=== PATIENT | male | born 1950 | race Caucasian/White ===

== ENCOUNTER → 2018-07-03 07:42 | Outpatient (CLI) | payer MEDICARE, SELFPAY ==
[2018-07-02 13:26] VITALS: BMI 32.7
[2018-07-03 09:48] LABS: AST(SGOT) 37 U/L (15-37); Alanine Aminotransfer ALT/SGPT 38 U/L (16-61); Albumin, Serum 3.8 g/dL (3.2-5.0); Alkaline Phosphatase 54 U/L (45-117); Bilirubin, Direct 0.19 mg/dL (0.00-0.30); Cholesterol 112 mg/dL (200); Globulin 3.5 g/dL (2.2-4.2); High Density Lipoprotein 45 mg/dL; Protein, Total 7.3 g/dL (6.4-8.2); Triglycerides 74 mg/dL; Very Low Density Lipoprotein 15 mg/dL (5-40)
== END ==
PROVIDERS: Family Provider Family Medicine; PCP Family Medicine; Referring Provider Internal Medicine Cardiovascular Disease; Visit Provider Internal Medicine Cardiovascular Disease
DX: E78.5 Hyperlipidemia, unspecified (principal)
CPT/HCPCS: 36415; 80061; 80076

== ENCOUNTER → 2018-07-18 13:26 | Outpatient (CLI) | payer MEDICARE, SELFPAY ==
[2018-07-02 13:26] VITALS: BMI 32.7
--- NOTE | 2018-07-18 13:28 | ECHOCS_ITS ---
Reason For Study: PRE-OP Procedure This was a 2D Doppler, Color Flow transthoracic echocardiogram. The study was technically difficult. Contrast injection was performed. Exam performed in department. Left Ventricle Moderate concentric left ventricular hypertrophy. The estimated ejection fraction is 65 %. Stage 1 diastolic dysfunction. No regional wall motion abnormalities noted. Right Ventricle Normal size and thickness. Normal systolic function. Atria Normal left atrium. Normal right atrium. Normal atrial septum. Mitral Valve Mild diffuse mitral valve thickening. Mild (1+) mitral valve insufficiency. Tricuspid Valve Normal tricuspid valve. Mild (1+) tricuspid valve insufficiency. Right ventricular systolic pressure estimated to be 31 mmHg. Aortic Valve Trisinus/trileaflet aortic valve. Mild focal aortic valve thickening. Mild (1+) aortic valve insufficiency. Pulmonic Valve Normal pulmonic valve. Great Vessels Normal aortic root. Normal arch. Normal inferior vena cava. Inferior vena cava collapse with sniff. Pericardium/Pleural No pericardial effusion. Medication 22 gauge I.V. with prn adaptor inserted into right arm. Diluted definity 3ml given slow IV push to enhance endocardial definition. MMode/2D Measurements & Calculations LVIDd: 3.9 cm IVSd: 1.4 cm Ao root diam: 3.9 cm LVIDs: 2.4 cm LVPWd: 1.5 cm RVDd: 3.6 cm FS: 38.8 % LAV(MOD-bp): 74.1 ml EDV(MOD-sp4): 129.3 ml EDV(MOD-sp2): 132.9 ml LAV(MOD-bp) Indexed: 33.9 ml/m2 ESV(MOD-sp4): 41.4 ml EF(MOD-sp2): 55.3 % LAV(MOD-sp2): 103.2 ml EF(MOD-sp4): 68.0 % LAV(MOD-sp4): 50.9 ml SV(MOD-sp4): 87.9 ml SV(MOD-sp2): 73.5 ml LA A4 area: 19.7 cm2 LA dimension(2D): 4.0 cm RA A4 area: 12.9 cm2 Time Measurements MV dec time: 0.29 sec Doppler Measurements & Calculations MV E max russel: 49.9 cm/sec Lat Peak E' Russel: 8.8 cm/sec Med Peak E' Russel: 6.1 cm/sec MV A max russel: 41.8 cm/sec E/E' lat: 5.7 E/E' med: 8.2 MV E/A: 1.2 PA V2 max: 82.6 cm/sec TR max russel: 251.9 cm/sec TR max P.6 mmHg Interpretation Summary Moderate concentric left ventricular hypertrophy. The estimated ejection fraction is 65 %. Stage 1 diastolic dysfunction. Mild (1+) mitral valve insufficiency. Mild (1+) tricuspid valve insufficiency. Right ventricular systolic pressure estimated to be 31 mmHg. Mild (1+) aortic valve insufficiency. The study was technically difficult. Contrast injection was performed. There is no comparison study available. Ordering Physician: Chai Gambino Referring Physician: LILIA FOURNIER Performed By: Marah Gomez RDCS, RVT
== END ==
PROVIDERS: Family Provider Family Medicine; PCP Family Medicine; Referring Provider Internal Medicine Cardiovascular Disease; Visit Provider Internal Medicine Cardiovascular Disease
DX: I48.0 Paroxysmal atrial fibrillation (principal)
CPT/HCPCS: 93306; Q9957; A4216; C8929

== ENCOUNTER → 2018-07-24 09:03 | Outpatient (CLI) | payer MEDICARE, SELFPAY ==
[2018-07-02 13:26] VITALS: BMI 32.7
--- NOTE | 2018-07-24 09:04 | STEWCON_ITS ---
Reason For Study: Pre-Operative Stress Results Protocol: Dobutamine Stress Echo Maximum Predicted HR: 150 bpm Target HR: 128 bpm % Maximum Predicted HR: 97 % DurationHeart Rate Stage (mm:ss) (bpm) BP Comment Baseline 60 148/76No Chest Pain; Diluted Definity 4 ML Given DSE 10 MCG 3:26 67 161/88No Chest Pain DSE 20 MCG 3:00 108 165/78No Chest Pain DSE 30 MCG 2:54 146 164/85No Chest Pain Recovery 86 157/80No Chest Pain Stress Duration: 9:20 mm:ss Maximum Stress HR: 146 bpm METS: 1 Baseline Echocardiogram Findings The estimated ejection fraction is 65 %. Stress Echo Wall motion Data Resting WM Intermediate WM Stress WM Resting Wall Motion Wall Motion Stress No regional wall motion No regional wall motion abnormalities noted. abnormalities noted. EKG Data The baseline ECG displays normal sinus rhythm. The patient was titrated from 10 mcg to a maximun of 30 mcg of dobutamine during the stress. The maximum heart rate attained was 157 beats per minute. This was 104% of maximum predicted heart rate. During dobutamine infusion, there were no ST or T wave changes noted to suggest ischemia. No clinical angina was noted. Interpretation Summary The estimated ejection fraction is 65 %. Normal, adequate, dobutamine echocardiogram. Negative for ischemia by EKG and echocardiographic anterior. No anginal symptoms noted. Rare PVCs, ventricular couplets, and ventricular triplet during dobutamine infusion which is a nonspecific finding. Appropriate blood pressure response to dobutamine. Test terminated due to the attainment of target heart rate. Final LVEF is 75%. No complications. Ordering Physician: Chai Gambino Referring Physician: Jovan Elder III Performed By: Sinan Wihte RCS
== END ==
PROVIDERS: Family Provider Family Medicine; PCP Family Medicine; Referring Provider Internal Medicine Cardiovascular Disease; Visit Provider Internal Medicine Cardiovascular Disease
DX: Z01.810 Encounter for preprocedural cardiovascular examination (principal); I48.0 Paroxysmal atrial fibrillation; I10 Essential (primary) hypertension; E78.5 Hyperlipidemia, unspecified; E11.9 Type 2 diabetes mellitus without complications; R94.31 Abnormal electrocardiogram [ECG] [EKG]
CPT/HCPCS: 93017; 93350; J7040; Q9957; A4216; C8928

== ENCOUNTER → 2019-01-31 08:40 | Outpatient (CLI) | payer MEDICARE, OTHER, SELFPAY ==
[2018-07-02 13:26] VITALS: BMI 32.7
--- NOTE | 2019-01-31 16:18 | NEURO_ITS ---
NCS and/or EMG Patient Report HPI: Patient is a 68-year-old male who presented with pain in his right leg . Patient Had a back surgery. Patient had pain in the left leg prior to the surgery and after surgery pain has shifted to the right leg. Patient has numbness and tingling and weakness in the legs. Patient has history of diabetes and gout . Physical Exam: Decreased sensation to light touch noted in right and left distal lower extremities. Lumbar incision well-healed with mild spasm and tenderness. Mild weakness in distal lower extremity muscles. Findings: 1. There is prolongation of distal latencies of right and left sural sensory nerve responses. 2. There is a slowing of the right and left common peroneal nerve conduction velocities. 3. There is slowing of the right and left tibial nerve conduction velocities. 4. There is evidence of decreased CMAP amplitudes of the right and left common peroneal motor nerve responses. 5. Needle examination of bilateral lower extremities including lumbar paraspinal muscle except decreased recruitment and insertional activities in right and left EDB muscles. Impression: 1. 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 Recommendation: 1. Clinical correlation and appropriate work-up is recommended. 2. Patient recommended to have close monitoring and control of diabetes mellitus.
== END ==
PROVIDERS: Family Provider Family Medicine; PCP Family Medicine; Referring Provider Nurse Practitioner Acute Care; Visit Provider Nurse Practitioner Acute Care
DX: R20.2 Paresthesia of skin (principal)
CPT/HCPCS: 95886; 95912

== ENCOUNTER 2020-10-29 11:54 | Emergency (ER) | payer MEDICARE, OTHER, SELFPAY ==
[2020-10-29 11:55] VITALS: BP 182/97; PULSE 59; RESP 18; TEMP 35.9; O2SAT 96; BMI 34.0
--- NOTE | 2020-10-29 13:31 | CT_ITS ---
STUDY: CT BRAIN WITHOUT CONTRAST REASON FOR EXAM: Male, 70 years old. headache, dizziness RADIATION DOSAGE (If Supplied By Facility): CTDIvol = ( 38.43 ) mGy, DLP = ( 698.28 ) mGycm TECHNIQUE: Transaxial CT imaging of the brain was performed without administration of intravenous contrast material. Individualized dose optimization techniques were used for this CT. COMPARISON: No relevant priors. FINDINGS: Normal soft tissue structures. Normal calvarium. Normal size ventricles and extra-axial spaces for the patient''s age. Normal white matter tracts of the cerebral hemispheres. Normal basal ganglia and thalami. Normal brainstem. Normal cerebellum. There is no intracranial hemorrhage. There are no findings of an acute ischemic infarction. Normal visualized paranasal sinuses. CT/Brain/Head without Contrast IMPRESSION: Normal unenhanced CT scan of the brain. Electronically Signed: Kalia Maldonado MD at 14:17 EDT Tel , Service support ,
--- NOTE | 2020-10-29 13:31 | EKG12_ITS ---
Test Reason : DIZZINESS Blood Pressure : / mmHG Vent. Rate : 058 BPM Atrial Rate : 058 BPM P-R Int : 180 ms QRS Dur : 078 ms QT Int : 434 ms P-R-T Axes : 051 -23 046 degrees QTc Int : 426 ms Sinus bradycardia with Premature atrial complexes Otherwise normal ECG Confirmed by ADELINE JUNG, GILDA ([id number]), make up editor RODGER CORDOVA ([id number]) on 11/02/2020 8:34:12 AM Referred By: Confirmed By:RAZIA LR MD
[2020-10-29 13:39] LABS: Absolute Lymphocyte Count 1.87 X10^3/uL (0.83-4.51); Absolute Neutrophil Count 4.9 X10^3/uL (2.0-7.7); Basophil# 0.03 X10^3/uL; Basophil% 0.4 % (0-1); Eosinophil# 0.05 X10^3/uL; Eosinophils% 0.7 % (0-5); Hematocrit 38.3 % (40-54); Hemoglobin 12.9 g/dL (13.0-16.5); Lymphocyte # 1.87 X10^3/ul (0.83-4.51); Lymphocyte % 25.3 % (19-41); Mean Corp Hgb Conc 33.7 g/dL (32-36); Mean Corpuscular Hgb 32.4 pg (27.0-32.0); Mean Corpuscular Volume 96.2 fL (80-94); Monocyte# 0.54 X10^3/uL; Monocyte% 7.3 % (0-10); NRBC Flagged by Analyzer 0 % (0-5); Neutrophil # 4.86 X10^3/uL (2.7-7.7); Neutrophil % 65.6 % (47-70); Platelet Count 184 K/mm3 (150-450); RBC Distribution Width CV 12.2 % (11.6-14.6); RBC Distribution Width SD 43.5 fl (35.1-43.9); Red Blood Count 3.98 M/mm3 (4.6-6.2); White Blood Count 7.4 K/mm3 (4.4-11.0)
[2020-10-29] MEDS: Ondansetron 4 MG/2 ML Vial IV (13:42)
[2020-10-29] MEDS: Meclizine HCl 25 MG Tablet PO (13:42)
[2020-10-29 13:47] VITALS: BP 144/71; BP 145/68; BP 151/86; PULSE 58; PULSE 62; PULSE 64
[2020-10-29] MEDS: 0.9% Normal Saline 1,000 ML 150 ML IV (13:50)
[2020-10-29 13:54] VITALS: BP 144/71; PULSE 58; RESP 15; O2SAT 97
[2020-10-29 13:54] LABS: Anion Gap 7 (5-15); BUN 12 mg/dL (7-18); BUN/Creat Ratio 19.8 RATIO (10-20); Calcium,Total 8.8 mg/dL (8.5-10.1); Chloride 105 mmol/L (98-107); Creatinine, Serum 0.61 mg/dL (0.70-1.30); EST Glomerular Filtration Rate 139 mL/min (>60); Est Glom Filt Rate - Afr Amer 168 mL/min (>60); Estimated Creatinine Clearance 68.94 ml/min; Glucose 189 mg/dL (74-106); Potassium 3.9 mmol/L (3.5-5.1); Sodium Level 138 mmol/L (136-145); Troponin-I HS 15 pg/mL (3.0-78.0)
--- NOTE | 2020-10-29 15:04 | EDS_ITS ---
HPI History of Present Illness Chief Complaint: Dizziness Detail of Chief Complaint: Dizziness that started between 8 and 9 AM today. Informant: patient and spouse/S.O. Onset/Context/Timing Worsened by: Movement of head Associated Symptoms Associated Symptoms: Nausea Narrative Narrative: Patient presents to the emergency department complaint of dizziness that started this morning. Patient scribes a spinning sensation of things going around and round. Patient states that he is had similar symptoms in the past and has been diagnosed with vertigo. Patient did break out in a cold sweat and became nauseated. He does complain of a mild headache. He denies any falls or head injuries. He denies recent illness. Patient has been vaccinated against Covid. Patient does have history of paroxysmal A. fib but is not anticoagulated and only takes aspirin. Prior similar symptoms: Yes [facility] Medical History (Updated 10/29/20 @ 15:[address] Vicky Marsh, DO) Abnormal EKG Arthritis of left knee Diabetes mellitus, type II Essential hypertension First degree AV block Gout Hyperlipidemia Lumbar stenosis Paroxysmal atrial fibrillation Pre-operative cardiovascular examination Home Medications aspirin 81 mg PO DAILY 03/27/13 [History Last Taken 03/04/13] [id number]-OM-lycopen-lutein 1 ea PO DAILY 03/27/13 [History Last Taken Unknown] simvastatin 20 mg PO QHS 03/27/13 [History Last Taken Unknown] lisinopril 10 mg tablet 10 mg PO DAILY 06/28/18 [History Last Taken Unknown] gabapentin 600 mg tablet 800 mg PO TID 07/02/18 [History Last Taken Unknown] insulin glargine 100 unit/mL (3 mL) subcutaneous pen 52 unit SUBCUT QHS ml 07/02/18 [History Last Taken Unknown] insulin regular human 100 unit/mL injection solution 6 unit SC TIDCM ml 07/02/18 [History Last Taken Unknown] metformin 500 mg tablet 500 mg PO BIDCM tab 07/02/18 [History Last Taken Unknown] allopurinol 300 mg PO DAILY 10/29/20 [History Last Taken Unknown] dulaglutide [Trulicity] 1.5 mg SUBCUT QWEEK 10/29/20 [History Last Taken Unknown] meclizine 25 mg PO TID PRN #20 tab 10/29/20 [Rx Last Taken Unknown] naproxen sodium [Aleve] 220 mg PO BID 10/29/20 [History Last Taken Unknown] ondansetron 4 mg PO Q8H PRN PRN #10 tab 10/29/20 [Rx Last Taken Unknown] Allergy/AdvReac Type Severity Reaction Status Date / Time amoxicillin [Amoxicillin] AdvReac Other Verified 10/29/20 11:56 Family History Father Abdominal aortic aneurysm CAD (coronary artery disease) Mother Hypertension Brother Hyperlipidemia Hypertension Surgical History H/O carpal tunnel repair History of colon resection (02/16/07) History of colonoscopy (02/2013) History of esophagogastroduodenoscopy (EGD) (02/2013) History of laparoscopic cholecystectomy (04/03/13) Social History (Updated 07/02/18 @ 13:[address] Chai Gambino MD) Smoking Status: Former smoker quit date: 05/28/15 ROS ROS ED ROS Narrative Dizziness Constitutional Constitutional ED: Reports systems reviewed and no addt'l complaints, except as documented and sweats; Denies body ache(s), change in weight or chills Eyes Eyes: Denies acute decrease in peripheral vision, change in vision, double vision or loss of vision ENT ENT ED: Reports none; Denies ear pain, lip swelling, loss taste/smell, neck pain, otalgia or sore throat Cardiovascular Cardiovascular: Reports none; Denies abdominal pain, chest pain with activity, leg edema, lightheadedness, palpitations, rapid heart rate or syncope Respiratory/Chest Respiratory/Chest: Reports none; Denies change in mental status, dry cough, dyspnea, hemoptysis, shortness of breath at rest or shortness of breath with exertion Gastrointestinal Gastrointestinal: Reports none and nausea; Denies abdominal pain, change in stool character, diarrhea, hematemesis, hematochezia, melena, rectal bleeding or vomiting Genitourinary Genitourinary ED: Reports none; Denies abdominal discomfort, anuria, dysuria, ge nital pain or polyuria Musculoskeletal Musculoskeletal: Reports none; Denies arthralgias, back pain, difficulty walking, extremity pain, muscle weakness or myalgias Integumentary Reports none; Denies abscess or rash Neurologic Neurologic: Reports none; Denies abnormal gait, confusion, focal weakness, frequent falls, headache(s), loss of vision, numbness, paresthesias, radicular pain, vertigo or weakness Psychiatric Psychiatric: Reports systems reviewed and no addt'l complaints, except as documented and none; Denies behavioral changes, confusion, difficulty concentrating, hallucinations, suicidal ideation, tactile hallucinations or visual hallucinations Endocrine Endocrinology: Denies none, cold intolerance, excessive sweating, fatigue or heat intolerance Hematologic/Lymphatic Hematologic/Lymphatic: Reports none; Denies anemia, easy bleeding or easy bruis ing Allergic/Immunologic Allergic/Immunologic ED: Denies as per HPI, none, lip swelling, mouth swelling, throat swelling, tongue swelling or hives EXAM Physical Exam Const Vital Signs: 10/29/20 11:55 10/29/20 13:09 10/29/20 13:47 Temperature 96.7 F L Temperature Source Temporal Pulse Rate 59 L Pulse Rate [Lying] 58 L Pulse Rate [Sitting] 62 Pulse Rate [Standing] 64 Respiratory Rate 18 Respiratory Effort Normal Non-Labored Respiratory Pattern Normal Blood Pressure 182/97 H Blood Pressure [Lying] 145/68 H Blood Pressure [Sitting] 151/86 H Blood Pressure [Standing] 144/71 H Blood Pressure Mean 125 Blood Pressure Mean [Lying] 93 Blood Pressure Mean [Sitting] 107 Blood Pressure Mean [Standing] 95 Pulse Ox 96 Oxygen Delivery Method Room Air 10/29/20 13:54 Temperature Temperature Source Pulse Rate 58 L Pulse Rate [Lying] Pulse Rate [Sitting] Pulse Rate [Standing] Respiratory Rate 15 Respiratory Effort Respiratory Pattern Blood Pressure 144/71 H Blood Pressure [Lying] Blood Pressure [Sitting] Blood Pressure [Standing] Blood Pressure Mean 95 Blood Pressure Mean [Lying] Blood Pressure Mean [Sitting] Blood Pressure Mean [Standing] Pulse Ox 97 Oxygen Delivery Method Room Air Positive well nourished and well developed General Appearance ED: well developed and NAD HEENT Reports TM's clear and moist mucous membranes normocephalic and atraumatic; Negative for trauma or tenderness Tympanic Membrane ED: Yes TM's clear Eyes PERRL and EOMs intact bilaterally General Eye ED: Negative for pale conjunctiva or scleral icterus Neck no lymphadenopathy, supple and no JVD General: Negative for tenderness Chest Wall inspection of chest normal and palpation of chest normal Chest: Negative for tenderness Resp normal respiratory effort and clear to auscultation bilaterally Effort and Inspection: Negative for respiratory distress or pain with movement Auscultation: Negative for rhonchi, wheezes or diminished lung sounds Cardio regular rate, regular rhythm, S1 normal heart sound, S2 normal heart sound and no murmurs Peripheral Pulses: pulses 2+ throughout GI normal to inspection, nondistended, normoactive bowel sounds, soft to palpation, non-tender, non-distended and no masses Back/Spine no CVA tenderness and no thoracic nor lumbar tenderness Extremity normal to inspection General Extremety ED: Negative for edema General Extremity: Negative for edema Neuro oriented x3, CN's II-XII intact bilaterally, no sensory deficits noted and gait normal Neuro Narrative: Hallpike maneuver performed there is no evidence of nystagmus on exam. Patient was not more symptomatic with exam. Sensorium / Orientation: awake, alert, oriented to person, oriented to place and oriented to time Motor Exam: strength 5/5 throughout and strength abnormal Psych mental status grossly normal Skin no rashes or lesions noted and no wounds MDM MDM MDM Narrative Medical decision making narrative: I suspect patient likely has benign positional vertigo. His work-up in the department was unremarkable. He was medicated with Zofran and Antivert and did feel symptomatically improved. He was able to ambulate in department without difficulty. Lab Data Attestation: I reviewed the patient's lab results. Labs: Laboratory Results - last 24 hr 10/29/20 10/29/20 13:14 13:14 WBC 7.4 RBC 3.98 L Hgb 12.9 L Hct 38.3 L MCV 96.2 H MCH 32.4 H MCHC 33.7 RDW Std Deviation 43.5 RDW Coeff of Angelique 12.2 Plt Count 184 MPV 10.0 Immature Gran % (Auto) 0.700 Neut % (Auto) 65.6 Lymph % (Auto) 25.3 Josephine % (Auto) 7.3 Eos % (Auto) 0.7 Baso % (Auto) 0.4 Absolute Neuts (auto) 4.9 Absolute Lymphs (auto) 1.87 Nucleated RBC % 0 Sodium 138 Potassium 3.9 Chloride 105 Carbon Dioxide 26.0 Anion Gap 7 BUN 12 Creatinine 0.61 L Estim Creat Clear Calc 68.94 Est GFR (MDRD) Af Amer 168 Est GFR (MDRD) Non-Af 139 BUN/Creatinine Ratio 19.8 Glucose 189 H Calcium 8.8 Troponin I High Sens 15 Radiography Diagnostic Testing: Radiology Impression Brain CT 10/29/20 13:31 IMPRESSION: Normal unenhanced CT scan of the brain. Electronically Signed: Kalia Maldonado MD at 14:17 EDT Tel , Service support , EKG Initial EKG: Attestation: I personally reviewed and interpreted this EKG as follows: Comments: Sinus rhythm with a ventricular rate of 58 bpm with occasional PACs. Discharge Plan Triage Chief Complaint: Dizziness ED Provider: Vicky Marsh Dx/Rx/DC Orders Clinical Impression: Benign paroxysmal positional vertigo Instructions: ED BPV Vertigo Prescriptions: New ondansetron [ondansetron] 4 MG tablet 4 mg PO Q8H PRN PRN (Reason: Nausea) Qty: 10 RF: 0 meclizine 25 mg tablet 25 mg PO TID PRN (Reason: dizziness) Qty: 20 RF: 0 No Action lisinopril 10 mg tablet 10 mg PO DAILY RF: 0 Humulin R Regular U-100 Insuln 100 unit/mL solution 6 unit SC TIDCM RF: 0 gabapentin 600 mg tablet 800 mg PO TID RF: 0 aspirin 81 MG tablet,delayed release (DR/EC) 81 mg PO DAILY RF: 0 simvastatin 20 MG tablet 20 mg PO QHS RF: 0 yjnrlqsh-olk-KM-lycopen-lutein 1 EACH tablet 1 ea PO DAILY RF: 0 metformin 500 mg tablet 500 mg PO BIDCM RF: 0 insulin glargine 100 unit/mL (3 mL) insulin pen 52 unit subcut QHS RF: 0 naproxen sodium [Aleve] 220 mg Tablet 220 mg PO BID RF: 0 allopurinol 300 mg tablet 300 mg PO DAILY RF: 0 Trulicity 1.5 mg/0.5 mL Pen Injector 1.5 mg SUBCUT QWEEK RF: 0 Primary Care Provider: Alvarado Madrigal Referrals: Alvarado Madrigal MD [Primary Care Provider] - 3-5 Days Disposition Disposition: Home, Self Care
[2020-10-29 15:14] VITALS: BP 164/83; PULSE 63; RESP 12; O2SAT 94
== END 2020-10-29 15:21 | disposition home or self-care (01) ==
PROVIDERS: Emergency Provider Emergency Medicine; PCP Family Medicine
DX: H81.10 Benign paroxysmal vertigo, unspecified ear (principal); E11.9 Type 2 diabetes mellitus without complications; I10 Essential (primary) hypertension; E78.5 Hyperlipidemia, unspecified; Z79.4 Long term (current) use of insulin; Z79.899 Other long term (current) drug therapy; Z87.891 Personal history of nicotine dependence
CPT/HCPCS: 70450; 80048; 84484; 85025; 93005; 96374; 99284; J7030; A4216; J2405

== ENCOUNTER 2021-03-05 13:48 | Inpatient (IN) | payer MEDICARE, OTHER, SELFPAY ==
[2021-03-05] VITALS (10 sets, daily range): BP systolic 139–190; BP diastolic 76–101; PULSE 61–83; RESP 14–22; TEMP 35.7–36.7; O2SAT 95–100; BMI 32.3; BMI 33.9
[2021-03-05 14:01] LABS: Bedside Glucose 179 mg/dL (70-110)
--- NOTE | 2021-03-05 14:24 | EKG12_ITS ---
Test Reason : NEURO S/SX Blood Pressure : / mmHG Vent. Rate : 068 BPM Atrial Rate : 068 BPM P-R Int : 200 ms QRS Dur : 086 ms QT Int : 384 ms P-R-T Axes : 058 -30 068 degrees QTc Int : 408 ms Sinus rhythm with occasional Premature ventricular complexes Left axis deviation Abnormal ECG Low voltage QRS Confirmed by JC JUNG, CODEY ([id number]), deputy editor in chief OCTAVIA COX ([id number]) on 03/08/2021 12:44:10 PM Referred By: LEÓN Confirmed By:CODEY GREENE MD
--- NOTE | 2021-03-05 14:25 | CT_ITS ---
We are attempting to reach an attending provider to discuss findings. An addendum with communication details will be sent when the communication is complete. STUDY: CTA HEAD AND NECK WITH CONTRAST REASON FOR EXAM: Male, 70 years old. Neuro deficit, acute, stroke suspected RADIATION DOSAGE (If Supplied By Facility): CTDIvol = ( 31.05 ) mGy, DLP = ( 1522.23 ) mGycm TECHNIQUE: CT angiography was performed with a multi-detector CT scanner. Data acquisition was obtained from the skull base through the vertex following intravenous administration of IV 100mL [id number]-370. MIP images were reconstructed from the axial data set. Post-processing of the angiographic images was performed, with multiplanar reformation and 3D reconstruction. Individualized dose optimization techniques were used for this CT. COMPARISON: CT head October 29, 2020 FINDINGS: Normal bilateral petrous carotid arteries. There is calcified plaque formation of the right cavernous carotid artery, without a cross-sectional luminal stenosis. There is calcified plaque formation of the left cavernous carotid artery, without a cross-sectional luminal stenosis. Normal right A1 segments of the anterior cerebral artery. Normal left A1 segments of the anterior cerebral artery. Normal intact anterior communicating artery (ACOM). Normal bilateral A2 segments of the anterior cerebral arteries. Normal right M1 and M2 segments of the middle cerebral arteries, with a normal M1 bifurcation. Normal left M1 and M2 segments of the middle cerebral arteries, with a normal M1 bifurcation. Normal right posterior communicating artery (PCOM). Normal left posterior communicating artery (PCOM). There is dense calcification of the left vertebral artery with possibly occlusive disease over a 5 to 6 mm segment. There is focal moderate stenosis of the distal right vertebral artery The visualized bilateral superior cerebellar (SCA) arteries are normal. Normal bilateral P1, P2 and visualized P3 segments of the posterior cerebral arteries. There is no demonstrated aneurysm of the [place]. The noncontrasted portion of the study demonstrates mild atrophy and involutional change. There is dense calcification of the bilateral vertebral arteries. There is tortuosity. There is calcification of the bilateral cavernous carotid arteries. There is stable subtle low attenuation within the periphery of the cerebellum which could represent atrophy or prior ischemic change. AORTIC ARCH: Normal visualized aortic arch. Normal origins of the brachiocephalic, left common carotid, and left subclavian arteries. RIGHT CAROTID ARTERIES: Normal right common carotid artery (CCA). There is mild atherosclerotic plaque formation with minimal narrowing of the right carotid bulb. There is mild atherosclerotic plaque formation of the origin of the right internal carotid artery with less than 50% cross sectional diameter stenosis. Normal visualized cervical portion of the right internal carotid artery. Normal origin of the right external carotid artery (ECA). LEFT CAROTID ARTERIES: There is atherosclerotic plaque formation of the common carotid artery, but without a hemodynamically significant stenosis. There is mild atherosclerotic plaque formation with minimal narrowing of the left carotid bulb. There is mild atherosclerotic plaque formation of the origin of the left internal carotid artery with less than 50% cross sectional diameter stenosis. Normal visualized cervical portion of the left internal carotid artery. Normal origin of the left external carotid artery (ECA). Visualized degenerative change in the cervical spine. VERTEBRAL ARTERIES: There is moderate to severe narrowing of the distal left vertebral artery with findings suspicious for greater than 70% stenosis in an area of plaque formation. There is focal moderate stenosis of the right distal vertebral artery. CT/STROKE CTA Head AND Neck W/Con IMPRESSION: High-grade stenosis stenosis suspected within the distal left vertebral artery. Similar appearing plaque formation to October 29, 2020. Moderate small focal stenosis of the right vertebral artery. Good contrast enhancement of the basilar artery with an intact [place]. Cannot entirely exclude retrograde filling of the proximal basilar or distal vertebral arteries. Minimal atrophy. No visualized focal edema. [place]. Visualized plaque formation within the carotid arteries with less than 50% stenosis of the left internal carotid artery. [place]. Normal to mild diameter stenosis of the right internal carotid artery. Electronically Signed: Cecy Aponte MD at 15:47 EST Tel , Service support ,
--- NOTE | 2021-03-05 14:26 | EDS_ITS ---
HPI History of Present Illness Chief Complaint: Numb/Ting Informant: patient and spouse/S.O. Onset/Context/Timing Onset: Days Context: Gradual Onset Timing: Intermittent Quality and Location: Positive for Left Face Parasthesia and Difficulty with Ambulation; Negative for Slurred Speech, Expressive Aphasia and Receptive Aphasia Current Severity: Mild Maximum Severity: Mild Associated Symptoms Associated Symptoms: Positive for Headache; Negative for Nausea, Vomiting and Chest Pain Narrative Narrative: 70-year-old male history of hypertension, vertigo and insulin- dependent diabetes. States on Sunday around 1:00 in the afternoon after he took a nap he just felt dizzy. States he felt off balance. He would lean to the left when walking. Said a history of having this happen before. Said he felt better on and Sunday evening he had some left-sided facial numbness like someone gave him a shot of numbing medication. He is never an ything like that. Also describes a posterior headache. He denies any recent head trauma he is on no blood thinners besides aspirin. He has never had a stroke or mini stroke. Prior similar symptoms: No Recent Illness/Hospitalization: No [facility] Medical History (Updated 03/05/21 @ 16:[address] Shashank Norris MD) Abnormal EKG Arthritis of left knee Diabetes mellitus, type II Essential hypertension First degree AV block Gout Hyperlipidemia Lumbar stenosis Paroxysmal atrial fibrillation Pre-operative cardiovascular examination Home Medications aspirin 81 mg PO DAILY 03/27/13 [History Last Taken 03/04/13] ovzlxurv-btv-EW-lycopen-lutein 1 ea PO DAILY 03/27/13 [History Last Taken Unknown] simvastatin 20 mg PO QHS 03/27/13 [History Last Taken Unknown] lisinopril 10 mg tablet 10 mg PO DAILY 06/28/18 [History Last Taken Unknown] gabapentin 600 mg tablet 800 mg PO TID 07/02/18 [History Last Taken Unknown] insulin glargine 100 unit/mL (3 mL) subcutaneous pen 52 unit SUBCUT QHS ml 07/02/18 [History Last Taken Unknown] insulin regular human 100 unit/mL injection solution 10 unit SC TIDCM ml 07/02/18 [History Last Taken Unknown] metformin 500 mg tablet 500 mg PO BIDCM tab 07/02/18 [History Last Taken Unknown] allopurinol 300 mg PO DAILY 10/29/20 [History Last Taken Unknown] dulaglutide [Trulicity] 1.5 mg SUBCUT QWEEK 10/29/20 [History Last Taken Unknown] meclizine 25 mg PO TID PRN #20 tab 10/29/20 [Rx Last Taken Unknown] naproxen sodium [Aleve] 220 mg PO BID 10/29/20 [History Last Taken Unknown] ondansetron 4 mg PO Q8H PRN PRN #10 tab 10/29/20 [Rx Last Taken Unknown] Allergy/AdvReac Type Severity Reaction Status Date / Time amoxicillin [Amoxicillin] AdvReac Other Verified 03/05/21 13:49 Family History Father Abdominal aortic aneurysm CAD (coronary artery disease) Mother Hypertension Brother Hyperlipidemia Hypertension Surgical History H/O carpal tunnel repair History of colon resection (02/16/07) History of colonoscopy (02/2013) History of esophagogastroduodenoscopy (EGD) (02/2013) History of laparoscopic cholecystectomy (04/03/13) Social History Smoking Status: Former smoker quit date: 05/28/15 ROS ROS ED ROS Narrative Dizziness. Posterior headache. Review of Systems ROS Unobtainable: Denies due to encephalopathy Constitutional Constitutional ED: Denies chills or fever(s) Eyes Eyes: Denies blurry vision or change in vision ENT ENT ED: Denies ear pain or sore throat Cardiovascular Cardiovascular: Denies chest pain or palpitations Respiratory/Chest Respiratory/Chest: Denies cough, dyspnea or sputum Gastrointestinal Gastrointestinal: Denies abdominal pain, diarrhea, nausea or vomiting Genitourinary Genitourinary ED: Denies dysuria Musculoskeletal Musculoskeletal: Denies myalgias Integumentary Denies rash Neurologic Neurologic: Reports headache(s) Psychiatric Psychiatric: Denies anxiety or depression Endocrine Endocrinology: Denies polyuria Hematologic/Lymphatic Hematologic/Lymphatic: Denies easy bruising Allergic/Immunologic Allergic/Immunologic ED: Denies urticaria EXAM Physical Exam Narrative Exam Narrative: 70-year-old male no acute distress vital signs stable blood pressure elevated 180/76. Pulse ox 9% on room air. No hypoxia. H EENT exam unremarkable. No facial droop. Subjective left cheek numbness. Given reactive light his motions are intact. Able wrinkles forward. Neck nontender. Lungs clear to auscultation. Heart regular rhythm rate about 70 no murmur. Chest wall nontender. Abdomen soft nontender. Moving all 4 extremities. Normal 5/5 resource analyst strength. Normal dorsi plantar flexion. Negative drift. Neurologically is awake and alert. No focal motor deficits. Other than subjective left-sided facial numbness there is no weakness of upper or lower extremities. Fingertip to nose within normal limits. NIH is 0. Const Vital Signs: 03/05/21 13:49 03/05/21 14:02 03/05/21 14:39 Temperature 96.3 F L Temperature Source Temporal Pulse Rate 68 72 Respiratory Rate 14 18 Blood Pressure 188/76 H 190/101 H Blood Pressure Mean 113 130 Pulse Ox 100 95 98 Oxygen Delivery Method Room Air Room Air Room Air 03/05/21 14:45 03/05/21 16:00 Temperature Temperature Source Pulse Rate 72 79 Respiratory Rate 16 16 Blood Pressure 158/86 H 142/85 H Blood Pressure Mean 110 104 Pulse Ox 98 96 Oxygen Delivery Method Room Air Room Air Positive well nourished and well developed; Negative for obese, cachectic, contractures or unkempt General Appearance ED: well developed and NAD; Negative for unkempt, cachectic or contractures Nutritional Appearance: Negative for cachectic or obese HEENT Reports moist mucous membranes; Denies TM's clear atraumatic; Negative for trauma Tympanic Membrane ED: Negative for TM's clear Eyes PERRL and EOMs intact bilaterally General Eye ED: Negative for pale conjunctiva or scleral icterus Neck no lymphadenopathy, supple and no JVD General: Negative for tenderness Chest Wall inspection of chest normal and palpation of chest normal Resp normal respiratory effort and clear to auscultation bilaterally Auscultation: Negative for rales, rhonchi or wheezes Cardio no murmurs Rate: regular rate Rhythm: regular rhythm Heart Sounds: S1 normal and S2 normal GI normal to inspection, nondistended, normoactive bowel sounds, soft to palpation, non-tender, non-distended and no masses Inspection: Negative for abdominal distention Auscultation: normoactive bowel sounds Palpation: Negative for tender, guarding or rebound tenderness present Back/Spine no CVA tenderness General Back: Negative for CVA tenderness Cervical Spine: Negative for cervical spine tenderness Thoracic Spine / Upper Back: Negative for thoracic spinal tenderness Extremity normal to inspection General Extremety ED: Negative for deformity, edema or tenderness General Extremity: Negative for deformity or edema Neuro oriented x3 and CN's II-XII intact bilaterally Sensorium / Orientation: alert, oriented to person, oriented to place and oriented to time; Negative for orientation impaired, confused, lethargic or stuporous Speech: speech normal Motor Exam: strength 5/5 throughout; Negative for general weakness Psych mental status grossly normal Appearance: Negative for unkempt Attitude: No agitated Mood & Affect: Negative for depressed or tearful Skin no wounds General Skin Exam: Negative for jaundice Lesions: no lesions Rashes: no rashes STROKE Vital Signs/Narrative: Vital Signs Temp Pulse Resp BP Pulse Ox 03/05/21 16:00 79 16 142/85 H 96 03/05/21 14:45 72 16 158/86 H 98 03/05/21 14:39 98 03/05/21 14:02 72 18 190/101 H 95 03/05/21 13:49 96.3 F L 68 14 188/76 H 100 Inital Vital Signs reviewed: Yes MDM MDM MDM Narrative Medical decision making narrative: 70-year-old male with lightheadedness and dizziness. Paresthesia subjectively nose left face. Undergoing stroke work-up including a CTA head and neck. Repeat exam patient is doing well at 3:55 PM. Him and I discussed his test results. The concern I have is the CTA of his head neck showing possible vertebral insufficiency or posterior circulation issues. I'll speak to the hospitalist about admission, neurology consultation and possibly further imaging to determine a treatment plan. Per the hospitalist request I did speak to the on-call neurologist for [facility]. She and I discussed the patient's history, exam and work-up. She along with I do not feel the patient needs transferred. She said there is no acute intervention for vertebral insufficiency. She would admit the patient for stroke work-up and most likely an MRI. She and I both feel comfortable with patient to be admitted here. I discussed this with the hospitalist. Lab Data Attestation: I reviewed the patient's lab results. Lab results narrative: CBC unremarkable. White count 9.1. Hemoglobin 13.8. Platelets 218. PT, INR and PTT normal. BMP unremarkable. Glucose 176. Troponin normal. Labs: Laboratory Results - last 24 hr 03/05/21 03/05/21 03/05/21 13:58 14:00 14:00 WBC 9.1 RBC 4.34 L Hgb 13.8 Hct 41.5 MCV 95.6 H MCH 31.8 MCHC 33.3 RDW Std Deviation 45.0 H RDW Coeff of Angelique 12.8 Plt Count 218 MPV 10.5 Immature Gran % (Auto) 0.400 Neut % (Auto) 57.2 Lymph % (Auto) 32.8 [place] % (Auto) 8.0 Eos % (Auto) 1.2 Baso % (Auto) 0.4 Absolute Neuts (auto) 5.2 Absolute Lymphs (auto) 2.98 Nucleated RBC % 0 PT 12.0 INR 0.9 APTT 26.4 Sodium Potassium Chloride Carbon Dioxide Anion Gap BUN Creatinine Estim Creat Clear Calc Est GFR (MDRD) Af Amer Est GFR (MDRD) Non-Af BUN/Creatinine Ratio Glucose Calcium Troponin I High Sens POC Glucose 179 H 03/05/21 14:00 WBC RBC Hgb Hct MCV MCH MCHC RDW Std Deviation RDW Coeff of Angelique Plt Count MPV Immature Gran % (Auto) Neut % (Auto) Lymph % (Auto) [place] % (Auto) Eos % (Auto) Baso % (Auto) Absolute Neuts (auto) Absolute Lymphs (auto) Nucleated RBC % PT INR APTT Sodium 137 Potassium 4.2 Chloride 103 Carbon Dioxide 28.0 Anion Gap 6 BUN 12 Creatinine 0.85 Estim Creat Clear Calc 81.11 Est GFR (MDRD) Af Amer 114 Est GFR (MDRD) Non-Af 94 BUN/Creatinine Ratio 14.2 Glucose 176 H Calcium 9.5 Troponin I High Sens 13 POC Glucose Radiography Diagnostic Testing: Clinical Impression(s) from Imaging Studies Head/Neck CTA 03/05/21 14:25 IMPRESSION: High-grade stenosis stenosis suspected within the distal left vertebral artery. Similar appearing plaque formation to October 29, 2020. Moderate small focal stenosis of the right vertebral artery. Good contrast enhancement of the basilar artery with an intact nightmute of Brown. Cannot entirely exclude retrograde filling of the proximal basilar or distal vertebral arteries. Minimal atrophy. No visualized focal edema. Nascet. Visualized plaque formation within the carotid arteries with less than 50% stenosis of the left internal carotid artery. Nascet. Normal to mild diameter stenosis of the right internal carotid artery. Electronically Signed: Cecy Aponte MD at 15:47 EST Tel , Service support , ADDENDUM: 03/05/21 1557 IMPRESSION: High-grade stenosis stenosis suspected within the distal left vertebral artery. Similar appearing plaque formation to October 29, 2020. Moderate small focal stenosis of the right vertebral artery. Good contrast enhancement of the basilar artery with an intact nightmute of Brown. Cannot entirely exclude retrograde filling of the proximal basilar or distal vertebral arteries. Minimal atrophy. No visualized focal edema. Nascet. Visualized plaque formation within the carotid arteries with less than 50% stenosis of the left internal carotid artery. Nascet. Normal to mild diameter stenosis of the right internal carotid artery. N.B. : The above Results were Read Back by Cecy Aponte MD to Dr. Alvarado Norris MD, and understanding confirmed on 03/05/2021 15:49:57 (ET). Electronically Signed: Cecy Aponte MD at 15:47 EST Tel , Service support , Chest X-Ray 03/05/21 15:10 IMPRESSION: Right lower lobe atelectasis. Borderline cardiac enlargement. Electronically Signed: Cecy Aponte MD at 15:48 EST Tel , Service support , Rhythm Strip Rhythm Strip: Sinus Rhythm Rate: 68 Ectopy: PVC(s) EKG Initial EKG: Attestation: I personally reviewed and interpreted this EKG as follows: Interpretation: Sinus Rhythm and No Acute Injury Pattern Comments: Normal sinus rhythm rate of 68. Occasional PVCs. No acute signs of CA or ischemia. No significant dysrhythmia. Stroke Documentation Questions Stroke Team Activated: No Reviewed Inclusion/Exclusion criteria: Yes Was Patient considered for Endovascular Intervention?: No IV Alteplase (t-PA) Administered: No No contraindications for IV Alteplase (t-PA) administration.: No Alteplase (t-PA) risks, benefits, alternative discussed: No Not given: Patient refusal: No Discharge Plan Dx/Rx/DC Orders Clinical Impression: Transient ischemic attack, posterior circulation, remote, resolved, Diabetes mellitus, type II Disposition Disposition: Acute Care Hospital [facility]
[2021-03-05 15:00] LABS: Absolute Lymphocyte Count 2.98 X10^3/uL (0.83-4.51); Absolute Neutrophil Count 5.2 X10^3/uL (2.0-7.7); Basophil# 0.04 X10^3/uL; Basophil% 0.4 % (0-1); Eosinophil# 0.11 X10^3/uL; Eosinophils% 1.2 % (0-5); Hematocrit 41.5 % (40-54); Hemoglobin 13.8 g/dL (13.0-16.5); Lymphocyte # 2.98 X10^3/ul (0.83-4.51); Lymphocyte % 32.8 % (19-41); Mean Corp Hgb Conc 33.3 g/dL (32-36); Mean Corpuscular Hgb 31.8 pg (27.0-32.0); Mean Corpuscular Volume 95.6 fL (80-94); Mean Platelet Vol. 10.5 fl (6.2-12.0); Monocyte# 0.73 X10^3/uL; NRBC Flagged by Analyzer 0 % (0-5); Neutrophil # 5.19 X10^3/uL (2.7-7.7); Neutrophil % 57.2 % (47-70); Platelet Count 218 K/mm3 (150-450); RBC Distribution Width CV 12.8 % (11.6-14.6); Red Blood Count 4.34 M/mm3 (4.6-6.2); White Blood Count 9.1 K/mm3 (4.4-11.0)
[2021-03-05 15:03] LABS: Anion Gap 6 (5-15); BUN 12 mg/dL (7-18); BUN/Creat Ratio 14.2 RATIO (10-20); Calcium,Total 9.5 mg/dL (8.5-10.1); Chloride 103 mmol/L (98-107); Creatinine, Serum 0.85 mg/dL (0.70-1.30); EST Glomerular Filtration Rate 94 mL/min (>60); Est Glom Filt Rate - Afr Amer 114 mL/min (>60); Estimated Creatinine Clearance 81.11 ml/min; Glucose 176 mg/dL (74-106); Potassium 4.2 mmol/L (3.5-5.1); Sodium Level 137 mmol/L (136-145); Troponin-I HS 13 pg/mL (3.0-78.0)
[2021-03-05 15:05] LABS: International Normalized Ratio 0.9
[2021-03-05 15:06] LABS: Partial Thromboplast Time 26.4 Seconds (24.1-36.2)
--- NOTE | 2021-03-05 15:10 | RAD_ITS ---
STUDY: X-RAY CHEST REASON FOR EXAM: Male, 70 years old. Neuro deficit, acute, stroke suspected TECHNIQUE: Single AP portable view of the chest. COMPARISON: None. FINDINGS: There is elevation of the right hemidiaphragm. There is no demonstrated pleural abnormality. Normal size heart. Normal mediastinum and linda. Normal visualized pulmonary arteries. Normal visualized aortic arch and descending thoracic aorta. Normal visualized thoracic spine. Normal visualized ribs, clavicles, and shoulders. There is no demonstrated abnormality of the visualized soft tissue structures of the upper abdomen. RAD/Chest 1 View IMPRESSION: Right lower lobe atelectasis. Borderline cardiac enlargement. Electronically Signed: Cecy Aponte MD at 15:48 EST Tel , Service support ,
--- NOTE | 2021-03-05 16:47 | PCM.HP.STD ---
[facility] - General General Date of Admission: 03/05/21 HPI Narrative REZA PIERRE, is a 70 M who presents with complaints of dizziness and a numbness in his left cheek. His symptoms for started on Sunday after he woke up from a nap and he felt dizzy and when he walked he felt like he was veering towards the left. He did not have any falls. He later developed left-sided numbness on his face without numbness in his arms or legs, and this concerned him since he had never had this symptom before. He does not take blood thinners and he does take an aspirin every other day, instead of daily because of bruising. In the ED he also complained of a posterior headache. Does not note a history of atrial fibrillation. Patient has had hyperlipidemia and was last checked 3 months ago, and has uncontrolled diabetes but is compliant with insulin and does exercise frequently. He is watching his diet and trying to lose weight. he states he can walk 2 and half to 3 miles. He is not a smoker and denies illicit drug use such as marijuana and cocaine. On work-up the patient's electrolytes and hematology labs were normal and a CT head did not show ischemia however on his CTA vertebral arteries did show stenosis, over 70% in the left vertebral artery. The emergency physicians discussed with [facility] neurologist regarding further work-up and they did recommend inpatient admission, including MRI to rule out a basilar stroke. [facility] Medical History (Updated 03/05/21 @ 17:[address] Rao Groves MD) Abnormal EKG Arthritis of left knee Diabetes mellitus, type II Essential hypertension First degree AV block Gout Hyperlipidemia Lumbar stenosis Paroxysmal atrial fibrillation Pre-operative cardiovascular examination Home Medications aspirin 81 mg PO DAILY 03/27/13 [History Last Taken 03/04/13] nvfxlwsz-obe-SE-lycopen-lutein 1 ea PO DAILY 03/27/13 [History Last Taken Unknown] simvastatin 20 mg PO QHS 03/27/13 [History Last Taken Unknown] lisinopril 10 mg tablet 10 mg PO DAILY 06/28/18 [History Last Taken Unknown] gabapentin 600 mg tablet 800 mg PO TID 07/02/18 [History Last Taken Unknown] insulin glargine 100 unit/mL (3 mL) subcutaneous pen 52 unit SUBCUT QHS ml 07/02/18 [History Last Taken Unknown] insulin regular human 100 unit/mL injection solution 10 unit SC TIDCM ml 07/02/18 [History Last Taken Unknown] metformin 500 mg tablet 500 mg PO BIDCM tab 07/02/18 [History Last Taken Unknown] allopurinol 300 mg PO DAILY 10/29/20 [History Last Taken Unknown] dulaglutide [Trulicity] 1.5 mg SUBCUT QWEEK 10/29/20 [History Last Taken Unknown] meclizine 25 mg PO TID PRN #20 tab 10/29/20 [Rx Last Taken Unknown] naproxen sodium [Aleve] 220 mg PO BID 10/29/20 [History Last Taken Unknown] ondansetron 4 mg PO Q8H PRN PRN #10 tab 10/29/20 [Rx Last Taken Unknown] Allergy/AdvReac Type Severity Reaction Status Date / Time amoxicillin [Amoxicillin] AdvReac Other Verified 03/05/21 13:49 Family History Father Abdominal aortic aneurysm CAD (coronary artery disease) Mother Hypertension Brother Hyperlipidemia Hypertension Surgical History H/O carpal tunnel repair History of colon resection (02/16/07) History of colonoscopy (02/2013) History of esophagogastroduodenoscopy (EGD) (02/2013) History of laparoscopic cholecystectomy (04/03/13) Social History Smoking Status: Former smoker quit date: 05/28/15 ROS ROS Narrative Fevers chills, chest pain or racing cough shortness of breath dysuria hematuria mood changes anxiety insomnia. Skin notable for bruising. He has no falls. No trouble seeing or hearing. Does have intermittent dysphagia, and numbness on his face and numbness in his lower extremities secondary to diabetic neuropathy Vital Signs Vital Signs Vital Signs: 03/05/21 13:49 03/05/21 14:02 03/05/21 14:39 Temperature 96.3 F L Temperature Source Temporal Pulse Rate 68 72 Respiratory Rate 14 18 Blood Pressure 188/76 H 190/101 H Blood Pressure Mean 113 130 Pulse Ox 100 95 98 Oxygen Delivery Method Room Air Room Air Room Air 03/05/21 14:45 03/05/21 16:00 03/05/21 16:35 Temperature 98 F Temperature Source Oral Pulse Rate 72 79 83 Respiratory Rate 16 16 19 H Blood Pressure 158/86 H 142/85 H 139/84 H Blood Pressure Mean 110 104 102 Pulse Ox 98 96 Oxygen Delivery Method Room Air Room Air Weight Weight: 225 lb Body Mass Index (BMI) 32.3 Physical Exam Const alert General Appearance: cooperative HEENT normocephalic and hearing grossly normal bilaterally Eyes EOMs intact bilaterally Neck no lymphadenopathy Resp normal respiratory effort and clear to auscultation bilaterally Cardio regular rate, regular rhythm, S1 normal heart sound and S2 normal heart sound GI normal to inspection, nondistended, normoactive bowel sounds Skin no rashes or lesions noted Neuro Neuro Narrative: Patient has normal well-developed speech. There is a very slight facial droop to the left. He has minimally decreased sensation on left cheek, but sensation in his left arm is intact Electrical Unit Rebuilder strength is 5 out of 5 on both hands. He does not exhibit any nystagmus. Psych affect normal Results Lab / Micro Data Result Diagrams: 03/05/21 14:00 03/05/21 14:00 Labs: Laboratory Results - last 24 hr 03/05/21 13:58: POC Glucose 179 H 03/05/21 14:00: WBC 9.1, RBC 4.34 L, Hgb 13.8, Hct 41.5, MCV 95.6 H, MCH 31.8, MCHC 33.3, RDW Std Deviation 45.0 H, RDW Coeff of Angelique 12.8, Plt Count 218, MPV 10.5, Immature Gran % (Auto) 0.400, Neut % (Auto) 57.2, Lymph % (Auto) 32.8, [place] % (Auto) 8.0, Eos % (Auto) 1.2, Baso % (Auto) 0.4, Absolute Neuts (auto) 5.2, Absolute Lymphs (auto) 2.98, Nucleated RBC % 0 03/05/21 14:00: PT 12.0, INR 0.9, APTT 26.4 03/05/21 14:00: Sodium 137, Potassium 4.2, Chloride 103, Carbon Dioxide 28.0, Anion Gap 6, BUN 12, Creatinine 0.85, Estim Creat Clear Calc 81.11, Est GFR (MDRD) Af Amer 114, Est GFR (MDRD) Non-Af 94, BUN/Creatinine Ratio 14.2, Glucose 176 H, Calcium 9.5, Troponin I High Sens 13 Rhythm Strip Rhythm Strip: Sinus Rhythm Rate: 68 Ectopy: PVC(s) Radiology Impression Head/Neck CTA 03/05/21 14:25 IMPRESSION: High-grade stenosis stenosis suspected within the distal left vertebral artery. Similar appearing plaque formation to October 29, 2020. Moderate small focal stenosis of the right vertebral artery. Good contrast enhancement of the basilar artery with an intact teller of Brown. Cannot entirely exclude retrograde filling of the proximal basilar or distal vertebral arteries. Minimal atrophy. No visualized focal edema. Nascet. Visualized plaque formation within the carotid arteries with less than 50% stenosis of the left internal carotid artery. Nascet. Normal to mild diameter stenosis of the right internal carotid artery. Electronically Signed: Cecy Aponte MD at 15:47 EST Tel , Service support , ADDENDUM: 03/05/21 1557 IMPRESSION: High-grade stenosis stenosis suspected within the distal left vertebral artery. Similar appearing plaque formation to October 29, 2020. Moderate small focal stenosis of the right vertebral artery. Good contrast enhancement of the basilar artery with an intact teller of Brown. Cannot entirely exclude retrograde filling of the proximal basilar or distal vertebral arteries. Minimal atrophy. No visualized focal edema. Nascet. Visualized plaque formation within the carotid arteries with less than 50% stenosis of the left internal carotid artery. Nascet. Normal to mild diameter stenosis of the right internal carotid artery. N.B. : The above Results were Read Back by Cecy Aponte MD to Dr. Alvarado Norris MD, and understanding confirmed on 03/05/2021 15:49:57 (ET). Electronically Signed: Cecy Aponte MD at 15:47 EST Tel , Service support , Chest X-Ray 03/05/21 15:10 IMPRESSION: Right lower lobe atelectasis. Borderline cardiac enlargement. Electronically Signed: Cecy Aponte MD at 15:48 EST Tel , Service support , Assessment & Plan Assessment/Plan (1) Transient ischemic attack, posterior circulation, remote, resolved: (2) Diabetes mellitus, type II: (3) Essential hypertension: (4) Hyperlipidemia: (5) Vertebral artery stenosis: PLAN: Transient ischemic attack versus subacute stroke Vertebral stenosis Other than the numbness in his left cheek the patient does not have any new acute symptoms. It is possible some of his dizziness is related to posterior vertebral stenosis with hyperlipidemia and diabetes being significant risk factors. His symptoms cannot be explained by BPPV or other central vertigo -Admit to PCU on cardiac monitoring -Check TSH and lipids -Continue neurochecks q4 dysphagia screening and then start diet -Per [facility] neuro, no intervention on vertebral stenosis however will appreciate nuerology to weigh in -Give aspirin now and continue 325 mg aspirin daily. Neurology to be consulted by primary team and decide on DAPT -Fall precautions -Increased simvastain 20 to 40 mg -We will obtain MRI and cardiac echo -Physical therapy, occupational therapy, and case management consults. -Stroke education. Diabetes -Glucose checks routinely w/ High dose SSI -52 u glargine nightly -Carb consistent diet -Hold metformin right now Hypertension -resume home medications Patient is a DNR and we have discussed this with the patient and family Continue carb consistent diet Start Lovenox 40 mg Rao Groves MD Charges/Coding Visit Charges Inpatient E&M: 42274 Init Hosp L2
--- NOTE | 2021-03-05 17:24 | ECHOCS_ITS ---
Reason For Study: TIA/CVA Procedure This was a 2D Doppler, Color Flow transthoracic echocardiogram. The study was technically difficult. Contrast injection was performed. Bubble study performed. Exam performed portable in patient room. Left Ventricle Normal LV size. Left ventricular systolic function is normal. The estimated ejection fraction is 65 %. Diastolic function is indeterminate. No regional wall motion abnormalities noted. Right Ventricle Normal RV size. Normal systolic function. Atria The left atrium is mildly enlarged. Normal right atrium. No doppler evidence for ASD. Bubble contrast study negative for right to left interatrial shunt. Mitral Valve There is no mitral annular calcification. Normal mitral valve. Trivial mitral valve insufficiency. Tricuspid Valve Normal tricuspid valve. Trivial tricuspid valve insufficiency. Unable to estimate RV systolic pressure/pulmonary artery pressure due to technically difficult study. Aortic Valve Trisinus/trileaflet aortic valve. Normal aortic valve. Trivial aortic valve insufficiency. Pulmonic Valve The pulmonic valve is not well visualized. Great Vessels The aortic root is not well visualized. Pericardium/Pleural No pericardial effusion. Medication Diluted definity 2ml given slow IV push to enhance endocardial definition. Performed a rapid injection of agitated mix of 9 cc saline and 1cc air to assess for atrial septal defect. MMode/2D Measurements & Calculations LVIDd: 5.3 cm IVSd: 1.2 cm LA dimension: 4.7 cm LVIDs: 3.5 cm LVPWd: 1.2 cm FS: 33.9 % LAV(MOD-sp2): 88.7 ml Time Measurements MV dec time: 0.31 sec Doppler Measurements & Calculations MV E max russel: 53.1 cm/sec Lat Peak E' Russel: 6.8 cm/sec Med Peak E' Russel: 6.4 cm/sec MV A max russel: 62.7 cm/sec E/E' lat: 7.8 E/E' med: 8.3 MV E/A: 0.85 MV V2 max: 67.3 cm/sec MV P1/2t max russel: 55.6 cm/sec Ao V2 max: 99.0 cm/sec MV max P.8 mmHg MV P1/2t: 62.0 msec Ao max P.0 mmHg MV V2 mean: 36.3 cm/sec MV mean P.61 mmHg MV dec slope: 263.0 cm/sec2 MV V2 VTI: 15.6 cm MVA(P1/2t): 3.5 cm2 LV V1 max: 110.3 cm/sec PA V2 max: 102.7 cm/sec LV V1 max P.9 mmHg ECHO/Echo Complete W/ Contrast Interpretation Summary The study was technically difficult. Contrast injection was performed. Left ventricular systolic function is normal. The estimated ejection fraction is 65 %. The left atrium is mildly enlarged. Trivial mitral valve insufficiency. Trivial tricuspid valve insufficiency. Trivial aortic valve insufficiency. Unable to estimate RV systolic pressure/pulmonary artery pressure due to techni corbin difficult study. Diastolic function is indeterminate. Bubble contrast study negative for right to left interatrial shunt. Ordering Physician: Rao Groves Referring Physician: Alvarado Madrigal Performed By: Sinan White, [facility]
[2021-03-05 18:39] LABS: Troponin-I HS 18 pg/mL (3.0-78.0)
--- NOTE | 2021-03-05 19:43 | PCS.PANDOC ---
PANDEMIC DOCUMENTATION INITIATED: Date: 10/11/2020 Time: 190
[2021-03-05 19:50] LABS: Bedside Glucose 151 mg/dL (70-110)
[2021-03-05] MEDS: Atorvastatin Calcium 20 MG Tablet PO (21:25)
[2021-03-05] MEDS: Gabapentin 800 MG Tablet PO (21:25)
[2021-03-05] MEDS: Lisinopril 10 MG Tablet PO (21:25)
[2021-03-05] MEDS: Insulin Lispro 100 UNIT/ML INSULN.PEN SC (21:25)
[2021-03-06] VITALS (13 sets, daily range): BP systolic 119–159; BP diastolic 61–90; PULSE 63–89; RESP 16–18; TEMP 36.4–37; O2SAT 94–98; BMI 33.9
[2021-03-06] MEDS: Gabapentin 800 MG Tablet PO ×3 (05:21→20:30)
[2021-03-06 05:51] LABS: Anion Gap 8 (5-15); BUN 15 mg/dL (7-18); BUN/Creat Ratio 21.6 RATIO (10-20); Calcium,Total 8.8 mg/dL (8.5-10.1); Chloride 103 mmol/L (98-107); Cholesterol 104 mg/dL (200); Creatinine, Serum 0.69 mg/dL (0.70-1.30); EST Glomerular Filtration Rate 119 mL/min (>60); Est Glom Filt Rate - Afr Amer 144 mL/min (>60); Estimated Creatinine Clearance 68.94 ml/min; Glucose 234 mg/dL (74-106); High Density Lipoprotein 46 mg/dL; Potassium 4.2 mmol/L (3.5-5.1); Sodium Level 135 mmol/L (136-145); Triglycerides 105 mg/dL; Very Low Density Lipoprotein 21 mg/dL (5-40)
[2021-03-06] MEDS: Insulin Lispro 100 UNIT/ML INSULN.PEN SC ×4 (08:02→20:30)
[2021-03-06] MEDS: Insulin Lispro 100 UNIT/ML INSULN.PEN 10 UNIT SC ×3 (08:03→17:13)
[2021-03-06] MEDS: Enoxaparin 40 MG/0.4 ML Syringe SC (08:03)
[2021-03-06] MEDS: Aspirin 325 MG Tablet PO (08:05)
[2021-03-06] MEDS: Allopurinol 300 MG Tablet PO (08:05)
[2021-03-06] MEDS: Lisinopril 10 MG Tablet PO (08:05)
[2021-03-06 08:55] LABS: Bedside Glucose 229 mg/dL (70-110)
--- NOTE | 2021-03-06 09:00 | MRI_ITS ---
STUDY: MRI BRAIN WITH AND WITHOUT CONTRAST REASON FOR EXAM: Male, 70 years old. eval for basilar stroke -- f TECHNIQUE: Standardized multiplanar fat and water weighted pulse sequences were obtained. IV dotarem 20ml was administered for the contrast portion of the examination. COMPARISON: CT 03/05/2021 FINDINGS: There is mild cerebral atrophy with widening of the extra-axial spaces and ventricular dilatation. There are a limited number of small white matter hyperintensities, distributed throughout the deep white matter tracts of the cerebral hemispheres, consistent with mild chronic white matter ischemic changes. There is a small linear hyperintensity involving the left side of the brainstem inferior to the cerebellar peduncles which demonstrates restricted diffusion consistent with an acute brainstem infarct. Normal T2* images of the brain without demonstrated susceptibility artifact. There is no demonstrated hemosiderin stain. Normal bilateral basal ganglia. Normal thalami. There is no extra-axial fluid accumulation. Normal flow voids within the major intracranial circulation suggesting patency by spin echo criteria. Normal venous enhancement. There is no enhancing intra-axial or extra-axial abnormality. Normal sella turcica, pituitary gland, infundibular stalk, optic chiasm and hypothalamus. Normal tectal plate and pineal gland. Normal midbrain, van and medulla. Normal cerebellum. Normal basal cisterns. Normal bilateral temporal bones. Normal bilateral internal auditory canals. No demonstrated orbital abnormality, within the constraints of a routine brain study. Normal visualized paranasal sinuses. Normal calvarium and skull base. Normal visualized soft tissue structures. Normal visualized upper cervical spine. MRI/Brain W/WO Contrast IMPRESSION: Involutional changes of the brain, as described above. 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 Electronically Signed: Kalia Maldonado MD at 12:00 EST Tel , Service support ,
[2021-03-06 11:56] LABS: Bedside Glucose 170 mg/dL (70-110)
[2021-03-06] MEDS: Meclizine HCl 25 MG Tablet PO (15:26)
[2021-03-06] MEDS: 0.9% Saline Lock 10 ML Syringe IV (16:15)
[2021-03-06] MEDS: Ondansetron 4 MG/2 ML Vial IV (16:15)
--- NOTE | 2021-03-06 16:17 | PCM.PN.HOSP ---
Subjective Subjective Patient was seen and examined today, there was noted to be a small infarct on the left brainstem, patient has not had any echocardiogram in his medical record that contains a bubble study, this will need to be done tomorrow and the patient will need to remain here in the hospital. Objective Data Objective Data Vital Signs: Vital Signs Temp Pulse Resp BP Pulse Ox 97.9 F 64 16 132/73 H 96 03/06/21 16:00 03/06/21 16:00 03/06/21 16:00 03/06/21 16:00 03/06/21 16:00 Oxygen Delivery Method Room Air Weight: 107.3 kg Body Mass Index (BMI) 33.9 Intake & Output: Intake and Output for Last 24 Hours 03/04/21 03/05/21 03/06/21 23:59 23:59 23:59 Intake Total 480 / 480 Balance 480 / 480 Lab / Micro Data Result Diagrams: 03/07/21 06:25 03/07/21 06:25 Labs: Laboratory Results - last 24 hr 03/05/21 18:14: Troponin I High Sens 18 03/05/21 19:45: POC Glucose 151 H 03/06/21 05:00: Sodium 135 L, Potassium 4.2, Chloride 103, Carbon Dioxide 24.0, Anion Gap 8, BUN 15, Creatinine 0.69 L, Estim Creat Clear Calc 68.94, Est GFR (MDRD) Af Amer 144, Est GFR (MDRD) Non-Af 119, BUN/Creatinine Ratio 21.6 H, Glucose 234 H, Calcium 8.8, Triglycerides 105, Cholesterol 104, LDL Cholesterol 37, VLDL Cholesterol 21, HDL Cholesterol 46 03/06/21 07:58: POC Glucose 229 H 03/06/21 11:30: POC Glucose 170 H Radiography Diagnostic Testing: Radiology Impression Brain MRI 03/06/21 09:00 IMPRESSION: Involutional changes of the brain, as described above. 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 Electronically Signed: Kalia Maldonado MD at 12:00 EST Tel , Service support , Rhythm Strip Rhythm Strip: Sinus Rhythm Rate: 68 Ectopy: PVC(s) Physical Exam Const alert, oriented x3, no apparent distress and healthy appearing General Appearance: cooperative, well kempt and well developed Orientation / Consciousness: awake, oriented to person, oriented to place and oriented to time HEENT normocephalic, head/scalp atraumatic and moist oral mucous membranes Head and Scalp: normocephalic Eyes PERRL, EOMs intact bilaterally and conjunctivae normal Neck nuchal rigidity, supple, no JVD, thyroid normal and no carotid bruits General: trachea midline Resp normal respiratory effort, no retractions, no use of accessory muscles and clear to auscultation bilaterally Auscultation: Negative for rales, rhonchi or wheezes Cardio regular rate, regular rhythm, S1 normal heart sound, S2 normal heart sound, no murmurs, no rub and no gallops GI normal to inspection, nondistended, normoactive bowel sounds, soft to palpation, non-tender and non-distended Extremity no clubbing, cyanosis or edema Skin no rashes or lesions noted General Skin Exam: no breakdown Neuro oriented x3, CN's II-XII intact bilaterally, no focal motor deficits and no sensory deficits noted Sensorium / Orientation: awake and alert Speech: speech normal Psych thought process normal and affect normal Assessment & Plan Assessment/Plan (1) Vertebral artery stenosis: PLAN: 1. Acute small infarct left side of the brainstem-patient will be maintained on aspirin and Plavix, he will need to undergo an echocardiogram tomorrow with a bubble study., PT and OT will continue #2 type 2 diabetes-blood sugars will be monitored, sliding scale insulin will be administered as needed #3 vertebral artery stenosis-patient will need follow-up as an outpatient concerning this, it will not need to be addressed immediately. #4 hyperlipidemia-patient is currently on Lipitor #5 essential hypertension-patient will remain on his current medications for blood pressure Charges/Coding Visit Charges Inpatient E&M: 01553 Subs Hosp L2
[2021-03-06] MEDS: Clopidogrel Bisulfate 75 MG Tablet PO (17:13)
[2021-03-06 17:46] LABS: Bedside Glucose 182 mg/dL (70-110)
[2021-03-06] MEDS: Atorvastatin Calcium 20 MG Tablet PO (20:30)
[2021-03-06 21:31] LABS: Bedside Glucose 211 mg/dL (70-110)
[2021-03-07] VITALS (7 sets, daily range): BP systolic 107–132; BP diastolic 77–88; PULSE 69–86; RESP 18; TEMP 36.3–37.1; O2SAT 94–96
[2021-03-07] MEDS: Gabapentin 800 MG Tablet PO ×2 (05:04→14:12)
[2021-03-07 06:54] LABS: Absolute Lymphocyte Count 2.49 X10^3/uL (0.83-4.51); Absolute Neutrophil Count 4.6 X10^3/uL (2.0-7.7); Basophil# 0.03 X10^3/uL; Basophil% 0.4 % (0-1); Eosinophil# 0.07 X10^3/uL; Eosinophils% 0.9 % (0-5); Hematocrit 41.5 % (40-54); Hemoglobin 14.1 g/dL (13.0-16.5); Lymphocyte # 2.49 X10^3/ul (0.83-4.51); Lymphocyte % 31.4 % (19-41); Mean Corpuscular Hgb 31.8 pg (27.0-32.0); Mean Corpuscular Volume 93.7 fL (80-94); Mean Platelet Vol. 10.4 fl (6.2-12.0); Monocyte# 0.68 X10^3/uL; Monocyte% 8.6 % (0-10); NRBC Flagged by Analyzer 0 % (0-5); Neutrophil # 4.63 X10^3/uL (2.7-7.7); Neutrophil % 58.3 % (47-70); Platelet Count 209 K/mm3 (150-450); RBC Distribution Width CV 12.8 % (11.6-14.6); RBC Distribution Width SD 43.9 fl (35.1-43.9); Red Blood Count 4.43 M/mm3 (4.6-6.2); White Blood Count 7.9 K/mm3 (4.4-11.0)
[2021-03-07 07:24] LABS: Anion Gap 6 (5-15); BUN 16 mg/dL (7-18); BUN/Creat Ratio 21.9 RATIO (10-20); Chloride 102 mmol/L (98-107); Creatinine, Serum 0.73 mg/dL (0.70-1.30); EST Glomerular Filtration Rate 112 mL/min (>60); Est Glom Filt Rate - Afr Amer 135 mL/min (>60); Estimated Creatinine Clearance 68.94 ml/min; Glucose 195 mg/dL (74-106); Potassium 4.2 mmol/L (3.5-5.1); Sodium Level 134 mmol/L (136-145)
[2021-03-07] MEDS: Lisinopril 10 MG Tablet PO (08:00)
[2021-03-07] MEDS: Aspirin 325 MG Tablet PO (08:00)
[2021-03-07] MEDS: Allopurinol 300 MG Tablet PO (08:01)
[2021-03-07] MEDS: Enoxaparin 40 MG/0.4 ML Syringe SC (08:01)
[2021-03-07] MEDS: Insulin Lispro 100 UNIT/ML INSULN.PEN SC ×2 (08:06→11:48)
[2021-03-07] MEDS: Insulin Lispro 100 UNIT/ML INSULN.PEN 10 UNIT SC ×2 (08:06→11:47)
[2021-03-07] MEDS: Clopidogrel Bisulfate 75 MG Tablet PO (08:06)
[2021-03-07 10:05] LABS: Bedside Glucose 211 mg/dL (70-110)
--- NOTE | 2021-03-07 11:27 | CASEMGMT ---
SW completed a PHQ 9 with patient as he had s Stroke. He scored a 1 which indicates minimal depression. Patient denies any need for counseling resources. Gabriela Borrego MSW MARCELA
--- NOTE | 2021-03-07 11:32 | CASEMGMT ---
SHARAD PETERS assessment: Face to face with pt for initial transition planning/care coordination assessment. SHARAD PETERS introduced self and role at [facility], pt voices understanding and consents to assessment. Pt is sitting up in chair in no distress on room air. Pt is A/Ox4 and answers questions appropriately. Care providers, pharmacy, and demographics verified. Presentation: Pt c/o dizziness for several days and then started with left facial numbness Admitting dx: Acute CVA PCP: Kaitlin Specialists: Pt states no current specialists. Preferred Pharmacy: [facility] Insurance: MCR A/B, Prime choice Prescription Benefit: Yes Living Will/HPOA: Pt states does have LW/HPOA and is aware they are not on file at [facility]. Pt states his , Cynthia Earl, is HPOA. LNOK: Cynthia Earl, Living Arrangements: Pt states lives with in 2 story/bi-level home and states no concerns at home. Pt states can stay on one level, if needed. Pt is independent with ADL's. Transportation: Pt states drives self and states no transportation concerns. DME/HHC: Pt states has the following DME: walker, grab bars, and would like tub bench. Pt aware that tub bench may not be covered but script faxed to [facility] at this time and copy to pt. Pt states no hx of HHC or SNF in the past, but states would like set up with [facility] therapy at discharge. Script faxed to [facility] at this time and copy to pt. Pt states no concerns with going home at time of discharge. Pt is retired. Pt states does not smoke cigarettes or drink ETOH. Pt states no further concerns/needs. CM to follow for any further discharge planning/needs. Advised pt to ask for CM if any further questions/concerns/needs arise, voices understanding. Pt Goal: Home Plan[place] SHARAD PETERS
[2021-03-07 12:10] LABS: Bedside Glucose 263 mg/dL (70-110)
--- NOTE | 2021-03-07 14:35 | CASEMGMT ---
Call from Magdalene at [facility] and she states tub bench is not covered under pt's insurance but they do have them in stock at [facility], starting at $40 and pt updated, voices understanding. Lizbeth OROURKE CM
--- NOTE | 2021-03-07 14:51 | PCM.DC ---
Discharge Instructions Diet Discharge Diet: 1800 Calorie Control Diet Activity Discharge Activity: Return to Normal Activity Weight Bearing Status: Full weight bearing Follow Up Care Test Results: Test results from this visit will be discussed in further detail at your follow-up appointment, if applicable. Discharge Plan Admission Admit Date/Time: 03/05/21 17:12 Primary Reason for Your Visit: left brainstem stroke Attending Provider: Mauri Proctor Primary Care Provider: Alvarado Madrigal Discharge Orders/Prescriptions Prescriptions: New atorvastatin 20 mg Tablet 40 mg PO QHS Qty: 60 RF: 0 clopidogrel 75 mg Tablet 75 mg PO DAILY Qty: 30 RF: 0 Continued lisinopril 10 mg tablet 10 mg PO DAILY RF: 0 gabapentin 600 mg tablet 800 mg PO TID RF: 0 aspirin 81 MG tablet,delayed release (DR/EC) 81 mg PO DAILY RF: 0 kyfxqase-lbz-VT-lycopen-lutein 1 EACH tablet 1 ea PO DAILY RF: 0 metformin 500 mg tablet 500 mg PO BIDCM RF: 0 insulin glargine 100 unit/mL (3 mL) insulin pen 52 unit subcut QHS RF: 0 allopurinol 300 mg tablet 300 mg PO DAILY RF: 0 Trulicity 1.5 mg/0.5 mL Pen Injector 1.5 mg SUBCUT QWEEK RF: 0 meclizine 25 mg tablet 25 mg PO TID PRN (Reason: dizziness) Qty: 20 RF: 0 insulin lispro [Humalog KwikPen Insulin] 100 unit/mL insulin pen 10 unit SUBCUT TIDCM RF: 0 Discontinued simvastatin 20 MG tablet 20 mg PO QHS RF: 0 naproxen sodium [Aleve] 220 mg Tablet 220 mg PO DAILY RF: 0 Referrals / Follow Up: Alvarado Madrigal MD [Primary Care Provider] - Within 2 Weeks Disposition Disposition (needs filled in before D/C Order can be placed): Home, Self Care
--- NOTE | 2021-03-11 19:20 | PCM.DC.SUM ---
Providers Date of Admission: 03/05/21 Date of Discharge: 03/07/21 Primary Care Physician: Dr. Alvarado Madrigal MD Reason For Visit: VERTEBRAL INSUFFICIENCY Diagnosis Discharge Diagnosis (1) Vertebral artery stenosis: Status: Acute Code(s): I65.09 - Occlusion and stenosis of unspecified vertebral artery Plan: 1. 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 #2 type 2 diabetes #3 vertebral artery stenosis #4 hyperlipidemia #5 essential hypertension Medications at Discharge Home Medications aspirin 81 mg PO DAILY 03/27/13 uoxbasor-rcc-JD-lycopen-lutein 1 ea PO DAILY 03/27/13 lisinopril 10 mg tablet 10 mg PO DAILY 06/28/18 gabapentin 600 mg tablet 800 mg PO TID 07/02/18 insulin glargine 100 unit/mL (3 mL) subcutaneous pen 52 unit SUBCUT QHS ml 07/02/18 metformin 500 mg tablet 500 mg PO BIDCM tab 07/02/18 Trulicity 1.5 mg SUBCUT QWEEK 10/29/20 allopurinol 300 mg PO DAILY 10/29/20 meclizine 25 mg PO TID PRN #20 tab 10/29/20 insulin lispro [Humalog KwikPen Insulin] 10 unit SUBCUT TIDCM 03/05/21 atorvastatin 40 mg PO QHS #60 tab 03/07/21 clopidogrel 75 mg PO DAILY #30 tab 03/07/21 Hospital Course Operations None Procedures None Summary of Care Provided Minutes Spent on Discharge: 32 Hospital Course: 70-year-old white male was seen in the emergency room at [facility] with complaints of ataxia, in addition patient complains of a posterior headache. Work-up in the emergency room included a CTA of the head and neck which showed high-grade stenosis within the distal left vertebral artery, no acute stroke was noted to be present. Patient was admitted to PCU, he underwent an MRI which showed a small brainstem infarct on the left. He was seen by PT and OT, he was kept on antiplatelet agents and a statin. Patient underwent an echocardiogram which showed no evidence of right to left interatrial shunt. On 03/07/2021, patient was seen and examined: On examination he appeared in good health and spirits. Vital signs as documented. Skin warm and dry and without overt rashes. Neck without JVD, neck was supple, trachea midline, thyroid was normal. Lungs clear bilaterally, normal air movement was noted. Heart exam notable for regular rhythm, normal sounds and absence of murmurs, rubs or gallops. Abdomen unremarkable and without evidence of organomegaly, masses, or abdominal aortic enlargement. Bowel sounds are present, abdomen is not distended. Extremities nonedematous, no cyanosis was noted, no clubbing was noted. Neuro: Cranial nerves II through XII are grossly intact, no focal motor deficits were noted, sensation to light touch and pinprick intact, motor exam 5/5 throughout. Psych: Patient is alert and oriented x3, he does not appear anxious or depressed, he does not appear agitated. On 03/07/2021, patient was felt to be stable for discharge home, I talked to the patient's PCP by phone prior to discharge to make arrangements for the patient to follow-up with a neurosurgeon concerning his vertebral artery stenosis. Weight / BMI Weight Weight: 107.3 kg Body Mass Index (BMI) 33.9 ABG / Lab / Microbiology Data Result Diagrams: 03/07/21 06:25 03/07/21 06:25 D/C Instructions Discharge Diet: 1800 Calorie Control Diet Weight Bearing Status: Full weight bearing Meaningful Use Info Meaningful Use Diagnoses (Choose all that apply): Ischemic CVA CVA Therapy Assessed for PT,OT and/or ST?: Yes Ischemic Stroke Antithrombotic order at d/c?: Yes Dx of Atrial fib/flutter?: No Anticoagulant at discharge?: No Reason anticoagulant not ordered: Treatment not Indicated Statins at discharge?: Yes Primary Dx Acute Ischemic CVA?: Yes IV tPA ordered during stay?: No Reason IV t-PA not ordered: Medical Contraindication Discharge Plan Admission Admit Date/Time: 03/05/21 17:12 Primary Reason for Your Visit: left brainstem stroke Attending Provider: Mauri Proctor Primary Care Provider: Alvarado Madrigal Discharge Orders/Prescriptions Prescriptions: New atorvastatin 20 mg Tablet 40 mg PO QHS Qty: 60 RF: 0 clopidogrel 75 mg Tablet 75 mg PO DAILY Qty: 30 RF: 0 Continued lisinopril 10 mg tablet 10 mg PO DAILY RF: 0 gabapentin 600 mg tablet 800 mg PO TID RF: 0 aspirin 81 MG tablet,delayed release (DR/EC) 81 mg PO DAILY RF: 0 wqpcxalu-atx-FQ-lycopen-lutein 1 EACH tablet 1 ea PO DAILY RF: 0 metformin 500 mg tablet 500 mg PO BIDCM RF: 0 insulin glargine 100 unit/mL (3 mL) insulin pen 52 unit subcut QHS RF: 0 allopurinol 300 mg tablet 300 mg PO DAILY RF: 0 Trulicity 1.5 mg/0.5 mL Pen Injector 1.5 mg SUBCUT QWEEK RF: 0 meclizine 25 mg tablet 25 mg PO TID PRN (Reason: dizziness) Qty: 20 RF: 0 insulin lispro [Humalog KwikPen Insulin] 100 unit/mL insulin pen 10 unit SUBCUT TIDCM RF: 0 Discontinued simvastatin 20 MG tablet 20 mg PO QHS RF: 0 naproxen sodium [Aleve] 220 mg Tablet 220 mg PO DAILY RF: 0 Referrals / Follow Up: Alvarado Madrigal MD [Primary Care Provider] - Within 2 Weeks Disposition Disposition (needs filled in before D/C Order can be placed): Home, Self Care Charges/Coding Visit Charges Inpatient E&M: 66589 Disch Hosp
== END 2021-03-07 16:00 | disposition home or self-care (01) | DRG 66 ==
LOC: ED 16:22 → PCU 17:27
PROVIDERS: Admitting Provider Hospitalist; Emergency Provider Emergency Medicine; PCP Family Medicine; Visit Provider Internal Medicine
DX: I63.9 Cerebral infarction, unspecified (principal); I65.03 Occlusion and stenosis of bilateral vertebral arteries; R13.10 Dysphagia, unspecified; I10 Essential (primary) hypertension; E11.40 Type 2 diabetes mellitus with diabetic neuropathy, unspecified; E11.65 Type 2 diabetes mellitus with hyperglycemia; I48.0 Paroxysmal atrial fibrillation; E78.5 Hyperlipidemia, unspecified; M17.12 Unilateral primary osteoarthritis, left knee; M10.9 Gout, unspecified; Z79.82 Long term (current) use of aspirin; Z79.4 Long term (current) use of insulin; Z66 Do not resuscitate; Z87.891 Personal history of nicotine dependence
CPT/HCPCS: 36415; 70496; 70498; 70553; 71045; 80048; 80061; 82962; 84484; 85025; 85610; 85730; 93005; 93306; 97116; 97162; 97165; 97802; 99285; A9575; Q9957; Q9967; A4216; C8929; J2405

== ENCOUNTER 2021-05-12 09:30 | Outpatient (RCR) | payer MEDICARE, OTHER, SELFPAY ==
--- NOTE | 2021-03-09 15:21 | HP.PTEVAL ---
Patient's Visit Information REZA PIERRE is a 70 year old M referred to Physical Therapy by Dr. Mauri Proctor DO with a diagnosis of ACUTE SMALL INFARCT OF LEFT SIDE OF BRAIN. Date of Evaluation: 03/09/21 Physical Therapist: Fransisco Brian, PT, Cert MDT, OCS - Visit Plan Frequency: 2x /Week Duration: 4 Weeks Plan: PT INTERVENTIONS PROGRESSIVE BALANCE TRAINING,GAIT TRAINING AND FUNCTIONAL STRENGTHENING - Subjective This 70 y/o male presents to physical therapy with CVA affecting left side brainstem. Patient developed dizzy 1/6 and numbness 2 days later went to ER at hospital then symptoms worse with inability to walk a straight line. Patient had MRI showed acute small infarct on left side of the brainstem. D/C from hospital to home 03/07/21 and recommended PT. Patient has most difficulty with balance and and left side neglect . Patient needs FWW . No falls. Patient lives in 1 story with with 1 step . Bath tub/shower. Patient has bench and high raise in basement. Patient requires supervision with bathing/dressing. Patient leaning and/or falling to left affects ability to perform ADLS'. Patient condition affects QOL and function. - Objective POSTURE: mild forward posture. NEURO: denies paresthesia/tingling ,Achilles tendon, patella 2/3. PALAPTION: unremarkable. GAIT: reciprocal pattern falls/leans to left with fww, and ambulated no device with SBA leans to left reciprocal pattern no LOB. BALANCE: fair+. MMT: quads/hams /hip flexion 4/5,ankle DF 4/5,hip abduction 4-/5. STAIRS: one step at time with rail - Balance/Special Test Scores Functional Gait Assessment Score: 8 % Disability: 73.3400 CATSIB Score (Max score 120 seconds): 60 Lower Extremity Functional Score: 17 - Goals Goal 1:: Patient to be I with HEP for balance Goal Time Frame: 4-6 Weeks Goal 2:: Patient to ambulate with no device with good - balance Goal Time Frame: 4-6 Weeks Goal 3:: Patient improve CATSIB by 10 points to improve balance and decrease risk of falls Goal Time Frame: 4-6 Weeks Goal 4:: Patient to improve LFES score by 10 points to improve gait and function Goal Time Frame: 4-6 Weeks Goal 5:: Patient to improve functional gait assessment score by 10 points to improve gait. Goal Time Frame: 4-6 Weeks - Rehabilitation Potential Physical Therapy Diagnosis: This 70 y/o male has CVA at left brainstem affecting mainly balance and gait leaning to left which causes deficits for housework and ADLS' thus benefit from skilled PT Rehabilitation Potential: Good - Anticipated Interventions Patient/Client Instruction: Educate patient on: Condition, Plan of Care For the Purpose of:: To decrease pain, To improve muscle performance and motor function, To improve ability to perform ADL's, To increase tolerance to activity/condition/position, To improve ability of physical actions for home/community/work/leisure, To improve gait and locomotor functions, To increase flexibility/ROM, To improve endurance, To improve balance, To improve safety with gait Therapeutic Exercise to Include: Strength training, Endurance training, Balance training, Postural training, Gait and locomotor training For the Purpose of:: To improve muscle performance and motor function, To improve ability to perform ADL's, To increase tolerance to activity/condition/position, To improve performance and independence with ADL's, To improve ability of physical actions for home/community/work/leisure, To improve gait and locomotor functions, To improve endurance, To improve balance, To improve safety with gait Thank you for the opportunity to evaluate your patient. For Medicare and Medicare HMO plans, please review the plan of care and approve it. It will need to be FAXED BACK to us at [phone] for Medicare purposes. For Medicare only, by signing this I certify the plan of care. Please let me know if there are questions or concerns regarding this plan of care. Physician Signature: Date:
--- NOTE | 2021-04-12 09:44 | HP.PTREVAL ---
Dr. Mauri Proctor, DO, It has been my pleasure to treat REZA PIERRE over the last 9 visits for ACUTE SMALL INFARCT OF LEFT SIDE OF BRAIN. Please see the progress note below for an update on the physical therapy plan of care! Subjective: Patient mainly needs to improve balance . Although , walking is better not falling off to left side Objective/Function: POSTURE: MILD FOWARD POSTURE. GAIT:RECIPROCAL PATTERN. BALANCE: GOOD-. MMT:4/5 quads/hams ,hip flexion 4-/5,ankle 4/5 Plan Plan: CONT POC 2XWEEK FOR 4 WEEKS. PT INTERVENTIONS PROGRESSIVE BALANCE TRAINING, GAIT TRAINING AND FUNCTIONAL STRENGTHENING Balance/Gait/Functional tests - Balance/Special Test Scores Functional Gait Assessment Score: 21 % Disability: 30.0000 CATSIB Score (Max score 120 seconds): 100 Lower Extremity Functional Score: 42 Goals Goal 1:: Patient to be I with HEP for balance Goal Time Frame: 4-6 Weeks Goal Progress: Progressing Goal 2:: Patient to ambulate with no device with good balance Goal Time Frame: 4-6 Weeks Goal Progress: Progressing Goal 3:: Patient improve CATSIB by 10 points to improve balance and decrease risk of falls Goal Time Frame: 4-6 Weeks Goal Progress: Progressing Goal 4:: Patient to improve LFES score by 10 points to improve gait and function Goal Time Frame: 4-6 Weeks Goal Progress: Progressing Goal 5:: Patient to improve functional gait assessment score by 10 points to improve gait. Goal Time Frame: 4-6 Weeks Goal Progress: Progressing Anticipated Interventions Patient/Client Instruction: Educate patient on: Condition, Plan of Care For the Purpose of:: To decrease pain, To improve muscle performance and motor function, To improve ability to perform ADL's, To increase tolerance to activity/condition/position, To improve ability of physical actions for home/community/work/leisure, To improve gait and locomotor functions, To increase flexibility/ROM, To improve endurance, To improve balance, To improve safety with gait Therapeutic Exercise to Include: Strength training, Endurance training, Balance training, Postural training, Gait and locomotor training For the Purpose of:: To improve muscle performance and motor function, To improve ability to perform ADL's, To increase tolerance to activity/condition/position, To improve performance and independence with ADL's, To improve ability of physical actions for home/community/work/leisure, To improve gait and locomotor functions, To improve endurance, To improve balance, To improve safety with gait Please do not hesitate to contact me at [phone] by phone or if you have questions or concerns regarding this new plan of care! Sincerely, Fransisco Brian, PT, Cert MDT, OCS
--- NOTE | 2021-05-12 09:58 | HP.PTDCSUM ---
It has been my pleasure to treat REZA PIERRE referred by Dr. Alvarado Madrigal MD, with the diagnosis of ACUTE SMALL INFARCT OF LEFT SIDE OF BRAIN for a total of 17 visit(s). Discharge Date: 05/12/21 Please see the following information for a summary of their discharge status. Subjective: Doing well balance alot better FORD Pain Intensity (Out of 10): 0 % Improvement: 85 Objective/Function: POSTURE: WFL. NEURO: intact. MMT: QUADS/HAMS/HIP 4/5,ANKLE 5/5. BALANCE: GOOD- Goal 1:: Patient to be I with HEP for balance Goal Progress: Progressing Goal 2:: Patient to ambulate with no device with good balance Goal Progress: Progressing Goal 3:: Patient improve CATSIB by 10 points to improve balance and decrease risk of falls Goal Progress: Progressing Goal 4:: Patient to improve LFES score by 10 points to improve gait and function Goal Progress: Progressing Goal 5:: Patient to improve functional gait assessment score by 10 points to improve gait. Goal Progress: Progressing Plan: D/C Discharge Comments: HEP If there are questions or concerns regarding this patient's physical therapy, please feel free to call me at [phone]. Thank you for the referral of this patient. Sincerely, Fransisco Brian, PT, Cert MDT, OCS Balance/Gait/Functional tests - Balance/Special Test Scores Functional Gait Assessment Score: 26 % Disability: 13.3400 CATSIB Score (Max score 120 seconds): 110 Lower Extremity Functional Score: 53
== END 2021-05-12 19:00 | disposition home or self-care (01) ==
LOC: PT 09:30
PROVIDERS: PCP Family Medicine; Referring Provider Internal Medicine; Visit Provider Family Medicine
DX: Z86.73 Personal history of transient ischemic attack (TIA), and cerebral infarction without residual deficits (principal)
CPT/HCPCS: 97110; 97162; 97530

== ENCOUNTER 2021-08-19 08:47 | Outpatient (RCR) | payer MEDICARE, OTHER, SELFPAY ==
[2021-08-19 09:31] LABS: International Normalized Ratio 1.1; Prothrombin Time (Protime)PT. 14.1 SECONDS (11.7-14.9)
== END 2021-08-19 23:59 | disposition home or self-care (01) ==
LOC: LAB 08:47
PROVIDERS: PCP Family Medicine; Visit Provider Physician Assistant Medical
DX: I48.0 Paroxysmal atrial fibrillation (principal); Z79.01 Long term (current) use of anticoagulants
CPT/HCPCS: 36415; 85610

== ENCOUNTER 2021-08-20 10:24 | Emergency (ER) | payer MEDICARE, OTHER, SELFPAY ==
[2021-08-20 10:25] VITALS: BP 134/84; PULSE 75; RESP 16; TEMP 36.7; O2SAT 98; BMI 35.2
[2021-08-20 10:26] VITALS: BP 134/84; PULSE 75; RESP 16; TEMP 36.7; O2SAT 98
[2021-08-20] MEDS: Lidocaine 1% (20 ml mdv) 20 ML Vial INFILT (11:39)
--- NOTE | 2021-08-20 11:56 | EX.ED.DYSGE1 ---
HPI History of Present Illness Chief Complaint: Abscess Informant: patient Narrative Narrative: Patient complains of an abscess in the back of his neck. He had one about a month ago. He was given antibiotics and it went away. However as it went away another 1 appeared on the opposite side. This 1 is slowly grown over the last about 4 weeks. He was just seen yesterday in urgent care and placed on antibiotics. The area is sore but he does not feel sick at all. He is just wondering if it is getting to the point it needs to be drained. It did start draining spontaneously overnight. He is on cephalosporin antibiotic at this time. [facility] Medical History Arthritis of left knee Benign paroxysmal positional vertigo Diabetes mellitus, type II Essential hypertension Gout History of CVA (cerebrovascular accident) (03/06/21) History of TIA (transient ischemic attack) Hyperlipidemia intermediate (current) use of anticoagulants Lumbar stenosis Paroxysmal atrial fibrillation Rheumatoid arthritis Home Medications dbdjojlc-tkt-ortdy acid 0.4 mg-lycopene 300 mcg-lutein 250 mcg tablet 1 ea PO DAILY supplement 03/27/13 [History Last Taken 03/05/21 10:00] lisinopril 10 mg tablet 10 mg PO DAILY bp 06/28/18 [History Last Taken 03/05/21 10:00] gabapentin 600 mg tablet 800 mg PO TID neuropathy 07/02/18 [History Last Taken 03/05/21 14:00] insulin glargine 100 unit/mL (3 mL) subcutaneous pen 52 unit subcut QHS dm 07/02/18 [History Last Taken 03/04/21] metformin 500 mg tablet 500 mg PO BIDCM dm 07/02/18 [History Last Taken 03/05/21 08:30] allopurinol 300 mg tablet 300 mg PO DAILY gout 10/29/20 [History Last Taken 03/05/21 10:00] dulaglutide 1.5 mg/0.5 mL subcutaneous pen injector (Trulicity) 1.5 mg subcut QWEEK dm 10/29/20 [History Last Taken 03/01/21] meclizine 25 mg tablet 25 mg PO TID PRN dizziness #20 tabs 10/29/20 [Rx Last Taken Unknown] insulin lispro 100 unit/mL subcutaneous pen (Humalog KwikPen (U-100) Insulin) 10 unit subcut TIDCM dm 03/05/21 [History Last Taken 03/05/21 13:00] atorvastatin 20 mg tablet 40 mg PO QHS #60 tabs 03/07/21 [Rx Last Taken Unknown] acetaminophen 500 mg tablet (Tylenol Extra Strength) 500 mg PO Q6H PRN 07/06/21 [History Last Taken Unknown] atorvastatin 40 mg tablet 40 mg PO 07/06/21 [History Last Taken Unknown] gabapentin 800 mg tablet 800 mg PO 07/06/21 [History Last Taken Unknown] metoprolol tartrate 25 mg tablet 25 mg PO BID #60 tabs 07/22/21 [Rx Last Taken Unknown] warfarin 2 mg tablet 2 mg PO .COMPLEX #30 tabs 08/09/21 [Rx Last Taken Unknown] sulfamethoxazole 800 mg-trimethoprim 160 mg tablet (Bactrim DS) 1 tab PO BID #14 tabs 08/20/21 [Rx Last Taken Unknown] Allergy/AdvReac Type Severity Reaction Status Date / Time apixaban [From Eliquis] AdvReac Severe Severe Verified 08/20/21 10:26 dizziness amoxicillin [Amoxicillin] AdvReac Other Verified 08/20/21 10:26 Family History Father Abdominal aortic aneurysm CAD (coronary artery disease) Mother Hypertension Brother Hyperlipidemia Hypertension Surgical History H/O carpal tunnel repair History of colon resection (02/16/07) History of colonoscopy (02/2013) History of esophagogastroduodenoscopy (EGD) (02/2013) History of laparoscopic cholecystectomy (04/03/13) History of loop recorder (05/30/21) Previous back surgery Social History Smoking Status: Unknown if ever smoked ROS ROS ED Constitutional Constitutional ED: Denies chills, fever(s) or sweats ENT ENT ED: Reports other Details: Soreness to posterior left neck as in history of present illness. ; Denies rhinorrhea or sore throat Cardiovascular Cardiovascular: Denies chest pain Respiratory/Chest Respiratory/Chest: Denies dyspnea Gastrointestinal Gastrointestinal: Denies nausea or vomiting Musculoskeletal Musculoskeletal: Reports neck pain Integumentary Reports abscess Neurologic Neurologic: Denies headache(s), paresthesias or weakness Allergic/Immunologic Allergic/Immunologic ED: Denies urticaria EXAM Physical Exam Const Vital Signs: 08/20/21 10:25 08/20/21 10:26 Temperature 98.1 F 98.1 F Temperature Source Temporal Temporal Pulse Rate 75 75 Respiratory Rate 16 16 Blood Pressure 134/84 H 134/84 H Blood Pressure Mean 100 Pulse Ox 98 98 Oxygen Delivery Method Room Air Room Air Positive well nourished and well developed General Appearance ED: well developed and NAD HEENT Reports moist mucous membranes Eyes EOMs intact bilaterally Neck Neck Narrative: Patient has an indurated area about 4 cm around on the posterior the left superior aspect of his neck. There is a 1 and half centimeter eroded area that looks like he had some drainage. Its got some skin breakdown. It is very firm and not too fluctuant. However the there is skin breakdown clearly starting in the middle. Resp normal respiratory effort Neuro oriented x3 Skin Skin Narrative: See above. MDM MDM MDM Narrative Medical decision making narrative: Procedure: Incision and drainage: We discussed risk benefits and options. We could just continue antibiotics. He would prefer to have this drained. We anesthetized the areas with 3 cc of 1% lidocaine without epinephrine locally. Good anesthesia was achieved. I made incision over this area. We did get a moderate amount of purulent out. Most of this was rather thick. We then broke up loculations. I was able to get a little bit more out of the inferior right aspect. We irrigated it a bit. There is not a large pocket that I can place a packing in though. We did discuss care. It was explained this will continue to drain especially since he is on Coumadin. I will write for Bactrim. If this is not getting better in the next couple days he should start Bactrim. He is already on a cephalosporin. We discussed reasons to return. Discharge Plan Triage Chief Complaint: Abscess ED Provider: Tremayne Valentine Dx/Rx/DC Orders Clinical Impression: Abscess of neck, Encounter for incision and drainage procedure Instructions: ED Abscess Incision And Drainage Prescriptions: New sulfamethoxazole-trimethoprim [Bactrim DS] 800-160 mg tablet 1 tab PO BID Qty: 14 0RF No Action lisinopril 10 mg tablet 10 mg PO DAILY gabapentin 600 mg tablet 800 mg PO TID acetaminophen [Tylenol Extra Strength] 500 mg tablet 500 mg PO Q6H PRN atorvastatin 40 mg tablet 40 mg PO gabapentin 800 mg tablet 800 mg PO hbctceid-llc-IW-lycopen-lutein 1 EACH tablet 1 ea PO DAILY metformin 500 mg tablet 500 mg PO BIDCM insulin glargine 100 unit/mL (3 mL) insulin pen 52 unit subcut QHS Label Comments: allopurinol 300 mg tablet 300 mg PO DAILY Trulicity 1.5 mg/0.5 mL Pen Injector 1.5 mg SUBCUT QWEEK Rx Instructions: Sunday meclizine 25 mg tablet 25 mg PO TID PRN (Reason: dizziness) Qty: 20 0RF insulin lispro [Humalog KwikPen Insulin] 100 unit/mL insulin pen 10 unit SUBCUT TIDCM atorvastatin 20 mg Tablet 40 mg PO QHS Qty: 60 0RF metoprolol tartrate 25 mg tablet 25 mg PO BID Qty: 60 11RF warfarin 2 mg tablet 2 mg PO .COMPLEX Qty: 30 11RF Protocol: Dose Management Condition: Sunday Dose/Route: 2 mg Instruction: 1 x 2 mg tablet Condition: Sunday Dose/Route: 2 mg Instruction: 1 x 2 mg tablet Condition: Sunday Dose/Route: 2 mg Instruction: 1 x 2 mg tablet Condition: Sunday Dose/Route: 2 mg Instruction: 1 x 2 mg tablet Condition: Dose/Route: 2 mg Instruction: 1 x 2 mg tablet Condition: Sunday Dose/Route: 4 mg Instruction: 2 x 2 mg tablets Condition: Sunday Dose/Route: 4 mg Instruction: 2 x 2 mg tablets Protocol Text: Adjustment Start Date: Sunday08/19/21 INR Value: 1.1 INR Date: 08/19/21 Recheck Date: 08/26/21 Rx Instructions: 2 mg PO daily or as needed for dose changes.; Primary Care Provider: Alvarado Madrigal Referrals: Alvarado Madrigal MD [Primary Care Provider] - 3-5 Days Disposition Disposition: Home, Self Care
== END 2021-08-20 12:12 | disposition home or self-care (01) ==
PROVIDERS: Emergency Provider Emergency Medicine; PCP Family Medicine; Visit Provider Emergency Medicine
DX: L02.11 Cutaneous abscess of neck (principal); M06.9 Rheumatoid arthritis, unspecified; I48.0 Paroxysmal atrial fibrillation; E11.9 Type 2 diabetes mellitus without complications; Z79.4 Long term (current) use of insulin; I10 Essential (primary) hypertension; E78.5 Hyperlipidemia, unspecified; M10.9 Gout, unspecified; Z79.01 Long term (current) use of anticoagulants; Z79.84 Long term (current) use of oral hypoglycemic drugs; Z79.899 Other long term (current) drug therapy; Z86.73 Personal history of transient ischemic attack (TIA), and cerebral infarction without residual deficits
CPT/HCPCS: 10060; 99283

== ENCOUNTER 2021-09-15 10:12 | Outpatient (RCR) | payer MEDICARE, OTHER, SELFPAY ==
[2021-08-26 10:37] LABS: International Normalized Ratio 1.1; Prothrombin Time (Protime)PT. 13.7 SECONDS (11.7-14.9)
[2021-09-01 09:10] LABS: International Normalized Ratio 1.3; Prothrombin Time (Protime)PT. 16.1 SECONDS (11.7-14.9)
[2021-09-07 10:00] LABS: International Normalized Ratio 1.4; Prothrombin Time (Protime)PT. 16.7 SECONDS (11.7-14.9)
[2021-09-15 11:00] LABS: International Normalized Ratio 2.5; Prothrombin Time (Protime)PT. 26.3 SECONDS (11.7-14.9)
== END 2021-09-25 02:43 | disposition home or self-care (01) ==
LOC: LAB 10:12
PROVIDERS: PCP Family Medicine; Visit Provider Physician Assistant Medical
DX: I48.0 Paroxysmal atrial fibrillation (principal); Z79.01 Long term (current) use of anticoagulants
CPT/HCPCS: 36415; 85610

== ENCOUNTER 2021-10-21 09:40 | Outpatient (RCR) | payer MEDICARE, OTHER, SELFPAY ==
[2021-09-30 09:42] LABS: International Normalized Ratio 2.1; Prothrombin Time (Protime)PT. 23.4 SECONDS (11.7-14.9)
[2021-10-21 11:46] LABS: International Normalized Ratio 2.2; Prothrombin Time (Protime)PT. 24.4 SECONDS (11.7-14.9)
== END 2021-10-21 18:00 | disposition home or self-care (01) ==
LOC: LAB 09:40
PROVIDERS: PCP Family Medicine; Referring Provider Physician Assistant Medical; Visit Provider Physician Assistant Medical
DX: I48.0 Paroxysmal atrial fibrillation (principal); Z79.01 Long term (current) use of anticoagulants
CPT/HCPCS: 36415; 85610

== ENCOUNTER 2021-11-17 09:52 | Outpatient (RCR) | payer MEDICARE, OTHER, SELFPAY ==
[2021-11-17 11:29] LABS: International Normalized Ratio 2.5; Prothrombin Time (Protime)PT. 26.4 SECONDS (11.7-14.9)
== END 2021-11-17 18:00 | disposition home or self-care (01) ==
LOC: LAB 09:52
PROVIDERS: PCP Family Medicine; Referring Provider Physician Assistant Medical; Visit Provider Physician Assistant Medical
DX: I48.0 Paroxysmal atrial fibrillation (principal); Z79.01 Long term (current) use of anticoagulants
CPT/HCPCS: 36415; 85610

== ENCOUNTER 2021-12-16 09:06 | Outpatient (RCR) | payer MEDICARE, OTHER, SELFPAY ==
[2021-12-16 10:21] LABS: International Normalized Ratio 2.5; Prothrombin Time (Protime)PT. 26.9 SECONDS (11.7-14.9)
== END 2021-12-16 18:00 | disposition home or self-care (01) ==
LOC: LAB 09:06
PROVIDERS: PCP Family Medicine; Referring Provider Physician Assistant Medical; Visit Provider Physician Assistant Medical
DX: I48.0 Paroxysmal atrial fibrillation (principal); Z79.01 Long term (current) use of anticoagulants
CPT/HCPCS: 36415; 85610

== ENCOUNTER 2022-01-13 09:10 | Outpatient (RCR) | payer MEDICARE, OTHER, SELFPAY ==
[2022-01-13 10:32] LABS: International Normalized Ratio 2.8; Prothrombin Time (Protime)PT. 29.5 SECONDS (11.7-14.9)
== END 2022-01-25 18:00 | disposition home or self-care (01) ==
LOC: LAB 09:10
PROVIDERS: PCP Family Medicine; Referring Provider Physician Assistant Medical; Visit Provider Physician Assistant Medical
DX: I48.0 Paroxysmal atrial fibrillation (principal); Z79.01 Long term (current) use of anticoagulants
CPT/HCPCS: 36415; 85610

== ENCOUNTER 2022-02-10 09:06 | Outpatient (RCR) | payer MEDICARE, OTHER, SELFPAY ==
[2022-02-10 09:38] LABS: International Normalized Ratio 2.9; Prothrombin Time (Protime)PT. 29.7 SECONDS (11.7-14.9)
== END 2022-02-10 18:00 | disposition home or self-care (01) ==
LOC: LAB 09:06
PROVIDERS: PCP Family Medicine; Referring Provider Physician Assistant Medical; Visit Provider Physician Assistant Medical
DX: I48.0 Paroxysmal atrial fibrillation (principal); Z79.01 Long term (current) use of anticoagulants
CPT/HCPCS: 36415; 85610

== ENCOUNTER 2022-03-10 09:52 | Outpatient (RCR) | payer MEDICARE, OTHER, SELFPAY ==
[2022-03-10 11:08] LABS: International Normalized Ratio 2.3; Prothrombin Time (Protime)PT. 25.1 SECONDS (11.7-14.9)
== END 2022-03-10 18:00 | disposition home or self-care (01) ==
LOC: LAB 09:52
PROVIDERS: PCP Family Medicine; Referring Provider Physician Assistant Medical; Visit Provider Physician Assistant Medical
DX: I48.0 Paroxysmal atrial fibrillation (principal); Z79.01 Long term (current) use of anticoagulants
CPT/HCPCS: 36415; 85610

== ENCOUNTER 2022-04-06 09:42 | Outpatient (RCR) | payer MEDICARE, OTHER, SELFPAY ==
[2022-04-06 10:51] LABS: International Normalized Ratio 2.2; Prothrombin Time (Protime)PT. 23.7 SECONDS (11.7-14.9)
== END 2022-04-06 18:00 | disposition home or self-care (01) ==
LOC: LAB 09:42
PROVIDERS: PCP Family Medicine; Referring Provider Physician Assistant Medical; Visit Provider Physician Assistant Medical
DX: I48.0 Paroxysmal atrial fibrillation (principal); Z79.01 Long term (current) use of anticoagulants
CPT/HCPCS: 36415; 85610

== ENCOUNTER 2022-05-05 09:08 | Outpatient (RCR) | payer MEDICARE, OTHER, SELFPAY ==
[2022-05-05 10:41] LABS: International Normalized Ratio 2.3; Prothrombin Time (Protime)PT. 24.9 SECONDS (11.7-14.9)
== END 2022-05-26 23:10 | disposition home or self-care (01) ==
LOC: LAB 09:08
PROVIDERS: PCP Family Medicine; Referring Provider Physician Assistant Medical; Visit Provider Physician Assistant Medical
DX: I48.0 Paroxysmal atrial fibrillation (principal); Z79.01 Long term (current) use of anticoagulants
CPT/HCPCS: 36415; 85610

== ENCOUNTER 2022-05-30 15:18 | Emergency (ER) | payer MEDICARE, OTHER, SELFPAY ==
[2022-05-30 15:18] VITALS: BP 141/87; PULSE 77; RESP 16; TEMP 36.5; O2SAT 95
--- NOTE | 2022-05-30 15:35 | ED.VIS.LOWEX ---
HPI History of Present Illness Chief Complaint: Lower Extremity Injury Narrative Narrative: 71-year-old male presenting with right ankle pain. He states he was outside in the grass with slightly rolled his right ankle. Patient able to ambulate on scene and into the ER. Complains of swelling and pain to the right ankle. He took Tylenol before he started working in his yard. Denies any head injury or LOC. [facility] Medical History Arthritis of left knee Benign paroxysmal positional vertigo Diabetes mellitus, type II Essential hypertension Gout History of CVA (cerebrovascular accident) (03/06/21) History of TIA (transient ischemic attack) Hyperlipidemia MCC (current) use of anticoagulants Lumbar stenosis Paroxysmal atrial fibrillation Rheumatoid arthritis Home Medications zvvpzomu-nqc-bgyar acid 0.4 mg-lycopene 300 mcg-lutein 250 mcg tablet 1 ea PO DAILY supplement 03/27/13 [History Last Taken 03/05/21 10:00] lisinopril 10 mg tablet 10 mg PO DAILY bp 06/28/18 [History Last Taken 03/05/21 10:00] allopurinol 300 mg tablet 300 mg PO DAILY gout 10/29/20 [History Last Taken 03/05/21 10:00] insulin lispro 100 unit/mL subcutaneous pen (Humalog KwikPen (U-100) Insulin) 10 unit subcut TIDCM dm 03/05/21 [History Last Taken 03/05/21 13:00] atorvastatin 20 mg tablet 40 mg PO QHS #60 tabs 03/07/21 [Rx Last Taken Unknown] acetaminophen 500 mg tablet (Tylenol Extra Strength) 500 mg PO Q6H PRN 07/06/21 [History Last Taken Unknown] atorvastatin 40 mg tablet 40 mg PO 07/06/21 [History Last Taken Unknown] gabapentin 800 mg tablet 800 mg PO 07/06/21 [History Last Taken Unknown] warfarin 2 mg tablet 2 mg PO .COMPLEX #90 tabs 09/12/21 [Rx Last Taken Unknown] warfarin 4 mg tablet 4 mg PO .COMPLEX #90 tabs 09/12/21 [Rx Last Taken Unknown] metoprolol tartrate 25 mg tablet 25 mg PO BID 09/19/21 [History Last Taken Unknown] insulin glargine 100 unit/mL (3 mL) subcutaneous pen (Lantus Solostar U-100 Insulin) 45 unit (0.45 mL) subcut QPM #40.5 mL 04/10/22 [Rx Last Taken Unknown] Mounjaro 7.5 mg/0.5 mL subcutaneous pen injector (tirzepatide) 7.5 mg (0.5 mL) subcut QWEEK #6 mL 04/11/22 [Rx Last Taken Unknown] metformin 500 mg tablet 500 mg PO DAILY dm 05/08/22 [History Last Taken Unknown] hydrocodone-acetaminophen 5-325mg 5mg-325mg 1 tab PO Q6H PRN PRN Pain 3 days #12 TABLETS 05/30/22 [Rx Last Taken Unknown] Allergy/AdvReac Type Severity Reaction Status Date / Time apixaban [From Eliquis] AdvReac Severe Severe Verified 05/30/22 15:18 dizziness amoxicillin [Amoxicillin] AdvReac Other Verified 05/30/22 15:18 Family History Father Abdominal aortic aneurysm CAD (coronary artery disease) Mother Hypertension Brother Hyperlipidemia Hypertension Surgical History H/O carpal tunnel repair History of colon resection (02/16/07) History of colonoscopy (02/2013) History of esophagogastroduodenoscopy (EGD) (02/2013) History of laparoscopic cholecystectomy (04/03/13) History of loop recorder (05/30/21) Previous back surgery Social History Smoking Status: Unknown if ever smoked ROS ROS ED Constitutional Constitutional ED: Denies chills, fever(s) or sweats Eyes Eyes: Denies blurry vision or change in vision ENT ENT ED: Denies ear pain or sore throat Cardiovascular Cardiovascular: Denies chest pain, palpitations or racing heartbeat Respiratory/Chest Respiratory/Chest: Denies cough, dyspnea or sputum Gastrointestinal Gastrointestinal: Denies abdominal pain, constipation, diarrhea, nausea or vomiting Genitourinary Genitourinary ED: Denies dysuria, hematuria or urinary frequency Musculoskeletal Musculoskeletal: Reports other Details: Right ankle pain and swelling ; Denies arthralgias, myalgias or neck pain Integumentary Denies abscess, Abrasions or rash Neurologic Neurologic: Denies headache(s), paresthesias or weakness Psychiatric Psychiatric: Denies anxiety, depression, suicidal ideation or suicidal thoughts Endocrine Endocrinology: Denies polydipsia or polyuria EXAM Physical Exam Const Vital Signs: 05/30/22 15:18 Temperature 97.7 F L Temperature Source Temporal Pulse Rate 77 Respiratory Rate 16 Blood Pressure 141/87 H Blood Pressure Mean 105 Pulse Ox 95 Oxygen Delivery Method Room Air Positive well nourished General Appearance ED: NAD HEENT normocephalic and atraumatic Resp normal respiratory effort Cardio regular rate and regular rhythm Extremity Extremity Narrative: Tenderness to palpation on the lateral and medial malleoli of the right foot. There is swelling to both sides of the ankle. No foot pain. DP/PT +2/4 symmetric. Brisk cap refill to all 5 toes. Psych mental status grossly normal Skin no wounds MDM MDM MDM Narrative Medical decision making narrative: With ankle pain. He slipped and fell in her yard. Patient declines analgesia in the ER. He did state he take Tylenol before he was working in the yard. His x-ray shows a distal fibular fracture by my interpretation. Radiology interprets this and agrees. Discussed with Dr. Choudhury who recommended walking boot and crutches. Nonweightbearing. Patient given [place] for home. Impression: 1. Mechanical fall 2. Right ankle fracture Radiography Diagnostic Testing: Clinical Impression(s) from Imaging Studies Ankle X-Ray 05/30/22 15:37 IMPRESSION: Fibular fracture as above. Likely small chip/avulsion injuries adjacent to the medial malleolus. Electronically Signed: Abhijit Arellano DO at 16:29 EDT , Discharge Plan Triage Chief Complaint: Lower Extremity Injury ED Provider: Elpidio Altamirano Dx/Rx/DC Orders Instructions: ED Ankle Fracture Prescriptions: New hydrocodone-acetaminophen 5-325 mg tablet 1 tab PO Q6H PRN PRN (Reason: Pain) 3 Days Qty: 12 0RF No Action lisinopril 10 mg tablet 10 mg PO DAILY acetaminophen [Tylenol Extra Strength] 500 mg tablet 500 mg PO Q6H PRN atorvastatin 40 mg tablet 40 mg PO gabapentin 800 mg tablet 800 mg PO metoprolol tartrate 25 mg tablet 25 mg PO BID emggtcnj-ngf-HX-lycopen-lutein 1 EACH tablet 1 ea PO DAILY metformin 500 mg tablet 500 mg PO DAILY allopurinol 300 mg tablet 300 mg PO DAILY insulin lispro [Humalog KwikPen Insulin] 100 unit/mL insulin pen 10 unit SUBCUT TIDCM atorvastatin 20 mg Tablet 40 mg PO QHS Qty: 60 0RF warfarin 4 mg tablet 4 mg PO .COMPLEX Qty: 90 3RF Protocol: Dose Management Condition: Sunday Dose/Route: 4 mg Instruction: 1 x 4 mg tablet Condition: Sunday Dose/Route: 4 mg Instruction: 1 x 4 mg tablet Condition: Sunday Dose/Route: 4 mg Instruction: 1 x 4 mg tablet Condition: Sunday Dose/Route: 6 mg Instruction: 1 x 2 mg tablet, 1 x 4 mg tablet Condition: Dose/Route: 6 mg Instruction: 1 x 2 mg tablet, 1 x 4 mg tablet Condition: Sunday Dose/Route: 6 mg Instruction: 1 x 2 mg tablet, 1 x 4 mg tablet Condition: Sunday Dose/Route: 6 mg Instruction: 1 x 2 mg tablet, 1 x 4 mg tablet Protocol Text: Adjustment Start Date: Sunday05/05/22 INR Value: 2.3 INR Date: 05/05/22 Recheck Date: 06/04/22 Rx Instructions: 4 mg orally take with a 2mg tablet to = 6mg on , , Sun, Sat. Take 4mg on Sun, Sun, . Dose changes often, please give 90 tablets for 90 days.; warfarin 2 mg tablet 2 mg PO .COMPLEX Qty: 90 3RF Protocol: Dose Management Condition: Sunday Dose/Route: 4 mg Instruction: 1 x 4 mg tablet Condition: Sunday Dose/Route: 4 mg Instruction: 1 x 4 mg tablet Condition: Sunday Dose/Route: 4 mg Instruction: 1 x 4 mg tablet Condition: Sunday Dose/Route: 6 mg Instruction: 1 x 2 mg tablet, 1 x 4 mg tablet Condition: Dose/Route: 6 mg Instruction: 1 x 2 mg tablet, 1 x 4 mg tablet Condition: Sunday Dose/Route: 6 mg Instruction: 1 x 2 mg tablet, 1 x 4 mg tablet Condition: Sunday Dose/Route: 6 mg Instruction: 1 x 2 mg tablet, 1 x 4 mg tablet Protocol Text: Adjustment Start Date: Sunday05/05/22 INR Value: 2.3 INR Date: 05/05/22 Recheck Date: 06/04/22 Rx Instructions: take with a 4mg tablet to = 6mg on Weds, , Sun, Sat. Please fill as pt used up 2mg tablets as dose increased and may change again. insulin glargine [Lantus Solostar U-100 Insulin] 100 unit/mL (3 mL) insulin pen 45 unit subcut QPM Qty: 40.5 1RF Mounjaro 7.5 mg/0.5 mL pen injector 7.5 mg subcut QWEEK Qty: 6 1RF Primary Care Provider: Alvarado Madrigal Referrals: Chai Choudhury DPM [Med Staff - Active Staff] - 3-5 Days Alvarado Madrigal MD [Primary Care Provider] - Disposition Disposition: Home, Self Care
--- NOTE | 2022-05-30 15:37 | RAD_ITS ---
STUDY: X-RAY - RIGHT ANKLE REASON FOR EXAM: Male, 71 years old. pain TECHNIQUE: 3 view(s) of the ankle. COMPARISON: None. FINDINGS: There is an oblique mildly displaced fracture of the distal fibula. Small osseous bodies adjacent to the medial malleolus are also noted. Normal medial and lateral malleoli. Normal tibiotalar articulation and ankle mortise. Demineralized talus and calcaneus. The visualized subtalar, talonavicular, calcaneocuboid and tarsal articulations are normal. Circumferential soft tissue swelling is noted. RAD/Ankle min 3 Views IMPRESSION: Fibular fracture as above. Likely small chip/avulsion injuries adjacent to the medial malleolus. Electronically Signed: Abhijit Arellano DO at 16:29 EDT ,
[2022-05-30] MEDS: traMADol 50 MG Tablet PO (15:43)
== END 2022-05-30 17:42 | disposition home or self-care (01) ==
PROVIDERS: Emergency Provider Student in an Organized Health Care Education/Training Program; PCP Family Medicine; Visit Provider Student in an Organized Health Care Education/Training Program
DX: S82.831A Other fracture of upper and lower end of right fibula, initial encounter for closed fracture (principal); I48.0 Paroxysmal atrial fibrillation; E11.9 Type 2 diabetes mellitus without complications; Z79.4 Long term (current) use of insulin; W01.0XXA Fall on same level from slipping, tripping and stumbling without subsequent striking against object, initial encounter; Y92.007 Garden or yard of unspecified non-institutional (private) residence as the place of occurrence of the external cause; I10 Essential (primary) hypertension; E78.5 Hyperlipidemia, unspecified; Z79.01 Long term (current) use of anticoagulants; Z79.84 Long term (current) use of oral hypoglycemic drugs; Z79.899 Other long term (current) drug therapy; Z86.73 Personal history of transient ischemic attack (TIA), and cerebral infarction without residual deficits
CPT/HCPCS: 73610; 99284

== ENCOUNTER → 2022-06-05 | Outpatient (CLI) | payer MEDICARE, OTHER, SELFPAY ==
[2022-06-05 10:29] LABS: International Normalized Ratio 2.9; Prothrombin Time (Protime)PT. 29.8 SECONDS (11.7-14.9)
== END | disposition home or self-care (01) ==
LOC: LAB 03:55
PROVIDERS: PCP Family Medicine; Referring Provider Physician Assistant Medical; Visit Provider Physician Assistant Medical
DX: I48.0 Paroxysmal atrial fibrillation (principal); Z79.01 Long term (current) use of anticoagulants
CPT/HCPCS: 36415; 85610

== ENCOUNTER → 2022-07-03 | Outpatient (CLI) | payer MEDICARE, OTHER, SELFPAY ==
[2022-07-03 11:06] LABS: Prothrombin Time (Protime)PT. 39.7 SECONDS (11.7-14.9)
== END | disposition home or self-care (01) ==
LOC: LAB 10:27
PROVIDERS: PCP Family Medicine; Visit Provider Physician Assistant Medical
DX: I48.0 Paroxysmal atrial fibrillation (principal); Z79.01 Long term (current) use of anticoagulants
CPT/HCPCS: 36415; 85610

== ENCOUNTER → 2022-07-10 | Outpatient (CLI) | payer MEDICARE, OTHER, SELFPAY ==
[2022-07-10 11:32] LABS: International Normalized Ratio 2.9; Prothrombin Time (Protime)PT. 30.6 SECONDS (11.7-14.9)
== END | disposition home or self-care (01) ==
LOC: LAB 08:57
PROVIDERS: Referring Provider Physician Assistant Medical; Visit Provider Physician Assistant Medical
DX: I48.0 Paroxysmal atrial fibrillation (principal); Z79.01 Long term (current) use of anticoagulants
CPT/HCPCS: 36415; 85610

== ENCOUNTER → 2022-07-31 | Outpatient (CLI) | payer MEDICARE, OTHER, SELFPAY ==
[2022-07-31 11:05] LABS: Prothrombin Time (Protime)PT. 31.1 SECONDS (11.7-14.9)
== END | disposition home or self-care (01) ==
LOC: LAB 03:52
PROVIDERS: Referring Provider Physician Assistant Medical; Visit Provider Physician Assistant Medical
DX: I48.0 Paroxysmal atrial fibrillation (principal); Z79.01 Long term (current) use of anticoagulants
CPT/HCPCS: 36415; 85610

== ENCOUNTER 2022-08-24 09:16 | Outpatient (RCR) | payer MEDICARE, OTHER, SELFPAY ==
[2022-08-24 10:09] LABS: International Normalized Ratio 2.3; Prothrombin Time (Protime)PT. 25.7 SECONDS (11.7-14.9)
== END 2022-08-24 18:00 | disposition home or self-care (01) ==
LOC: LAB 09:16
PROVIDERS: PCP Family Medicine; Referring Provider Physician Assistant Medical; Visit Provider Physician Assistant Medical
DX: I48.0 Paroxysmal atrial fibrillation (principal); Z79.01 Long term (current) use of anticoagulants
CPT/HCPCS: 36415; 85610

== ENCOUNTER 2022-09-21 08:44 | Outpatient (RCR) | payer MEDICARE, OTHER, SELFPAY ==
[2022-09-21 09:51] LABS: International Normalized Ratio 2.2; Prothrombin Time (Protime)PT. 24.8 SECONDS (11.7-14.9)
== END 2022-09-25 18:00 | disposition home or self-care (01) ==
LOC: LAB 08:44
PROVIDERS: Physician Assistant Medical; PCP Family Medicine; Referring Provider Internal Medicine Cardiovascular Disease; Visit Provider Internal Medicine Cardiovascular Disease
DX: I48.0 Paroxysmal atrial fibrillation (principal); Z79.01 Long term (current) use of anticoagulants
CPT/HCPCS: 36415; 85610

== ENCOUNTER 2022-09-30 12:56 | Emergency (ER) | payer MEDICARE, OTHER, SELFPAY ==
[2022-09-30 12:57] VITALS: BP 118/73; PULSE 77; RESP 14; TEMP 36.6; O2SAT 100; BMI 35.4
--- NOTE | 2022-09-30 13:31 | EX.ED.UPPERE ---
HPI <SHEY Harrell - Last Filed: 09/30/22 15:54> History of Present Illness Chief Complaint: Upper Extremity Injury Narrative Narrative: 72-year-old male states he developed redness and swelling of his right hand and right lateral foot about a week and a half ago. He thought it was gout since he has a longstanding history of this and is on allopurinol. Urgent care prescribed prednisone 40 mg x 5 days and Keflex to cover potential infection since he had poked his right index finger with a staple around the same time. He has completed all the medication but his right hand still looks the same. 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 Patient denies fever or chills. He is an insulin-dependent diabetic states his A1c's are less than 7 but his sugars have been high recently due to prednisone. He denies fever or chills. 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 Lumbar stenosis Paroxysmal atrial fibrillation Rheumatoid arthritis Home Medications [id number] acid 0.4 mg-lycopene 300 mcg-lutein 250 mcg tablet 1 ea PO DAILY supplement 03/27/13 [History Last Taken 03/05/21 10:00] lisinopril 10 mg tablet 10 mg PO DAILY bp 06/28/18 [History Last Taken 03/05/21 10:00] allopurinol 300 mg tablet 300 mg PO DAILY gout 10/29/20 [History Last Taken 03/05/21 10:00] acetaminophen 500 mg tablet (Tylenol Extra Strength) 500 mg PO Q6H PRN 07/06/21 [History Last Taken Unknown] warfarin 2 mg tablet 2 mg PO .COMPLEX #90 tabs 09/12/21 [Rx Last Taken Unknown] hydrocodone-acetaminophen 5-325mg 5mg-325mg 1 tab PO Q6H PRN PRN Pain 3 days #12 TABLETS 05/30/22 [Rx Last Taken Unknown] metoprolol tartrate 25 mg tablet 25 mg PO BID #180 tabs 07/03/22 [Rx Last Taken Unknown] Mounjaro 7.5 mg/0.5 mL subcutaneous pen injector (tirzepatide) 7.5 mg (0.5 mL) subcut QWEEK #6 mL 07/05/22 [Rx Last Taken Unknown] atorvastatin 40 mg tablet 40 mg PO QHS 07/18/22 [History Last Taken Unknown] gabapentin 800 mg tablet 800 mg PO TID 07/18/22 [History Last Taken Unknown] insulin lispro 100 unit/mL subcutaneous pen (Humalog KwikPen (U-100) Insulin) 13 unit subcut TIDCM dm 07/18/22 [History Last Taken Unknown] metformin 500 mg tablet 500 mg PO BID dm 07/18/22 [History Last Taken Unknown] metformin 500 mg tablet,extended release 24 hr 500 mg PO BID 07/18/22 [History Last Taken Unknown] warfarin 4 mg tablet 4 mg PO .COMPLEX #90 tabs 08/21/22 [Rx Last Taken Unknown] insulin glargine 100 unit/mL (3 mL) subcutaneous pen (Lantus Solostar U-100 Insulin) 36 unit (0.36 mL) subcut QPM #32.4 mL 09/11/22 [Rx Last Taken Unknown] colchicine (gout) 0.6 mg tablet 0.6 mg PO DAILY #1 TAB 09/30/22 [Rx Last Taken Unknown] Allergy/AdvReac Type Severity Reaction Status Date / Time apixaban [From Eliquis] AdvReac Severe Severe Verified 09/30/22 13:00 dizziness amoxicillin [Amoxicillin] AdvReac Other Verified 09/30/22 13:00 Family History Father Abdominal aortic aneurysm CAD (coronary artery disease) Mother Hypertension Brother Hyperlipidemia Hypertension Surgical History H/O carpal tunnel repair History of colon resection (02/16/07) History of colonoscopy (02/2013) History of esophagogastroduodenoscopy (EGD) (02/2013) History of laparoscopic cholecystectomy (04/03/13) History of loop recorder (05/30/21) Previous back surgery Social History Smoking Status: Former smoker quit date: 05/28/15 how long ago did patient quit smokin years ago alcohol intake: current alcohol intake frequency: holidays/special occasions only substance use type: does not use caffeine: Yes Type: carbonated beverages Number of servings: 1 and coffee Number of servings: 2 ROS <SHEY Harrell - Last Filed: 09/30/22 15:54> ROS ED ROS Narrative Constitutional: Negative for fever, chills, malaise. Neuro: Negative for motor/sensory dysfunction. Skin: Negative for wound, abscess. Musc: Positive for right hand pain, swelling. No trauma. EXAM <SHEY Harrell - Last Filed: 09/30/22 15:54> Physical Exam Narrative Exam Narrative: CONST: Patient sitting in no acute distress. EYES: Normal inspection. NECK: Normal inspection. RESP: No respiratory distress, CTAB. CVS: Regular rate and rhythm, no murmur, no gallop. SKIN: Color normal, no rash, warm, dry, intact. EXTREMITIES: Soft tissue swelling and erythema distal half of right dorsal hand. Tender to touch, slightly warm but not hot. Limited range of motion of the MCPs secondary to swelling. Normal sensation, 2+ radial pulse and brisk cap refill in all digits. Lower extremities appear normal with 2+ DP pulses. NEURO: Oriented x4. PSYCH: Normal affect. Const Vital Signs: 09/30/22 12:57 Temperature 97.8 F Temperature Source Temporal Pulse Rate 77 Respiratory Rate 14 Blood Pressure 118/73 Blood Pressure Mean 88 Pulse Ox 100 Oxygen Delivery Method Room Air MDM <SHEY Harrell - Last Filed: 09/30/22 15:54> MDM MDM Narrative Medical decision making narrative: History gathered from: Patient and spouse Patient has soft tissue swelling and erythema dorsal right hand over the MCP areas. More of a dark red/purplish color with slight warmth but appears more consistent with gout than a cellulitis. He has limited range of motion secondary to swelling but does not really have pain with movement. Neurovascularly intact. He does have a longstanding history of gout. Labs were obtained and show normal white count of 7.4, is normal electrolytes and glucose of 265 consistent with his diabetes. No evidence of DKA. Likely DUE to recent prednisone use. X-ray shows soft tissue swelling but no acute findings. Patient is already completed prednisone for gout. He cannot be on NSAIDs since he is on warfarin. I prescribed colchicine with first dose given here and second dose sent to the pharmacy. I recommended follow-up with his PCP and he was discharged in stable condition. Differential: Gout, cellulitis, septic joint Lab Data Attestation: I reviewed the patient's lab results. Radiography Diagnostic Testing: ED attending interpretation of right hand shows no acute fracture or dislocation, no osseous abnormality. <Dr. Elpidio Altamirano, DO - Last Filed: 09/30/22 16:03> [facility] MDM Narrative Medical decision making narrative: History gathered from: Patient and spouse Patient has soft tissue swelling and erythema dorsal right hand over the MCP areas. More of a dark red/purplish color with slight warmth but appears more consistent with gout than a cellulitis. He has limited range of motion secondary to swelling but does not really have pain with movement. Neurovascularly intact. He does have a longstanding history of gout. Labs were obtained and show normal white count of 7.4, is normal electrolytes and glucose of 265 consistent with his diabetes. No evidence of DKA. Likely DUE to recent prednisone use. X-ray shows soft tissue swelling but no acute findings. Patient is already completed prednisone for gout. He cannot be on NSAIDs since he is on warfarin. I prescribed colchicine with first dose given here and second dose sent to the pharmacy. I recommended follow-up with his PCP and he was discharged in stable condition. Differential: Gout, cellulitis, septic joint This patient was seen with a PA/METALWORKING INSTRUCTOR Individually assessed they patient including history and physical. I have reviewed everything on the chart that is available and agree with the documentation provided by the PA/METALWORKING INSTRUCTOR including discussion about the assessment, treatment plan, discussion, and return precautions. Patient presenting with swelling of the right hand with this discoloration. He has a history of gout. He has been on prednisone and Keflex for a few days and without any significant improvement in the hand however he had injection into his foot that was swollen and this is significantly improved and not causing him any problems. Patient cannot be on NSAIDs because of his Coumadin. He presents for right hand swelling. We obtained some basic lab work which is normal and we obtained an x-ray which shows some soft tissue swelling but no evidence of fracture. This on my interpretation. The radiologist interprets this is a strain however the patient denies this. It appears that colchicine is safe with Coumadin so we will start him on this. Follow-up with his PCP. I think this is most likely gout and not infection. 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 [id number]-lycopen-lutein 1 EACH tablet 1 ea PO DAILY metformin 500 mg tablet 500 mg PO BID allopurinol 300 mg tablet 300 mg PO DAILY hydrocodone-acetaminophen 5-325 mg tablet 1 tab PO Q6H PRN PRN (Reason: Pain) 3 Days Qty: 12 0RF warfarin 2 mg tablet 2 mg PO .COMPLEX Qty: 90 3RF Protocol: Dose Management Condition: Sunday Dose/Route: 6 mg Instruction: 1 x 2 mg tablet, 1 x 4 mg tablet Condition: Sunday Dose/Route: 4 mg Instruction: 1 x 4 mg tablet Condition: Sunday Dose/Route: 4 mg Instruction: 1 x 4 mg tablet Condition: Sunday Dose/Route: 4 mg Instruction: 1 x 4 mg tablet Condition: Dose/Route: 4 mg Instruction: 1 x 4 mg tablet Condition: Sunday Dose/Route: 4 mg Instruction: 1 x 4 mg tablet Condition: Sunday Dose/Route: 6 mg Instruction: 1 x 2 mg tablet, 1 x 4 mg tablet Protocol Text: Adjustment Start Date: 09/21/22 INR Value: 2.2 INR Date: 09/21/22 Recheck Date: 10/19/22 Rx Instructions: take with a 4mg tablet to = 6mg on Weds, Thurs, Fri, Sat. Please fill as pt used up 2mg tablets as dose increased and may change again. metoprolol tartrate 25 mg tablet 25 mg PO BID Qty: 180 3RF Mounjaro 7.5 mg/0.5 mL pen injector 7.5 mg subcut QWEEK Qty: 6 1RF warfarin 4 mg tablet 4 mg PO .COMPLEX Qty: 90 3RF Protocol: Dose Management Condition: Sunday Dose/Route: 6 mg Instruction: 1 x 2 mg tablet, 1 x 4 mg tablet Condition: Sunday Dose/Route: 4 mg Instruction: 1 x 4 mg tablet Condition: Sunday Dose/Route: 4 mg Instruction: 1 x 4 mg tablet Condition: Sunday Dose/Route: 4 mg Instruction: 1 x 4 mg tablet Condition: Dose/Route: 4 mg Instruction: 1 x 4 mg tablet Condition: Sunday Dose/Route: 4 mg Instruction: 1 x 4 mg tablet Condition: Sunday Dose/Route: 6 mg Instruction: 1 x 2 mg tablet, 1 x 4 mg tablet Protocol Text: Adjustment Start Date: 09/21/22 INR Value: 2.2 INR Date: 09/21/22 Recheck Date: 10/19/22 Rx Instructions: 4 mg orally take with a 2mg tablet to = 6mg on Weds, Thurs, Fri, Sat. Take 4mg on Sun, Sun, . Dose changes often, please give 90 tablets for 90 days.; insulin glargine [Lantus Solostar U-100 Insulin] 100 unit/mL (3 mL) insulin pen 36 unit subcut QPM Qty: 32.4 0RF Primary Care Provider: Alvarado Madrigal Referrals: Alvarado Madrigal MD [Primary Care Provider] - Activity Restrictions/Additional Instructions: I prescribed medicine called colchicine for gout. 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 Please follow-up with your primary care doctor. Disposition Disposition: Home, Self Care
--- NOTE | 2022-09-30 14:15 | RAD_ITS ---
STUDY: XR Hand Min 3 Views REASON FOR EXAM: Male, 72 years old. hand swelling TECHNIQUE: XR Hand Min 3 Views RIGHT COMPARISON: None FINDINGS: There are no acute findings of the visualized distal radius and ulna. There is degenerative arthrosis of the radiocarpal articulation. Normal distal radioulnar articulation. Normal carpal bones. There is widening of the scapholunate articulation suggesting a sprain of the scapholunate interosseous ligament. There is degenerative arthrosis of the carpometacarpal articulation of the thumb. There is degenerative arthrosis with of the second through fifth carpometacarpal. There are no acute findings of the visualized metacarpal bones. There is non-specific soft tissue swelling along the metacarpal phalangeal joints.. RAD/Hand Min 3 Views IMPRESSION: There is degenerative arthrosis of the hand. There is non-specific soft tissue swelling along the metacarpal phalangeal joints.. There is widening of the scapholunate articulation suggesting a sprain of the scapholunate interosseous ligament. Electronically Signed: Matthew Esparza MD at 14:44 EDT ,
[2022-09-30 14:26] LABS: Absolute Lymphocyte Count 2.54 X10^3/uL (0.83-4.51); Basophil# 0.02 X10^3/uL; Basophil% 0.3 % (0-1); Eosinophil# 0.18 X10^3/uL; Eosinophils% 2.4 % (0-5); Hematocrit 36.4 % (40-54); Hemoglobin 12.2 g/dL (13.0-16.5); Lymphocyte # 2.54 X10^3/ul (0.83-4.51); Lymphocyte % 34.6 % (19-41); Mean Corp Hgb Conc 33.5 g/dL (32-36); Mean Corpuscular Hgb 32.2 pg (27.0-32.0); Mean Platelet Vol. 9.9 fl (6.2-12.0); Monocyte# 0.58 X10^3/uL; Monocyte% 7.9 % (0-10); NRBC Flagged by Analyzer 0 % (0-5); Neutrophil # 3.98 X10^3/uL (2.7-7.7); Neutrophil % 54.1 % (47-70); Platelet Count 208 K/mm3 (150-450); RBC Distribution Width CV 12.9 % (11.6-14.6); RBC Distribution Width SD 45.5 fl (35.1-43.9); Red Blood Count 3.79 M/mm3 (4.6-6.2); White Blood Count 7.4 K/mm3 (4.4-11.0)
[2022-09-30 14:31] LABS: Anion Gap 7 (5-15); BUN 15 mg/dL (7-18); BUN/Creat Ratio 18.9 RATIO (10-20); Calcium,Total 8.4 mg/dL (8.5-10.1); Chloride 104 mmol/L (98-107); Creatinine, Serum 0.79 mg/dL (0.70-1.30); EST Glomerular Filtration Rate 101 mL/min (>60); Est Glom Filt Rate - Afr Amer 123 mL/min (>60); Estimated Creatinine Clearance 66.92 ml/min; Glucose 265 mg/dL (74-106); Potassium 3.9 mmol/L (3.5-5.1); Sodium Level 136 mmol/L (136-145)
[2022-09-30 15:59] VITALS: BP 133/85; PULSE 77; RESP 17; O2SAT 98
[2022-09-30 16:01] LABS: International Normalized Ratio 3.3; Prothrombin Time (Protime)PT. 34.4 SECONDS (11.7-14.9)
[2022-09-30] MEDS: Colchicine 0.6 MG TABLET 1.2 MG PO (16:01)
== END 2022-09-30 16:06 | disposition home or self-care (01) ==
PROVIDERS: Physician Assistant; Emergency Provider Student in an Organized Health Care Education/Training Program; PCP Family Medicine; Visit Provider Student in an Organized Health Care Education/Training Program
DX: M10.041 Idiopathic gout, right hand (principal); I48.0 Paroxysmal atrial fibrillation; E11.9 Type 2 diabetes mellitus without complications; Z79.4 Long term (current) use of insulin; E78.5 Hyperlipidemia, unspecified; I10 Essential (primary) hypertension; Z79.01 Long term (current) use of anticoagulants; Z79.84 Long term (current) use of oral hypoglycemic drugs; Z79.899 Other long term (current) drug therapy; Z86.73 Personal history of transient ischemic attack (TIA), and cerebral infarction without residual deficits; Z87.891 Personal history of nicotine dependence
CPT/HCPCS: 73130; 80048; 85025; 85610; 99284; A4216

== ENCOUNTER 2022-10-19 11:06 | Outpatient (RCR) | payer MEDICARE, OTHER, SELFPAY ==
[2022-10-19 11:51] LABS: International Normalized Ratio 3.7
== END 2022-10-19 18:00 | disposition home or self-care (01) ==
LOC: LAB 11:06
PROVIDERS: PCP Family Medicine; Referring Provider Internal Medicine Cardiovascular Disease; Visit Provider Internal Medicine Cardiovascular Disease
DX: I48.0 Paroxysmal atrial fibrillation (principal); Z79.01 Long term (current) use of anticoagulants; Z86.73 Personal history of transient ischemic attack (TIA), and cerebral infarction without residual deficits
CPT/HCPCS: 36415; 85610

== ENCOUNTER → 2022-10-20 | Outpatient (CLI) | payer MEDICARE, OTHER, SELFPAY ==
[2022-10-20 10:55] LABS: Creatinine, Serum 0.81 mg/dL (0.70-1.30); EST Glomerular Filtration Rate 99 mL/min (>60); Est Glom Filt Rate - Afr Amer 120 mL/min (>60)
== END | disposition home or self-care (01) ==
LOC: LABSPEC 09:50 → LAB 09:56
PROVIDERS: PCP Family Medicine; Referring Provider Student in an Organized Health Care Education/Training Program; Visit Provider Student in an Organized Health Care Education/Training Program
DX: N28.9 Disorder of kidney and ureter, unspecified (principal)
CPT/HCPCS: 36415; 82565

== ENCOUNTER 2022-11-07 09:06 | Outpatient (RCR) | payer MEDICARE, OTHER, SELFPAY ==
[2022-10-31 10:51] LABS: International Normalized Ratio 3.7; Prothrombin Time (Protime)PT. 37.5 SECONDS (11.7-14.9)
[2022-11-07 09:36] LABS: International Normalized Ratio 2.8; Prothrombin Time (Protime)PT. 30.2 SECONDS (11.7-14.9)
== END 2022-11-07 18:00 | disposition home or self-care (01) ==
LOC: LAB 09:06
PROVIDERS: PCP Family Medicine; Referring Provider Internal Medicine Cardiovascular Disease; Visit Provider Internal Medicine Cardiovascular Disease
DX: I48.0 Paroxysmal atrial fibrillation (principal); Z79.01 Long term (current) use of anticoagulants; Z86.73 Personal history of transient ischemic attack (TIA), and cerebral infarction without residual deficits
CPT/HCPCS: 36415; 85610

== ENCOUNTER 2022-11-22 14:35 | Inpatient (IN) | payer MEDICARE, OTHER, SELFPAY ==
[2022-11-22 14:52] VITALS: BP 144/71; PULSE 74; RESP 16; TEMP 36.2; O2SAT 96; BMI 34.2
[2022-11-22 15:09] VITALS: BMI 34.2
[2022-11-22] MEDS: Insulin Lispro 100 UNIT/ML INSULN.PEN 15 UNIT SC (17:19)
[2022-11-22] MEDS: metFORMIN (XR) 500 MG Tablet PO (17:19)
[2022-11-22] MEDS: Erythromycin Base 1 OPTH.TUBE 1 APPLIC LEFT EYE ×2 (17:21→21:46)
[2022-11-22 17:54] LABS: Bedside Glucose 162 mg/dL (74-106)
[2022-11-22 18:20] LABS: International Normalized Ratio 1.9; Prothrombin Time (Protime)PT. 21.9 SECONDS (11.7-14.9)
--- NOTE | 2022-11-22 19:58 | HP.PCM_ITS ---
[facility] - General General Date of Admission: 11/22/22 Date of Service: 11/22/22 Chief Complaint: Here for rehabilitation, intravenous antibiotics. [facility] Narrative REZA PIERRE, is a 72 Male who presents with followin11/15/2022 Admit to [facility] with swollen, painful right hand. MRI showed osteomyelitis of right hand. There was debate on whether he had gout versus infection. Right hand did improve on steroids. Right hand abscess with MRSA, osteomyelitis of 3rd metacarpal joint. 11/16/2022 Incision and drainage right hand. 11/18/2022 Incision and drainage of right hand. 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 PICC line left upper extremity. Right axilla Hydradenitis suppurativa, doing well, clindamycin topical not available, will stop. 11/22/2022 Admit to TCU with debility, here for rehabilitation, strengthening, intravenous antibiotics, prior to discharge home with . [facility] Medical History Arthritis of left knee Benign paroxysmal positional vertigo Diabetes mellitus, type II Essential hypertension Gout History of CVA (cerebrovascular accident) (03/06/21) History of TIA (transient ischemic attack) Hyperlipidemia detention (current) use of anticoagulants Lumbar stenosis Paroxysmal atrial fibrillation Rheumatoid arthritis Home Medications obpsgbkm-frm-xmdnb acid 0.4 mg-lycopene 300 mcg-lutein 250 mcg tablet 1 ea PO DAILY supplement 03/27/13 [History Last Taken 03/05/21 10:00] lisinopril 10 mg tablet 10 mg PO DAILY bp 06/28/18 [History Last Taken 03/05/21 10:00] allopurinol 300 mg tablet 300 mg PO DAILY gout 10/29/20 [History Last Taken 03/05/21 10:00] acetaminophen 500 mg tablet (Tylenol Extra Strength) 1,000 mg PO BID pain 07/06/21 [History Last Taken Unknown] metoprolol tartrate 25 mg tablet 25 mg PO BID bp/hr #180 tabs 07/03/22 [Rx Last Taken Unknown] atorvastatin 40 mg tablet 40 mg PO QHS cholesterol 07/18/22 [History Last Taken Unknown] gabapentin 800 mg tablet 800 mg PO TID neuropathy 07/18/22 [History Last Taken Unknown] insulin lispro 100 unit/mL subcutaneous pen (Humalog KwikPen (U-100) Insulin) 15 unit subcut TIDCM dm 07/18/22 [History Last Taken Unknown] metformin 500 mg tablet 500 mg PO BID dm 07/18/22 [History Last Taken Unknown] metformin 500 mg tablet,extended release 24 hr 500 mg PO BID dm 07/18/22 [History Last Taken Unknown] colchicine (gout) 0.6 mg tablet 0.6 mg PO DAILY gout #1 TAB 09/30/22 [Rx Last Taken Unknown] Mounjaro 7.5 mg/0.5 mL subcutaneous pen injector (tirzepatide) 7.5 mg (0.5 mL) subcut QWEEK unknown #6 mL 10/02/22 [Rx Last Taken Unknown] valacyclovir 500 mg tablet 1,000 mg PO DAILY antiviral 11/08/22 [History Last Taken Unknown] Lactobacillus rhamnosus GG 10 billion cell capsule (Culturelle) 1 cap PO DAILY probiotic 11/22/22 [History Last Taken Unknown] clindamycin phosphate 1 % lotion (Cleocin T) 1 applic topical BID atb 11/22/22 [History Last Taken Unknown] docusate sodium 100 mg capsule (Colace) 100 mg PO BID PRN constipation 11/22/22 [History Last Taken Unknown] erythromycin 5 mg/gram (0.5 %) eye ointment 5 mg ophthalmic (eye) Q3H eye ointment 11/22/22 [History Last Taken Unknown] insulin glargine 100 unit/mL (3 mL) subcutaneous pen (Lantus Solostar U-100 Insulin) 40 unit subcut QPM diabetes 11/22/22 [History Last Taken Unknown] polyethylene glycol 3350 17 gram/dose oral powder (Miralax) 17 g PO DAILY PRN constipation 11/22/22 [History Last Taken Unknown] triamcinolone acetonide 0.1 % topical cream 1 applic topical DAILY PRN hydrodinitus 11/22/22 [History Last Taken Unknown] vancomycin 1,000 mg intravenous injection 1.75 g IV Q12H osteomylitis 11/22/22 [History Last Taken 11/22/22] warfarin 2 mg tablet 2 mg PO .COMPLEX afib 11/22/22 [History Last Taken Unknown] warfarin 4 mg tablet 4 mg PO .COMPLEX afib 11/22/22 [History Last Taken Unknown] Allergy/AdvReac Type Severity Reaction Status Date / Time apixaban [From Eliquis] AdvReac Severe Severe Verified 11/08/22 09:46 dizziness amoxicillin [Amoxicillin] AdvReac Other Verified 11/08/22 09:46 Family History Father Abdominal aortic aneurysm CAD (coronary artery disease) Mother Hypertension Brother Hyperlipidemia Hypertension Surgical History H/O carpal tunnel repair History of colon resection (02/16/07) History of colonoscopy (02/2013) History of esophagogastroduodenoscopy (EGD) (02/2013) History of laparoscopic cholecystectomy (04/03/13) History of loop recorder (05/30/21) Previous back surgery Social History (Updated 11/22/22 @ 20:[address] Abhishek Cavazso MD) household members: spouse Smoking Status: Former smoker quit date: 05/28/15 how long ago did patient quit smokin years ago alcohol intake: current alcohol intake frequency: holidays/special occasions only substance use type: does not use caffeine: Yes Type: carbonated beverages Number of servings: 1 and coffee Number of servings: 2 ROS Constitutional Constitutional: Denies chills, fever(s) or weight gain ENT HEENT: Denies headache(s), nasal congestion or nasal discharge Cardiovascular Cardiovascular: Denies chest pain or palpitations Respiratory/Chest Respiratory/Chest: Denies cough, excessive phlegm production or shortness of breath with exertion Gastrointestinal Gastrointestinal: Denies abdominal pain, nausea or vomiting Genitourinary Genitourinary: Denies dysuria Musculoskeletal Musculoskeletal: Denies joint pain or joint swelling Integumentary Integumentary: Denies rash or wounds Neurologic Neurologic: Denies focal weakness, numbness or tingling Psychiatric Psychiatric: Denies anxiety, auditory hallucinations, depression, homicidal ideation or suicidal ideation Vital Signs Vital Signs Vital Signs: 11/22/22 14:52 11/22/22 14:52 Temperature 97.1 F L Temperature Source Temporal Pulse Rate 74 Pulse Rhythm Regular Pulse Strength Normal (2+) Respiratory Rate 16 Respiratory Effort Normal Non-Labored Respiratory Depth Normal Respiratory Pattern Normal Blood Pressure 144/71 H Blood Pressure Mean 95 Blood Pressure Source Monitor Blood Pressure Position Sitting Blood Pressure Location Right Arm Pulse Ox 96 Oxygen Delivery Method Room Air Room Air Weight Weight: 108.136 kg Body Mass Index (BMI) 34.2 Physical Exam Const alert General Appearance: cooperative HEENT normocephalic Eyes PERRL and EOMs intact bilaterally Neck supple, no JVD and no carotid bruits Resp normal respiratory effort, normal air movement and clear to auscultation bilaterally Cardio regular rate and regular rhythm GI normal to inspection, nondistended, normoactive bowel sounds, non-tender and non-distended Extremity normal capillary refill Extremity Narrative: Right hand dressed. Left upper extremity PICC line. General Extremity: Negative for edema Skin no rashes or lesions noted General Skin Exam: no breakdown Psych affect normal Appearance: appropriate Results Lab / Micro Data Labs: Laboratory Results - last 24 hr 11/22/22 16:43: POC Glucose 162 H 11/22/22 16:55: PT 21.9 H, INR 1.9 Assessment & Plan Assessment/Plan (1) Debility: (2) Hand osteomyelitis, right: (3) MRSA (methicillin resistant staph aureus) culture positive: (4) Obesity: QUALIFIERS: Body mass index: BMI 36.0-36.9 Obesity classification: adult class 2 (BMI 35 - 39.9) Obesity type: due to excess calories Serious obesity comorbidity presence: with serious comorbidity Qualified Code(s): E66.01 - Morbid (severe) obesity due to excess calories; Z68.36 - Body mass index [BMI] 36.0-36.9, adult (5) Diabetes: QUALIFIERS: Diabetes mellitus complication status: with hyperglycemia 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 mellitus 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 terminologist insulin use: with group home use Diabetes mellitus type: type 2 Qualified Code(s): E11.65 - Type 2 diabetes mellitus with hyperglycemia; Z79.4 - detention (current) use of insulin (6) History of CVA (cerebrovascular accident): (7) Paroxysmal atrial fibrillation: (8) Essential hypertension: (9) Hyperlipidemia: (10) History of TIA (transient ischemic attack): PLAN: Plan 72 year old male with below past medical history hospitalized for MRSA osteomyelitis/abscess right hand, underwent incision and drainage, admitted to TCU with debility, here for rehabilitation, strengthening, intravenous antibiotics, prior to discharge home with . * Debility - PT/OT. * Pain - Tylenol 1000mg bid. * Bowel - Miralax 17gm daily, senna/colace 1 tablet bid prn. * Adult immunization - Administer pneumonia vaccine, covid19 vaccine, flu vaccine as appropriate. * DVT prophylaxis - on warfarin. * Herpes Simplex - Acyclovir 400mg bid. * Gout - Allopurinol 300mg daily. * Hyperlipidemia - Atorvastatin 40mg qhs. * Conjunctivitis - E-mycin OS q3hwa. * Diabetic polyneuropathy - Gabapentin 800mg tid. * Diabetes Mellitus II - Metformin XR 500mg bidcm, Glargine 40 units qhs, Lispro 15 units tidcm. * GI prophylaxis - Lactobacillus 1 tablet daily. * Hypertension - Metoprolol 25mg bid, Lisinopril 10mg daily. * Rash - Triamcinolone topical daily prn. * Atrial fibrillation - Metoprolol 25mg bid, Warfarin 4mg 4 days/week, 2mg 3 days/week, follow INR. * MRSA osteomyelitis right hand - Vancomycin 1750mg IV Q12h, consult Dr. Stroud for his expertise.
[2022-11-22 21:37] VITALS: BP 115/75; PULSE 97
[2022-11-22] MEDS: Acyclovir 200 MG Capsule 400 MG PO (21:37)
[2022-11-22] MEDS: Metoprolol Tartrate 25 MG Tablet PO (21:37)
[2022-11-22] MEDS: Acetaminophen 500 MG Tablet 1000 MG PO (21:38)
[2022-11-22] MEDS: Atorvastatin Calcium 40 MG Tablet PO (21:38)
[2022-11-22] MEDS: Gabapentin 800 MG Tablet PO (21:38)
[2022-11-22] MEDS: Insulin Glargine-YFGN 100 UNIT/ML Pen 40 UNIT SC (21:45)
[2022-11-22 21:48] LABS: Bedside Glucose 129 mg/dL (74-106)
[2022-11-22 22:48] LABS: Vancomycin, Random Level 25.6 ug/mL (0.0-15.0)
--- NOTE | 2022-11-22 23:42 | PCM.RX.CS ---
Consult Antibiotic Management Pharmacy has been consulted to manage selected antiobiotic: Vancomycin Type of Intervention Type of Consult: New start Suspected Infection Suspected Infection: Osteomyelitis Prior Doses of Antibiotics Prior Doses of Antibiotics Received/Current Regimen: At other facility was getting vancomycin 1750mg q12h. Last dose given there was 11/22/22 @1040. Labs Labs: Random Vancomycin 25.6 ug/mL (0.0-15.0) H 11/22/22 22:00 Dosing Weight Weight used for dosin kg Estimated Creatinine Clearance Estimated Creatinine Clearance: pending Goal Trough Goal Trough: 15-20 mcg/mL Pharmacy Plan for Drug Dosing Pharmacy Plan for Drug Dosing: With patient coming from other facility on vancomycin IV, a random level was ordered. 11/22/22 @2200 the level was high at 25.6. This was an 11.3hr level. Determination of continuing dosing will be held until another level is drawn in 12 hours. Also pending SCr labwork completion. Pharmacy Service will continue to monitor and adjust dosing as required. Follow-Up Labs Follow-Up Labs: Trough: Vancomycin (random) Date/Time Labs Ordered Labs to be done on [date and time ordered]: 11/23/22 @1000
[2022-11-23 05:51] LABS: Absolute Lymphocyte Count 2.04 X10^3/uL (0.83-4.51); Absolute Neutrophil Count 2.4 X10^3/uL (2.0-7.7); Basophil# 0.04 X10^3/uL; Basophil% 0.7 % (0-1); Eosinophil# 0.37 X10^3/uL; Eosinophils% 6.9 % (0-5); Hematocrit 32.9 % (40-54); Lymphocyte # 2.04 X10^3/ul (0.83-4.51); Lymphocyte % 37.8 % (19-41); Mean Corp Hgb Conc 33.4 g/dL (32-36); Mean Corpuscular Hgb 32.7 pg (27.0-32.0); Mean Corpuscular Volume 97.9 fL (80-94); Mean Platelet Vol. 9.9 fl (6.2-12.0); Monocyte# 0.57 X10^3/uL; Monocyte% 10.6 % (0-10); NRBC Flagged by Analyzer 0 % (0-5); Neutrophil # 2.35 X10^3/uL (2.7-7.7); Neutrophil % 43.6 % (47-70); Platelet Count 286 K/mm3 (150-450); RBC Distribution Width CV 13.8 % (11.6-14.6); RBC Distribution Width SD 50.1 fl (35.1-43.9); Red Blood Count 3.36 M/mm3 (4.6-6.2); White Blood Count 5.4 K/mm3 (4.4-11.0)
[2022-11-23 06:01] LABS: International Normalized Ratio 1.8; Prothrombin Time (Protime)PT. 21.3 SECONDS (11.7-14.9)
[2022-11-23 06:22] LABS: Bedside Glucose 146 mg/dL (74-106)
[2022-11-23 06:29] LABS: Anion Gap 4 (5-15); BUN 15 mg/dL (7-18); BUN/Creat Ratio 17.5 RATIO (10-20); Calcium,Total 8.6 mg/dL (8.5-10.1); Chloride 107 mmol/L (98-107); Creatinine, Serum 0.86 mg/dL (0.70-1.30); EST Glomerular Filtration Rate 93 mL/min (>60); Est Glom Filt Rate - Afr Amer 112 mL/min (>60); Estimated Creatinine Clearance 77.81 ml/min; Glucose 147 mg/dL (74-106); Sodium Level 138 mmol/L (136-145)
[2022-11-23] MEDS: Gabapentin 800 MG Tablet PO ×3 (06:57→21:45)
[2022-11-23] MEDS: Erythromycin Base 1 OPTH.TUBE 1 APPLIC LEFT EYE ×6 (06:57→21:46)
[2022-11-23 07:32] VITALS: PULSE 70; RESP 16; O2SAT 97
[2022-11-23] MEDS: Acetaminophen 500 MG Tablet 1000 MG PO ×2 (09:09→21:45)
[2022-11-23 09:10] VITALS: PULSE 74
[2022-11-23] MEDS: Metoprolol Tartrate 25 MG Tablet PO ×2 (09:10→21:45)
[2022-11-23] MEDS: Insulin Lispro 100 UNIT/ML INSULN.PEN 15 UNIT SC ×3 (09:10→18:05)
[2022-11-23] MEDS: Acyclovir 200 MG Capsule 400 MG PO ×2 (09:10→21:45)
[2022-11-23] MEDS: Allopurinol 300 MG Tablet PO (09:10)
[2022-11-23] MEDS: Lisinopril 10 MG Tablet PO (09:10)
[2022-11-23] MEDS: metFORMIN (XR) 500 MG Tablet PO ×2 (09:10→18:06)
[2022-11-23 10:22] LABS: Vancomycin, Random Level 16.6 ug/mL (0.0-15.0)
[2022-11-23] MEDS: Tuberculin,Purif.prot.deriv. 50 TU/ML Vial 0.1 ML ID (10:26)
--- NOTE | 2022-11-23 10:48 | PCM.RX.CS ---
Consult Antibiotic Management Pharmacy has been consulted to manage selected antiobiotic: Vancomycin Type of Intervention Type of Consult: Follow-up Suspected Infection Suspected Infection: Osteomyelitis Prior Doses of Antibiotics Prior Doses of Antibiotics Received/Current Regimen: Vancomycin 1750 mg IV given 11/22/22 @ 1040 at other facility. Labs Labs: Sodium 138 mmol/L (136-145) 11/23/22 05:33 Potassium 4.0 mmol/L (3.5-5.1) 11/23/22 05:33 Chloride 107 mmol/L (98-107) 11/23/22 05:33 Carbon Dioxide 27.0 mmol/L (21.0-32.0) 11/23/22 05:33 Anion Gap 4 (5-15) L 11/23/22 05:33 BUN 15 mg/dL (7-18) 11/23/22 05:33 Creatinine 0.86 mg/dL (0.70-1.30) 11/23/22 05:33 Est GFR (MDRD) Af Amer 112 mL/min (>60) 11/23/22 05:33 Est GFR (MDRD) Non-Af 93 mL/min (>60) 11/23/22 05:33 BUN/Creatinine Ratio 17.5 RATIO (10-20) 11/23/22 05:33 Glucose 147 mg/dL (74-106) H 11/23/22 05:33 Random Vancomycin 16.6 ug/mL (0.0-15.0) H 11/23/22 09:53 Dosing Weight Weight used for dosin kg Estimated Creatinine Clearance Estimated Creatinine Clearance: ~80 Goal Trough Goal Trough: 15-20 mcg/mL Pharmacy Plan for Drug Dosing Pharmacy Plan for Drug Dosing: Vancomycin random on admission date ~ 12 hours after last dose = 25.6, repeat trough this AM ~23 hours after last dose = 16.6. Will resume dosing at 1250 mg IV Q12H starting today with a trough prior to the 4th dose. Pharmacy Service will continue to monitor and adjust dosing as required. Follow-Up Labs Follow-Up Labs: Trough: Vancomycin Date/Time Labs Ordered Labs to be done on [date and time ordered]: 11/24/22 @ 2230
[2022-11-23 11:39] LABS: Bedside Glucose 188 mg/dL (74-106)
[2022-11-23] MEDS: 0.9 % NaCl (Sterile) Posiflush 10 mL IV (12:04)
[2022-11-23] MEDS: Vancomycin HCl 1,250 MG in 0.9% Normal Saline (250mL Bag) 250 ML 167 MG IV ×2 (12:04→22:32)
--- NOTE | 2022-11-23 14:08 | NURSING ---
m/l to Dr. Bee's office to let us know when suture removal for patient should be completed.
--- NOTE | 2022-11-23 14:59 | PCM.PN.DRR ---
TCU RX Drug Regimen Review Subjective/Objective Subjective/Objective: Subjective: 72 YOM admitted to TCU 11/22/22 S/P hospitalization from an outside facility. Patient was admitted and diagnosed with MRSA osteomyelitis and was discharged on 6 weeks IV vancomycin. Admitted to TCU 11/22/22 for antibiotic therapy, strengthening, and rehabilitation prior to discharge home where he resides with his . Objective: Allergies apixaban [From Eliquis] Adverse Reaction (Severe, Verified 11/08/22 09:46) Severe dizziness amoxicillin [Amoxicillin] Adverse Reaction (Verified 11/08/22 09:46) Other Current Medications Generic Name Dose Route Start Last Admin Trade Name Freq PRN Reason Stop Dose Admin Acetaminophen 1,000 mg 11/22/22 22:00 11/23/22 09:09 Acetaminophen 500 Mg Tablet PO 1,000 mg BID GIOVANNY Administration Acyclovir 400 mg 11/22/22 22:00 11/23/22 09:10 Acyclovir 200 Mg Capsule PO 400 mg BID GIOVANNY Administration Allopurinol 300 mg 11/23/22 08:00 11/23/22 09:10 Allopurinol 300 Mg Tablet PO 300 mg DAILYCM GIOVANNY Administration Atorvastatin Calcium 40 mg 11/22/22 22:00 11/22/22 21:38 Atorvastatin Calcium 40 Mg Tablet PO 40 mg QHS GIOVANNY Administration Erythromycin 1 applic 11/22/22 18:00 11/23/22 13:07 Erythromycin Base 1 Opth.Tube LEFT EYE 1 applic Q3HWA GIOVANNY Administration Gabapentin 800 mg 11/22/22 22:00 11/23/22 13:06 Gabapentin 800 Mg Tablet PO 800 mg TID GIOVANNY Administration Heparin Sodium (Beef Lung) 50 units 11/22/22 14:53 Heparin Pf Lock 10 Units/Ml 50 Units/5 Ml Syringe IV UD PRN PICC Line Heparin Flush Vancomycin IV-PHARMACY TO DOSE 500 mls @ 250 mls/hr 11/22/22 18:52 1 each/ Sodium Chloride IV PRN PRN Rx to Dose Protocol Vancomycin HCl 1,250 mg/ 275 mls @ 167 mls/hr 11/23/22 11:00 11/23/22 13:48 Sodium Chloride IV Infused Q12H GIOVANNY Infusion Insulin Glargine 40 unit 11/22/22 22:00 11/22/22 21:45 Insulin Glargine-Yfgn 100 Unit/Ml Pen SC 40 unit QHS GIOVANNY Administration Insulin Human Lispro 15 unit 11/22/22 17:45 11/23/22 13:06 Insulin Lispro 100 Unit/Ml Insuln.Pen SC 15 u TIDCM [facility] Administration Lactobacillus Acidophilus 1 tablet 11/23/22 10:00 11/23/22 09:10 Lactobacillus Acidophilus PO 1 tablet DAILY GIOVANNY Administration Lisinopril 10 mg 11/23/22 10:00 11/23/22 09:10 Lisinopril 10 Mg Tablet PO 10 mg DAILY [facility] Administration Protocol Metformin HCl 500 mg 11/22/22 17:00 11/23/22 09:10 Metformin (Xr) 500 Mg Tablet PO 500 mg BIDCM [facility] Administration Metoprolol Tartrate 25 mg 11/22/22 22:00 11/23/22 09:10 Metoprolol Tartrate 25 Mg Tablet PO 25 mg BID [facility] Administration Protocol Polyethylene Glycol 17 gm 11/22/22 15:53 Polyethylene Glycol 3350 17 Gm Packet PO DAILY PRN constipation Senna/Docusate Sodium 1 tablet 11/22/22 20:19 Senna/Docusate Sodium 1 Tablet PO BID PRN Constipation Sodium Chloride 10 - 40 ml 11/22/22 14:53 11/23/22 12:04 0.9 % Nacl (Sterile) Posiflush 10 Ml IV 10 ml UD PRN Administration Port access or dressing change Sodium Chloride 10 - 40 ml 11/22/22 14:53 0.9% Saline Lock 10 Ml Syringe IV UD PRN Open End PICC Flush Triamcinolone Acetonide 1 applic 11/22/22 15:30 Triamcinolone Acetonide 0.1% Cream 15 Gm TOPICAL DAILY PRN hydrodinitus Protocol Tuberculin PPD 0.1 ml 11/30/22 10:00 Tuberculin,Purif.Prot.Deriv. 50 Tu/Ml Vial ID 11/30/22 10:01 X1 ONE Vancomycin Protocol 1 lab 11/24/22 20:30 Vancomycin Trough/Random Due MC 11/25/22 00:30 DAILY [facility] Warfarin Sodium 4 mg 11/22/22 19:00 11/22/22 18:53 Warfarin 4 Mg Tablet PO 4 mg [id number]@1700 [facility] Administration Warfarin Sodium 2 mg 11/25/22 17:00 Jantoven 2 Mg Tablet PO [id number]@1700 [facility] Problem List (Updated 11/22/22 @ 20:[address] Abhishek Cavazos MD) MRSA (methicillin resistant staph aureus) culture positive (Acute) Hand osteomyelitis, right (Acute) Debility (Acute) Obesity (Chronic) Diabetes (Chronic) History of CVA (cerebrovascular accident) (Acute 03/06/21) Paroxysmal atrial fibrillation (Chronic) Essential hypertension (Chronic) Hyperlipidemia (Chronic) History of TIA (transient ischemic attack) (Acute) Vital Signs Temp Pulse Resp BP Pulse Ox O2 Del Method 97.1 F L 74 16 115/75 97 Room Air 11/22/22 14:52 11/23/22 09:10 11/23/22 07:32 11/22/22 21:37 11/23/22 07:32 11/23/22 07:32 Oxygen Delivery Method Room Air Weight: 108.136 kg Body Mass Index (BMI) 34.2 Sodium 138 mmol/L (136-145) 11/23/22 05:33 Potassium 4.0 mmol/L (3.5-5.1) 11/23/22 05:33 Chloride 107 mmol/L (98-107) 11/23/22 05:33 Carbon Dioxide 27.0 mmol/L (21.0-32.0) 11/23/22 05:33 Anion Gap 4 (5-15) L 11/23/22 05:33 BUN 15 mg/dL (7-18) 11/23/22 05:33 Creatinine 0.86 mg/dL (0.70-1.30) 11/23/22 05:33 Est GFR (MDRD) Af Amer 112 mL/min (>60) 11/23/22 05:33 Est GFR (MDRD) Non-Af 93 mL/min (>60) 11/23/22 05:33 BUN/Creatinine Ratio 17.5 RATIO (10-20) 11/23/22 05:33 Glucose 147 mg/dL (74-106) H 11/23/22 05:33 Random Vancomycin 16.6 ug/mL (0.0-15.0) H 11/23/22 09:53 Assessment/Plan: 1. Pain: Tylenol 1000mg PO BID. Please continue to monitor for increased/decreased S/S pain. 2. MRSA Osteomyelitis: Vancomycin 1250mg IV Q12hr x 6 weeks of treatment. Please continue to monitor trough levels, renal function. ID consulted to see patient. 3. Atrial Fibrillation/ HTN/HLD: Lopressor 25mg PO BID, Lisinopril 10mg PO Daily, Lipitor 40mg PO QHS, Warfarin 4mg PO - and 2mg Sa-Mo. Please continue to monitor BP (115-144/71-75), pulse (range 70-97), H/H (Hgb 11, Hct 32.9 on 11/23), INR (1.8 on 11/23), S/S bleeding/bruising, Lipid panel annually or sooner if clinically indicated (last done 02/2021) 4. Diabetes Type II: Glargine 40 unit SC QHS, Humalog 15 units SC TIDCM, Metformin XR 500mg BIDCM. Please continue to monitor for S/S hypoglycemia, injection site reactions, POC glucose (range 129-188), A1C (9.5 on 11/08/22), CrCl (77 mL/min on 11/23). Patient's A1c is above goal, can consider increasing metformin to 1000mg PO BIDCM if clinically indicated, given elevated A1C and good renal function, thank you. 5. Diabetic Polyneuropathy: Gabapentin 800mg PO TID. this is a Beer's Criteria medication which can increase the risk of falls/fractures in patients older than 65. Please continue to monitor patient closely for falls, does not appear to be high risk at this time. Please continue to monitor for medication effectiveness, renal function, oversedation, and falls with continued use. 6. Gout: Allopurinol 300mg PO Daily. Please continue to monitor for nausea/vomiting, gout flare-ups. 7. Herpes Simplex: Acyclovir 400mg PO BID. Please continue to monitor for resolution of infection. No stop date added to order, continue to monitor and consider adding a stopdate based on previous duration of therapy, thank you. 8. Conjunctivitis: Erythromycin ophthalmic left eye Q3hWA. Please continue to monitor for resolution of infection. 9. Skin Rash: Triamcinolone cream topically daily PRN. Please continue to monitor PRN use, resolution of rash, skin integrity. 10. General Wellness: Acidophilus 1 tab PO daily. 11. Bowel: Miralax 17g PO Daily PRN, Senna-S 1 tab PO BID PRN. Please continue to monitor for increased/decreased S/S constipation and/or diarrhea. - To date; the patient has not produced a BM. The patient has been here <24hrs. If patient does not have a BM in the next 48hrs, please consider giving PRN medications to help facilitate BM. Assessment/Plan for indications treated with psychotropic medications: -The patient is not currently being treated with any psychotropic medications at time of discharge review. Medical chart and medication regimen reviewed. The following medication irregularities or issues were identified: 1. Warfarin: Current INR 1.8, yesterday was 1.9. Goal INR should be 2-3. If INR is low next drawing, please consider increasing Warfarin dose to achieve a INR goal of 2-3 if clinically indicated, thank you. 2. The patient's last lipid panel on file is from 02/2021. Please consider obtaining a lipid panel if clinically indicated since it has been >1 year since last draw, thank you. 3. Diabetes Type II: Glargine 40 unit SC QHS, Humalog 15 units SC TIDCM, Metformin XR 500mg BIDCM. Patient's A1c is above goal (last 9.5), can consider increasing metformin to 1000mg PO BIDCM if clinically indicated, given elevated A1C and good renal function, thank you. Date Date of Note:: 11/23/22
[2022-11-23 16:00] VITALS: BP 109/64; PULSE 74; RESP 16; TEMP 36.3; O2SAT 94
--- NOTE | 2022-11-23 16:41 | CASEMGMT ---
Social Work Met with patient to complete initial assessment. Introduced self and role. Discussed code status and pt confirmed full code. SW requested provide copies of advanced directives. Educated to Medicare benefit. Encouraged to contact secondary insurance to ensure copay coverage. Pt has IV ATB Q12 for 6 weeks. Pt is NWB on right hand and has dressing change. Pt is unable to complete IVs and dressing change at this time. 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 Pt's goal is to return home with at [facility]. SW will continue to follow for DC planning. Ree Singh, [employer] ASSEMBLER BEARING MAKER
[2022-11-23 17:14] LABS: Bedside Glucose 85 mg/dL (74-106)
[2022-11-23] MEDS: Triamcinolone Acetonide 0.1% Cream 15 gm 1 APPLIC TOPICAL (18:06)
[2022-11-23 21:45] VITALS: BP 119/80; PULSE 74
[2022-11-23] MEDS: Insulin Glargine-YFGN 100 UNIT/ML Pen 40 UNIT SC (21:45)
[2022-11-23] MEDS: Atorvastatin Calcium 40 MG Tablet PO (21:45)
[2022-11-24 01:40] LABS: Bedside Glucose 133 mg/dL (74-106)
[2022-11-24] MEDS: Gabapentin 800 MG Tablet PO ×3 (05:51→22:06)
[2022-11-24] MEDS: Erythromycin Base 1 OPTH.TUBE 1 APPLIC LEFT EYE ×5 (05:53→21:58)
[2022-11-24 06:52] LABS: Bedside Glucose 103 mg/dL (74-106)
[2022-11-24] MEDS: Insulin Lispro 100 UNIT/ML INSULN.PEN 15 UNIT SC ×3 (09:15→17:48)
[2022-11-24] MEDS: Acetaminophen 500 MG Tablet 1000 MG PO ×2 (09:16→22:00)
[2022-11-24 09:17] VITALS: BP 122/79; PULSE 86
[2022-11-24] MEDS: Allopurinol 300 MG Tablet PO (09:17)
[2022-11-24] MEDS: Lisinopril 10 MG Tablet PO (09:17)
[2022-11-24] MEDS: metFORMIN (XR) 500 MG Tablet PO ×2 (09:17→17:09)
[2022-11-24] MEDS: Acyclovir 200 MG Capsule 400 MG PO ×2 (09:17→22:00)
[2022-11-24] MEDS: Metoprolol Tartrate 25 MG Tablet PO ×2 (09:17→22:08)
[2022-11-24 09:22] VITALS: BP 122/79; PULSE 86; RESP 16; TEMP 36.2; O2SAT 95
--- NOTE | 2022-11-24 11:00 | NURSING ---
RT HAND SOAKED PER ORDER, REDRESSED.
[2022-11-24] MEDS: Vancomycin HCl 1,250 MG in 0.9% Normal Saline (250mL Bag) 250 ML 167 MG IV (11:14)
[2022-11-24] MEDS: 0.9% Normal Saline (250mL Bag) 250 ML 15 ML IV (11:18)
[2022-11-24 11:49] LABS: Bedside Glucose 136 mg/dL (74-106)
--- NOTE | 2022-11-24 12:00 | NURSING ---
Garnett Fixer Note; Activity Asset: Richard Motta is independent in his choice of daily activities. He has a smartphone, will watch TV, read and spend time visiting w/family and friends. Kalia welcomes visit from the pin drafting machine tender and therapy when available. His family will take him off the unit and he will sit in the day room independently. Staff will continue to remind him of daily activities and respect his right to say no.
[2022-11-24] MEDS: Hydrocortisone 2.5% Crm 1 APPLIC TOPICAL ×2 (13:10→21:57)
--- NOTE | 2022-11-24 13:30 | PCM.CONS.GEN ---
Assessment & Plan Assessment/Plan (1) Hand osteomyelitis, right: PLAN: Reviewed [facility] records and labs. Seen by Dr. Uriel Loza with ID. Wound cxs with MRSA. On iv vanc, stop date 12/26/22. Weekly bmp, cbc, esr, and vanc trough. Will follow, thank you (2) MRSA (methicillin resistant staph aureus) culture positive: HPI Consult Data Date of Consult: 11/24/22 HPI Narrative Reason for Consultation: hand osteo HPI Narrative: REZA PIERRE, is a 72 M admitted to [facility] 11/15 with R hand pain, swelling. Taken to OR 11/16 and 11/18. Surg cx with MRSA. Seen by Dr. Uriel Loza with ID, picc placed, discharged to TCU on 6 weeks iv vanc. Feeling ok. He is R handed. Hand is less sore, still limited ROM, sutures in place. No fever, no n/v/d, no issues with LUE picc. Full ROS performed and neg except as noted above. [facility] Medical History Arthritis of left knee Benign paroxysmal positional vertigo Diabetes mellitus, type II Essential hypertension Gout History of CVA (cerebrovascular accident) (03/06/21) History of TIA (transient ischemic attack) Hyperlipidemia USP (current) use of anticoagulants Lumbar stenosis Paroxysmal atrial fibrillation Rheumatoid arthritis Home Medications [id number] acid 0.4 mg-lycopene 300 mcg-lutein 250 mcg tablet 1 ea PO DAILY supplement 03/27/13 [History Last Taken 03/05/21 10:00] lisinopril 10 mg tablet 10 mg PO DAILY bp 06/28/18 [History Last Taken 03/05/21 10:00] allopurinol 300 mg tablet 300 mg PO DAILY gout 10/29/20 [History Last Taken 03/05/21 10:00] acetaminophen 500 mg tablet (Tylenol Extra Strength) 1,000 mg PO BID pain 07/06/21 [History Last Taken Unknown] metoprolol tartrate 25 mg tablet 25 mg PO BID bp/hr #180 tabs 07/03/22 [Rx Last Taken Unknown] atorvastatin 40 mg tablet 40 mg PO QHS cholesterol 07/18/22 [History Last Taken Unknown] gabapentin 800 mg tablet 800 mg PO TID neuropathy 07/18/22 [History Last Taken Unknown] insulin lispro 100 unit/mL subcutaneous pen (Humalog KwikPen (U-100) Insulin) 15 unit subcut TIDCM dm 07/18/22 [History Last Taken Unknown] metformin 500 mg tablet 500 mg PO BID dm 07/18/22 [History Last Taken Unknown] metformin 500 mg tablet,extended release 24 hr 500 mg PO BID dm 07/18/22 [History Last Taken Unknown] colchicine (gout) 0.6 mg tablet 0.6 mg PO DAILY gout #1 TAB 09/30/22 [Rx Last Taken Unknown] Mounjaro 7.5 mg/0.5 mL subcutaneous pen injector (tirzepatide) 7.5 mg (0.5 mL) subcut QWEEK unknown #6 mL 10/02/22 [Rx Last Taken Unknown] valacyclovir 500 mg tablet 1,000 mg PO DAILY antiviral 11/08/22 [History Last Taken Unknown] Lactobacillus rhamnosus GG 10 billion cell capsule (Culturelle) 1 cap PO DAILY probiotic 11/22/22 [History Last Taken Unknown] clindamycin phosphate 1 % lotion (Cleocin T) 1 applic topical BID atb 11/22/22 [History Last Taken Unknown] docusate sodium 100 mg capsule (Colace) 100 mg PO BID PRN constipation 11/22/22 [History Last Taken Unknown] erythromycin 5 mg/gram (0.5 %) eye ointment 5 mg ophthalmic (eye) Q3H eye ointment 11/22/22 [History Last Taken Unknown] insulin glargine 100 unit/mL (3 mL) subcutaneous pen (Lantus Solostar U-100 Insulin) 40 unit subcut QPM diabetes 11/22/22 [History Last Taken Unknown] polyethylene glycol 3350 17 gram/dose oral powder (Miralax) 17 g PO DAILY PRN constipation 11/22/22 [History Last Taken Unknown] triamcinolone acetonide 0.1 % topical cream 1 applic topical DAILY PRN hydrodinitus 11/22/22 [History Last Taken Unknown] vancomycin 1,000 mg intravenous injection 1.75 g IV Q12H osteomylitis 11/22/22 [History Last Taken 11/22/22] warfarin 2 mg tablet 2 mg PO .COMPLEX afib 11/22/22 [History Last Taken Unknown] warfarin 4 mg tablet 4 mg PO .COMPLEX afib 11/22/22 [History Last Taken Unknown] Allergy/AdvReac Type Severity Reaction Status Date / Time apixaban [From Eliquis] AdvReac Severe Severe Verified 11/08/22 09:46 dizziness amoxicillin [Amoxicillin] AdvReac Other Verified 11/08/22 09:46 Family History Father Abdominal aortic aneurysm CAD (coronary artery disease) Mother Hypertension Brother Hyperlipidemia Hypertension Surgical History H/O carpal tunnel repair History of colon resection (02/16/07) History of colonoscopy (02/2013) History of esophagogastroduodenoscopy (EGD) (02/2013) History of laparoscopic cholecystectomy (04/03/13) History of loop recorder (05/30/21) Previous back surgery Social History (Updated 11/22/22 @ 20:[address] Abhishek Cavazos MD) household members: spouse Smoking Status: Former smoker quit date: 05/28/15 how long ago did patient quit smokin years ago alcohol intake: current alcohol intake frequency: holidays/special occasions only substance use type: does not use caffeine: Yes Type: carbonated beverages Number of servings: 1 and coffee Number of servings: 2 Physical Exam Const alert, oriented x3 and no apparent distress General Appearance: cooperative HEENT normocephalic and head/scalp atraumatic Eyes PERRL and EOMs intact bilaterally Neck supple and No nodes Resp normal air movement and clear to auscultation bilaterally Cardio regular rate and regular rhythm GI soft to palpation, non-tender and non-distended Extremity General Extremity: Negative for edema Skin Skin Narrative: R hand incision, mild redness and swelling Neuro CN's II-XII intact bilaterally Lab / Micro Data Attestation: I reviewed the patient's lab results. 11/23/22 05:33 11/23/22 05:33 Labs: Laboratory Results - last 24 hr 11/23/22 16:51: POC Glucose 85 11/23/22 21:13: POC Glucose 133 H 11/24/22 06:29: POC Glucose 103 11/24/22 11:28: POC Glucose 136 H Micro: Microbiology 11/24/22 05:55 Nasal Secretion SARS-CoV-2 Antigen (Rapid) - Final
[2022-11-24 17:34] LABS: Bedside Glucose 74 mg/dL (74-106)
--- NOTE | 2022-11-24 18:07 | NURSING ---
PT HAND SOAKED & REDRESSED PER ORDER. NO S/S INFECTION. SUTURES INTACT
[2022-11-24] MEDS: Atorvastatin Calcium 40 MG Tablet PO (22:00)
[2022-11-24] MEDS: Insulin Glargine-YFGN 100 UNIT/ML Pen 40 UNIT SC (22:01)
[2022-11-24 22:08] VITALS: BP 133/68; PULSE 99
[2022-11-24] MEDS: Vancomycin Trough/Random Due 1 LAB MC (22:13)
[2022-11-24 22:18] LABS: Bedside Glucose 168 mg/dL (74-106)
[2022-11-24 22:41] LABS: Vancomycin, Trough Level 22.8 ug/mL (5.0-15.0)
--- NOTE | 2022-11-24 22:49 | PCM.RX.CS ---
Consult Antibiotic Management Pharmacy has been consulted to manage selected antiobiotic: Vancomycin Type of Intervention Type of Consult: Follow-up Suspected Infection Suspected Infection: Osteomyelitis Labs Labs: Sodium 138 mmol/L (136-145) 11/23/22 05:33 Potassium 4.0 mmol/L (3.5-5.1) 11/23/22 05:33 Chloride 107 mmol/L (98-107) 11/23/22 05:33 Carbon Dioxide 27.0 mmol/L (21.0-32.0) 11/23/22 05:33 Anion Gap 4 (5-15) L 11/23/22 05:33 BUN 15 mg/dL (7-18) 11/23/22 05:33 Creatinine 0.86 mg/dL (0.70-1.30) 11/23/22 05:33 Est GFR (MDRD) Af Amer 112 mL/min (>60) 11/23/22 05:33 Est GFR (MDRD) Non-Af 93 mL/min (>60) 11/23/22 05:33 BUN/Creatinine Ratio 17.5 RATIO (10-20) 11/23/22 05:33 Glucose 147 mg/dL (74-106) H 11/23/22 05:33 Vancomycin Trough 22.8 ug/mL (5.0-15.0) H 11/24/22 22:01 Random Vancomycin 16.6 ug/mL (0.0-15.0) H 11/23/22 09:53 Microbiology Microbiology: Microbiology 11/24/22 05:55 Nasal Secretion SARS-CoV-2 Antigen (Rapid) - Final Dosing Weight Weight used for dosin kg Estimated Creatinine Clearance Estimated Creatinine Clearance: 93 Goal Trough Goal Trough: 15-20 mcg/mL Pharmacy Plan for Drug Dosing Pharmacy Plan for Drug Dosing: Vancomycin trough level, drawn 11.25hrs post-dose, was high at 22.8. Current dosing was stopped. Another random level will be drawn in 12 hours and further dosing determined from that result. Pharmacy Service will continue to monitor and adjust dosing as required. Follow-Up Labs Follow-Up Labs: Trough: Vancomycin (random) Date/Time Labs Ordered Labs to be done on [date and time ordered]: 11/25/22 @1000
--- NOTE | 2022-11-24 22:56 | NURSING ---
Received call from pharmacist (Leroy) vanc trough high, hold tonight's dose per Leroy and dose will be re-adjusted
[2022-11-25] MEDS: Erythromycin Base 1 OPTH.TUBE 1 APPLIC LEFT EYE ×3 (06:12→22:43)
[2022-11-25] MEDS: Gabapentin 800 MG Tablet PO ×3 (06:13→22:41)
[2022-11-25] MEDS: Hydrocortisone 2.5% Crm 1 APPLIC TOPICAL (06:15)
[2022-11-25 06:35] LABS: Bedside Glucose 143 mg/dL (74-106)
[2022-11-25 08:10] VITALS: BP 118/66; PULSE 73; RESP 16; TEMP 36.3; O2SAT 96
[2022-11-25] MEDS: Insulin Lispro 100 UNIT/ML INSULN.PEN 15 UNIT SC ×3 (08:14→17:55)
[2022-11-25] MEDS: metFORMIN (XR) 500 MG Tablet PO ×2 (08:14→17:55)
[2022-11-25] MEDS: Allopurinol 300 MG Tablet PO (08:14)
[2022-11-25 08:16] VITALS: PULSE 73
[2022-11-25] MEDS: Metoprolol Tartrate 25 MG Tablet PO ×2 (08:16→22:43)
[2022-11-25] MEDS: Lisinopril 10 MG Tablet PO (08:17)
[2022-11-25] MEDS: Acyclovir 200 MG Capsule 400 MG PO ×2 (08:17→22:41)
[2022-11-25] MEDS: Acetaminophen 500 MG Tablet 1000 MG PO ×2 (08:17→22:42)
[2022-11-25 10:45] LABS: Vancomycin, Random Level 16.6 ug/mL (0.0-15.0)
--- NOTE | 2022-11-25 11:12 | PCM.RX.CS ---
Consult Antibiotic Management Pharmacy has been consulted to manage selected antiobiotic: Vancomycin Type of Intervention Type of Consult: Follow-up Suspected Infection Suspected Infection: Osteomyelitis Prior Doses of Antibiotics Prior Doses of Antibiotics Received/Current Regimen: 11/22/22 @ 1040 (given at another facility) 11/24/22 1114 Labs Labs: Sodium 138 mmol/L (136-145) 11/23/22 05:33 Potassium 4.0 mmol/L (3.5-5.1) 11/23/22 05:33 Chloride 107 mmol/L (98-107) 11/23/22 05:33 Carbon Dioxide 27.0 mmol/L (21.0-32.0) 11/23/22 05:33 Anion Gap 4 (5-15) L 11/23/22 05:33 BUN 15 mg/dL (7-18) 11/23/22 05:33 Creatinine 0.86 mg/dL (0.70-1.30) 11/23/22 05:33 Est GFR (MDRD) Af Amer 112 mL/min (>60) 11/23/22 05:33 Est GFR (MDRD) Non-Af 93 mL/min (>60) 11/23/22 05:33 BUN/Creatinine Ratio 17.5 RATIO (10-20) 11/23/22 05:33 Glucose 147 mg/dL (74-106) H 11/23/22 05:33 Vancomycin Trough 22.8 ug/mL (5.0-15.0) H 11/24/22 22:01 Random Vancomycin 16.6 ug/mL (0.0-15.0) H 11/25/22 09:56 Microbiology Microbiology: Microbiology 11/24/22 05:55 Nasal Secretion SARS-CoV-2 Antigen (Rapid) - Final Dosing Weight Weight used for dosin kg Estimated Creatinine Clearance Estimated Creatinine Clearance: 93 Goal Trough Goal Trough: 15-20 mcg/mL Pharmacy Plan for Drug Dosing Pharmacy Plan for Drug Dosing: Give Vancomycin 1750mg x1 and check random Vancomycin level 11/26/22 Pharmacy Service will continue to monitor and adjust dosing as required. Date/Time Labs Ordered Labs to be done on [date and time ordered]: random Vancomycin level 11/26/22 @ 0600
[2022-11-25 11:25] LABS: Bedside Glucose 106 mg/dL (74-106)
[2022-11-25] MEDS: Vancomycin HCl 1,750 MG in 0.9% Normal Saline (500mL Bag) 500 ML 250 MG IV (12:54)
[2022-11-25] MEDS: Vancomycin Trough/Random Due 1 LAB MC ×2 (12:55)
[2022-11-25] MEDS: Triamcinolone Acetonide 0.1% Cream 15 gm 1 APPLIC TOPICAL (12:58)
[2022-11-25] MEDS: 0.9 % NaCl (Sterile) Posiflush 10 mL IV (15:14)
[2022-11-25 16:32] LABS: Bedside Glucose 60 mg/dL (74-106)
--- NOTE | 2022-11-25 17:07 | NURSING ---
Patient called out to nurse to check blood sugar states I feel like its getting low. Blood 60 when checked. Patient requesting a Coke. Will recheck blood sugar.
[2022-11-25 17:40] LABS: Bedside Glucose 105 mg/dL (74-106)
[2022-11-25] MEDS: Jantoven 2 MG Tablet PO (17:55)
[2022-11-25 21:57] LABS: Bedside Glucose 104 mg/dL (74-106)
[2022-11-25] MEDS: Atorvastatin Calcium 40 MG Tablet PO (22:42)
[2022-11-25 22:43] VITALS: PULSE 75
[2022-11-25] MEDS: Insulin Glargine-YFGN 100 UNIT/ML Pen 40 UNIT SC (22:45)
[2022-11-26] MEDS: Gabapentin 800 MG Tablet PO ×3 (06:13→22:34)
[2022-11-26] MEDS: Erythromycin Base 1 OPTH.TUBE 1 APPLIC LEFT EYE ×3 (06:13→22:33)
[2022-11-26 06:36] LABS: Bedside Glucose 112 mg/dL (74-106)
[2022-11-26 07:47] LABS: Vancomycin, Random Level 16.2 ug/mL (0.0-15.0)
--- NOTE | 2022-11-26 08:21 | PCM.RX.CS ---
Consult Antibiotic Management Pharmacy has been consulted to manage selected antiobiotic: Vancomycin Type of Intervention Type of Consult: Follow-up Suspected Infection Suspected Infection: Osteomyelitis Labs Labs: Sodium 138 mmol/L (136-145) 11/23/22 05:33 Potassium 4.0 mmol/L (3.5-5.1) 11/23/22 05:33 Chloride 107 mmol/L (98-107) 11/23/22 05:33 Carbon Dioxide 27.0 mmol/L (21.0-32.0) 11/23/22 05:33 Anion Gap 4 (5-15) L 11/23/22 05:33 BUN 15 mg/dL (7-18) 11/23/22 05:33 Creatinine 0.86 mg/dL (0.70-1.30) 11/23/22 05:33 Est GFR (MDRD) Af Amer 112 mL/min (>60) 11/23/22 05:33 Est GFR (MDRD) Non-Af 93 mL/min (>60) 11/23/22 05:33 BUN/Creatinine Ratio 17.5 RATIO (10-20) 11/23/22 05:33 Glucose 147 mg/dL (74-106) H 11/23/22 05:33 Vancomycin Trough 22.8 ug/mL (5.0-15.0) H 11/24/22 22:01 Random Vancomycin 16.2 ug/mL (0.0-15.0) H 11/26/22 05:49 Microbiology Microbiology: Microbiology 11/24/22 05:55 Nasal Secretion SARS-CoV-2 Antigen (Rapid) - Final Goal Trough Goal Trough: 15-20 mcg/mL Pharmacy Plan for Drug Dosing Pharmacy Plan for Drug Dosing: VANCOMYCIN LEVEL RECEIVED Current Vancomycin Dose: 1750mg x1 Number of Doses Received: 1 of current dose Vancomycin Level: random level resulted at 16.2 Hours Since Last Dose: ~17 hours since x1 dose was administered Renal Function: no new level Renal Function Trend: Lab/Micro: Vancomycin Plan/Comments: previous random level was 16.6. a x1 dose of 1750mg was administered and 17 hour random level resulted at 16.2. recommend continuing 1750mg at an interval of q24h. trough prior to the 3rd dose Pending Level: 11/28/22 at 1230 Pharmacy Service will continue to monitor and adjust dosing as required. Follow-Up Labs Follow-Up Labs: Trough: Vancomycin (11/28/22 @ 1230)
[2022-11-26 09:04] VITALS: BP 108/69; PULSE 74; RESP 17; TEMP 35.8; O2SAT 97
[2022-11-26 09:10] VITALS: PULSE 74
[2022-11-26] MEDS: metFORMIN (XR) 500 MG Tablet PO ×2 (09:10→18:08)
[2022-11-26] MEDS: Allopurinol 300 MG Tablet PO (09:10)
[2022-11-26] MEDS: Insulin Lispro 100 UNIT/ML INSULN.PEN 15 UNIT SC ×3 (09:10→18:08)
[2022-11-26] MEDS: Metoprolol Tartrate 25 MG Tablet PO ×2 (09:10→22:35)
[2022-11-26] MEDS: Acetaminophen 500 MG Tablet 1000 MG PO ×2 (09:11→22:35)
[2022-11-26] MEDS: Lisinopril 10 MG Tablet PO (09:11)
[2022-11-26] MEDS: Acyclovir 200 MG Capsule 400 MG PO ×2 (09:11→22:36)
[2022-11-26] MEDS: Triamcinolone Acetonide 0.1% Cream 15 gm 1 APPLIC TOPICAL (09:34)
[2022-11-26 11:36] LABS: Bedside Glucose 122 mg/dL (74-106)
[2022-11-26] MEDS: Vancomycin HCl 1,750 MG in 0.9% Normal Saline (500mL Bag) 500 ML 250 MG IV (13:08)
[2022-11-26] MEDS: 0.9 % NaCl (Sterile) Posiflush 10 mL IV ×2 (13:08→22:40)
[2022-11-26 16:33] LABS: Bedside Glucose 59 mg/dL (74-106)
[2022-11-26 18:02] LABS: Bedside Glucose 138 mg/dL (74-106)
[2022-11-26] MEDS: Jantoven 2 MG Tablet PO (18:07)
[2022-11-26 21:21] LABS: Bedside Glucose 148 mg/dL (74-106)
[2022-11-26] MEDS: Insulin Glargine-YFGN 100 UNIT/ML Pen 40 UNIT SC (22:33)
[2022-11-26] MEDS: Atorvastatin Calcium 40 MG Tablet PO (22:34)
[2022-11-26 22:35] VITALS: BP 104/62; PULSE 76
[2022-11-26] MEDS: Hydrocortisone 2.5% Crm 1 APPLIC TOPICAL (22:38)
--- NOTE | 2022-11-26 22:46 | NURSING ---
Glargine given per dr order. Declines hs snack. Will continue to monitor.
[2022-11-27 06:09] LABS: International Normalized Ratio 2.2; Prothrombin Time (Protime)PT. 24.6 SECONDS (11.7-14.9)
[2022-11-27] MEDS: Gabapentin 800 MG Tablet PO ×3 (06:11→21:57)
[2022-11-27] MEDS: 0.9 % NaCl (Sterile) Posiflush 10 mL IV (06:12)
[2022-11-27 06:41] LABS: Bedside Glucose 137 mg/dL (74-106)
[2022-11-27] MEDS: Insulin Lispro 100 UNIT/ML INSULN.PEN 15 UNIT SC ×3 (08:31→17:59)
[2022-11-27] MEDS: Acyclovir 200 MG Capsule 400 MG PO ×2 (08:31→21:58)
[2022-11-27] MEDS: Allopurinol 300 MG Tablet PO (08:31)
[2022-11-27 08:32] VITALS: PULSE 78
[2022-11-27] MEDS: Acetaminophen 500 MG Tablet 1000 MG PO ×2 (08:32→21:57)
[2022-11-27] MEDS: Metoprolol Tartrate 25 MG Tablet PO ×2 (08:32→21:57)
[2022-11-27] MEDS: metFORMIN (XR) 500 MG Tablet PO ×2 (08:32→15:48)
[2022-11-27] MEDS: Lisinopril 10 MG Tablet PO (08:33)
--- NOTE | 2022-11-27 08:49 | NURSING ---
Pt refused 0600 application fo ECN eye ointment d/t scheduled appointment w/ eye dr tipton am.
[2022-11-27 11:17] LABS: Bedside Glucose 141 mg/dL (74-106)
[2022-11-27] MEDS: Vancomycin Trough/Random Due 1 LAB MC (12:04)
[2022-11-27] MEDS: Vancomycin HCl 1,750 MG in 0.9% Normal Saline (500mL Bag) 500 ML 250 MG IV (13:25)
--- NOTE | 2022-11-27 13:56 | NURSING ---
Updated that unit has new covid positive patient. He said he will update his family.
--- NOTE | 2022-11-27 14:14 | NURSING ---
Fax request for labs for ID, labs faxed to Dr. Loza.
[2022-11-27] MEDS: 0.9% Normal Saline (250mL Bag) 250 ML 15 ML IV (15:47)
[2022-11-27] MEDS: Jantoven 2 MG Tablet PO (15:48)
[2022-11-27 16:00] VITALS: BP 109/60; PULSE 76; RESP 14; TEMP 36.3; O2SAT 96
[2022-11-27 17:09] LABS: Bedside Glucose 79 mg/dL (74-106)
[2022-11-27 19:35] LABS: Bedside Glucose 55 mg/dL (74-106)
[2022-11-27 21:36] LABS: Bedside Glucose 135 mg/dL (74-106)
[2022-11-27] MEDS: Erythromycin Base 1 OPTH.TUBE 1 APPLIC LEFT EYE (21:54)
[2022-11-27] MEDS: Glycerin/Hypromellose/PEG400 15 ml Bottle 1 DRP LEFT EYE (21:55)
[2022-11-27 21:57] VITALS: BP 114/63; PULSE 74
[2022-11-27] MEDS: Atorvastatin Calcium 40 MG Tablet PO (21:57)
[2022-11-28 01:21] LABS: Bedside Glucose 84 mg/dL (74-106)
[2022-11-28] MEDS: Gabapentin 800 MG Tablet PO ×3 (06:08→21:58)
[2022-11-28] MEDS: 0.9 % NaCl (Sterile) Posiflush 10 mL IV ×2 (06:08→14:20)
[2022-11-28 06:20] LABS: Bedside Glucose 171 mg/dL (74-106)
[2022-11-28 08:08] VITALS: BMI 34.4
[2022-11-28] MEDS: Insulin Lispro 100 UNIT/ML INSULN.PEN 15 UNIT SC ×3 (08:12→17:47)
[2022-11-28 08:13] VITALS: BP 136/76; PULSE 74
[2022-11-28] MEDS: Lisinopril 10 MG Tablet PO (08:13)
[2022-11-28] MEDS: metFORMIN (XR) 500 MG Tablet PO ×2 (08:13→17:47)
[2022-11-28] MEDS: Acetaminophen 500 MG Tablet 1000 MG PO ×2 (08:13→21:57)
[2022-11-28] MEDS: Metoprolol Tartrate 25 MG Tablet PO ×2 (08:13→21:58)
[2022-11-28] MEDS: Glycerin/Hypromellose/PEG400 15 ml Bottle 1 DRP LEFT EYE ×2 (08:14→21:59)
[2022-11-28] MEDS: Allopurinol 300 MG Tablet PO (08:14)
[2022-11-28] MEDS: Erythromycin Base 1 OPTH.TUBE 1 APPLIC LEFT EYE ×2 (08:14→22:12)
[2022-11-28] MEDS: Acyclovir 200 MG Capsule 400 MG PO ×2 (08:15→21:57)
--- NOTE | 2022-11-28 08:29 | RAD_ITS ---
STUDY: X-RAY - ABDOMEN/PELVIS REASON FOR EXAM: Male, 72 years old. Diarrhea TECHNIQUE: Single AP view of the abdomen / pelvis. COMPARISON: None. FINDINGS: Normal visualized lung bases. There is an unremarkable bowel gas pattern. The visualized liver, spleen and kidneys are grossly normal in size and morphology. Normal soft tissue structures. Prior laminectomy and fusion at the L3-L4 level. RAD/Abdomen Single View IMPRESSION: Nonspecific bowel gas pattern. Electronically Signed: Javier Morales MD at 12:29 EDT ,
[2022-11-28 12:28] LABS: Bedside Glucose 137 mg/dL (74-106)
[2022-11-28 13:19] LABS: Vancomycin, Trough Level 11.9 ug/mL (5.0-15.0)
[2022-11-28] MEDS: Vancomycin HCl 2,000 MG in 0.9% Normal Saline (500mL Bag) 500 ML 250 MG IV (14:19)
[2022-11-28] MEDS: Vancomycin Trough/Random Due 1 LAB MC (14:20)
--- NOTE | 2022-11-28 14:52 | PCM.RX.CS ---
Consult Antibiotic Management Pharmacy has been consulted to manage selected antiobiotic: Vancomycin Type of Intervention Type of Consult: Follow-up Suspected Infection Suspected Infection: Osteomyelitis Prior Doses of Antibiotics Prior Doses of Antibiotics Received/Current Regimen: current dose is vanc 1750mg IV q24h Labs Labs: Sodium 138 mmol/L (136-145) 11/23/22 05:33 Potassium 4.0 mmol/L (3.5-5.1) 11/23/22 05:33 Chloride 107 mmol/L (98-107) 11/23/22 05:33 Carbon Dioxide 27.0 mmol/L (21.0-32.0) 11/23/22 05:33 Anion Gap 4 (5-15) L 11/23/22 05:33 BUN 15 mg/dL (7-18) 11/23/22 05:33 Creatinine 0.86 mg/dL (0.70-1.30) 11/23/22 05:33 Est GFR (MDRD) Af Amer 112 mL/min (>60) 11/23/22 05:33 Est GFR (MDRD) Non-Af 93 mL/min (>60) 11/23/22 05:33 BUN/Creatinine Ratio 17.5 RATIO (10-20) 11/23/22 05:33 Glucose 147 mg/dL (74-106) H 11/23/22 05:33 Vancomycin Trough 11.9 ug/mL (5.0-15.0) 11/28/22 12:38 Random Vancomycin 16.2 ug/mL (0.0-15.0) H 11/26/22 05:49 Microbiology Microbiology: Microbiology 11/27/22 08:58 Nasal Secretion SARS-CoV-2 Antigen (Rapid) - Final 11/24/22 05:55 Nasal Secretion SARS-CoV-2 Antigen (Rapid) - Final Dosing Weight Weight used for dosin kg Estimated Creatinine Clearance Estimated Creatinine Clearance: 93 ml/min Goal Trough Goal Trough: 15-20 mcg/mL Pharmacy Plan for Drug Dosing Pharmacy Plan for Drug Dosing: The vanc trough drawn at 12:38 today (approx 23 1/4 hrs after the previous dose) was 11.9. This is below goal range so will increase today's dose to 2000mg IV q24h. Will check another trough before the 3rd dose. If this does not bump up the trough into goal range, will need to consider going back to q12h dosing but with a smaller dose. Pharmacy Service will continue to monitor and adjust dosing as required. Follow-Up Labs Follow-Up Labs: Trough: Vancomycin Date/Time Labs Ordered Labs to be done on [date and time ordered]: 11/30/22 13:30
[2022-11-28 15:50] VITALS: BP 115/69; PULSE 74; RESP 14; TEMP 36.5; O2SAT 97
--- NOTE | 2022-11-28 16:19 | CASEMGMT ---
Social Work BIMS () and PHQ-9 (07/22) completed for MDS assessment. Ree Singh MSW PROGRESSIVE CARE MANAGER
[2022-11-28 16:53] LABS: Bedside Glucose 141 mg/dL (74-106)
[2022-11-28 21:33] LABS: Bedside Glucose 175 mg/dL (74-106)
[2022-11-28 21:58] VITALS: BP 121/55; PULSE 74
[2022-11-28] MEDS: Atorvastatin Calcium 40 MG Tablet PO (21:58)
[2022-11-28] MEDS: Insulin Glargine-YFGN 100 UNIT/ML Pen 40 UNIT SC (22:12)
[2022-11-29] MEDS: Gabapentin 800 MG Tablet PO ×3 (05:50→21:05)
[2022-11-29 06:34] LABS: Bedside Glucose 116 mg/dL (74-106)
--- NOTE | 2022-11-29 08:46 | NURSING ---
Beef Grader Note; MDS Complete
[2022-11-29] MEDS: Acetaminophen 500 MG Tablet 1000 MG PO ×2 (08:55→21:06)
[2022-11-29 08:56] VITALS: BP 147/86; PULSE 74
[2022-11-29] MEDS: Erythromycin Base 1 OPTH.TUBE 1 APPLIC LEFT EYE ×2 (08:56→21:08)
[2022-11-29] MEDS: Metoprolol Tartrate 25 MG Tablet PO ×2 (08:56→21:08)
[2022-11-29] MEDS: Allopurinol 300 MG Tablet PO (08:57)
[2022-11-29] MEDS: Insulin Lispro 100 UNIT/ML INSULN.PEN 15 UNIT SC ×3 (08:57→18:08)
[2022-11-29] MEDS: Glycerin/Hypromellose/PEG400 15 ml Bottle 1 DRP LEFT EYE ×2 (08:57→21:08)
[2022-11-29] MEDS: metFORMIN (XR) 500 MG Tablet PO ×2 (08:57→18:07)
[2022-11-29] MEDS: Acyclovir 200 MG Capsule 400 MG PO ×2 (08:59→21:06)
[2022-11-29] MEDS: Lisinopril 10 MG Tablet PO (08:59)
--- NOTE | 2022-11-29 10:13 | CASEMGMT ---
Social Work IDT met with patient and for care plan meeting. Discussed patient's progress in PT/OT/SN. Educated to Medicare benefit. Encouraged to contact secondary insurance to ensure copay coverage. Pt is on IV ATB Q24 through 12/26 and has hand wound. Discussed SW getting pricing for ATB at home, if pt is interested in discharging home prior, and if pt or are able to administer at home. Also educated to outpatient infusion therapy since order changed to once daily. stated she can soak and dress pt's hand wounds. Pt and had many questions on pt's wound healing and infection. Nursing aware and family encouraged to write down questions to ask when ID Dr rounds. SW will continue to follow for DC planning. CARIE JohnsonW
[2022-11-29 11:53] LABS: Bedside Glucose 167 mg/dL (74-106)
[2022-11-29] MEDS: Vancomycin HCl 2,000 MG in 0.9% Normal Saline (500mL Bag) 500 ML 250 MG IV (13:46)
[2022-11-29] MEDS: 0.9 % NaCl (Sterile) Posiflush 10 mL IV (13:47)
[2022-11-29] MEDS: 0.9% Normal Saline (250mL Bag) 250 ML 15 ML IV (13:47)
[2022-11-29 14:08] VITALS: BP 115/61; PULSE 74; RESP 14; TEMP 36.4; O2SAT 97
[2022-11-29 16:53] LABS: Bedside Glucose 226 mg/dL (74-106)
[2022-11-29] MEDS: Atorvastatin Calcium 40 MG Tablet PO (21:06)
[2022-11-29 21:08] VITALS: BP 123/72; PULSE 73
[2022-11-29] MEDS: Insulin Glargine-YFGN 100 UNIT/ML Pen 40 UNIT SC (21:11)
[2022-11-29 21:20] VITALS: PULSE 72; RESP 16; O2SAT 99
[2022-11-29 21:34] LABS: Bedside Glucose 201 mg/dL (74-106)
[2022-11-30] MEDS: Gabapentin 800 MG Tablet PO ×3 (05:41→21:37)
[2022-11-30 05:46] VITALS: PULSE 78; RESP 18; O2SAT 98
[2022-11-30 06:00] LABS: Absolute Lymphocyte Count 1.55 X10^3/uL (0.83-4.51); Basophil# 0.03 X10^3/uL; Basophil% 0.7 % (0-1); Eosinophil# 0.23 X10^3/uL; Eosinophils% 5.2 % (0-5); Hematocrit 29.9 % (40-54); Hemoglobin 10.1 g/dL (13.0-16.5); Lymphocyte # 1.55 X10^3/ul (0.83-4.51); Lymphocyte % 35.1 % (19-41); Mean Corp Hgb Conc 33.8 g/dL (32-36); Mean Corpuscular Hgb 33.8 pg (27.0-32.0); Mean Platelet Vol. 9.6 fl (6.2-12.0); Monocyte# 0.58 X10^3/uL; Monocyte% 13.2 % (0-10); NRBC Flagged by Analyzer 0 % (0-5); Neutrophil # 2.01 X10^3/uL (2.7-7.7); Neutrophil % 45.6 % (47-70); Platelet Count 136 K/mm3 (150-450); RBC Distribution Width CV 14.2 % (11.6-14.6); RBC Distribution Width SD 51.2 fl (35.1-43.9); Red Blood Count 2.99 M/mm3 (4.6-6.2); White Blood Count 4.4 K/mm3 (4.4-11.0)
[2022-11-30 06:13] LABS: International Normalized Ratio 2.1; Prothrombin Time (Protime)PT. 23.8 SECONDS (11.7-14.9)
[2022-11-30 06:34] LABS: Anion Gap 6 (5-15); BUN 16 mg/dL (7-18); BUN/Creat Ratio 20.7 RATIO (10-20); Calcium,Total 8.5 mg/dL (8.5-10.1); Chloride 111 mmol/L (98-107); Creatinine, Serum 0.77 mg/dL (0.70-1.30); EST Glomerular Filtration Rate 104 mL/min (>60); Est Glom Filt Rate - Afr Amer 126 mL/min (>60); Estimated Creatinine Clearance 66.92 ml/min; Glucose 89 mg/dL (74-106); Potassium 3.9 mmol/L (3.5-5.1); Sodium Level 140 mmol/L (136-145)
[2022-11-30 07:06] LABS: Bedside Glucose 93 mg/dL (74-106)
[2022-11-30] MEDS: Lisinopril 10 MG Tablet PO (09:08)
[2022-11-30] MEDS: Acyclovir 200 MG Capsule 400 MG PO ×2 (09:09→21:33)
[2022-11-30] MEDS: metFORMIN (XR) 500 MG Tablet PO ×2 (09:09→17:45)
[2022-11-30] MEDS: Allopurinol 300 MG Tablet PO (09:09)
[2022-11-30] MEDS: Insulin Lispro 100 UNIT/ML INSULN.PEN 15 UNIT SC ×3 (09:10→17:45)
[2022-11-30] MEDS: Glycerin/Hypromellose/PEG400 15 ml Bottle 1 DRP LEFT EYE ×2 (09:11→21:29)
[2022-11-30] MEDS: Erythromycin Base 1 OPTH.TUBE 1 APPLIC LEFT EYE ×2 (09:11→21:29)
[2022-11-30 09:17] VITALS: BP 129/74; PULSE 76
[2022-11-30] MEDS: Metoprolol Tartrate 25 MG Tablet PO ×2 (09:17→21:31)
[2022-11-30] MEDS: Acetaminophen 500 MG Tablet 1000 MG PO ×2 (10:30→21:32)
[2022-11-30] MEDS: Tuberculin,Purif.prot.deriv. 50 TU/ML Vial 0.1 ML ID (11:32)
[2022-11-30 11:57] LABS: Bedside Glucose 117 mg/dL (74-106)
[2022-11-30 14:21] LABS: Vancomycin, Trough Level 12.8 ug/mL (5.0-15.0)
--- NOTE | 2022-11-30 14:43 | NURSING ---
Updated patient that staff and patient tested covid positive. He said he will tell his .
--- NOTE | 2022-11-30 14:58 | PCM.RX.CS ---
Consult Antibiotic Management Pharmacy has been consulted to manage selected antiobiotic: Vancomycin Type of Intervention Type of Consult: Follow-up Suspected Infection Suspected Infection: Osteomyelitis Prior Doses of Antibiotics Prior Doses of Antibiotics Received/Current Regimen: Currently on 2000mg iv q24h. Labs Labs: Sodium 140 mmol/L (136-145) 11/30/22 05:35 Potassium 3.9 mmol/L (3.5-5.1) 11/30/22 05:35 Chloride 111 mmol/L (98-107) H 11/30/22 05:35 Carbon Dioxide 23.0 mmol/L (21.0-32.0) 11/30/22 05:35 Anion Gap 6 (5-15) 11/30/22 05:35 BUN 16 mg/dL (7-18) 11/30/22 05:35 Creatinine 0.77 mg/dL (0.70-1.30) 11/30/22 05:35 Est GFR (MDRD) Af Amer 126 mL/min (>60) 11/30/22 05:35 Est GFR (MDRD) Non-Af 104 mL/min (>60) 11/30/22 05:35 BUN/Creatinine Ratio 20.7 RATIO (10-20) H 11/30/22 05:35 Glucose 89 mg/dL (74-106) 11/30/22 05:35 Vancomycin Trough 12.8 ug/mL (5.0-15.0) 11/30/22 13:30 Random Vancomycin 16.2 ug/mL (0.0-15.0) H 11/26/22 05:49 Microbiology Microbiology: Microbiology 11/30/22 05:00 Nasal Secretion SARS-CoV-2 Antigen (Rapid) - Final 11/27/22 08:58 Nasal Secretion SARS-CoV-2 Antigen (Rapid) - Final 11/24/22 05:55 Nasal Secretion SARS-CoV-2 Antigen (Rapid) - Final Dosing Weight Weight used for dosin kg Estimated Creatinine Clearance Estimated Creatinine Clearance: >100ml/min Goal Trough Goal Trough: 15-20 mcg/mL Pharmacy Plan for Drug Dosing Pharmacy Plan for Drug Dosing: Trough today ~24 hrs post last dose was below desired range at 12.8. Renal CrCl calculated as ~104ml/min using adjusted body weight of 87.4kg. Recommend changing dose to 1000mg iv q12h to get within desired range of 15-20mcg/ml. New trough ordered for before 4th dose of new regimen. Pharmacy Service will continue to monitor and adjust dosing as required. Follow-Up Labs Follow-Up Labs: Trough: Vancomycin (10.7.23 @0230)
[2022-11-30] MEDS: Vancomycin IV 1,000 MG/200 ML BAG 200 MG IV (15:06)
[2022-11-30 16:00] VITALS: BP 124/79; PULSE 75; RESP 15; TEMP 35.7; O2SAT 98
[2022-11-30 16:30] LABS: Bedside Glucose 136 mg/dL (74-106)
[2022-11-30 21:31] VITALS: BP 119/75; PULSE 75
[2022-11-30] MEDS: Atorvastatin Calcium 40 MG Tablet PO (21:31)
[2022-11-30 21:50] LABS: Bedside Glucose 133 mg/dL (74-106)
[2022-11-30] MEDS: Insulin Glargine-YFGN 100 UNIT/ML Pen 40 UNIT SC (22:24)
[2022-12-01] MEDS: Vancomycin IV 1,000 MG/200 ML BAG 200 MG IV ×2 (02:43→14:42)
[2022-12-01] MEDS: 0.9% Saline Lock 10 ML Syringe IV (02:43)
[2022-12-01] MEDS: 0.9% Normal Saline (250mL Bag) 250 ML 15 ML IV (02:48)
[2022-12-01] MEDS: 0.9 % NaCl (Sterile) Posiflush 10 mL IV (04:01)
[2022-12-01] MEDS: Gabapentin 800 MG Tablet PO ×3 (05:17→23:02)
[2022-12-01 06:57] LABS: Bedside Glucose 88 mg/dL (74-106)
[2022-12-01] MEDS: Insulin Lispro 100 UNIT/ML INSULN.PEN 15 UNIT SC ×3 (08:26→16:46)
[2022-12-01] MEDS: Allopurinol 300 MG Tablet PO (08:27)
[2022-12-01] MEDS: metFORMIN (XR) 500 MG Tablet PO ×2 (08:27→16:45)
[2022-12-01] MEDS: Acyclovir 200 MG Capsule 400 MG PO ×2 (08:28→22:56)
[2022-12-01] MEDS: Glycerin/Hypromellose/PEG400 15 ml Bottle 1 DRP LEFT EYE ×2 (09:54→22:57)
[2022-12-01] MEDS: Erythromycin Base 1 OPTH.TUBE 1 APPLIC LEFT EYE ×2 (09:55→22:57)
[2022-12-01] MEDS: Triamcinolone Acetonide 0.1% Cream 15 gm 1 APPLIC TOPICAL (09:57)
[2022-12-01 09:59] VITALS: BP 123/78; PULSE 76
[2022-12-01] MEDS: Metoprolol Tartrate 25 MG Tablet PO ×2 (09:59→22:56)
[2022-12-01] MEDS: Acetaminophen 500 MG Tablet 1000 MG PO ×2 (10:00→22:56)
[2022-12-01] MEDS: Lisinopril 10 MG Tablet PO (10:00)
[2022-12-01 10:03] VITALS: BP 123/78; PULSE 76
[2022-12-01 10:05] VITALS: PULSE 76; RESP 18; O2SAT 98
[2022-12-01 11:08] LABS: Bedside Glucose 203 mg/dL (74-106)
[2022-12-01 13:34] VITALS: BP 110/64; PULSE 62; RESP 16; TEMP 36.2; O2SAT 96
[2022-12-01 16:43] LABS: Bedside Glucose 200 mg/dL (74-106)
[2022-12-01 21:55] LABS: Bedside Glucose 169 mg/dL (74-106)
[2022-12-01 22:56] VITALS: BP 110/64; PULSE 64
[2022-12-01] MEDS: Atorvastatin Calcium 40 MG Tablet PO (22:57)
[2022-12-01] MEDS: Insulin Glargine-YFGN 100 UNIT/ML Pen 40 UNIT SC (22:58)
[2022-12-02 03:06] LABS: Vancomycin, Trough Level 16.3 ug/mL (5.0-15.0)
[2022-12-02] MEDS: Vancomycin IV 1,000 MG/200 ML BAG 200 MG IV ×2 (03:19→14:37)
[2022-12-02] MEDS: 0.9% Normal Saline (250mL Bag) 250 ML 200 ML IV (03:24)
[2022-12-02] MEDS: Vancomycin Trough/Random Due 1 LAB MC (03:28)
--- NOTE | 2022-12-02 05:19 | PCM.RX.CS ---
Consult Type of Intervention Type of Consult: Follow-up Labs Labs: Sodium 140 mmol/L (136-145) 11/30/22 05:35 Potassium 3.9 mmol/L (3.5-5.1) 11/30/22 05:35 Chloride 111 mmol/L (98-107) H 11/30/22 05:35 Carbon Dioxide 23.0 mmol/L (21.0-32.0) 11/30/22 05:35 Anion Gap 6 (5-15) 11/30/22 05:35 BUN 16 mg/dL (7-18) 11/30/22 05:35 Creatinine 0.77 mg/dL (0.70-1.30) 11/30/22 05:35 Est GFR (MDRD) Af Amer 126 mL/min (>60) 11/30/22 05:35 Est GFR (MDRD) Non-Af 104 mL/min (>60) 11/30/22 05:35 BUN/Creatinine Ratio 20.7 RATIO (10-20) H 11/30/22 05:35 Glucose 89 mg/dL (74-106) 11/30/22 05:35 Vancomycin Trough 16.3 ug/mL (5.0-15.0) H 12/02/22 02:34 Random Vancomycin 16.2 ug/mL (0.0-15.0) H 11/26/22 05:49 Microbiology Microbiology: Microbiology 11/30/22 05:00 Nasal Secretion SARS-CoV-2 Antigen (Rapid) - Final 11/27/22 08:58 Nasal Secretion SARS-CoV-2 Antigen (Rapid) - Final 11/24/22 05:55 Nasal Secretion SARS-CoV-2 Antigen (Rapid) - Final Pharmacy Plan for Drug Dosing Pharmacy Plan for Drug Dosing: Pharmacy Service will continue to monitor and adjust dosing as required. TROUGH 16.3 NO CHANGES, FOLLOW UP TROUGH IN 2 DAYS Follow-Up Labs Follow-Up Labs: Trough: Vancomycin Date/Time Labs Ordered Labs to be done on [date and time ordered]: 12/04 @ 3045
[2022-12-02] MEDS: Gabapentin 800 MG Tablet PO ×3 (05:52→20:49)
[2022-12-02 06:58] LABS: Bedside Glucose 110 mg/dL (74-106)
[2022-12-02] MEDS: Insulin Lispro 100 UNIT/ML INSULN.PEN 15 UNIT SC ×3 (09:00→17:26)
[2022-12-02 09:01] VITALS: BP 117/73; PULSE 72
[2022-12-02] MEDS: Metoprolol Tartrate 25 MG Tablet PO ×2 (09:01→20:51)
[2022-12-02] MEDS: Lisinopril 10 MG Tablet PO (09:01)
[2022-12-02] MEDS: metFORMIN (XR) 500 MG Tablet PO ×2 (09:01→17:26)
[2022-12-02] MEDS: Allopurinol 300 MG Tablet PO (09:01)
[2022-12-02] MEDS: Acyclovir 200 MG Capsule 400 MG PO ×2 (09:02→20:49)
[2022-12-02] MEDS: Erythromycin Base 1 OPTH.TUBE 1 APPLIC LEFT EYE ×2 (09:02→20:49)
[2022-12-02] MEDS: Glycerin/Hypromellose/PEG400 15 ml Bottle 1 DRP LEFT EYE ×2 (09:02→20:49)
[2022-12-02] MEDS: Acetaminophen 500 MG Tablet 1000 MG PO ×2 (09:02→20:50)
--- NOTE | 2022-12-02 10:30 | NURSING ---
Sutures removed from right hand per order, pt tolerated well.
[2022-12-02] MEDS: 0.9 % NaCl (Sterile) Posiflush 10 mL IV (14:38)
[2022-12-02 15:17] VITALS: BP 142/88; PULSE 119; RESP 16; O2SAT 87
[2022-12-02 16:29] LABS: Bedside Glucose 72 mg/dL (74-106)
[2022-12-02 16:29] LABS: Bedside Glucose 182 mg/dL (74-106)
[2022-12-02] MEDS: Jantoven 2 MG Tablet PO (17:25)
[2022-12-02 20:51] VITALS: BP 130/77; PULSE 74
[2022-12-02] MEDS: Atorvastatin Calcium 40 MG Tablet PO (20:51)
[2022-12-02] MEDS: Insulin Glargine-YFGN 100 UNIT/ML Pen 40 UNIT SC (20:58)
[2022-12-02 22:06] LABS: Bedside Glucose 159 mg/dL (74-106)
[2022-12-03] MEDS: Vancomycin IV 1,000 MG/200 ML BAG 200 MG IV ×2 (03:33→14:34)
[2022-12-03] MEDS: 0.9 % NaCl (Sterile) Posiflush 10 mL IV ×2 (03:33→14:34)
[2022-12-03] MEDS: Gabapentin 800 MG Tablet PO ×3 (06:30→20:52)
[2022-12-03 06:39] LABS: Bedside Glucose 121 mg/dL (74-106)
[2022-12-03] MEDS: Insulin Lispro 100 UNIT/ML INSULN.PEN 15 UNIT SC ×3 (08:08→17:21)
[2022-12-03] MEDS: Allopurinol 300 MG Tablet PO (08:09)
[2022-12-03] MEDS: Acetaminophen 500 MG Tablet 1000 MG PO ×2 (08:09→20:51)
[2022-12-03] MEDS: metFORMIN (XR) 500 MG Tablet PO ×2 (08:09→17:20)
[2022-12-03 08:10] VITALS: BP 133/79; PULSE 74
[2022-12-03] MEDS: Lisinopril 10 MG Tablet PO (08:10)
[2022-12-03] MEDS: Metoprolol Tartrate 25 MG Tablet PO ×2 (08:10→20:53)
[2022-12-03] MEDS: Acyclovir 200 MG Capsule 400 MG PO ×2 (08:10→20:54)
[2022-12-03] MEDS: Glycerin/Hypromellose/PEG400 15 ml Bottle 1 DRP LEFT EYE ×2 (08:14→20:54)
[2022-12-03] MEDS: Erythromycin Base 1 OPTH.TUBE 1 APPLIC LEFT EYE ×2 (08:15→20:53)
[2022-12-03 08:41] VITALS: BP 133/79; PULSE 74; RESP 16; TEMP 36.4; O2SAT 96
--- NOTE | 2022-12-03 10:08 | NURSING ---
rt hand soaked per order, pt took shower and then wrapped with gauze drsg per order. incisions scabbed both sides of hand. no s/s infection. edema still present, unable to bend fingers
[2022-12-03 12:00] LABS: Bedside Glucose 107 mg/dL (74-106)
--- NOTE | 2022-12-03 15:39 | NURSING ---
rt hand soaked & redressed per order. pt visiting with .
[2022-12-03] MEDS: Jantoven 2 MG Tablet PO (17:20)
[2022-12-03 17:35] LABS: Bedside Glucose 122 mg/dL (74-106)
[2022-12-03 20:53] VITALS: BP 110/69; PULSE 75
[2022-12-03] MEDS: Atorvastatin Calcium 40 MG Tablet PO (20:53)
[2022-12-03] MEDS: Insulin Glargine-YFGN 100 UNIT/ML Pen 40 UNIT SC (20:55)
[2022-12-03 21:25] LABS: Bedside Glucose 136 mg/dL (74-106)
[2022-12-04 02:57] LABS: Prothrombin Time (Protime)PT. 22.5 SECONDS (11.7-14.9)
[2022-12-04 03:29] LABS: Creatinine, Serum 0.77 mg/dL (0.70-1.30); EST Glomerular Filtration Rate 104 mL/min (>60); Est Glom Filt Rate - Afr Amer 126 mL/min (>60); Estimated Creatinine Clearance 66.92 ml/min
[2022-12-04 03:36] LABS: Vancomycin, Trough Level 16.4 ug/mL (5.0-15.0)
[2022-12-04] MEDS: 0.9 % NaCl (Sterile) Posiflush 10 mL IV ×2 (03:58→14:51)
[2022-12-04] MEDS: Vancomycin IV 1,000 MG/200 ML BAG 200 MG IV ×2 (03:59→14:50)
[2022-12-04] MEDS: Vancomycin Trough/Random Due 1 LAB MC (04:01)
--- NOTE | 2022-12-04 04:27 | PCM.RX.CS ---
Consult Antibiotic Management Pharmacy has been consulted to manage selected antiobiotic: Vancomycin Type of Intervention Type of Consult: Follow-up Labs Labs: Sodium 140 mmol/L (136-145) 11/30/22 05:35 Potassium 3.9 mmol/L (3.5-5.1) 11/30/22 05:35 Chloride 111 mmol/L (98-107) H 11/30/22 05:35 Carbon Dioxide 23.0 mmol/L (21.0-32.0) 11/30/22 05:35 Anion Gap 6 (5-15) 11/30/22 05:35 BUN 16 mg/dL (7-18) 11/30/22 05:35 Creatinine 0.77 mg/dL (0.70-1.30) 12/04/22 02:43 Est GFR (MDRD) Af Amer 126 mL/min (>60) 12/04/22 02:43 Est GFR (MDRD) Non-Af 104 mL/min (>60) 12/04/22 02:43 BUN/Creatinine Ratio 20.7 RATIO (10-20) H 11/30/22 05:35 Glucose 89 mg/dL (74-106) 11/30/22 05:35 Vancomycin Trough 16.4 ug/mL (5.0-15.0) H 12/04/22 02:43 Random Vancomycin 16.2 ug/mL (0.0-15.0) H 11/26/22 05:49 Microbiology Microbiology: Microbiology 12/03/22 06:34 Nasal Secretion SARS-CoV-2 Antigen (Rapid) - Final 11/30/22 05:00 Nasal Secretion SARS-CoV-2 Antigen (Rapid) - Final 11/27/22 08:58 Nasal Secretion SARS-CoV-2 Antigen (Rapid) - Final 11/24/22 05:55 Nasal Secretion SARS-CoV-2 Antigen (Rapid) - Final Pharmacy Plan for Drug Dosing Pharmacy Plan for Drug Dosing: Pharmacy Service will continue to monitor and adjust dosing as required. TROUGH 16.4. NO CHANGES, FOLLOW UP TROUGH IN 4 DAYS Follow-Up Labs Follow-Up Labs: Trough: Vancomycin Date/Time Labs Ordered Labs to be done on [date and time ordered]: 12/08 @ 0233
[2022-12-04] MEDS: Gabapentin 800 MG Tablet PO ×3 (05:21→21:16)
[2022-12-04 07:25] LABS: Bedside Glucose 99 mg/dL (74-106)
[2022-12-04 09:10] VITALS: BP 127/73; PULSE 75; RESP 16; TEMP 36.3; O2SAT 98
[2022-12-04] MEDS: Insulin Lispro 100 UNIT/ML INSULN.PEN 15 UNIT SC ×3 (09:12→17:46)
[2022-12-04] MEDS: metFORMIN (XR) 500 MG Tablet PO ×2 (09:13→17:46)
[2022-12-04] MEDS: Allopurinol 300 MG Tablet PO (09:13)
[2022-12-04 09:14] VITALS: PULSE 75
[2022-12-04] MEDS: Metoprolol Tartrate 25 MG Tablet PO ×2 (09:14→21:17)
[2022-12-04] MEDS: Acetaminophen 500 MG Tablet 1000 MG PO ×2 (09:14→21:16)
[2022-12-04] MEDS: Lisinopril 10 MG Tablet PO (09:14)
[2022-12-04] MEDS: Acyclovir 200 MG Capsule 400 MG PO ×2 (09:14→21:16)
[2022-12-04] MEDS: Glycerin/Hypromellose/PEG400 15 ml Bottle 1 DRP LEFT EYE ×2 (09:14→21:16)
[2022-12-04] MEDS: Erythromycin Base 1 OPTH.TUBE 1 APPLIC LEFT EYE ×2 (09:14→21:16)
--- NOTE | 2022-12-04 10:50 | NURSING ---
Addendum entered by Eliza Abrams 12/04/22 18:27: Patient came to nurses station and [facility] surgeon's office called his 's phone to schedule an appointment. Patient states his will schedule this appointment. Nursing relayed to patient to let staff know date/time when scheduled. Patient appreciative of nursing staff. Addendum entered by Eliza Abrams 12/04/22 16:43: Patient has concerns that his right hand is not healing. Hand remains slightly swollen with some pain. Wound appears to be healing well w/o signs of infection. Areas have scabbed over. Call out to Dr. Bee's office to schedule follow up appt. with surgeon. Per community cultural development officer, scheduling breaker up machine operator at office will call back to schedule this appt. Waiting call back. Original Note: Call placed to Dr. Bee regarding wound care. No answer. left with call back number. Waiting call back.
[2022-12-04 11:14] LABS: Bedside Glucose 159 mg/dL (74-106)
--- NOTE | 2022-12-04 14:40 | CASEMGMT ---
Addendum entered by Ree Singh 12/05/22 16:21: After several phone calls to the infusion center, [facility] and speaking with IDT, it was recommend pt remain in TCU. Pt's trough indicated a change in ATB dosage from 24 hrs to 12 hrs, and pt has f/u appt with hand surgeon on 12/08. D/t changes and labs needed for ATB and ongoing daily care with hand wound, IDT recommends pt remain until end of course of ATB 12/26. SW phoned , per pt request with outcome, and explained above. expressed understanding. explored possibilities for J[facility]. SW denied d/t IV access, but offered visits outside on hospital campus and can bring food, comfort items for pt. appreciative and will report to pt. SW will continue to follow for DC planning. CARIE Johnson Addendum entered by Ree Singh 12/05/22 10:18: SW followed up with infusion center for referral. Infusion center could not provide cost. LEEROY left voicemail with [facility] to get more information. Will await return calls from both parties for further planning. Original Note: Social Work Notified by nursing pt is requesting information on completing IV ATB at home/infusion center. LEEROY left voicemail with outpatient infusion center to make referral. Will continue to follow. CARIE Johnson
[2022-12-04] MEDS: 0.9% Normal Saline (250mL Bag) 250 ML 15 ML IV (14:50)
[2022-12-04 16:42] LABS: Bedside Glucose 214 mg/dL (74-106)
[2022-12-04 17:13] LABS: Bedside Glucose 93 mg/dL (74-106)
[2022-12-04] MEDS: Jantoven 2 MG Tablet PO (17:46)
--- NOTE | 2022-12-04 19:17 | NURSING ---
Patient refused hand soaks this shift. Requesting dressing to be changed in the morning after his shower.
[2022-12-04] MEDS: Insulin Glargine-YFGN 100 UNIT/ML Pen 40 UNIT SC (21:14)
[2022-12-04] MEDS: Atorvastatin Calcium 40 MG Tablet PO (21:16)
[2022-12-04 21:17] VITALS: BP 109/70; PULSE 74
[2022-12-04 21:38] LABS: Bedside Glucose 176 mg/dL (74-106)
[2022-12-05] MEDS: 0.9 % NaCl (Sterile) Posiflush 10 mL IV ×2 (03:42→14:49)
[2022-12-05] MEDS: Vancomycin IV 1,000 MG/200 ML BAG 200 MG IV ×2 (03:42→14:46)
[2022-12-05] MEDS: Gabapentin 800 MG Tablet PO ×3 (05:53→21:31)
[2022-12-05 06:42] LABS: Bedside Glucose 71 mg/dL (74-106)
--- NOTE | 2022-12-05 07:48 | MDS.RN ---
Information for the mds was obtained from review of the clinical record, interview of resident, staff, and direct observation of resident's care.
[2022-12-05] MEDS: Acetaminophen 500 MG Tablet 1000 MG PO ×2 (08:57→21:31)
[2022-12-05] MEDS: Acyclovir 200 MG Capsule 400 MG PO ×2 (08:57→21:31)
[2022-12-05 08:58] VITALS: BP 115/71; PULSE 74
[2022-12-05] MEDS: Allopurinol 300 MG Tablet PO (08:58)
[2022-12-05] MEDS: Glycerin/Hypromellose/PEG400 15 ml Bottle 1 DRP LEFT EYE ×2 (08:58→21:32)
[2022-12-05] MEDS: Lisinopril 10 MG Tablet PO (08:58)
[2022-12-05] MEDS: metFORMIN (XR) 500 MG Tablet PO ×2 (08:58→17:52)
[2022-12-05] MEDS: Metoprolol Tartrate 25 MG Tablet PO ×2 (08:58→21:31)
[2022-12-05] MEDS: Erythromycin Base 1 OPTH.TUBE 1 APPLIC LEFT EYE ×2 (08:59→21:32)
--- NOTE | 2022-12-05 09:02 | NURSING ---
Call from Katheryn from Dr. Bee's office, order to DC soaks to right hand. Follow-up appt set up for Friday 12/08 at 1:45. Updated patient in room. He called and she was updated as well.
[2022-12-05 10:23] VITALS: BMI 34.2
[2022-12-05 11:40] LABS: Bedside Glucose 161 mg/dL (74-106)
[2022-12-05] MEDS: Insulin Lispro 100 UNIT/ML INSULN.PEN 15 UNIT SC ×2 (11:53→17:53)
[2022-12-05 14:38] VITALS: BP 135/79; PULSE 74; RESP 14; TEMP 36.6; O2SAT 98
[2022-12-05 18:06] LABS: Bedside Glucose 149 mg/dL (74-106)
[2022-12-05 21:17] LABS: Bedside Glucose 159 mg/dL (74-106)
[2022-12-05 21:30] VITALS: BP 132/81; PULSE 75; RESP 17; TEMP 36.2; O2SAT 98
[2022-12-05 21:31] VITALS: BP 132/81; PULSE 75
[2022-12-05] MEDS: Atorvastatin Calcium 40 MG Tablet PO (21:31)
[2022-12-05] MEDS: Insulin Glargine-YFGN 100 UNIT/ML Pen 30 UNIT SC (21:37)
[2022-12-06] MEDS: Vancomycin IV 1,000 MG/200 ML BAG 200 MG IV ×2 (04:10→14:50)
[2022-12-06] MEDS: 0.9 % NaCl (Sterile) Posiflush 10 mL IV ×2 (04:10→14:50)
[2022-12-06] MEDS: Gabapentin 800 MG Tablet PO ×3 (05:40→22:05)
[2022-12-06 06:25] LABS: Bedside Glucose 99 mg/dL (74-106)
[2022-12-06] MEDS: Insulin Lispro 100 UNIT/ML INSULN.PEN 10 UNIT SC ×3 (08:24→18:04)
[2022-12-06] MEDS: Lisinopril 10 MG Tablet PO (08:28)
[2022-12-06] MEDS: Acetaminophen 500 MG Tablet 1000 MG PO ×2 (08:28→22:06)
[2022-12-06 08:29] VITALS: BP 128/79; PULSE 75
[2022-12-06] MEDS: Glycerin/Hypromellose/PEG400 15 ml Bottle 1 DRP LEFT EYE ×2 (08:29→22:10)
[2022-12-06] MEDS: Acyclovir 200 MG Capsule 400 MG PO ×2 (08:29→22:07)
[2022-12-06] MEDS: Metoprolol Tartrate 25 MG Tablet PO ×2 (08:29→22:07)
[2022-12-06] MEDS: metFORMIN (XR) 500 MG Tablet PO ×2 (08:29→18:04)
[2022-12-06] MEDS: Allopurinol 300 MG Tablet PO (08:29)
[2022-12-06] MEDS: Erythromycin Base 1 OPTH.TUBE 1 APPLIC LEFT EYE ×2 (08:29→22:11)
[2022-12-06 11:17] LABS: Bedside Glucose 180 mg/dL (74-106)
[2022-12-06 14:40] VITALS: BP 118/76; PULSE 73; RESP 16; TEMP 36.3; O2SAT 98
[2022-12-06 16:37] LABS: Bedside Glucose 233 mg/dL (74-106)
[2022-12-06 21:56] LABS: Bedside Glucose 244 mg/dL (74-106)
[2022-12-06 22:07] VITALS: BP 128/83; PULSE 95
[2022-12-06] MEDS: Insulin Glargine-YFGN 100 UNIT/ML Pen 30 UNIT SC (22:07)
[2022-12-06] MEDS: Atorvastatin Calcium 40 MG Tablet PO (22:07)
[2022-12-06 23:00] VITALS: PULSE 95; RESP 18; O2SAT 96
[2022-12-07] MEDS: Vancomycin IV 1,000 MG/200 ML BAG 200 MG IV (02:59)
[2022-12-07] MEDS: 0.9 % NaCl (Sterile) Posiflush 10 mL IV ×2 (02:59→11:08)
[2022-12-07] MEDS: 0.9% Normal Saline (250mL Bag) 250 ML 200 ML IV (03:00)
[2022-12-07] MEDS: Gabapentin 800 MG Tablet PO ×3 (05:53→21:43)
[2022-12-07 05:56] VITALS: PULSE 74; RESP 16; O2SAT 97
[2022-12-07 06:12] LABS: International Normalized Ratio 1.6; Prothrombin Time (Protime)PT. 19.2 SECONDS (11.7-14.9)
[2022-12-07 06:35] LABS: Bedside Glucose 157 mg/dL (74-106)
[2022-12-07 06:36] LABS: Anion Gap 6 (5-15); BUN 18 mg/dL (7-18); BUN/Creat Ratio 21.6 RATIO (10-20); Calcium,Total 8.6 mg/dL (8.5-10.1); Chloride 109 mmol/L (98-107); Creatinine, Serum 0.84 mg/dL (0.70-1.30); EST Glomerular Filtration Rate 96 mL/min (>60); Est Glom Filt Rate - Afr Amer 116 mL/min (>60); Estimated Creatinine Clearance 79.66 ml/min; Glucose 156 mg/dL (74-106); Potassium 4.3 mmol/L (3.5-5.1); Sodium Level 138 mmol/L (136-145)
[2022-12-07 08:13] VITALS: BP 123/76; PULSE 76; RESP 16; TEMP 36.4; O2SAT 95
[2022-12-07] MEDS: Insulin Lispro 100 UNIT/ML INSULN.PEN 10 UNIT SC ×3 (08:18→17:44)
[2022-12-07] MEDS: metFORMIN (XR) 500 MG Tablet PO ×2 (08:18→17:44)
[2022-12-07] MEDS: Glycerin/Hypromellose/PEG400 15 ml Bottle 1 DRP LEFT EYE ×2 (08:18→21:44)
[2022-12-07] MEDS: Allopurinol 300 MG Tablet PO (08:18)
[2022-12-07 08:19] VITALS: PULSE 75
[2022-12-07] MEDS: Acyclovir 200 MG Capsule 400 MG PO ×2 (08:19→21:44)
[2022-12-07] MEDS: Lisinopril 10 MG Tablet PO (08:19)
[2022-12-07] MEDS: Acetaminophen 500 MG Tablet 1000 MG PO ×2 (08:19→21:44)
[2022-12-07] MEDS: Erythromycin Base 1 OPTH.TUBE 1 APPLIC LEFT EYE ×2 (08:19→21:45)
[2022-12-07] MEDS: Metoprolol Tartrate 25 MG Tablet PO ×2 (08:19→21:44)
[2022-12-07 09:11] LABS: Absolute Lymphocyte Count 1.39 X10^3/uL (0.83-4.51); Absolute Neutrophil Count 2.3 X10^3/uL (2.0-7.7); Basophil# 0.03 X10^3/uL; Basophil% 0.7 % (0-1); Eosinophil# 0.25 X10^3/uL; Eosinophils% 5.7 % (0-5); Hematocrit 33.5 % (40-54); Hemoglobin 10.9 g/dL (13.0-16.5); Lymphocyte # 1.39 X10^3/ul (0.83-4.51); Lymphocyte % 31.4 % (19-41); Mean Corp Hgb Conc 32.5 g/dL (32-36); Mean Corpuscular Hgb 32.2 pg (27.0-32.0); Mean Corpuscular Volume 99.1 fL (80-94); Mean Platelet Vol. 11.5 fl (6.2-12.0); NRBC Flagged by Analyzer 0 % (0-5); Neutrophil # 2.33 X10^3/uL (2.7-7.7); Neutrophil % 52.7 % (47-70); POSITIVE COUNT YES; RBC Distribution Width CV 13.9 % (11.6-14.6); RBC Distribution Width SD 50.8 fl (35.1-43.9); Red Blood Count 3.38 M/mm3 (4.6-6.2); White Blood Count 4.4 K/mm3 (4.4-11.0)
[2022-12-07 09:23] LABS: Erythrocyte Sedimentation Rate 39 mm/hr (0-20)
[2022-12-07 09:32] LABS: Platelet Count 21 K/mm3 (150-450)
[2022-12-07 09:33] LABS: Differential Indicated SCAN CRITERIA MET
--- NOTE | 2022-12-07 09:44 | NURSING ---
Addendum entered by Ana Lisa 12/07/22 10:41: Updated Dr. Cavazos that earliest hematology appt was on Sunday. Verbal orders to check CBC daily x3 days and monitor for any signs of bleeding. Addendum entered by Ana Lisa 12/07/22 10:31: Call back, earliest they can possibly see him is Sunday, 12/11 @3:30 w/ Dr. Schwarz Addendum entered by Ana Lisa 12/07/22 10:03: Called x2 to schedule hematology appt, unable to reach anyone, VM left with request for return call. Original Note: Call placed to Dr. Cavazos to report critical lab value. New order for Hematology consult for an appt. INDU.
[2022-12-07 09:50] LABS: Differential Comment SCANNED; Platelet Estimate MKD DEC (ADEQ)
--- NOTE | 2022-12-07 10:38 | PCM.PN.ID ---
Physical Exam Narrative Feeling ok, some bleeding from small scrapes. No fever, no n/v/d. Hand improving but still limited ROM. Const alert and no apparent distress General Appearance: cooperative Resp normal air movement and clear to auscultation bilaterally Cardio regular rate and regular rhythm GI soft to palpation, non-tender and non-distended Skin Skin Narrative: R hand less swollen, incision nearly healed, less red ID ID: Route of nutrition/ use of supplements: [] Nutritional Intake: [] IV Site: [] De La Cruz Catheter: [] Assessment & Plan Assessment/Plan (1) Hand osteomyelitis, right: PLAN: Seen by Dr. Uriel Loza with ID at [facility]. Wound cxs with MRSA. On iv vanc, stop date 12/26/22. Weekly bmp, cbc, esr, and vanc trough. Now with new thrombocytopenia, heme consulted. Will change vanc to dapto and order vanc antibody test to see if that is the cause. Will order weekly CK and LFT while on dapto. Will follow (2) MRSA (methicillin resistant staph aureus) culture positive:
[2022-12-07 10:56] LABS: Bedside Glucose 155 mg/dL (74-106)
[2022-12-07] MEDS: 0.9% Normal Saline (250mL Bag) 250 ML 15 ML IV (11:08)
[2022-12-07] MEDS: DAPTOMYCIN IV (11:08)
[2022-12-07] MEDS: NORMAL SALINE 0.9% IV (11:08)
[2022-12-07 14:08] LABS: CPK Total, Creatine Kinase 36 U/L (39-308)
[2022-12-07 16:30] LABS: Bedside Glucose 179 mg/dL (74-106)
[2022-12-07] MEDS: 0.9% Saline Lock 10 ML Syringe IV (21:43)
[2022-12-07 21:44] VITALS: BP 141/82; PULSE 75
[2022-12-07] MEDS: Atorvastatin Calcium 40 MG Tablet PO (21:44)
[2022-12-07] MEDS: Insulin Glargine-YFGN 100 UNIT/ML Pen 30 UNIT SC (21:45)
[2022-12-07 22:01] LABS: Bedside Glucose 314 mg/dL (74-106)
[2022-12-08 03:25] LABS: Absolute Lymphocyte Count 1.87 X10^3/uL (0.83-4.51); Basophil# 0.03 X10^3/uL; Basophil% 0.6 % (0-1); Eosinophil# 0.24 X10^3/uL; Eosinophils% 5.1 % (0-5); Hematocrit 30.8 % (40-54); Hemoglobin 10.2 g/dL (13.0-16.5); Lymphocyte # 1.87 X10^3/ul (0.83-4.51); Mean Corp Hgb Conc 33.1 g/dL (32-36); Mean Corpuscular Hgb 32.6 pg (27.0-32.0); Mean Corpuscular Volume 98.4 fL (80-94); Mean Platelet Vol. 12.5 fl (6.2-12.0); Monocyte# 0.51 X10^3/uL; Monocyte% 10.9 % (0-10); NRBC Flagged by Analyzer 0 % (0-5); Neutrophil # 2.01 X10^3/uL (2.7-7.7); Neutrophil % 43.2 % (47-70); POSITIVE COUNT YES; RBC Distribution Width CV 13.9 % (11.6-14.6); RBC Distribution Width SD 50.5 fl (35.1-43.9); Red Blood Count 3.13 M/mm3 (4.6-6.2); White Blood Count 4.7 K/mm3 (4.4-11.0)
[2022-12-08 03:27] LABS: Differential Indicated SCAN CRITERIA MET; Platelet Count 25 K/mm3 (150-450)
[2022-12-08 04:30] LABS: Vancomycin, Trough Level 10.9 ug/mL (5.0-15.0)
[2022-12-08] MEDS: Gabapentin 800 MG Tablet PO ×3 (05:54→21:29)
[2022-12-08 06:02] LABS: Differential Comment SCANNED; Platelet Estimate MKD DEC (ADEQ)
[2022-12-08 06:48] LABS: Bedside Glucose 150 mg/dL (74-106)
[2022-12-08 08:06] VITALS: BP 114/72; PULSE 75; RESP 16; TEMP 36.3; O2SAT 98
[2022-12-08] MEDS: Insulin Lispro 100 UNIT/ML INSULN.PEN 10 UNIT SC ×3 (08:08→17:43)
[2022-12-08] MEDS: Glycerin/Hypromellose/PEG400 15 ml Bottle 1 DRP LEFT EYE ×2 (08:10→21:29)
[2022-12-08] MEDS: Erythromycin Base 1 OPTH.TUBE 1 APPLIC LEFT EYE ×2 (08:10→21:31)
[2022-12-08 08:11] VITALS: PULSE 75
[2022-12-08] MEDS: Metoprolol Tartrate 25 MG Tablet PO ×2 (08:11→21:30)
[2022-12-08] MEDS: Acetaminophen 500 MG Tablet 1000 MG PO ×2 (08:11→21:30)
[2022-12-08] MEDS: Lisinopril 10 MG Tablet PO (08:11)
[2022-12-08] MEDS: metFORMIN (XR) 500 MG Tablet PO ×2 (08:11→16:48)
[2022-12-08] MEDS: Allopurinol 300 MG Tablet PO (08:11)
[2022-12-08] MEDS: Acyclovir 200 MG Capsule 400 MG PO ×2 (08:11→21:30)
[2022-12-08] MEDS: DAPTOMYCIN IV (09:40)
[2022-12-08] MEDS: NORMAL SALINE 0.9% IV (09:40)
[2022-12-08] MEDS: 0.9 % NaCl (Sterile) Posiflush 10 mL IV (09:40)
[2022-12-08 10:14] VITALS: RESP 16
[2022-12-08 11:52] LABS: Bedside Glucose 155 mg/dL (74-106)
--- NOTE | 2022-12-08 12:00 | NURSING ---
off unit to appt
[2022-12-08 13:21] LABS: Pathologist Review Reviewed
[2022-12-08 13:26] LABS: Pathologist Review Reviewed
--- NOTE | 2022-12-08 16:55 | NURSING ---
pt back from appt with surgeon, orders for all therapy OT- work on all ROM OK for active and passive ROM. 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 ok to get wet in shower, no submerging.
--- NOTE | 2022-12-08 17:23 | NURSING ---
written orders from surgeon delivered to OT/PT
[2022-12-08 17:24] LABS: Bedside Glucose 230 mg/dL (74-106)
[2022-12-08] MEDS: Atorvastatin Calcium 40 MG Tablet PO (21:29)
[2022-12-08 21:30] VITALS: BP 133/80; PULSE 75
[2022-12-08 21:49] LABS: Bedside Glucose 222 mg/dL (74-106)
[2022-12-08] MEDS: Insulin Glargine-YFGN 100 UNIT/ML Pen 30 UNIT SC (22:09)
[2022-12-09] MEDS: Gabapentin 800 MG Tablet PO ×3 (05:36→22:35)
[2022-12-09] MEDS: 0.9 % NaCl (Sterile) Posiflush 10 mL IV ×2 (05:36→10:01)
[2022-12-09 06:41] LABS: Bedside Glucose 140 mg/dL (74-106)
[2022-12-09] MEDS: Insulin Lispro 100 UNIT/ML INSULN.PEN 10 UNIT SC ×3 (08:46→17:48)
[2022-12-09] MEDS: Allopurinol 300 MG Tablet PO (08:47)
[2022-12-09] MEDS: metFORMIN (XR) 500 MG Tablet PO ×2 (08:47→17:48)
[2022-12-09 08:48] VITALS: BP 131/81; PULSE 77
[2022-12-09] MEDS: Acetaminophen 500 MG Tablet 1000 MG PO ×2 (08:48→22:27)
[2022-12-09] MEDS: Lisinopril 10 MG Tablet PO (08:48)
[2022-12-09] MEDS: Metoprolol Tartrate 25 MG Tablet PO ×2 (08:48→22:22)
[2022-12-09] MEDS: Acyclovir 200 MG Capsule 400 MG PO ×2 (08:49→22:27)
[2022-12-09] MEDS: Glycerin/Hypromellose/PEG400 15 ml Bottle 1 DRP LEFT EYE ×2 (08:53→22:19)
[2022-12-09] MEDS: Erythromycin Base 1 OPTH.TUBE 1 APPLIC LEFT EYE ×2 (08:53→22:20)
[2022-12-09] MEDS: NORMAL SALINE 0.9% IV (10:02)
[2022-12-09] MEDS: DAPTOMYCIN IV (10:02)
[2022-12-09 10:23] LABS: Absolute Lymphocyte Count 1.66 X10^3/uL (0.83-4.51); Absolute Neutrophil Count 2.5 X10^3/uL (2.0-7.7); Basophil# 0.04 X10^3/uL; Basophil% 0.8 % (0-1); Eosinophil# 0.32 X10^3/uL; Eosinophils% 6.4 % (0-5); Hematocrit 31.9 % (40-54); Hemoglobin 10.8 g/dL (13.0-16.5); Lymphocyte # 1.66 X10^3/ul (0.83-4.51); Lymphocyte % 33.3 % (19-41); Mean Corp Hgb Conc 33.9 g/dL (32-36); Mean Corpuscular Hgb 33.8 pg (27.0-32.0); Mean Corpuscular Volume 99.7 fL (80-94); Mean Platelet Vol. 12.4 fl (6.2-12.0); Monocyte# 0.47 X10^3/uL; Monocyte% 9.4 % (0-10); NRBC Flagged by Analyzer 0 % (0-5); Neutrophil # 2.48 X10^3/uL (2.7-7.7); Neutrophil % 49.7 % (47-70); POSITIVE COUNT YES; RBC Distribution Width CV 14.4 % (11.6-14.6); RBC Distribution Width SD 52.3 fl (35.1-43.9)
[2022-12-09 10:45] LABS: Differential Indicated SCAN CRITERIA MET; Platelet Count 47 K/mm3 (150-450)
[2022-12-09 11:23] LABS: Differential Comment SCANNED; Platelet Estimate MKD DEC (ADEQ)
[2022-12-09 11:46] LABS: Bedside Glucose 167 mg/dL (74-106)
--- NOTE | 2022-12-09 14:29 | NURSING ---
Pt and updated on positive covid pt.
[2022-12-09 15:09] VITALS: BP 117/70; PULSE 75; RESP 18; TEMP 37.1; O2SAT 98
[2022-12-09 17:04] LABS: Bedside Glucose 232 mg/dL (74-106)
[2022-12-09] MEDS: Jantoven 2 MG Tablet PO (17:48)
[2022-12-09 21:46] LABS: Bedside Glucose 207 mg/dL (74-106)
[2022-12-09 22:20] VITALS: PULSE 94; RESP 16; O2SAT 96
[2022-12-09] MEDS: Insulin Glargine-YFGN 100 UNIT/ML Pen 30 UNIT SC (22:21)
[2022-12-09 22:22] VITALS: BP 129/73; PULSE 77
[2022-12-09] MEDS: Atorvastatin Calcium 40 MG Tablet PO (22:22)
[2022-12-10] MEDS: Gabapentin 800 MG Tablet PO ×3 (05:37→21:51)
[2022-12-10 06:35] LABS: Bedside Glucose 136 mg/dL (74-106)
[2022-12-10 08:29] VITALS: BP 110/71; PULSE 77
[2022-12-10] MEDS: Acyclovir 200 MG Capsule 400 MG PO ×2 (08:29→21:51)
[2022-12-10] MEDS: Allopurinol 300 MG Tablet PO (08:29)
[2022-12-10] MEDS: Acetaminophen 500 MG Tablet 1000 MG PO ×2 (08:29→21:51)
[2022-12-10] MEDS: Metoprolol Tartrate 25 MG Tablet PO ×2 (08:29→21:52)
[2022-12-10] MEDS: metFORMIN (XR) 500 MG Tablet PO ×2 (08:30→17:54)
[2022-12-10] MEDS: Erythromycin Base 1 OPTH.TUBE 1 APPLIC LEFT EYE ×2 (08:30→21:49)
[2022-12-10] MEDS: Insulin Lispro 100 UNIT/ML INSULN.PEN 10 UNIT SC ×3 (08:30→17:54)
[2022-12-10] MEDS: Glycerin/Hypromellose/PEG400 15 ml Bottle 1 DRP LEFT EYE ×2 (08:30→21:49)
[2022-12-10] MEDS: Lisinopril 10 MG Tablet PO (08:31)
[2022-12-10 10:14] LABS: Absolute Lymphocyte Count 1.61 X10^3/uL (0.83-4.51); Absolute Neutrophil Count 2.8 X10^3/uL (2.0-7.7); Basophil# 0.04 X10^3/uL; Basophil% 0.8 % (0-1); Eosinophil# 0.33 X10^3/uL; Eosinophils% 6.4 % (0-5); Hematocrit 32.5 % (40-54); Lymphocyte # 1.61 X10^3/ul (0.83-4.51); Lymphocyte % 31.1 % (19-41); Mean Corp Hgb Conc 33.8 g/dL (32-36); Mean Corpuscular Hgb 33.3 pg (27.0-32.0); Mean Corpuscular Volume 98.5 fL (80-94); Mean Platelet Vol. 11.1 fl (6.2-12.0); Monocyte# 0.41 X10^3/uL; Monocyte% 7.9 % (0-10); NRBC Flagged by Analyzer 0 % (0-5); Neutrophil # 2.78 X10^3/uL (2.7-7.7); Neutrophil % 53.6 % (47-70); POSITIVE COUNT YES; Platelet Count 72 K/mm3 (150-450); RBC Distribution Width CV 14.3 % (11.6-14.6); RBC Distribution Width SD 52.1 fl (35.1-43.9); White Blood Count 5.2 K/mm3 (4.4-11.0)
[2022-12-10 10:21] LABS: Differential Indicated SCAN CRITERIA MET
[2022-12-10] MEDS: NORMAL SALINE 0.9% IV (10:40)
[2022-12-10] MEDS: DAPTOMYCIN IV (10:40)
[2022-12-10] MEDS: 0.9% Normal Saline (250mL Bag) 250 ML 15 ML IV (10:41)
[2022-12-10] MEDS: 0.9 % NaCl (Sterile) Posiflush 10 mL IV (10:42)
[2022-12-10 11:41] LABS: Bedside Glucose 144 mg/dL (74-106)
[2022-12-10 11:47] LABS: Differential Comment SCANNED; Platelet Estimate MOD DEC (ADEQ)
[2022-12-10 15:45] VITALS: BP 127/75; PULSE 74; RESP 16; TEMP 37.1; O2SAT 98
[2022-12-10 16:33] LABS: Bedside Glucose 268 mg/dL (74-106)
[2022-12-10] MEDS: Jantoven 2 MG Tablet PO (17:55)
[2022-12-10 21:32] LABS: Bedside Glucose 251 mg/dL (74-106)
[2022-12-10] MEDS: Atorvastatin Calcium 40 MG Tablet PO (21:51)
[2022-12-10 21:52] VITALS: BP 131/90; PULSE 74
[2022-12-10] MEDS: Insulin Glargine-YFGN 100 UNIT/ML Pen 30 UNIT SC (21:53)
[2022-12-11] MEDS: Gabapentin 800 MG Tablet PO ×3 (05:52→21:14)
[2022-12-11 06:00] LABS: International Normalized Ratio 1.9
[2022-12-11 06:31] LABS: Bedside Glucose 126 mg/dL (74-106)
[2022-12-11] MEDS: Insulin Lispro 100 UNIT/ML INSULN.PEN 10 UNIT SC ×3 (08:11→17:31)
[2022-12-11] MEDS: metFORMIN (XR) 500 MG Tablet PO ×2 (08:11→17:31)
[2022-12-11 08:12] VITALS: PULSE 76
[2022-12-11] MEDS: Glycerin/Hypromellose/PEG400 15 ml Bottle 1 DRP LEFT EYE ×2 (08:12→21:15)
[2022-12-11] MEDS: Allopurinol 300 MG Tablet PO (08:12)
[2022-12-11] MEDS: Metoprolol Tartrate 25 MG Tablet PO ×2 (08:12→21:14)
[2022-12-11] MEDS: Lisinopril 10 MG Tablet PO (08:13)
[2022-12-11] MEDS: Acetaminophen 500 MG Tablet 1000 MG PO ×2 (08:13→21:14)
[2022-12-11] MEDS: Erythromycin Base 1 OPTH.TUBE 1 APPLIC LEFT EYE ×2 (08:13→21:14)
[2022-12-11] MEDS: Acyclovir 200 MG Capsule 400 MG PO ×2 (08:13→21:14)
[2022-12-11 08:19] VITALS: BP 135/75; PULSE 76; RESP 16; TEMP 36.2; O2SAT 96
[2022-12-11] MEDS: NORMAL SALINE 0.9% IV (10:16)
[2022-12-11] MEDS: 0.9% Saline Lock 10 ML Syringe IV (10:16)
[2022-12-11] MEDS: DAPTOMYCIN IV (10:16)
[2022-12-11 11:32] LABS: Bedside Glucose 200 mg/dL (74-106)
[2022-12-11 13:04] VITALS: RESP 16
--- NOTE | 2022-12-11 15:28 | NURSING ---
pt off unit to appt with dr mcdaniel
--- NOTE | 2022-12-11 16:13 | NURSING ---
pt returned from Dr Schwarz appt, new orders to f/u 12/25/22 at 1315 for labs and appt at 1400
[2022-12-11 16:58] LABS: Bedside Glucose 128 mg/dL (74-106)
[2022-12-11] MEDS: Jantoven 2 MG Tablet PO (17:31)
[2022-12-11 21:14] VITALS: BP 114/73; PULSE 74
[2022-12-11] MEDS: Atorvastatin Calcium 40 MG Tablet PO (21:14)
[2022-12-11] MEDS: Insulin Glargine-YFGN 100 UNIT/ML Pen 30 UNIT SC (21:15)
[2022-12-11 21:38] LABS: Bedside Glucose 155 mg/dL (74-106)
[2022-12-12] MEDS: Gabapentin 800 MG Tablet PO ×3 (05:26→21:26)
[2022-12-12 06:17] LABS: Bedside Glucose 162 mg/dL (74-106)
[2022-12-12] MEDS: Insulin Lispro 100 UNIT/ML INSULN.PEN 10 UNIT SC ×3 (07:56→17:47)
[2022-12-12] MEDS: metFORMIN (XR) 500 MG Tablet PO ×2 (07:57→17:47)
[2022-12-12 07:58] VITALS: BP 129/77; PULSE 73
[2022-12-12] MEDS: Metoprolol Tartrate 25 MG Tablet PO ×2 (07:58→21:26)
[2022-12-12] MEDS: Allopurinol 300 MG Tablet PO (07:58)
[2022-12-12] MEDS: Lisinopril 10 MG Tablet PO (07:58)
[2022-12-12] MEDS: Acyclovir 200 MG Capsule 400 MG PO ×2 (07:58→21:26)
[2022-12-12] MEDS: Acetaminophen 500 MG Tablet 1000 MG PO ×2 (07:58→21:27)
[2022-12-12] MEDS: Erythromycin Base 1 OPTH.TUBE 1 APPLIC LEFT EYE ×2 (07:59→21:28)
[2022-12-12] MEDS: Glycerin/Hypromellose/PEG400 15 ml Bottle 1 DRP LEFT EYE ×2 (07:59→21:27)
[2022-12-12 09:48] LABS: Pathologist Review Reviewed
[2022-12-12] MEDS: NORMAL SALINE 0.9% IV (10:09)
[2022-12-12] MEDS: DAPTOMYCIN IV (10:09)
[2022-12-12] MEDS: 0.9 % NaCl (Sterile) Posiflush 10 mL IV (10:13)
[2022-12-12 10:18] VITALS: BMI 34.1
[2022-12-12 11:11] LABS: Bedside Glucose 219 mg/dL (74-106)
--- NOTE | 2022-12-12 13:40 | NURSING ---
Patient offered covid vaccine, info about vaccine provided. Patient refused at this time.
[2022-12-12 14:36] VITALS: BP 116/63; PULSE 71; RESP 18; TEMP 35.9; O2SAT 97
--- NOTE | 2022-12-12 16:27 | NURSING ---
Updated on covid positive patient. He will updated his .
[2022-12-12 18:37] LABS: Bedside Glucose 157 mg/dL (74-106)
[2022-12-12 21:26] VITALS: BP 138/77; PULSE 72
[2022-12-12] MEDS: Atorvastatin Calcium 40 MG Tablet PO (21:27)
[2022-12-12] MEDS: Insulin Glargine-YFGN 100 UNIT/ML Pen 30 UNIT SC (21:28)
[2022-12-12 21:39] LABS: Bedside Glucose 324 mg/dL (74-106)
[2022-12-13 06:30] LABS: Bedside Glucose 158 mg/dL (74-106)
[2022-12-13] MEDS: Gabapentin 800 MG Tablet PO ×3 (06:37→23:01)
[2022-12-13 08:26] VITALS: BP 117/64; PULSE 74; RESP 17; TEMP 36.3; O2SAT 98
[2022-12-13] MEDS: Insulin Lispro 100 UNIT/ML INSULN.PEN 10 UNIT SC ×3 (08:30→18:06)
[2022-12-13] MEDS: Glycerin/Hypromellose/PEG400 15 ml Bottle 1 DRP LEFT EYE ×2 (08:31→23:01)
[2022-12-13] MEDS: Allopurinol 300 MG Tablet PO (08:31)
[2022-12-13] MEDS: Erythromycin Base 1 OPTH.TUBE 1 APPLIC LEFT EYE ×2 (08:31→23:01)
[2022-12-13] MEDS: metFORMIN (XR) 500 MG Tablet PO ×2 (08:31→18:07)
[2022-12-13 08:32] VITALS: PULSE 74
[2022-12-13] MEDS: Acyclovir 200 MG Capsule 400 MG PO ×2 (08:32→23:02)
[2022-12-13] MEDS: Acetaminophen 500 MG Tablet 1000 MG PO ×2 (08:32→23:04)
[2022-12-13] MEDS: Metoprolol Tartrate 25 MG Tablet PO ×2 (08:32→23:02)
[2022-12-13] MEDS: Lisinopril 10 MG Tablet PO (08:32)
[2022-12-13] MEDS: 0.9% Normal Saline (250mL Bag) 250 ML 15 ML IV (10:29)
[2022-12-13] MEDS: 0.9 % NaCl (Sterile) Posiflush 10 mL IV (10:29)
[2022-12-13] MEDS: NORMAL SALINE 0.9% IV (10:30)
[2022-12-13] MEDS: DAPTOMYCIN IV (10:30)
[2022-12-13 11:10] LABS: Bedside Glucose 197 mg/dL (74-106)
[2022-12-13 17:01] LABS: Bedside Glucose 152 mg/dL (74-106)
[2022-12-13 21:41] LABS: Bedside Glucose 181 mg/dL (74-106)
[2022-12-13 23:00] VITALS: PULSE 74; RESP 16; O2SAT 98
[2022-12-13 23:02] VITALS: BP 122/74; PULSE 75
[2022-12-13] MEDS: Insulin Glargine-YFGN 100 UNIT/ML Pen 30 UNIT SC (23:03)
[2022-12-13] MEDS: Atorvastatin Calcium 40 MG Tablet PO (23:03)
[2022-12-14 05:30] VITALS: PULSE 76; RESP 16
[2022-12-14] MEDS: Gabapentin 800 MG Tablet PO ×3 (05:38→21:29)
[2022-12-14 05:54] LABS: Absolute Neutrophil Count 2.2 X10^3/uL (2.0-7.7); Basophil# 0.04 X10^3/uL; Basophil% 0.8 % (0-1); Eosinophil# 0.51 X10^3/uL; Eosinophils% 9.8 % (0-5); Hemoglobin 10.8 g/dL (13.0-16.5); Lymphocyte % 36.6 % (19-41); Mean Corp Hgb Conc 32.7 g/dL (32-36); Mean Corpuscular Hgb 32.5 pg (27.0-32.0); Mean Corpuscular Volume 99.4 fL (80-94); Mean Platelet Vol. 10.8 fl (6.2-12.0); Monocyte# 0.49 X10^3/uL; Monocyte% 9.4 % (0-10); NRBC Flagged by Analyzer 0 % (0-5); Neutrophil # 2.24 X10^3/uL (2.7-7.7); Neutrophil % 43.2 % (47-70); Platelet Count 167 K/mm3 (150-450); RBC Distribution Width SD 50.9 fl (35.1-43.9); Red Blood Count 3.32 M/mm3 (4.6-6.2); White Blood Count 5.2 K/mm3 (4.4-11.0)
[2022-12-14 06:02] LABS: International Normalized Ratio 1.7; Prothrombin Time (Protime)PT. 19.9 SECONDS (11.7-14.9)
[2022-12-14 06:21] LABS: AST(SGOT) 18 U/L (15-37); Alanine Aminotransfer ALT/SGPT 25 U/L (16-61); Albumin, Serum 2.9 g/dL (3.2-5.0); Alkaline Phosphatase 61 U/L (45-117); Anion Gap 5 (5-15); BUN 18 mg/dL (7-18); BUN/Creat Ratio 20.3 RATIO (10-20); Calcium,Total 8.9 mg/dL (8.5-10.1); Chloride 109 mmol/L (98-107); Creatinine, Serum 0.89 mg/dL (0.70-1.30); EST Glomerular Filtration Rate 89 mL/min (>60); Est Glom Filt Rate - Afr Amer 108 mL/min (>60); Estimated Creatinine Clearance 75.19 ml/min; Globulin 3.9 g/dL (2.2-4.2); Glucose 146 mg/dL (74-106); Potassium 4.2 mmol/L (3.5-5.1); Protein, Total 6.8 g/dL (6.4-8.2); Sodium Level 138 mmol/L (136-145)
[2022-12-14 06:27] LABS: CPK Total, Creatine Kinase 43 U/L (39-308)
[2022-12-14 06:39] LABS: Bedside Glucose 141 mg/dL (74-106)
[2022-12-14] MEDS: Lisinopril 10 MG Tablet PO (08:03)
[2022-12-14] MEDS: Acyclovir 200 MG Capsule 400 MG PO ×2 (08:03→21:30)
[2022-12-14 08:04] VITALS: BP 121/84; PULSE 73
[2022-12-14] MEDS: Allopurinol 300 MG Tablet PO (08:04)
[2022-12-14] MEDS: Metoprolol Tartrate 25 MG Tablet PO ×2 (08:04→21:30)
[2022-12-14] MEDS: Acetaminophen 500 MG Tablet 1000 MG PO ×2 (08:04→21:29)
[2022-12-14] MEDS: Insulin Lispro 100 UNIT/ML INSULN.PEN 10 UNIT SC ×3 (08:05→18:04)
[2022-12-14] MEDS: Erythromycin Base 1 OPTH.TUBE 1 APPLIC LEFT EYE ×2 (08:06→21:29)
[2022-12-14] MEDS: Glycerin/Hypromellose/PEG400 15 ml Bottle 1 DRP LEFT EYE ×2 (08:06→21:29)
[2022-12-14] MEDS: metFORMIN (XR) 500 MG Tablet PO ×2 (09:22→18:06)
[2022-12-14] MEDS: DAPTOMYCIN IV (09:25)
[2022-12-14] MEDS: NORMAL SALINE 0.9% IV (09:25)
[2022-12-14] MEDS: 0.9 % NaCl (Sterile) Posiflush 10 mL IV (09:26)
[2022-12-14 11:11] LABS: Bedside Glucose 181 mg/dL (74-106)
[2022-12-14 11:12] LABS: Erythrocyte Sedimentation Rate 42 mm/hr (0-20)
[2022-12-14 15:49] VITALS: BP 123/83; PULSE 73; RESP 19; TEMP 36.6; O2SAT 99
--- NOTE | 2022-12-14 15:53 | PCM.PN.ID ---
Physical Exam Narrative Feeling better, hand improving, no fever, no body aches, no n/v/d. Const alert and no apparent distress General Appearance: cooperative Resp normal air movement and clear to auscultation bilaterally Cardio regular rate and regular rhythm GI soft to palpation, non-tender and non-distended Skin no rashes or lesions noted Skin Narrative: R hand incision much improved ID ID: Route of nutrition/ use of supplements: [] Nutritional Intake: [] IV Site: [] De La Cruz Catheter: [] Assessment & Plan Assessment/Plan (1) Hand osteomyelitis, right: PLAN: Seen by Dr. Uriel Loza with ID at [facility]. Wound cxs with MRSA. On iv vanc, stop date 12/26/22. Weekly bmp, cbc, esr, and vanc trough. Developed new thrombocytopenia, heme consulted. Changed vanc to dapto and platelets have been improving since. Pending vanc antibody test to prove that is the cause. Following weekly CK and LFT while on dapto. Will follow (2) MRSA (methicillin resistant staph aureus) culture positive:
[2022-12-14 17:50] LABS: Bedside Glucose 203 mg/dL (74-106)
[2022-12-14] MEDS: Insulin Glargine-YFGN 100 UNIT/ML Pen 30 UNIT SC (21:28)
[2022-12-14] MEDS: Atorvastatin Calcium 40 MG Tablet PO (21:29)
[2022-12-14 21:30] VITALS: BP 120/71; PULSE 72
[2022-12-14 21:54] LABS: Bedside Glucose 210 mg/dL (74-106)
[2022-12-15 06:26] LABS: Bedside Glucose 114 mg/dL (74-106)
[2022-12-15] MEDS: Gabapentin 800 MG Tablet PO ×3 (06:49→22:10)
[2022-12-15] MEDS: Allopurinol 300 MG Tablet PO (08:40)
[2022-12-15] MEDS: Insulin Lispro 100 UNIT/ML INSULN.PEN 10 UNIT SC ×3 (08:40→17:18)
[2022-12-15] MEDS: metFORMIN (XR) 500 MG Tablet PO ×2 (08:40→17:17)
[2022-12-15] MEDS: DAPTOMYCIN IV (09:55)
[2022-12-15] MEDS: NORMAL SALINE 0.9% IV (09:55)
[2022-12-15] MEDS: Glycerin/Hypromellose/PEG400 15 ml Bottle 1 DRP LEFT EYE ×2 (09:56→22:09)
[2022-12-15] MEDS: Erythromycin Base 1 OPTH.TUBE 1 APPLIC LEFT EYE ×3 (09:58→22:09)
[2022-12-15 09:59] VITALS: PULSE 72
[2022-12-15] MEDS: Metoprolol Tartrate 25 MG Tablet PO ×2 (09:59→22:10)
[2022-12-15] MEDS: Acetaminophen 500 MG Tablet 1000 MG PO ×2 (10:00→22:11)
[2022-12-15] MEDS: Acyclovir 200 MG Capsule 400 MG PO ×2 (10:00→22:11)
[2022-12-15] MEDS: Lisinopril 10 MG Tablet PO (10:00)
[2022-12-15 11:21] LABS: Bedside Glucose 229 mg/dL (74-106)
[2022-12-15 14:45] VITALS: BP 116/68; PULSE 74; RESP 16; TEMP 36.2; O2SAT 96
[2022-12-15 16:29] LABS: Bedside Glucose 216 mg/dL (74-106)
[2022-12-15 21:36] LABS: Bedside Glucose 240 mg/dL (74-106)
[2022-12-15 22:10] VITALS: BP 161/77; PULSE 74
[2022-12-15] MEDS: Atorvastatin Calcium 40 MG Tablet PO (22:10)
[2022-12-15] MEDS: Insulin Glargine-YFGN 100 UNIT/ML Pen 30 UNIT SC (22:13)
[2022-12-16] MEDS: Gabapentin 800 MG Tablet PO ×3 (05:41→21:55)
[2022-12-16 06:32] LABS: Bedside Glucose 154 mg/dL (74-106)
[2022-12-16 08:30] VITALS: BP 126/79; PULSE 75; RESP 16; O2SAT 96
[2022-12-16] MEDS: metFORMIN (XR) 500 MG Tablet PO ×2 (08:34→17:47)
[2022-12-16] MEDS: Erythromycin Base 1 OPTH.TUBE 1 APPLIC LEFT EYE ×2 (08:34→21:56)
[2022-12-16] MEDS: Glycerin/Hypromellose/PEG400 15 ml Bottle 1 DRP LEFT EYE ×2 (08:34→21:56)
[2022-12-16] MEDS: Insulin Lispro 100 UNIT/ML INSULN.PEN 10 UNIT SC ×3 (08:34→17:47)
[2022-12-16] MEDS: Allopurinol 300 MG Tablet PO (08:34)
[2022-12-16 08:35] VITALS: PULSE 75
[2022-12-16] MEDS: Acetaminophen 500 MG Tablet 1000 MG PO ×2 (08:35→21:55)
[2022-12-16] MEDS: Lisinopril 10 MG Tablet PO (08:35)
[2022-12-16] MEDS: Metoprolol Tartrate 25 MG Tablet PO ×2 (08:35→21:55)
[2022-12-16] MEDS: Acyclovir 200 MG Capsule 400 MG PO ×2 (08:35→21:55)
[2022-12-16] MEDS: NORMAL SALINE 0.9% IV (09:52)
[2022-12-16] MEDS: 0.9 % NaCl (Sterile) Posiflush 10 mL IV ×2 (09:52→10:54)
[2022-12-16] MEDS: DAPTOMYCIN IV (09:52)
[2022-12-16 11:15] LABS: Bedside Glucose 259 mg/dL (74-106)
[2022-12-16 16:45] LABS: Bedside Glucose 269 mg/dL (74-106)
[2022-12-16] MEDS: Jantoven 2 MG Tablet PO (17:47)
[2022-12-16 21:25] LABS: Bedside Glucose 279 mg/dL (74-106)
[2022-12-16 21:53] VITALS: BP 141/84; PULSE 74; O2SAT 97
[2022-12-16 21:55] VITALS: BP 141/84; PULSE 74
[2022-12-16] MEDS: Atorvastatin Calcium 40 MG Tablet PO (21:55)
[2022-12-16] MEDS: Insulin Glargine-YFGN 100 UNIT/ML Pen 30 UNIT SC (21:58)
[2022-12-17] MEDS: 0.9 % NaCl (Sterile) Posiflush 10 mL IV ×4 (05:34→20:40)
[2022-12-17] MEDS: Gabapentin 800 MG Tablet PO ×3 (05:34→22:32)
[2022-12-17 06:23] LABS: Bedside Glucose 189 mg/dL (74-106)
[2022-12-17 08:37] VITALS: BP 99/71; PULSE 75; RESP 16; TEMP 36.3; O2SAT 97
[2022-12-17] MEDS: Insulin Lispro 100 UNIT/ML INSULN.PEN 10 UNIT SC ×3 (08:40→18:16)
[2022-12-17] MEDS: Allopurinol 300 MG Tablet PO (08:40)
[2022-12-17] MEDS: metFORMIN (XR) 500 MG Tablet PO ×2 (08:40→18:16)
[2022-12-17] MEDS: Glycerin/Hypromellose/PEG400 15 ml Bottle 1 DRP LEFT EYE ×2 (08:41→20:40)
[2022-12-17] MEDS: Erythromycin Base 1 OPTH.TUBE 1 APPLIC LEFT EYE ×2 (08:41→20:39)
[2022-12-17] MEDS: Acetaminophen 500 MG Tablet 1000 MG PO ×2 (08:41→22:32)
[2022-12-17] MEDS: Acyclovir 200 MG Capsule 400 MG PO ×2 (08:42→22:32)
[2022-12-17] MEDS: DAPTOMYCIN IV (10:37)
[2022-12-17] MEDS: NORMAL SALINE 0.9% IV (10:37)
[2022-12-17 10:44] VITALS: BP 103/70
[2022-12-17 10:46] VITALS: PULSE 75
[2022-12-17] MEDS: Metoprolol Tartrate 25 MG Tablet PO ×2 (10:46→22:32)
[2022-12-17] MEDS: Lisinopril 10 MG Tablet PO (10:46)
[2022-12-17] MEDS: 0.9% Normal Saline (250mL Bag) 250 ML 15 ML IV (10:47)
[2022-12-17 11:46] LABS: Bedside Glucose 278 mg/dL (74-106)
[2022-12-17 16:41] LABS: Bedside Glucose 327 mg/dL (74-106)
[2022-12-17] MEDS: Jantoven 2 MG Tablet PO (18:16)
--- NOTE | 2022-12-17 21:25 | NURSING ---
Blood sugars have been elevated recently. Pt not does wish to have insulin adjusted at this time.
[2022-12-17 21:48] LABS: Bedside Glucose 312 mg/dL (74-106)
[2022-12-17 22:27] VITALS: BP 131/80; PULSE 74; O2SAT 98
[2022-12-17 22:32] VITALS: BP 131/80; PULSE 74
[2022-12-17] MEDS: Insulin Glargine-YFGN 100 UNIT/ML Pen 30 UNIT SC (22:32)
[2022-12-17] MEDS: Atorvastatin Calcium 40 MG Tablet PO (22:32)
[2022-12-18] MEDS: Gabapentin 800 MG Tablet PO ×3 (05:34→21:05)
[2022-12-18 06:38] LABS: International Normalized Ratio 1.8; Prothrombin Time (Protime)PT. 21.2 SECONDS (11.7-14.9)
[2022-12-18 06:47] LABS: Bedside Glucose 199 mg/dL (74-106)
[2022-12-18 08:11] VITALS: BP 121/87; PULSE 74
[2022-12-18] MEDS: Acetaminophen 500 MG Tablet 1000 MG PO ×2 (08:11→21:14)
[2022-12-18] MEDS: Metoprolol Tartrate 25 MG Tablet PO ×2 (08:11→21:07)
[2022-12-18] MEDS: metFORMIN (XR) 500 MG Tablet PO ×2 (08:12→17:57)
[2022-12-18] MEDS: Glycerin/Hypromellose/PEG400 15 ml Bottle 1 DRP LEFT EYE ×2 (08:12→21:06)
[2022-12-18] MEDS: Acyclovir 200 MG Capsule 400 MG PO ×2 (08:12→21:15)
[2022-12-18] MEDS: Erythromycin Base 1 OPTH.TUBE 1 APPLIC LEFT EYE ×2 (08:12→21:06)
[2022-12-18] MEDS: Lisinopril 10 MG Tablet PO (08:13)
[2022-12-18] MEDS: Allopurinol 300 MG Tablet PO (08:13)
[2022-12-18] MEDS: Insulin Lispro 100 UNIT/ML INSULN.PEN 10 UNIT SC ×3 (08:15→17:58)
[2022-12-18] MEDS: NORMAL SALINE 0.9% IV (10:43)
[2022-12-18] MEDS: DAPTOMYCIN IV (10:43)
[2022-12-18 11:18] LABS: Bedside Glucose 185 mg/dL (74-106)
[2022-12-18 14:27] VITALS: BP 107/72; PULSE 75; RESP 18; TEMP 36.5; O2SAT 95
[2022-12-18 16:38] LABS: Bedside Glucose 189 mg/dL (74-106)
--- NOTE | 2022-12-18 17:31 | PCM.PN.DRR ---
Documented by User: Isidro Ling 12/18/22 19:34 TCU RX Drug Regimen Review Subjective/Objective Subjective/Objective: Subjective: Subsequent TCU drug regimen review note. 72 YOM admitted to TCU 11/22/22 S/P hospitalization from an outside facility. Patient was admitted and diagnosed with MRSA osteomyelitis and was discharged on 6 weeks IV vancomycin. Admitted to TCU 11/22/22 for antibiotic therapy, strengthening, and rehabilitation prior to discharge home where he resides with his . Objective: Allergies apixaban [From Eliquis] Adverse Reaction (Severe, Verified 12/11/22 15:36) Severe dizziness amoxicillin [Amoxicillin] Adverse Reaction (Verified 12/11/22 15:36) Other vancomycin Adverse Reaction (Verified 12/12/22 09:25) Low platelets Current Medications Generic Name Dose Route Start Last Admin Trade Name Freq PRN Reason Stop Dose Admin Acetaminophen 1,000 mg 11/22/22 22:00 12/18/22 08:11 Acetaminophen 500 Mg Tablet PO 1,000 mg BID GIOVANNY Administration Acyclovir 400 mg 11/22/22 22:00 12/18/22 08:12 Acyclovir 200 Mg Capsule PO 400 mg BID GIOVANNY Administration Allopurinol 300 mg 11/23/22 08:00 12/18/22 08:13 Allopurinol 300 Mg Tablet PO 300 mg DAILYCM GIOVANNY Administration Atorvastatin Calcium 40 mg 11/22/22 22:00 12/17/22 22:32 Atorvastatin Calcium 40 Mg Tablet PO 40 mg QHS GIOVANNY Administration Erythromycin 1 applic 11/27/22 22:00 12/18/22 08:12 Erythromycin Base 1 Opth.Tube LEFT EYE 1 applic BID GIOVANNY Administration Gabapentin 800 mg 11/22/22 22:00 12/18/22 14:52 Gabapentin 800 Mg Tablet PO 800 mg TID GIOVANNY Administration Glycerin/Hypromellose/Polyethylene 1 drp 11/27/22 22:00 12/18/22 08:12 Glycerin/Hypromellose/[id number] 15 Ml Bottle LEFT EYE 1 drp BID GIOVANNY Administration Heparin Sodium (Beef Lung) 50 units 11/22/22 14:53 Heparin Pf Lock 10 Units/Ml 50 Units/5 Ml Syringe IV UD PRN PICC Line Heparin Flush Hydrocortisone 1 applic 11/24/22 09:34 11/26/22 22:38 Hydrocortisone 2.5% Crm TOPICAL 1 applic TID PRN PRN Administration ITCHING Protocol Sodium Chloride 250 mls @ 15 mls/hr 11/24/22 11:10 12/17/22 12:28 IV 0 mls/hr .[id number] PRN Infusion Additional IVPB Infusion Sodium Chloride 250 mls @ 15 mls/hr 11/24/22 11:10 12/10/22 10:55 IV Infused .[id number] PRN Infusion Saline Flush Daptomycin 800 mg/ Sodium 66 mls @ 100 mls/hr 12/07/22 09:50 12/18/22 11:52 Chloride IV Infused Q24H GIOVANNY Infusion Insulin Glargine 30 unit 12/05/22 22:00 12/17/22 22:32 Insulin Glargine-Yfgn 100 Unit/Ml Pen SC 30 unit QHS GIOVANNY Administration Insulin Human Lispro 10 unit 12/06/22 08:00 12/18/22 12:13 Insulin Lispro 100 Unit/Ml Insuln.Pen SC 10 u TIDCM GIOVANNY Administration Lactobacillus Acidophilus 1 tablet 11/23/22 10:00 12/18/22 08:12 Lactobacillus Acidophilus PO 1 tablet DAILY GIOVANNY Administration Lisinopril 10 mg 11/23/22 10:00 12/18/22 08:13 Lisinopril 10 Mg Tablet PO 10 mg DAILY GIOVANNY Administration Protocol Loperamide HCl 2 mg 11/28/22 07:46 Loperamide 2 Mg Capsule PO Q2H PRN PRN DIARRHEA/LOOSE STOOLS Metformin HCl 500 mg 11/22/22 17:00 12/18/22 08:12 Metformin (Xr) 500 Mg Tablet PO 500 mg BIDCM GIOVANNY Administration Metoprolol Tartrate 25 mg 11/22/22 22:00 12/18/22 08:11 Metoprolol Tartrate 25 Mg Tablet PO 25 mg BID GIOVANNY Administration Protocol Polyethylene Glycol 17 gm 11/22/22 15:53 Polyethylene Glycol 3350 17 Gm Packet PO DAILY PRN constipation Senna/Docusate Sodium 1 tablet 11/22/22 20:19 Senna/Docusate Sodium 1 Tablet PO BID PRN Constipation Sodium Chloride 10 - 40 ml 11/22/22 14:53 12/17/22 20:40 0.9 % Nacl (Sterile) Posiflush 10 Ml IV 10 ml UD PRN Administration Port access or dressing change Sodium Chloride 10 - 40 ml 11/22/22 14:53 12/11/22 10:16 0.9% Saline Lock 10 Ml Syringe IV 20 ml UD PRN Administration Open End PICC Flush Triamcinolone Acetonide 1 applic 11/22/22 15:30 12/01/22 09:57 Triamcinolone Acetonide 0.1% Cream 15 Gm TOPICAL 1 applic DAILY PRN Administration hydrodinitus Protocol Warfarin Sodium 4 mg 11/22/22 19:00 12/15/22 17:17 Warfarin 4 Mg Tablet PO 4 mg [id number] [facility] Administration Warfarin Sodium 2 mg 11/25/22 17:00 12/17/22 18:16 Jantoven 2 Mg Tablet PO 2 mg [id number] [facility] Administration Problem List (Updated 12/11/22 @ 15:[address] Bonnie Schwarz MD) MRSA (methicillin resistant staph aureus) culture positive (Acute) Hand osteomyelitis, right (Acute) Debility (Acute) Obesity (Chronic) Diabetes (Chronic) History of CVA (cerebrovascular accident) (Acute 03/06/21) Paroxysmal atrial fibrillation (Chronic) Essential hypertension (Chronic) Hyperlipidemia (Chronic) History of TIA (transient ischemic attack) (Acute) Vital Signs Temp Pulse Resp BP Pulse Ox O2 Del Method 97.7 F L 75 18 107/72 95 Room Air 12/18/22 14:27 12/18/22 14:27 12/18/22 14:27 12/18/22 14:27 12/18/22 14:27 12/18/22 14:27 Oxygen Delivery Method Room Air Weight: 107.955 kg Body Mass Index (BMI) 34.1 Sodium 138 mmol/L (136-145) 12/14/22 05:34 Potassium 4.2 mmol/L (3.5-5.1) 12/14/22 05:34 Chloride 109 mmol/L (98-107) H 12/14/22 05:34 Carbon Dioxide 24.0 mmol/L (21.0-32.0) 12/14/22 05:34 Anion Gap 5 (5-15) 12/14/22 05:34 BUN 18 mg/dL (7-18) 12/14/22 05:34 Creatinine 0.89 mg/dL (0.70-1.30) 12/14/22 05:34 Est GFR (MDRD) Af Amer 108 mL/min (>60) 12/14/22 05:34 Est GFR (MDRD) Non-Af 89 mL/min (>60) 12/14/22 05:34 BUN/Creatinine Ratio 20.3 RATIO (10-20) H 12/14/22 05:34 Glucose 146 mg/dL (74-106) H 12/14/22 05:34 Vancomycin Trough 10.9 ug/mL (5.0-15.0) 12/08/22 02:38 Random Vancomycin 16.2 ug/mL (0.0-15.0) H 11/26/22 05:49 Assessment/Plan: 1. Pain: acetaminophen 1000mg PO BID. Please continue to monitor LFTs (AST/ALT = 18/25 U/L on 12/14/22), and pain levels. The patient's pain appears well controlled on scheduled acetaminophen. 2. MRSA Osteomyelitis: daptomycin 500 mg IV Q24H. Please continue to monitor CPK levels (no current CPK levels), renal function (serum creatinine 0.89 mg/dL with creatinine clearance ~75 mL/min on 12/14/22), WBC count (WBC = 5.2 K/mm# on 12/14/22), for fevers (recent temps = 97.1 - 98.8 F), and for other s/s of infections such as chills. Please consider adding a stop date to the patient's daptomycin to match that of the patient's vancomycin prescription. 3. Atrial Fibrillation/ HTN/HLD: metoprolol tartrate 25mg PO BID, lisinopril 10mg PO Daily, atorvastatin 40mg PO QHS, warfarin 4mg PO Sunday-Sunday, warfarin 2mg Sunday-Sunday. Please continue to monitor BP (recent range = 99-161/68-87 mmHg), heart rates (recent range = 72-75 beats/min), hemoglobin levels (Hgb = 10.8 g/dL on 12/14/22), platelet count (PLT = 167 K/mm3 on 12/14/22), INR (INR = 1.8 on 12/18/22)), S/S bleeding/bruising, lipid levels (cholesterol = 104 mg/dL with LDL = 37 mg/dL on 03/06/21), for fatigue, dry cough, angioedema, myopathies, and LFTs (AST/ALT = 18/25 U/L on 12/14/22). 4. Diabetes Type II: insulin glargine 30 units SC QHS, insulin lispro 10 units SC TIDCM, metformin XR 500 mg BIDCM. Please continue to monitor for S/S hypoglycemia, injection site reactions, POC glucose (recent range = 185-312 mg/dL), hemoglobin A1C (A1C = 9.5 on 11/08/22), creatinine clearance (CRCL = 75 mL/min on 12/14/22). The patient's blood glucose readings remain high, please consider increasing either the patients metformin or the patient's insulin glargine. 5. Diabetic Polyneuropathy: gabapentin 800 mg PO TID. this is a Beer's Criteria medication which can increase the risk of falls/fractures in patients older than 65. Please continue to monitor patient closely for falls, does not appear to be high risk at this time. Please continue to monitor for medication effectiveness, renal function (serum creatinine = 0.89 mg/dL with creatinine clearance = 75 mL/min on 12/14/22), oversedation, and falls with continued use. 6. Gout: allopurinol 300 mg PO Daily. Please continue to monitor for nausea/vomiting, gout flare-ups, and renal function (serum creatinine = 0.89 mg/dL with creatinine clearance = 75 mL/min on 12/14/22). 7. Herpes Simplex: acyclovir 400 mg PO BID. Please continue to monitor for resolution of infection. 8. Conjunctivitis: Erythromycin ophthalmic left eye Q3hWA, artificial tears 1 drop in the left eye BID. Please continue to monitor for resolution of infection and for dry eyes. 9. Skin Rash: Triamcinolone cream topically daily PRN, hydrocortisone 2.5% 1 application topically TID PRN. Please continue to monitor PRN use, resolution of rash, and skin integrity. 10. General Wellness: Acidophilus 1 tab PO daily. 11. Bowel: Miralax 17g PO Daily PRN, Senna-S 1 tab PO BID PRN. Please continue to monitor for increased/decreased S/S constipation and/or diarrhea.The patient has not used any PRN medications yet this admission. The patient's last bowel movement was on 12/10/22, please consider administering the patient's PRN medications to facilitate a bowel movement. 12. Diarrhea: loperamide 2 mg PO Q2H PRN diarrhea. The patient has not used any PRN doses of loperamide this admission. Please continue to monitor for PRN medication usage, and for diarrhea. Assessment/Plan for indications treated with psychotropic medications: -The patient is not currently being treated with any psychotropic medications at time of this review. Medical chart and medication regimen reviewed. The following medication irregularities or issues were identified: 1. MRSA Osteomyelitis: daptomycin 500 mg IV Q24H. Please consider adding a stop date to the patient's daptomycin to match that of the patient's vancomycin prescription. 2. Diabetes Type II: insulin glargine 30 units SC QHS, insulin lispro 10 units SC TIDCM, metformin XR 500 mg BIDCM. The patient's blood glucose readings remain high, please consider increasing either the patients metformin or the patient's insulin glargine. 3. Bowel: Miralax 17g PO Daily PRN, Senna-S 1 tab PO BID PRN. Please continue to monitor for increased/decreased S/S constipation and/or diarrhea.The patient has not used any PRN medications yet this admission. The patient's last bowel movement was on 12/10/22, please consider administering the patient's PRN medications to facilitate a bowel movement. Date Date of Note:: 12/18/22 Documented by User: Dr. Abhishek Cavazos MD 12/18/22 19:47 TCU RX Drug Regimen Review Provider Comments Provider responsibility Provider Comments to Recommendations by Pharmacy: Agree
[2022-12-18] MEDS: Jantoven 2 MG Tablet PO (17:57)
--- NOTE | 2022-12-18 19:06 | PN.TCU_ITS ---
Subjective Subjective Resident seen, examined for regulatory visit. He states his right hand is stiff, I reassured him that is to be expected with the surgical debridement he has undergone. In the interim, resident developed severe thrombocytopenia, appreciate both Dr. Schwarz, and Dr. Stroud's expertise. Vancomycin was changed to Daptomycin, and the thrombocytopenia has resolved. Objective Data Objective Data Vital Signs: Vital Signs Temp Pulse Resp BP Pulse Ox O2 Del Method 97.7 F L 75 18 107/72 95 Room Air 12/18/22 14:27 12/18/22 14:27 12/18/22 14:27 12/18/22 14:27 12/18/22 14:27 12/18/22 14:27 Oxygen Delivery Method Room Air Weight: 107.955 kg Body Mass Index (BMI) 34.1 Intake & Output: Intake and Output for Last 24 Hours 12/16/22 12/17/22 12/18/22 23:59 23:59 23:59 Intake Total 1031.5 / 1031.5 1163.75 / 1163.75 666 / 666 Balance 1031.5 / 1031.5 1163.75 / 1163.75 666 / 666 Lab / Micro Data 12/14/22 05:34 12/14/22 05:34 Labs: Laboratory Results - last 24 hr 12/17/22 21:30: POC Glucose 312 H 12/18/22 05:30: PT 21.2 H, INR 1.8 12/18/22 06:25: POC Glucose 199 H 12/18/22 10:57: POC Glucose 185 H 12/18/22 16:16: POC Glucose 189 H Micro: Microbiology 12/18/22 06:00 Nasal Secretion SARS-CoV-2 Antigen (Rapid) - Final 12/15/22 06:00 Nasal Secretion SARS-CoV-2 Antigen (Rapid) - Final 12/12/22 05:30 Nasal Secretion SARS-CoV-2 Antigen (Rapid) - Final 12/09/22 05:49 Nasal Secretion SARS-CoV-2 Antigen (Rapid) - Final 12/08/22 10:50 Stool Stool Occult Blood (DANYEL) - Final 12/06/22 04:15 Nasal Secretion SARS-CoV-2 Antigen (Rapid) - Final 12/03/22 06:34 Nasal Secretion SARS-CoV-2 Antigen (Rapid) - Final 11/30/22 05:00 Nasal Secretion SARS-CoV-2 Antigen (Rapid) - Final 11/27/22 08:58 Nasal Secretion SARS-CoV-2 Antigen (Rapid) - Final 11/24/22 05:55 Nasal Secretion SARS-CoV-2 Antigen (Rapid) - Final Physical Exam Const alert General Appearance: cooperative HEENT normocephalic Eyes PERRL and EOMs intact bilaterally Neck supple, no JVD and no carotid bruits Resp normal respiratory effort, normal air movement and clear to auscultation bilaterally Cardio regular rate and regular rhythm GI normal to inspection, nondistended, normoactive bowel sounds, non-tender and non-distended Extremity normal capillary refill Extremity Narrative: Left upper extremity PICC line. General Extremity: Negative for edema Skin no rashes or lesions noted General Skin Exam: no breakdown Psych affect normal Appearance: appropriate Assessment & Plan Assessment/Plan (1) Debility: (2) Hand osteomyelitis, right: (3) MRSA (methicillin resistant staph aureus) culture positive: (4) Obesity: QUALIFIERS: Obesity type: due to excess calories Obesity classification: adult class 2 (BMI 35 - 39.9) Serious obesity comorbidity presence: with serious comorbidity Body mass index: BMI 36.0-36.9 Qualified Code(s): E66.01 - Morbid (severe) obesity due to excess calories; Z68.36 - Body mass index [BMI] 36.0-36.9, adult (5) Diabetes: QUALIFIERS: Diabetes mellitus type: type 2 Diabetes mellitus senior care insulin use: with senior care use Diabetes mellitus complication status: with hyperglycemia Qualified Code(s): E11.65 - Type 2 diabetes mellitus with hyperglycemia; 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 * Debility - PT/OT. * Pain - Tylenol 1000mg bid. * Bowel - Miralax 17gm daily prn, senna/colace 1 tablet bid prn, Loperamide 2mg q2h prn. * Adult immunization - Administer pneumonia vaccine, covid19 vaccine, flu vaccine as appropriate. * DVT prophylaxis - on warfarin. * Herpes Simplex - Acyclovir 400mg bid. * Gout - Allopurinol 300mg daily. * Hyperlipidemia - Atorvastatin 40mg qhs. * Conjunctivitis - E-mycin OS bid, Artificial tears 1gtt os bid. * Diabetic polyneuropathy - Gabapentin 800mg tid. * Diabetes Mellitus II - Metformin XR 500mg bidcm, Glargine 30 units qhs, Lispro 10 units tidcm. * GI prophylaxis - Lactobacillus 1 tablet daily. * Hypertension - Metoprolol 25mg bid, Lisinopril 10mg daily. * Rash - HC 2.5% topical tid prn. * Atrial fibrillation - Metoprolol 25mg bid, Warfarin 4mg 4 days/week, 2mg 3 days/week, follow INR. * MRSA osteomyelitis right hand - Daptomycin 800mg iv q24 thru 12/26/2022, Appreciate Dr. Stroud's help. * Thrombocytopenia - Resolved, appreciate Dr. Schwarz' help. Capacity Capacity Assessment Tool Can the patient make a choice & communicate that choice?: Yes Can the patient understand benefits, risks and alternatives?: Yes Can the patient make a logical, rational choice?: Yes Is the choice the patient makes consistent w/ their values?: Yes Is there an impending, emergent risk to the patient?: No Does the patient have an Advance Directive?: No Is there a Surrogate Available?: Yes i.e. HCPOA: Yes i.e. close relative (spouse, child, parent, sibling)?: Yes
[2022-12-18 21:07] VITALS: BP 120/77; PULSE 68
[2022-12-18] MEDS: Atorvastatin Calcium 40 MG Tablet PO (21:14)
[2022-12-18] MEDS: Insulin Glargine-YFGN 100 UNIT/ML Pen 30 UNIT SC (21:18)
[2022-12-18 21:42] LABS: Bedside Glucose 180 mg/dL (74-106)
[2022-12-19] VITALS (9 sets, daily range): BP systolic 120–187; BP diastolic 73–96; PULSE 73–123; RESP 16–18; TEMP 36.6–39.2; O2SAT 95–98; BMI 34.1
[2022-12-19] MEDS: Gabapentin 800 MG Tablet PO ×3 (05:16→23:51)
[2022-12-19 06:22] LABS: Bedside Glucose 142 mg/dL (74-106)
[2022-12-19] MEDS: Insulin Lispro 100 UNIT/ML INSULN.PEN 10 UNIT SC ×2 (08:45→11:57)
[2022-12-19] MEDS: Allopurinol 300 MG Tablet PO (08:45)
[2022-12-19] MEDS: metFORMIN (XR) 500 MG Tablet PO (08:45)
[2022-12-19] MEDS: Lisinopril 10 MG Tablet PO (08:46)
[2022-12-19] MEDS: Metoprolol Tartrate 25 MG Tablet PO ×2 (08:46→23:52)
[2022-12-19] MEDS: Acetaminophen 500 MG Tablet 1000 MG PO ×2 (08:46→23:51)
[2022-12-19] MEDS: Erythromycin Base 1 OPTH.TUBE 1 APPLIC LEFT EYE ×2 (08:46→23:56)
[2022-12-19] MEDS: Glycerin/Hypromellose/PEG400 15 ml Bottle 1 DRP LEFT EYE ×2 (08:46→23:55)
[2022-12-19] MEDS: Acyclovir 200 MG Capsule 400 MG PO ×2 (08:47→23:51)
[2022-12-19] MEDS: NORMAL SALINE 0.9% IV (10:48)
[2022-12-19] MEDS: DAPTOMYCIN IV (10:48)
[2022-12-19] MEDS: 0.9% Normal Saline (250mL Bag) 250 ML 15 ML IV (10:49)
[2022-12-19] MEDS: 0.9 % NaCl (Sterile) Posiflush 10 mL IV ×2 (10:49→11:57)
[2022-12-19 11:12] LABS: Bedside Glucose 150 mg/dL (74-106)
--- NOTE | 2022-12-19 15:47 | EKG12_ITS ---
Test Reason : AFIB Blood Pressure : / mmHG Vent. Rate : 123 BPM Atrial Rate : 123 BPM P-R Int : 000 ms QRS Dur : 068 ms QT Int : 308 ms P-R-T Axes : 000 -35 131 degrees QTc Int : 440 ms Atrial fibrillation Left axis deviation Nonspecific ST and T wave abnormality Abnormal ECG Confirmed by PARAG JUNG, KALI ([id number]), video effects editor HARMONY WHITTINGTON ([id number]) on 12/26/2022 9:50:38 AM Referred By: NAIF RENE Confirmed By:KALI TUTTLE MD
--- NOTE | 2022-12-19 16:07 | NURSING ---
Addendum entered by Eliza Abrams 12/19/22 17:48: Patient transported to ER @1740. Addendum entered by Eliza Abrams 12/19/22 17:25: Patient unsteady on his feet, face is flushed, temp elevated and c/o shortness of breath. Placed on [address] Cavazos. Dr. Cavazos to assess at bedside. Order to send patient to ER. Report called to [place] nurse. Original Note: Nursing entered patient's room. Patient c/o of being cold states he hasn't felt well since about noon. Vitals obtained. Nurse noted HR to be irregular. Dr. Cavazos called and updated. New orders obtained. Dr. Stroud updated per Dr. Cavazos's request and no new orders were obtained from Dr. Stroud.
[2022-12-19 16:10] LABS: Bedside Glucose 183 mg/dL (74-106)
--- NOTE | 2022-12-19 16:20 | RAD_ITS ---
INDICATION: fever EXAMINATION/TECHNIQUE: X-RAY - XR Chest 2 Views COMPARISON: March 05, 2021 FINDINGS: LINES/DEVICES: Left PICC line with tip at the mid SVC. LUNGS: No consolidation, edema or effusion. No pneumothorax. MEDIASTINUM AND CARDIOVASCULAR STRUCTURES: Cardiac silhouette not enlarged. Central airways and mediastinal contour are unremarkable. BONES AND SOFT TISSUES: Unremarkable. RAD/Chest PA and Lateral IMPRESSION: No radiographic evidence of acute cardiopulmonary disease. Electronically Signed: Irving Kumar DO at 17:44 EDT ,
[2022-12-19 17:04] LABS: Absolute Lymphocyte Count 0.91 X10^3/uL (0.83-4.51); Basophil# 0.04 X10^3/uL; Basophil% 0.6 % (0-1); Eosinophil# 0.45 X10^3/uL; Eosinophils% 6.6 % (0-5); Hematocrit 35.9 % (40-54); Hemoglobin 11.9 g/dL (13.0-16.5); Lymphocyte # 0.91 X10^3/ul (0.83-4.51); Lymphocyte % 13.3 % (19-41); Mean Corp Hgb Conc 33.1 g/dL (32-36); Mean Corpuscular Hgb 32.9 pg (27.0-32.0); Mean Corpuscular Volume 99.2 fL (80-94); Mean Platelet Vol. 10.7 fl (6.2-12.0); Monocyte# 0.42 X10^3/uL; Monocyte% 6.1 % (0-10); NRBC Flagged by Analyzer 0 % (0-5); Neutrophil # 4.99 X10^3/uL (2.7-7.7); Neutrophil % 73.1 % (47-70); Platelet Count 208 K/mm3 (150-450); RBC Distribution Width CV 13.9 % (11.6-14.6); RBC Distribution Width SD 50.4 fl (35.1-43.9); Red Blood Count 3.62 M/mm3 (4.6-6.2); White Blood Count 6.8 K/mm3 (4.4-11.0)
[2022-12-19 17:18] LABS: Bacteria 0 SEEN /hpf (None Seen); Mucous, Urine 0 SEEN /hpf (<or=2+); Red Blood Cells-Urine 0 SEEN /hpf (0-5); Squamous Epithelial Cells - UA 0 SEEN /hpf (0-5); White Blood Cells 0 SEEN /hpf (0-5)
[2022-12-19 17:42] LABS: Color, Urine Yellow (Yellow); Glucose, Dipstick Normal (Normal); Ketone-Dipstick Negative (Negative); Leukocyte Esterase-Dipstick Negative /ul (Negative); Nitrite-Dipstick Negative (Negative); Occult Blood-Urine 10 /ul (Negative); Protein-Dipstick 30 mg/dl (Negative); Urine Bilirubin Dipstick Negative (Negative); Urine Clarity Clear (Clear); Urine Urobilinogen Normal (Normal)
[2022-12-19 17:43] LABS: Erythrocyte Sedimentation Rate 65 mm/hr (0-20)
[2022-12-19 18:03] LABS: ALB/GLOB Ratio 0.8 RATIO (0.9-2.4); AST(SGOT) 26 U/L (15-37); Alanine Aminotransfer ALT/SGPT 30 U/L (16-61); Albumin, Serum 3.4 g/dL (3.2-5.0); Alkaline Phosphatase 70 U/L (45-117); Anion Gap 7 (5-15); BUN 20 mg/dL (7-18); BUN/Creat Ratio 19.2 RATIO (10-20); Chloride 103 mmol/L (98-107); Creatinine, Serum 1.04 mg/dL (0.70-1.30); EST Glomerular Filtration Rate 74 mL/min (>60); Est Glom Filt Rate - Afr Amer 90 mL/min (>60); Estimated Creatinine Clearance 64.34 ml/min; Globulin 4.4 g/dL (2.2-4.2); Glucose 200 mg/dL (74-106); Potassium 4.4 mmol/L (3.5-5.1); Protein, Total 7.8 g/dL (6.4-8.2); Sodium Level 133 mmol/L (136-145)
[2022-12-19 18:27] LABS: Lactic Acid 2.3 mmol/L (0.4-1.9)
[2022-12-19 21:00] LABS: Reflex Lactate? Y
[2022-12-19 22:21] LABS: Lactic Acid 1.7 mmol/L (0.4-1.9)
--- NOTE | 2022-12-19 23:07 | NURSING ---
Pt returned to floor from ED at 2300.
[2022-12-19] MEDS: Insulin Glargine-YFGN 100 UNIT/ML Pen 30 UNIT SC (23:53)
[2022-12-19] MEDS: Atorvastatin Calcium 40 MG Tablet PO (23:53)
[2022-12-20] MEDS: Gabapentin 800 MG Tablet PO ×3 (05:36→21:01)
[2022-12-20] MEDS: Erythromycin Base 1 OPTH.TUBE 1 APPLIC LEFT EYE ×2 (08:07→21:03)
[2022-12-20] MEDS: Glycerin/Hypromellose/PEG400 15 ml Bottle 1 DRP LEFT EYE ×2 (08:07→21:07)
[2022-12-20] MEDS: Insulin Lispro 100 UNIT/ML INSULN.PEN 10 UNIT SC ×2 (08:08→11:49)
[2022-12-20 08:10] VITALS: BP 129/76; PULSE 74
[2022-12-20] MEDS: Allopurinol 300 MG Tablet PO (08:10)
[2022-12-20] MEDS: Metoprolol Tartrate 25 MG Tablet PO ×2 (08:10→21:02)
[2022-12-20] MEDS: metFORMIN (XR) 500 MG Tablet PO ×2 (08:10→17:36)
[2022-12-20] MEDS: Acetaminophen 500 MG Tablet 1000 MG PO ×2 (08:11→20:03)
[2022-12-20] MEDS: Lisinopril 10 MG Tablet PO (08:12)
[2022-12-20] MEDS: Acyclovir 200 MG Capsule 400 MG PO ×2 (08:12→21:04)
[2022-12-20] MEDS: Alteplase 2 MG/2 ML Vial IV (09:23)
[2022-12-20] MEDS: NORMAL SALINE 0.9% IV (09:24)
[2022-12-20] MEDS: DAPTOMYCIN IV (09:24)
[2022-12-20] MEDS: 0.9 % NaCl (Sterile) Posiflush 10 mL IV ×2 (09:29→10:12)
[2022-12-20 10:00] VITALS: RESP 16
[2022-12-20 11:46] LABS: Bedside Glucose 187 mg/dL (74-106)
--- NOTE | 2022-12-20 11:52 | CASEMGMT ---
Social Work SW spoke with pt to plan for DC. Pt's IV ATB are done 12/26. Offered DC 12/27. Pt agreeable and is requesting outpatient hand therapy at [facility]. No DME needs. can transport. SW faxed referral to [facility]. Plan: DC home with 12/27, [facility] OT hand therapy Ree Singh, OCCUPATIONAL THERAPY SUPERVISOR DOWEL MACHINE OPERATOR
--- NOTE | 2022-12-20 13:25 | NURSING ---
Picc line flushing but no blood return noted. Dr. Cavazos ordered Cathflo and administered per order. Cathflo dwelled for 30min and rechecked. Blood return noted and 4ml of blood discarded.
[2022-12-20 15:35] LABS: Bedside Glucose 155 mg/dL (74-106)
[2022-12-20 16:00] VITALS: BP 154/86; PULSE 95; RESP 17; TEMP 37; O2SAT 97
--- NOTE | 2022-12-20 16:19 | NURSING ---
Pt temp elevated 99.[address] Stroud updated N.O. for MRI of Right hand with contrast. Order Faxed to MRI and updated Pt.
[2022-12-20 16:28] LABS: Bedside Glucose 187 mg/dL (74-106)
--- NOTE | 2022-12-20 19:13 | PCM.PN.ID ---
Physical Exam Narrative Yesterday with new onset fever, fatigue. No headache, sore throat, cough, SOB, abd pain, n/v/d, dysuria, rash. Hand with no changes. Went to ED, xrays, labs, swabs done, got dose of zosyn. Feeling better today. Const alert and no apparent distress General Appearance: cooperative Resp normal air movement and clear to auscultation bilaterally Cardio regular rate and regular rhythm GI soft to palpation, non-tender and non-distended Extremity General Extremity: Negative for edema Skin Skin Narrative: mild swelling R hand ID ID: Route of nutrition/ use of supplements: [] Nutritional Intake: [] IV Site: [] De La Cruz Catheter: [] Assessment & Plan Assessment/Plan (1) Hand osteomyelitis, right: PLAN: Seen by Dr. Uriel Loza with ID at [facility]. Wound cxs with MRSA. Discharged on iv vanc, stop date 12/26/22. Weekly bmp, cbc, esr, and vanc trough. Developed new thrombocytopenia, heme consulted. Changed vanc to dapto and platelets have been improving since. Pending vanc antibody test to prove that is the cause. Following weekly CK and LFT while on dapto. 12/19 new fever, spoke with ED, workup neg so far, no further fever. Agree with plan for R hand MRI. Will follow (2) MRSA (methicillin resistant staph aureus) culture positive:
[2022-12-20] MEDS: 0.9% Saline Lock 10 ML Syringe IV (19:57)
--- NOTE | 2022-12-20 20:02 | DS.PCM_ITS ---
Providers Date of Admission: 11/22/22 Primary Care Physician: Dr. Alvarado Madrigal MD Consultations 11/22/22 20:19 Consult: Infectious Disease Routine Consulting Provider: Silverio Stroud Reason for Consult: MRSA osteomyelitis right hand, s/p I+D. EMERGENT Consult: No Notified: Yes Date Notified: 11/22/22 Time Notified: 20:20 Method of Notification: Text 12/07/22 09:46 Consult: Oncology/Hematology Routine Consulting Provider: Corbin Valenzuela Reason for Consult: critical platlet count EMERGENT Consult: No Notified: Yes Date Notified: 12/07/22 Time Notified: 09:46 Method of Notification: Verbal Reason For Visit: HAND PAIN/INFECTION Diagnosis Discharge Diagnosis (1) Hand osteomyelitis, right: Status: Acute Code(s): M86.9 - Osteomyelitis, unspecified (2) MRSA (methicillin resistant staph aureus) culture positive: Status: Acute Code(s): Z22.322 - Carrier or suspected carrier of Methicillin resistant Staphylococcus aureus Plan 72 year old male with below past medical history hospitalized for MRSA osteomyelitis/abscess right hand, underwent incision and drainage, admitted to TCU with debility, here for rehabilitation, strengthening, intravenous antibiotics, prior to discharge home with . * Debility - PT/OT. * Pain - Tylenol 1000mg bid. * Bowel - Miralax 17gm daily prn, senna/colace 1 tablet bid prn, Loperamide 2mg q2h prn. * Adult immunization - Administer pneumonia vaccine, covid19 vaccine, flu vaccine as appropriate. * DVT prophylaxis - on warfarin. * Herpes Simplex - Acyclovir 400mg bid. * Gout - Allopurinol 300mg daily. * Hyperlipidemia - Atorvastatin 40mg qhs. * Conjunctivitis - E-mycin OS bid, Artificial tears 1gtt os bid. * Diabetic polyneuropathy - Gabapentin 800mg tid. * Diabetes Mellitus II - Metformin XR 500mg bidcm, Glargine 30 units qhs, Lispro 10 units tidcm. * GI prophylaxis - Lactobacillus 1 tablet daily. * Hypertension - Metoprolol 25mg bid, Lisinopril 10mg daily. * Rash - HC 2.5% topical tid prn. * Atrial fibrillation - Metoprolol 25mg bid, Warfarin 4mg 4 days/week, 2mg 3 days/week, follow INR. * MRSA osteomyelitis right hand - Daptomycin 800mg iv q24 thru 12/26/2022, Appreciate Dr. Stroud's help. * Thrombocytopenia - Resolved, appreciate Dr. Schwarz' help. Medications at Discharge Home Medications bdddvcml-vsi-mdnba acid 0.4 mg-lycopene 300 mcg-lutein 250 mcg tablet 1 ea PO DAILY supplement 03/27/13 lisinopril 10 mg tablet 10 mg PO DAILY bp 06/28/18 allopurinol 300 mg tablet 300 mg PO DAILY gout 10/29/20 acetaminophen 500 mg tablet (Tylenol Extra Strength) 1,000 mg PO BID pain 07/06/21 metoprolol tartrate 25 mg tablet 25 mg PO BID bp/hr #180 tabs 07/03/22 atorvastatin 40 mg tablet 40 mg PO QHS cholesterol 07/18/22 gabapentin 800 mg tablet 800 mg PO TID neuropathy 07/18/22 insulin lispro 100 unit/mL subcutaneous pen (Humalog KwikPen (U-100) Insulin) 10 unit subcut TIDCM dm 07/18/22 metformin 500 mg tablet 500 mg PO BID dm 07/18/22 metformin 500 mg tablet,extended release 24 hr 500 mg PO BIDCM dm 07/18/22 colchicine 0.6 mg tablet 0.6 mg PO DAILY gout #1 TAB 09/30/22 Mounjaro 7.5 mg/0.5 mL subcutaneous pen injector (tirzepatide) 7.5 mg (0.5 mL) subcut QWEEK unknown #6 mL 10/02/22 valacyclovir 500 mg tablet 1,000 mg PO DAILY antiviral 11/08/22 Lactobacillus rhamnosus GG 10 billion cell capsule (Culturelle) 1 cap PO DAILY probiotic 11/22/22 clindamycin phosphate 1 % lotion (Cleocin T) 1 applic topical BID atb 11/22/22 docusate sodium 100 mg capsule (Colace) 100 mg PO BID PRN constipation 11/22/22 erythromycin 5 mg/gram (0.5 %) eye ointment 5 mg ophthalmic (eye) Q3H eye ointment 11/22/22 polyethylene glycol 3350 17 gram/dose oral powder (Miralax) 17 g PO DAILY PRN constipation 11/22/22 triamcinolone acetonide 0.1 % topical cream 1 applic topical DAILY PRN hydrodinitus 11/22/22 vancomycin 1,000 mg intravenous injection 1.75 g IV Q12H osteomylitis 11/22/22 warfarin 2 mg tablet 2 mg PO .COMPLEX afib 11/22/22 warfarin 4 mg tablet 4 mg PO .COMPLEX afib 11/22/22 acyclovir 200 mg capsule 400 mg PO BID 12/19/22 artificial tear(fpays-foc-unm) 1 drp ophthalmic (eye) dry eyes 12/19/22 casanthranol-docusate sodium 1 tab PO BID PRN constipation 12/19/22 daptomycin 500 mg intravenous solution 500 mg IV DAILY 12/19/22 heparin, porcine (PF) 100 unit/mL intravenous syringe (Heparin Lock Flush (Porcine) (PF)) See Rx Instructions IV .COMPLEX 12/19/22 hydrocortisone 2.5 % topical cream 1 applic topical DAILY PRN itching 12/19/22 insulin glargine 100 unit/mL (3 mL) subcutaneous pen (Lantus Solostar U-100 Insulin) 30 unit subcut QPM diabetes 12/19/22 loperamide 2 mg capsule 2 mg PO Q2H PRN loose stool 12/19/22 acetaminophen 500 mg tablet 1,000 mg (2 x 500 mg) PO Q6H PRN Pain 1-10 Or Fever #0 tabs 12/20/22 acyclovir 200 mg capsule 400 mg (2 x 200 mg) PO BID #0 caps 12/20/22 insulin glargine-yfgn 100 unit/mL (3 mL) subcutaneous pen 30 unit (0.3 mL) subcut QHS #0 mL 12/20/22 Hospital Course Operations - (See below.) Procedures None Summary of Care Provided Minutes Spent on Discharge: 35 Hospital Course: 72 year old male with below past medical history hospitalized for MRSA osteomyelitis/abscess right hand, underwent incision and drainage, admitted to TCU with debility, here for rehabilitation, strengthening, intravenous antibiotics, prior to discharge home with . Resident developed thrombocytopenia, presumptively secondary to Vancomycin, Vancomycin changed to Daptomycin with recovery of platelet count. 12/19/2022 Fever 102, blood cultures pending, Urine culture pending, covid19 negative, respiratory panel negative, X-ray right hand showed residual osteomyelitis. MRI right hand ordered, appreciate Dr. Stroud's help. Discharge home with 12/27/2022, [facility] PT hand therapy. Plan may change depending on MRI right hand results, blood culture results. Of note, resident open to amputation of right hand if necessary. He has had right hand infection for nearly 4 months, and he is frustrated with feeling ill for that long. Physical Exam Const alert General Appearance: cooperative HEENT normocephalic Eyes PERRL and EOMs intact bilaterally Neck supple, no JVD and no carotid bruits Resp normal respiratory effort, normal air movement and clear to auscultation bilaterally Cardio regular rate and regular rhythm GI normal to inspection, nondistended, normoactive bowel sounds, non-tender and non-distended Extremity normal capillary refill Extremity Narrative: Left upper extremity PICC line. General Extremity: Negative for edema Skin no rashes or lesions noted General Skin Exam: no breakdown Psych affect normal Appearance: appropriate Weight / BMI Weight Weight: 107.955 kg Body Mass Index (BMI) 34.1 ABG / Lab / Microbiology Data 12/19/22 16:47 12/19/22 16:47 Laboratory: Laboratory Results - last 24 hr 12/19/22 21:32: Lactic Acid 1.7 12/20/22 05:53: POC Glucose 155 H 12/20/22 11:28: POC Glucose 187 H 12/20/22 16:11: POC Glucose 187 H Microbiology: Microbiology 12/20/22 00:26 Nasal Secretion SARS-CoV-2 Antigen (Rapid) - Final 12/19/22 16:14 Mucosa - Nose Respiratory Panel (PCR) - Final 12/19/22 15:56 Nasal Secretion SARS-CoV-2 Antigen (Rapid) - Final 12/18/22 06:00 Nasal Secretion SARS-CoV-2 Antigen (Rapid) - Final 12/15/22 06:00 Nasal Secretion SARS-CoV-2 Antigen (Rapid) - Final 12/12/22 05:30 Nasal Secretion SARS-CoV-2 Antigen (Rapid) - Final 12/09/22 05:49 Nasal Secretion SARS-CoV-2 Antigen (Rapid) - Final 12/08/22 10:50 Stool Stool Occult Blood (DANYEL) - Final 12/06/22 04:15 Nasal Secretion SARS-CoV-2 Antigen (Rapid) - Final 12/03/22 06:34 Nasal Secretion SARS-CoV-2 Antigen (Rapid) - Final 11/30/22 05:00 Nasal Secretion SARS-CoV-2 Antigen (Rapid) - Final 11/27/22 08:58 Nasal Secretion SARS-CoV-2 Antigen (Rapid) - Final 11/24/22 05:55 Nasal Secretion SARS-CoV-2 Antigen (Rapid) - Final D/C Instructions Discharge Diet: No restrictions Discharge Activity: Return to Normal Activity Call your doctor if you observe: Fever of 101 or Higher, Inability to urinate, Inability to have a bowel movement, Shortness of breath, Dizziness, Fainting spells, Swelling in the ankles, Chest pain and Uncontrolled pain Additional Instructions: Discharge home with 12/27/2022, [facility] PT hand therapy. Plan may change depending on MRI right hand results, blood culture results. Please Follow Up With: Dr Loza When: As scheduled. Meaningful Use Info Meaningful Use Diagnoses (Choose all that apply): None applicable Discharge Plan Admission Admit Date/Time: 11/22/22 14:35 Primary Reason for Your Visit: Debility. Attending Provider: Abhishek Cavazos Chi Primary Care Provider: Alvarado Madrigal Consulting Providers: Silverio Stroud; Corbin Valenzuela Instructions Additional Instructions / Restrictions: Discharge home with 12/27/2022, [facility] PT hand therapy. Plan may change depending on MRI right hand results, blood culture results. Discharge Orders/Prescriptions Prescriptions: New acetaminophen 500 mg Tablet 1,000 mg PO Q6H PRN (Reason: Pain 1-10 Or Fever) Qty: 0 0RF acyclovir 200 mg Capsule 400 mg PO BID Qty: 0 0RF insulin glargine-yfgn 100 unit/mL (3 mL) Insulin Pen 30 unit subcut QHS Qty: 0 0RF Continued lisinopril 10 mg tablet 10 mg PO DAILY gabapentin 800 mg tablet 800 mg PO TID atorvastatin 40 mg tablet 40 mg PO QHS metformin 500 mg tablet extended release 24 hr 500 mg PO BIDCM Rx Instructions: do not crush, chew, or split; take with food insulin lispro [Humalog KwikPen Insulin] 100 unit/mL insulin pen 10 unit SUBCUT TIDCM allopurinol 300 mg tablet 300 mg PO DAILY Rx Instructions: take with food and fluids Culturelle 10 billion cell capsule 1 cap PO DAILY warfarin 4 mg tablet 4 mg PO .COMPLEX Protocol: Dose Management Condition: Sunday Dose/Route: 4 mg Instruction: 1 x 4 mg tablet Condition: Sunday Dose/Route: 4 mg Instruction: 1 x 4 mg tablet Condition: Sunday Dose/Route: 2 mg Instruction: 1 x 2 mg tablet Condition: Sunday Dose/Route: 2 mg Instruction: 1 x 2 mg tablet Condition: Dose/Route: 2 mg Instruction: 1 x 2 mg tablet Condition: Sunday Dose/Route: 4 mg Instruction: 1 x 4 mg tablet Condition: Sunday Dose/Route: 4 mg Instruction: 1 x 4 mg tablet Protocol Text: Adjustment Start Date: Sunday11/08/22 INR Value: 2.8 INR Date: 11/07/22 Recheck Date: 11/22/22 Rx Instructions: 4 mg by mouth thru sunday warfarin 2 mg tablet 2 mg PO .COMPLEX Protocol: Dose Management Condition: Sunday Dose/Route: 4 mg Instruction: 1 x 4 mg tablet Condition: Sunday Dose/Route: 4 mg Instruction: 1 x 4 mg tablet Condition: Sunday Dose/Route: 2 mg Instruction: 1 x 2 mg tablet Condition: Sunday Dose/Route: 2 mg Instruction: 1 x 2 mg tablet Condition: Dose/Route: 2 mg Instruction: 1 x 2 mg tablet Condition: Sunday Dose/Route: 4 mg Instruction: 1 x 4 mg tablet Condition: Sunday Dose/Route: 4 mg Instruction: 1 x 4 mg tablet Protocol Text: Adjustment Start Date: Sunday11/08/22 INR Value: 2.8 INR Date: 11/07/22 Recheck Date: 11/22/22 Rx Instructions: take 2mg by mouth sunday, sunday, sunday metoprolol tartrate 25 mg tablet 25 mg PO BID Qty: 180 3RF No Action acetaminophen [Tylenol Extra Strength] 500 mg tablet 1,000 mg PO BID valacyclovir 500 mg tablet 1,000 mg PO DAILY zoikwbzi-pcs-LE-lycopen-lutein 1 EACH tablet 1 ea PO DAILY metformin 500 mg tablet 500 mg PO BID Hold Instructions: Duplicate Order loperamide 2 mg capsule 2 mg PO Q2H PRN (Reason: loose stool) Rx Instructions: MAXIMUM 18 MG (8 CAPSULES) PER 24 HOURS casanthranol-docusate sodium [ILAN-COLACE] 1 tab PO BID PRN (Reason: constipation) heparin, porcine (PF) [Heparin LockFlush(Porcine)(PF)] 100 unit/mL syringe See Rx Instructions IV .COMPLEX Rx Instructions: Flush with 10-40 mL NS; initiation of IV access, before and after medication administration and daily. Flush with 10 mL NS and 5 mL heparin 10 units/mL (50 units/mL) at discharge and weekly intravenously; acyclovir 200 mg capsule 400 mg PO BID artificial tear(etybe-gvx-ivj) 1 drp ophthalmic (eye) daptomycin 500 mg recon soln 500 mg IV DAILY Patient Comments: 500mg/10 ml vial Rx Instructions: administer over 30 mins; 100 ml/hr hydrocortisone 2.5 % cream 1 applic topical DAILY PRN (Reason: itching) insulin glargine [Lantus Solostar U-100 Insulin] 100 unit/mL (3 mL) insulin p en 30 unit subcut QPM colchicine 0.6 mg tablet 0.6 mg PO DAILY Qty: 1 0RF Hold Instructions: Order Changed Rx Instructions: 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 triamcinolone acetonide 0.1 % cream 1 applic topical DAILY PRN (Reason: hydrodinitus) erythromycin 5 mg/gram (0.5 %) ointment 5 mg ophthalmic (eye) Q3H Rx Instructions: left eye clindamycin phosphate [Cleocin T] 1 % lotion 1 applic topical BID Patient Comments: twice daily x7 days docusate sodium [Colace] 100 mg capsule 100 mg PO BID PRN (Reason: constipation) polyethylene glycol 3350 [Miralax] 17 gram/dose powder 17 g PO DAILY PRN (Reason: constipation) vancomycin 1,000 mg recon soln 1.75 g IV Q12H Rx Instructions: 500 ml iv q12 hrs Mounjaro 7.5 mg/0.5 mL pen injector 7.5 mg subcut QWEEK Qty: 6 1RF Hold Instructions: MD Ordered Referrals / Follow Up: Alvarado Madrigal MD [Primary Care Provider] - Disposition Disposition (needs filled in before D/C Order can be placed): Home, Self Care
--- NOTE | 2022-12-20 20:57 | NURSING ---
Prior to removing PICC dressing for Qweek dressing change, exposed cath measured at 4cm, last recorded measurement exposed cath was 1cm, dressing was observed intact prior to changing dressing, no report from patient regarding PICC being pulled on. Dressing changed and needless connector changed per policy with aseptic technique maintained. Dr. Cavazos notified via phone of difference of picc exposed cath measurement compared and requested chest xray to verify PICC placement. New order received for chest xray to verify picc placement.
[2022-12-20 21:02] VITALS: BP 155/85; PULSE 99
[2022-12-20] MEDS: Atorvastatin Calcium 40 MG Tablet PO (21:02)
[2022-12-20] MEDS: Insulin Glargine-YFGN 100 UNIT/ML Pen 30 UNIT SC (21:05)
--- NOTE | 2022-12-20 21:15 | RAD_ITS ---
INDICATION: verify LUE PICC placement EXAMINATION/TECHNIQUE: X-RAY - XR Chest 1 View COMPARISON: None. FINDINGS: The lungs are clear. Tortuous and calcified thoracic aorta. The heart is mildly enlarged. There is a left-sided PICC with tip in the mid SVC. No pleural effusion or pneumothorax. Degenerative changes of the thoracic spine. RAD/CXR for Line Placement IMPRESSION: Left sided PICC with tip in the mid SVC. Electronically Signed: Jaime Allen MD at 21:45 EDT ,
[2022-12-20 21:18] LABS: Bedside Glucose 204 mg/dL (74-106)
[2022-12-21] MEDS: Gabapentin 800 MG Tablet PO ×3 (05:48→22:35)
[2022-12-21 06:20] LABS: Bedside Glucose 127 mg/dL (74-106)
[2022-12-21 06:24] LABS: Basophil# 0.04 X10^3/uL; Basophil% 0.6 % (0-1); Eosinophil# 0.68 X10^3/uL; Eosinophils% 10.6 % (0-5); Hematocrit 33.3 % (40-54); Hemoglobin 10.9 g/dL (13.0-16.5); Lymphocyte % 31.3 % (19-41); Mean Corp Hgb Conc 32.7 g/dL (32-36); Mean Corpuscular Hgb 32.6 pg (27.0-32.0); Mean Corpuscular Volume 99.7 fL (80-94); Mean Platelet Vol. 10.7 fl (6.2-12.0); Monocyte# 0.64 X10^3/uL; NRBC Flagged by Analyzer 0 % (0-5); Neutrophil # 3.01 X10^3/uL (2.7-7.7); Neutrophil % 47.2 % (47-70); Platelet Count 181 K/mm3 (150-450); RBC Distribution Width SD 51.5 fl (35.1-43.9); Red Blood Count 3.34 M/mm3 (4.6-6.2); White Blood Count 6.4 K/mm3 (4.4-11.0)
[2022-12-21 06:44] LABS: Anion Gap 6 (5-15); BUN 17 mg/dL (7-18); BUN/Creat Ratio 19.3 RATIO (10-20); Calcium,Total 8.7 mg/dL (8.5-10.1); Chloride 106 mmol/L (98-107); Creatinine, Serum 0.88 mg/dL (0.70-1.30); EST Glomerular Filtration Rate 90 mL/min (>60); Est Glom Filt Rate - Afr Amer 109 mL/min (>60); Estimated Creatinine Clearance 76.04 ml/min; Glucose 136 mg/dL (74-106); Sodium Level 136 mmol/L (136-145)
[2022-12-21 06:50] LABS: International Normalized Ratio 1.3; Prothrombin Time (Protime)PT. 16.2 SECONDS (11.7-14.9)
[2022-12-21 07:35] LABS: Erythrocyte Sedimentation Rate 49 mm/hr (0-20)
[2022-12-21] MEDS: Insulin Lispro 100 UNIT/ML INSULN.PEN 10 UNIT SC ×3 (09:41→17:49)
[2022-12-21] MEDS: metFORMIN (XR) 500 MG Tablet PO ×2 (09:41→17:52)
[2022-12-21] MEDS: Allopurinol 300 MG Tablet PO (09:42)
[2022-12-21] MEDS: Glycerin/Hypromellose/PEG400 15 ml Bottle 1 DRP LEFT EYE ×2 (09:42→22:34)
[2022-12-21] MEDS: Erythromycin Base 1 OPTH.TUBE 1 APPLIC LEFT EYE ×2 (09:42→22:33)
[2022-12-21] MEDS: Acetaminophen 500 MG Tablet 1000 MG PO (09:43)
[2022-12-21] MEDS: Acyclovir 200 MG Capsule 400 MG PO ×2 (09:43→22:36)
[2022-12-21] MEDS: NORMAL SALINE 0.9% IV (09:49)
[2022-12-21] MEDS: DAPTOMYCIN IV (09:49)
[2022-12-21 09:50] VITALS: BP 127/73; PULSE 76
[2022-12-21] MEDS: Lisinopril 10 MG Tablet PO (09:50)
[2022-12-21] MEDS: Metoprolol Tartrate 25 MG Tablet PO ×2 (09:50→22:36)
[2022-12-21 09:52] VITALS: TEMP 36.8
--- NOTE | 2022-12-21 10:09 | PCM.PN.ID ---
Physical Exam Narrative Feeling better but is nervous about further complications. Had brief chills yesterday, no fever. No focal symptoms this AM. Const alert and no apparent distress General Appearance: cooperative Resp normal air movement and clear to auscultation bilaterally Cardio regular rate and regular rhythm GI soft to palpation, non-tender and non-distended Skin Skin Narrative: Minimal R hand swelling/redness ID ID: Route of nutrition/ use of supplements: [] Nutritional Intake: [] IV Site: [] [place] Catheter: [] Assessment & Plan Assessment/Plan (1) Hand osteomyelitis, right: PLAN: Seen by Dr. Uriel Loza with ID at [facility]. Wound cxs with MRSA. Discharged on iv vanc, stop date 12/26/22. Weekly bmp, cbc, esr, and vanc trough. Developed new thrombocytopenia, heme consulted. Changed vanc to dapto on 12/07/22, and platelets have been improving since. Pending vanc antibody test to prove that is the cause. Following weekly CK and LFT while on dapto. 12/19 new fever, spoke with ED, workup neg so far, no further fever. Pending R hand MRI. Bcx remain neg. Will follow (2) MRSA (methicillin resistant staph aureus) culture positive:
[2022-12-21 11:22] LABS: Bedside Glucose 181 mg/dL (74-106)
[2022-12-21 13:44] VITALS: BP 111/71; PULSE 74; RESP 18; TEMP 36.3; O2SAT 97
[2022-12-21 16:37] LABS: Bedside Glucose 158 mg/dL (74-106)
[2022-12-21 17:48] VITALS: TEMP 36.7
[2022-12-21 21:33] LABS: Bedside Glucose 216 mg/dL (74-106)
[2022-12-21] MEDS: Insulin Glargine-YFGN 100 UNIT/ML Pen 30 UNIT SC (22:34)
[2022-12-21 22:36] VITALS: BP 112/66; PULSE 75
[2022-12-21] MEDS: Atorvastatin Calcium 40 MG Tablet PO (22:36)
[2022-12-21 22:46] VITALS: PULSE 75; RESP 16; O2SAT 96
[2022-12-22] MEDS: Gabapentin 800 MG Tablet PO ×3 (06:00→21:00)
[2022-12-22 06:44] LABS: Bedside Glucose 121 mg/dL (74-106)
[2022-12-22 08:34] VITALS: BP 129/79; PULSE 76
[2022-12-22] MEDS: Erythromycin Base 1 OPTH.TUBE 1 APPLIC LEFT EYE ×2 (08:34→20:52)
[2022-12-22] MEDS: Acyclovir 200 MG Capsule 400 MG PO ×2 (08:34→20:55)
[2022-12-22] MEDS: Metoprolol Tartrate 25 MG Tablet PO ×2 (08:34→21:00)
[2022-12-22] MEDS: Allopurinol 300 MG Tablet PO (08:35)
[2022-12-22] MEDS: metFORMIN (XR) 500 MG Tablet PO ×2 (08:35→17:54)
[2022-12-22] MEDS: Lisinopril 10 MG Tablet PO (08:35)
[2022-12-22] MEDS: Glycerin/Hypromellose/PEG400 15 ml Bottle 1 DRP LEFT EYE ×2 (08:36→20:52)
[2022-12-22] MEDS: Insulin Lispro 100 UNIT/ML INSULN.PEN 10 UNIT SC ×3 (08:37→17:53)
[2022-12-22] MEDS: DAPTOMYCIN IV (10:05)
[2022-12-22] MEDS: 0.9 % NaCl (Sterile) Posiflush 10 mL IV (10:05)
[2022-12-22] MEDS: NORMAL SALINE 0.9% IV (10:05)
[2022-12-22 11:25] LABS: Bedside Glucose 157 mg/dL (74-106)
[2022-12-22 12:10] VITALS: BP 105/69; PULSE 74; RESP 18; TEMP 36.7; O2SAT 98
--- NOTE | 2022-12-22 15:29 | PN.ID_ITS ---
Physical Exam Narrative Feeling better, no fever, hand slowly improving Const alert and no apparent distress General Appearance: cooperative Resp normal air movement and clear to auscultation bilaterally Cardio regular rate and regular rhythm GI soft to palpation, non-tender and non-distended Skin no rashes or lesions noted ID ID: Route of nutrition/ use of supplements: [] Nutritional Intake: [] IV Site: [] De [place] Crzu Catheter: [] Assessment & Plan Assessment/Plan (1) Hand osteomyelitis, right: PLAN: Seen by Dr. Uriel Loza with ID at [facility]. Wound cxs with MRSA. Discharged on iv vanc, stop date 12/26/22. Weekly bmp, cbc, esr, and vanc trough. Developed new thrombocytopenia, heme consulted. Changed vanc to dapto on 12/07/22, and platelets have been improving since. Pending vanc antibody test to prove that is the cause. Following weekly CK and LFT while on dapto. 12/19 new fever, spoke with ED, workup neg so far, no further fever. Reviewed report of R hand MRI. Bcx remain neg. Plan is to finish abx as scheduled with surgery followup. Will follow (2) MRSA (methicillin resistant staph aureus) culture positive:
[2022-12-22 16:24] LABS: Bedside Glucose 204 mg/dL (74-106)
[2022-12-22] MEDS: Insulin Glargine-YFGN 100 UNIT/ML Pen 30 UNIT SC (20:53)
[2022-12-22] MEDS: Atorvastatin Calcium 40 MG Tablet PO (20:55)
[2022-12-22 21:00] VITALS: BP 119/74; PULSE 75
[2022-12-22 21:12] LABS: Bedside Glucose 238 mg/dL (74-106)
[2022-12-23] MEDS: Gabapentin 800 MG Tablet PO ×3 (05:51→22:19)
[2022-12-23 06:20] LABS: Bedside Glucose 137 mg/dL (74-106)
[2022-12-23] MEDS: Insulin Lispro 100 UNIT/ML INSULN.PEN 10 UNIT SC ×3 (08:37→17:29)
[2022-12-23] MEDS: metFORMIN (XR) 500 MG Tablet PO ×2 (08:38→17:28)
[2022-12-23] MEDS: Allopurinol 300 MG Tablet PO (08:38)
[2022-12-23] MEDS: Erythromycin Base 1 OPTH.TUBE 1 APPLIC LEFT EYE ×3 (08:39→22:18)
[2022-12-23] MEDS: Acyclovir 200 MG Capsule 400 MG PO ×2 (08:41→22:20)
[2022-12-23 09:29] VITALS: BP 126/80; PULSE 75
[2022-12-23] MEDS: Metoprolol Tartrate 25 MG Tablet PO ×2 (09:29→22:19)
[2022-12-23] MEDS: Lisinopril 10 MG Tablet PO (09:30)
[2022-12-23] MEDS: Glycerin/Hypromellose/PEG400 15 ml Bottle 1 DRP LEFT EYE ×2 (09:33→22:18)
[2022-12-23 11:36] LABS: Bedside Glucose 176 mg/dL (74-106)
[2022-12-23] MEDS: DAPTOMYCIN IV (11:52)
[2022-12-23] MEDS: NORMAL SALINE 0.9% IV (11:52)
[2022-12-23 16:00] VITALS: BP 120/74; PULSE 75; RESP 14; TEMP 36.4; O2SAT 98
[2022-12-23 16:37] LABS: Bedside Glucose 173 mg/dL (74-106)
[2022-12-23 21:26] LABS: Bedside Glucose 143 mg/dL (74-106)
[2022-12-23 22:19] VITALS: BP 132/84; PULSE 76
[2022-12-23] MEDS: Atorvastatin Calcium 40 MG Tablet PO (22:19)
[2022-12-23] MEDS: Insulin Glargine-YFGN 100 UNIT/ML Pen 30 UNIT SC (22:22)
[2022-12-23] MEDS: 0.9 % NaCl (Sterile) Posiflush 10 mL IV (22:27)
[2022-12-24] MEDS: Gabapentin 800 MG Tablet PO ×3 (05:59→21:41)
[2022-12-24 06:31] LABS: Bedside Glucose 131 mg/dL (74-106)
[2022-12-24] MEDS: Insulin Lispro 100 UNIT/ML INSULN.PEN 10 UNIT SC ×3 (08:57→18:10)
[2022-12-24] MEDS: metFORMIN (XR) 500 MG Tablet PO ×2 (08:58→18:11)
[2022-12-24] MEDS: Allopurinol 300 MG Tablet PO (08:58)
[2022-12-24 08:59] VITALS: PULSE 72
[2022-12-24] MEDS: Metoprolol Tartrate 25 MG Tablet PO ×2 (08:59→21:41)
[2022-12-24] MEDS: Acyclovir 200 MG Capsule 400 MG PO ×2 (09:00→21:41)
[2022-12-24] MEDS: Lisinopril 10 MG Tablet PO (09:00)
[2022-12-24] MEDS: Glycerin/Hypromellose/PEG400 15 ml Bottle 1 DRP LEFT EYE ×2 (09:01→21:39)
[2022-12-24] MEDS: Erythromycin Base 1 OPTH.TUBE 1 APPLIC LEFT EYE ×2 (09:01→21:39)
[2022-12-24] MEDS: 0.9 % NaCl (Sterile) Posiflush 10 mL IV ×2 (10:14→21:39)
[2022-12-24] MEDS: DAPTOMYCIN IV (10:14)
[2022-12-24] MEDS: NORMAL SALINE 0.9% IV (10:14)
[2022-12-24] MEDS: 0.9% Normal Saline (250mL Bag) 250 ML 15 ML IV (10:15)
[2022-12-24 11:35] LABS: Bedside Glucose 202 mg/dL (74-106)
[2022-12-24 12:50] VITALS: BP 120/74; PULSE 74; RESP 16; TEMP 37; O2SAT 97
[2022-12-24 17:24] LABS: Bedside Glucose 118 mg/dL (74-106)
[2022-12-24] MEDS: Insulin Glargine-YFGN 100 UNIT/ML Pen 30 UNIT SC (21:38)
[2022-12-24 21:41] VITALS: BP 123/71; PULSE 75
[2022-12-24] MEDS: Atorvastatin Calcium 40 MG Tablet PO (21:41)
[2022-12-24 21:44] LABS: Bedside Glucose 181 mg/dL (74-106)
[2022-12-25] MEDS: Gabapentin 800 MG Tablet PO ×3 (06:28→21:35)
[2022-12-25 06:38] LABS: International Normalized Ratio 1.8; Prothrombin Time (Protime)PT. 20.9 SECONDS (11.7-14.9)
[2022-12-25 06:46] LABS: Bedside Glucose 131 mg/dL (74-106)
[2022-12-25] MEDS: Insulin Lispro 100 UNIT/ML INSULN.PEN 10 UNIT SC ×2 (09:15→16:24)
[2022-12-25] MEDS: metFORMIN (XR) 500 MG Tablet PO ×2 (09:15→16:16)
[2022-12-25] MEDS: NORMAL SALINE 0.9% IV (09:16)
[2022-12-25] MEDS: Glycerin/Hypromellose/PEG400 15 ml Bottle 1 DRP LEFT EYE ×2 (09:16→21:28)
[2022-12-25] MEDS: DAPTOMYCIN IV (09:16)
[2022-12-25] MEDS: Allopurinol 300 MG Tablet PO (09:16)
[2022-12-25 09:17] VITALS: PULSE 75
[2022-12-25] MEDS: Erythromycin Base 1 OPTH.TUBE 1 APPLIC LEFT EYE ×2 (09:17→21:29)
[2022-12-25] MEDS: Metoprolol Tartrate 25 MG Tablet PO ×2 (09:17→21:30)
[2022-12-25] MEDS: Lisinopril 10 MG Tablet PO (09:18)
[2022-12-25] MEDS: Acyclovir 200 MG Capsule 400 MG PO ×2 (09:18→21:29)
[2022-12-25] MEDS: 0.9 % NaCl (Sterile) Posiflush 10 mL IV (09:29)
[2022-12-25 11:10] LABS: Bedside Glucose 194 mg/dL (74-106)
[2022-12-25 14:27] VITALS: BP 116/86; PULSE 69; RESP 16; TEMP 36.4; O2SAT 97
[2022-12-25 16:43] LABS: Bedside Glucose 209 mg/dL (74-106)
[2022-12-25 21:14] LABS: Bedside Glucose 296 mg/dL (74-106)
[2022-12-25] MEDS: Atorvastatin Calcium 40 MG Tablet PO (21:29)
[2022-12-25 21:30] VITALS: BP 121/70; PULSE 70
[2022-12-25] MEDS: Insulin Glargine-YFGN 100 UNIT/ML Pen 30 UNIT SC (21:39)
[2022-12-26] MEDS: Gabapentin 800 MG Tablet PO ×3 (05:51→22:23)
[2022-12-26 06:42] LABS: Bedside Glucose 160 mg/dL (74-106)
[2022-12-26] MEDS: Insulin Lispro 100 UNIT/ML INSULN.PEN 10 UNIT SC ×3 (08:44→18:12)
[2022-12-26] MEDS: metFORMIN (XR) 500 MG Tablet PO ×2 (08:45→18:11)
[2022-12-26] MEDS: Allopurinol 300 MG Tablet PO (08:46)
[2022-12-26 08:47] VITALS: BP 116/70; PULSE 89
[2022-12-26] MEDS: Erythromycin Base 1 OPTH.TUBE 1 APPLIC LEFT EYE ×2 (08:47→22:24)
[2022-12-26] MEDS: Glycerin/Hypromellose/PEG400 15 ml Bottle 1 DRP LEFT EYE ×2 (08:47→22:24)
[2022-12-26] MEDS: Metoprolol Tartrate 25 MG Tablet PO ×2 (08:47→22:23)
[2022-12-26] MEDS: Acyclovir 200 MG Capsule 400 MG PO ×2 (08:48→22:23)
[2022-12-26] MEDS: Lisinopril 10 MG Tablet PO (08:48)
[2022-12-26 10:00] VITALS: BMI 33.2
[2022-12-26] MEDS: NORMAL SALINE 0.9% IV (10:46)
[2022-12-26] MEDS: DAPTOMYCIN IV (10:46)
[2022-12-26] MEDS: 0.9% Normal Saline (250mL Bag) 250 ML 100 ML IV (10:47)
[2022-12-26] MEDS: 0.9 % NaCl (Sterile) Posiflush 10 mL IV (10:47)
[2022-12-26 11:27] LABS: Bedside Glucose 163 mg/dL (74-106)
--- NOTE | 2022-12-26 12:32 | CASEMGMT ---
Social Work BIMS () and PHQ-2 () completed for MDS assessment. Ree Singh MSW HOT POND OPERATOR
[2022-12-26 14:40] VITALS: BP 148/67; PULSE 76; RESP 14; TEMP 36.7; O2SAT 97
[2022-12-26 16:27] LABS: Bedside Glucose 153 mg/dL (74-106)
[2022-12-26 21:37] LABS: Bedside Glucose 221 mg/dL (74-106)
[2022-12-26 22:23] VITALS: BP 122/78; PULSE 66; RESP 16; TEMP 36.6; O2SAT 99
[2022-12-26] MEDS: Atorvastatin Calcium 40 MG Tablet PO (22:23)
[2022-12-26] MEDS: Insulin Glargine-YFGN 100 UNIT/ML Pen 30 UNIT SC (22:26)
--- NOTE | 2022-12-26 22:36 | NURSING ---
PICC removed 52cm in total length, 2x2 gauze applied, taped. Continue w/ care.
[2022-12-27] MEDS: Gabapentin 800 MG Tablet PO (05:55)
[2022-12-27 06:00] VITALS: BP 123/82; PULSE 79; RESP 16; TEMP 36.5; O2SAT 95
[2022-12-27 06:29] LABS: Bedside Glucose 153 mg/dL (74-106)
[2022-12-27] MEDS: Insulin Lispro 100 UNIT/ML INSULN.PEN 10 UNIT SC (08:06)
[2022-12-27] MEDS: metFORMIN (XR) 500 MG Tablet PO (08:07)
[2022-12-27] MEDS: Allopurinol 300 MG Tablet PO (08:07)
[2022-12-27] MEDS: Erythromycin Base 1 OPTH.TUBE 1 APPLIC LEFT EYE (08:08)
[2022-12-27] MEDS: Glycerin/Hypromellose/PEG400 15 ml Bottle 1 DRP LEFT EYE (08:08)
[2022-12-27 08:09] VITALS: BP 123/82; PULSE 79
[2022-12-27] MEDS: Lisinopril 10 MG Tablet PO (08:09)
[2022-12-27] MEDS: Acyclovir 200 MG Capsule 400 MG PO (08:09)
[2022-12-27] MEDS: Metoprolol Tartrate 25 MG Tablet PO (08:09)
[2022-12-27 10:12] VITALS: BP 121/69; PULSE 68; RESP 16; TEMP 36.7; O2SAT 96
== END 2022-12-27 10:15 | disposition home or self-care (01) | DRG 638 ==
PROVIDERS: Internal Medicine Infectious Disease; Admitting Provider Family Medicine Geriatric Medicine; PCP Family Medicine; Visit Provider Family Medicine Geriatric Medicine
DX: E11.69 Type 2 diabetes mellitus with other specified complication (principal); M86.8X4 Other osteomyelitis, hand; M00.9 Pyogenic arthritis, unspecified; B95.62 Methicillin resistant Staphylococcus aureus infection as the cause of diseases classified elsewhere; D69.59 Other secondary thrombocytopenia; E11.65 Type 2 diabetes mellitus with hyperglycemia; B00.9 Herpesviral infection, unspecified; E66.01 Morbid (severe) obesity due to excess calories; E11.42 Type 2 diabetes mellitus with diabetic polyneuropathy; Z79.4 Long term (current) use of insulin; I48.0 Paroxysmal atrial fibrillation; M06.9 Rheumatoid arthritis, unspecified; I10 Essential (primary) hypertension; E78.5 Hyperlipidemia, unspecified; M10.9 Gout, unspecified; L73.2 Hidradenitis suppurativa; H10.9 Unspecified conjunctivitis; Z87.891 Personal history of nicotine dependence; Z79.01 Long term (current) use of anticoagulants; Z79.84 Long term (current) use of oral hypoglycemic drugs; Z79.899 Other long term (current) drug therapy; T36.8X5A Adverse effect of other systemic antibiotics, initial encounter; E66.9 Obesity, unspecified; Z68.34 Body mass index [BMI] 34.0-34.9, adult
CPT/HCPCS: 36415; 71045; 71046; 74018; 80048; 80053; 80076; 80202; 81001; 82274; 82550; 82565; 82962; 83605; 85025; 85610; 85652; 86140; 87040; 87086; 87633; 87811; 93005; 97110; 97116; 97162; 97166; 97530; 97535; 97802; J0878; J2997; J7040; J7050; A4216; J3490

== ENCOUNTER 2022-12-19 17:48 | Emergency (ER) | payer MEDICARE, OTHER, SELFPAY ==
[2022-12-19] VITALS (7 sets, daily range): BP systolic 119–157; BP diastolic 62–95; PULSE 99–119; RESP 13–30; TEMP 37.3–38.4; O2SAT 94–95; BMI 37.5
--- NOTE | 2022-12-19 18:00 | EDS_ITS ---
HPI <SHEY Harrell - Last Filed: 12/19/22 20:36> History of Present Illness Chief Complaint: Fever Narrative Narrative: 72 M male with PMH of HTN, HLD, DM2, CVA, A-fib on Coumadin has been admitted to the TCU since 11/18 for right hand osteomyelitis. He states it initially started in August when he scraped his hand on a staple while shopping for clothes that were piled in a bin. After he developed cellulitis he had a surgical washout procedure at [facility] and then was transferred here to the TCU around November 18 for PICC line antibiotics. He is on daptomycin (was switched from vancomycin due to thrombocytopenia). He states the edema and redness in his hand are significantly better. Today he developed a fever, nausea, and shortness of breath. He states he has not really had a cough. He denies vomiting and reports intermittent loose stools 2-3 times a day. No abdominal pain or urinary symptoms. PFSH <SHEY Harrell - Last Filed: 12/19/22 20:36> [facility] Medical History (Updated 12/19/22 @ 19:[address] Noé Berman MD) Arthritis of left knee Benign paroxysmal positional vertigo Diabetes mellitus, type II Drug-induced thrombocytopenia Essential hypertension Gout History of CVA (cerebrovascular accident) (03/06/21) History of TIA (transient ischemic attack) Hyperlipidemia MCFP (current) use of anticoagulants Lumbar stenosis Paroxysmal atrial fibrillation Rheumatoid arthritis Home Medications fcymmqvq-rfg-hiwkg acid 0.4 mg-lycopene 300 mcg-lutein 250 mcg tablet 1 ea PO DAILY supplement 03/27/13 [History Last Taken 03/05/21 10:00] lisinopril 10 mg tablet 10 mg PO DAILY bp 06/28/18 [History Last Taken 03/05/21 10:00] allopurinol 300 mg tablet 300 mg PO DAILY gout 10/29/20 [History Last Taken 03/05/21 10:00] acetaminophen 500 mg tablet (Tylenol Extra Strength) 1,000 mg PO BID pain 07/06/21 [History Last Taken Unknown] metoprolol tartrate 25 mg tablet 25 mg PO BID bp/hr #180 tabs 07/03/22 [Rx Last Taken Unknown] atorvastatin 40 mg tablet 40 mg PO QHS cholesterol 07/18/22 [History Last Taken Unknown] gabapentin 800 mg tablet 800 mg PO TID neuropathy 07/18/22 [History Last Taken Unknown] insulin lispro 100 unit/mL subcutaneous pen (Humalog KwikPen (U-100) Insulin) 10 unit subcut TIDCM dm 07/18/22 [History Last Taken Unknown] metformin 500 mg tablet 500 mg PO BID dm 07/18/22 [History Last Taken Unknown] metformin 500 mg tablet,extended release 24 hr 500 mg PO BIDCM dm 07/18/22 [History Last Taken Unknown] colchicine 0.6 mg tablet 0.6 mg PO DAILY gout #1 TAB 09/30/22 [Rx Last Taken Unknown] Mounjaro 7.5 mg/0.5 mL subcutaneous pen injector (tirzepatide) 7.5 mg (0.5 mL) subcut QWEEK unknown #6 mL 10/02/22 [Rx Last Taken Unknown] valacyclovir 500 mg tablet 1,000 mg PO DAILY antiviral 11/08/22 [History Last Taken Unknown] Lactobacillus rhamnosus GG 10 billion cell capsule (Culturelle) 1 cap PO DAILY probiotic 11/22/22 [History Last Taken Unknown] clindamycin phosphate 1 % lotion (Cleocin T) 1 applic topical BID atb 11/22/22 [History Last Taken Unknown] docusate sodium 100 mg capsule (Colace) 100 mg PO BID PRN constipation 11/22/22 [History Last Taken Unknown] erythromycin 5 mg/gram (0.5 %) eye ointment 5 mg ophthalmic (eye) Q3H eye ointment 11/22/22 [History Last Taken Unknown] polyethylene glycol 3350 17 gram/dose oral powder (Miralax) 17 g PO DAILY PRN constipation 11/22/22 [History Last Taken Unknown] triamcinolone acetonide 0.1 % topical cream 1 applic topical DAILY PRN hydrodinitus 11/22/22 [History Last Taken Unknown] vancomycin 1,000 mg intravenous injection 1.75 g IV Q12H osteomylitis 11/22/22 [History Last Taken 11/22/22] warfarin 2 mg tablet 2 mg PO .COMPLEX afib 11/22/22 [History Last Taken Unknown] warfarin 4 mg tablet 4 mg PO .COMPLEX afib 11/22/22 [History Last Taken Unknown] acyclovir 200 mg capsule 400 mg PO BID 12/19/22 [History Last Taken Unknown] artificial tear(rjegh-huy-kjn) 1 drp ophthalmic (eye) dry eyes 12/19/22 [History Last Taken Unknown] casanthranol-docusate sodium 1 tab PO BID PRN constipation 12/19/22 [History Last Taken Unknown] daptomycin 500 mg intravenous solution 500 mg IV DAILY 12/19/22 [History Last Taken Unknown] heparin, porcine (PF) 100 unit/mL intravenous syringe (Heparin Lock Flush (Porcine) (PF)) See Rx Instructions IV .COMPLEX 12/19/22 [History Last Taken Unknown] hydrocortisone 2.5 % topical cream 1 applic topical DAILY PRN itching 12/19/22 [History Last Taken Unknown] insulin glargine 100 unit/mL (3 mL) subcutaneous pen (Lantus Solostar U-100 Insulin) 30 unit subcut QPM diabetes 12/19/22 [History Last Taken Unknown] loperamide 2 mg capsule 2 mg PO Q2H PRN loose stool 12/19/22 [History Last Taken Unknown] Allergy/AdvReac Type Severity Reaction Status Date / Time apixaban [From Eliquis] AdvReac Severe Severe Verified 12/11/22 15:36 dizziness amoxicillin [Amoxicillin] AdvReac Other Verified 12/11/22 15:36 vancomycin AdvReac Low Verified 12/12/22 09:25 platelets Family History Father Abdominal aortic aneurysm CAD (coronary artery disease) Mother Hypertension Brother Hyperlipidemia Hypertension Surgical History H/O carpal tunnel repair History of colon resection (02/16/07) History of colonoscopy (02/2013) History of esophagogastroduodenoscopy (EGD) (02/2013) History of laparoscopic cholecystectomy (04/03/13) History of loop recorder (05/30/21) Previous back surgery Social History household members: spouse Smoking Status: Former smoker quit date: 05/28/15 how long ago did patient quit smokin years ago alcohol intake: current alcohol intake frequency: holidays/special occasions only substance use type: does not use caffeine: Yes Type: carbonated beverages Number of servings: 1 and coffee Number of servings: 2 ROS <SHEY Harrell - Last Filed: 12/19/22 20:36> ROS ED ROS Narrative Constitutional: Positive for fever. Negative for chills, malaise. ENT: Negative for sore throat, rhinorrhea. CVS: Negative for palpitations, chest pain. Respiratory: Positive for shortness of breath. Negative for cough. GI: Positive for nausea. Negative for abdominal pain, vomiting. : Negative for dysuria, frequency. Neuro: Negative for headache. <Dr. Noé Berman MD - Last Filed: 12/19/22 21:49> ROS ED Gastrointestinal Gastrointestinal: Denies diarrhea EXAM <SHEY Harrell - Last Filed: 12/19/22 20:36> Physical Exam Narrative Exam Narrative: CONST: Patient sitting in no acute distress. EYES: Normal inspection. ENT: Normal inspection, moist mucous membranes. NECK: Normal inspection. No meningismus RESP: No respiratory distress, CTAB. CVS: Tachycardic with regular rhythm, no murmur, no gallop. ABD: Soft and nontender, no guarding or rebound, nondistended. SKIN: Healed incision right dorsal third MCP area extending onto the middle digit with chronic edema/discoloration over the MCP area. No significant erythema, no warmth, 2+ radial pulse and brisk cap refill. EXTREMITIES: Normal appearance, no pedal edema. NEURO: Oriented x4. PSYCH: Normal affect. Const Vital Signs: 12/19/22 17:49 12/19/22 17:52 12/19/22 18:07 Temperature 100.9 F H 100.9 F H Temperature Source Oral Oral Pulse Rate 118 H 117 H 111 H Respiratory Rate 30 H 30 H 22 H Respiratory Effort Respiratory Pattern Blood Pressure 157/95 H 157/95 H 156/82 H Blood Pressure Mean 115 115 106 Pulse Ox 95 95 95 Oxygen Delivery Method Room Air Room Air Room Air 12/19/22 18:07 12/19/22 18:52 12/19/22 20:00 Temperature 101.2 F H 99.2 F H Temperature Source Oral Oral Pulse Rate 119 H 115 H Respiratory Rate 22 H 19 H Respiratory Effort Short of Breath Respiratory Pattern Normal Blood Pressure 144/73 H 126/79 H Blood Pressure Mean 96 94 Pulse Ox 94 95 Oxygen Delivery Method Room Air Room Air 12/19/22 21:00 Temperature Temperature Source Pulse Rate 118 H Respiratory Rate 18 Respiratory Effort Respiratory Pattern Blood Pressure 134/62 H Blood Pressure Mean 86 Pulse Ox 95 Oxygen Delivery Method Room Air <Dr. Noé Berman MD - Last Filed: 12/19/22 21:49> Physical Exam Const Vital Signs: 12/19/22 17:49 12/19/22 17:52 12/19/22 18:07 Temperature 100.9 F H 100.9 F H Temperature Source Oral Oral Pulse Rate 118 H 117 H 111 H Respiratory Rate 30 H 30 H 22 H Respiratory Effort Respiratory Pattern Blood Pressure 157/95 H 157/95 H 156/82 H Blood Pressure Mean 115 115 106 Pulse Ox 95 95 95 Oxygen Delivery Method Room Air Room Air Room Air 12/19/22 18:07 12/19/22 18:52 12/19/22 20:00 Temperature 101.2 F H 99.2 F H Temperature Source Oral Oral Pulse Rate 119 H 115 H Respiratory Rate 22 H 19 H Respiratory Effort Short of Breath Respiratory Pattern Normal Blood Pressure 144/73 H 126/79 H Blood Pressure Mean 96 94 Pulse Ox 94 95 Oxygen Delivery Method Room Air Room Air 12/19/22 21:00 Temperature Temperature Source Pulse Rate 118 H Respiratory Rate 18 Respiratory Effort Respiratory Pattern Blood Pressure 134/62 H Blood Pressure Mean 86 Pulse Ox 95 Oxygen Delivery Method Room Air MDM <SHEY Harrell - Last Filed: 12/19/22 20:36> [facility] MDM Narrative Medical decision making narrative: History gathered from: patient and spouse Patient was sent down from TCU where he is being treated for right hand osteomyelitis for a new fever. He appears well and nontoxic. Temperature is 100.9 F, heart rate in the 110s, otherwise normal vital signs. He does not appear septic or toxic. Other than tachycardia his exam is unremarkable. Clinically his right hand over site of osteomyelitis does not look acutely infected. The incision from prior debridement is fully healed. There is minimal localized swelling and stiffness which is chronic and no erythema or warmth. Left upper extremity PICC line is intact with no signs of leakage or infection. I reviewed the broad work-up ordered from the TCU around 4 PM?white count is 6.8, hemoglobin 11.9, glucose is 200, normal CO2 and anion gap, sodium 133. CRP 12.8. Lactate is 2.3. CXR shows no acute findings and respiratoryviral panel is negative. Urinalysis is negative and blood cultures are pending. Patient was medicated with IV fluids and Tylenol. ED attending spoke with Dr. Cavazos from TCU who states since no alternative etiology of his fever was found he recommended admission while blood cultures are pending. He re ceived Tylenol at 1809 and was still febrile 2 hours later at 101.2 F and was ordered ibuprofen. Case will be discussed with the hospitalist for admission. Differential: Viral URI, pneumonia, UTI, osteomyelitis, sepsis Consults: TCU, hospitalist Radiography Diagnostic Testing: Clinical Impression(s) from Imaging Studies Hand X-Ray 12/19/22 18:45 IMPRESSION: Osteomyelitis of the third finger and the third metacarpus. Electronically Signed: Irving Kumar DO at 19:20 EDT , ED attending interpretation of right hand shows bony changes consistent with osteomyelitis of the third digit and third MCP. <Dr. Noé Berman MD - Last Filed: 12/19/22 21:49> MDM Radiography Diagnostic Testing: Clinical Impression(s) from Imaging Studies Hand X-Ray 12/19/22 18:45 IMPRESSION: Osteomyelitis of the third finger and the third metacarpus. Electronically Signed: Irving Kumar DO at 19:20 EDT , Management Discussion w/another healthcare provider: Hospitalist and Rubber Moulding Machine Operator (Dr. Cavazos, caring for patient on TCU; given no obvious etiology for today's fever such as viral infection, will admit to hospital) Treatment and Re-Evaluation Comments:: I have personally performed a face to face assessment of the patient and have reviewed the LEORA Note. I performed a substantive portion of the visit including all aspects of the following. My gannon findings include: History is spiked fever up to 102 today in TCU. Associated symptoms are basically generalized weakness and chills. Patient states he did not feel short of breath nor does he now, but he looked like it according to staff in TCU. He is currently an inpatient there for IV daptomycin rehabbing for osteomyelitis that was determined to be MRSA in his right hand. He had surgical debridement by hand surgery at [facility]. Exam is no evidence of acute cellulitis right hand, nor is there tenderness. He has limited range of motion of the right middle finger he states it is at baseline how it has been for the last week, slow improvement. Otherwise lungs clear, heart mildly tachycardic, abdomen benign, not encephalopathic, normal neurologic exam and normal abdominal exam, neck supple no lymphadenopathy posterior pharynx clear. Left upper extremity PICC site benign without erythema, discharge, tenderness. Medical Decison Making septic work-up already obtained prior to patient transferred here from TCU. Reviewed results. No leukocytosis. Respiratory panel of viral etiologies all negative, COVID-negative, urinalysis negative for infection, chest x-ray 2 views negative, I reviewed the images and agree with the radiologist interpretation. We obtained in addition to this an x-ray of the right hand, 3 views do show residual signs of osteomyelitis in the right third metacarpal and proximal phalanx. D/w hospitalist, who states pt can be d/c'd back to TCU and does not require admission at this time; await cx's. Discussed w/ Dr. Cavazos and Dr. Stroud; both recommend a dose of IV Zosyn, leaving PICC in place, and agree d/c to TCU to cont Daptomycin and await cx's reasonable. Discussed at length w/ pt and . Other additions or changes: [None] Discharge Plan Triage Chief Complaint: Fever ED Midlevel Provider: Malorie Du ED Provider: Noé Berman Dx/Rx/DC Orders Clinical Impression: Hand osteomyelitis, right, Fever Instructions: ED FUO Adult Prescriptions: Continued lisinopril 10 mg tablet 10 mg PO DAILY acetaminophen [Tylenol Extra Strength] 500 mg tablet 1,000 mg PO BID gabapentin 800 mg tablet 800 mg PO TID atorvastatin 40 mg tablet 40 mg PO QHS metformin 500 mg tablet extended release 24 hr 500 mg PO BIDCM Rx Instructions: do not crush, chew, or split; take with food insulin lispro [Humalog KwikPen Insulin] 100 unit/mL insulin pen 10 unit SUBCUT TIDCM valacyclovir 500 mg tablet 1,000 mg PO DAILY qrxspakl-kfi-AC-lycopen-lutein 1 EACH tablet 1 ea PO DAILY metformin 500 mg tablet 500 mg PO BID Hold Instructions: Duplicate Order allopurinol 300 mg tablet 300 mg PO DAILY Rx Instructions: take with food and fluids loperamide 2 mg capsule 2 mg PO Q2H PRN (Reason: loose stool) Rx Instructions: MAXIMUM 18 MG (8 CAPSULES) PER 24 HOURS casanthranol-docusate sodium [ILAN-COLACE] 1 tab PO BID PRN (Reason: constipation) heparin, porcine (PF) [Heparin LockFlush(Porcine)(PF)] 100 unit/mL syringe See Rx Instructions IV .COMPLEX Rx Instructions: Flush with 10-40 mL NS; initiation of IV access, before and after medication administration and daily. Flush with 10 mL NS and 5 mL heparin 10 units/mL (50 units/mL) at discharge and weekly intravenously; acyclovir 200 mg capsule 400 mg PO BID artificial tear(fyrtj-pyb-mbq) 1 drp ophthalmic (eye) daptomycin 500 mg recon soln 500 mg IV DAILY Patient Comments: 500mg/10 ml vial Rx Instructions: administer over 30 mins; 100 ml/hr hydrocortisone 2.5 % cream 1 applic topical DAILY PRN (Reason: itching) insulin glargine [Lantus Solostar U-100 Insulin] 100 unit/mL (3 mL) insulin pen 30 unit subcut QPM colchicine 0.6 mg tablet 0.6 mg PO DAILY Qty: 1 0RF Hold Instructions: Order Changed Rx Instructions: take today when you pick up attendant triamcinolone acetonide 0.1 % cream 1 applic topical DAILY PRN (Reason: hydrodinitus) erythromycin 5 mg/gram (0.5 %) ointment 5 mg ophthalmic (eye) Q3H Rx Instructions: left eye clindamycin phosphate [Cleocin T] 1 % lotion 1 applic topical BID Patient Comments: twice daily x7 days docusate sodium [Colace] 100 mg capsule 100 mg PO BID PRN (Reason: constipation) Culturelle 10 billion cell capsule 1 cap PO DAILY polyethylene glycol 3350 [Miralax] 17 gram/dose powder 17 g PO DAILY PRN (Reason: constipation) vancomycin 1,000 mg recon soln 1.75 g IV Q12H Rx Instructions: 500 ml iv q12 hrs warfarin 4 mg tablet 4 mg PO .COMPLEX Protocol: Dose Management Condition: Sunday Dose/Route: 4 mg Instruction: 1 x 4 mg tablet Condition: Sunday Dose/Route: 4 mg Instruction: 1 x 4 mg tablet Condition: Sunday Dose/Route: 2 mg Instruction: 1 x 2 mg tablet Condition: Sunday Dose/Route: 2 mg Instruction: 1 x 2 mg tablet Condition: Dose/Route: 2 mg Instruction: 1 x 2 mg tablet Condition: Sunday Dose/Route: 4 mg Instruction: 1 x 4 mg tablet Condition: Sunday Dose/Route: 4 mg Instruction: 1 x 4 mg tablet Protocol Text: Adjustment Start Date: Sunday11/08/22 INR Value: 2.8 INR Date: 11/07/22 Recheck Date: 11/22/22 Rx Instructions: 4 mg by mouth u sunday warfarin 2 mg tablet 2 mg PO .COMPLEX Protocol: Dose Management Condition: Sunday Dose/Route: 4 mg Instruction: 1 x 4 mg tablet Condition: Sunday Dose/Route: 4 mg Instruction: 1 x 4 mg tablet Condition: Sunday Dose/Route: 2 mg Instruction: 1 x 2 mg tablet Condition: Sunday Dose/Route: 2 mg Instruction: 1 x 2 mg tablet Condition: Dose/Route: 2 mg Instruction: 1 x 2 mg tablet Condition: Sunday Dose/Route: 4 mg Instruction: 1 x 4 mg tablet Condition: Sunday Dose/Route: 4 mg Instruction: 1 x 4 mg tablet Protocol Text: Adjustment Start Date: Sunday11/08/22 INR Value: 2.8 INR Date: 11/07/22 Recheck Date: 11/22/22 Rx Instructions: take 2mg by mouth sunday, sunday, sunday metoprolol tartrate 25 mg tablet 25 mg PO BID Qty: 180 3RF Mounjaro 7.5 mg/0.5 mL pen injector 7.5 mg subcut QWEEK Qty: 6 1RF Hold Instructions: Ordered Primary Care Provider: Alvarado Madrigal Referrals: Alvarado Madrigal MD [Primary Care Provider] - Abhishek Cavazos Chi, MD [Med Staff - Active Staff] - (aware and will follow for culture results) Activity Restrictions/Additional Instructions: Patient was given Zosyn for additional antibiotic coverage and will be discharged to TCU Disposition Disposition: Home, Self Care
[2022-12-19] MEDS: Acetaminophen 500 MG Tablet 1000 MG PO (18:09)
--- NOTE | 2022-12-19 18:45 | RAD_ITS ---
INDICATION: fever, wound EXAMINATION/TECHNIQUE: X-RAY - RIGHT XR Hand 3 VIEWS COMPARISON: September 30, 2022 FINDINGS: SOFT TISSUES: There is soft tissue swelling of the third finger and hand. No radiopaque foreign body. BONES/JOINTS: Bony defect at the head of the third metacarpus and the base of the proximal phalanx of the third finger. Osteomyelitis is suspected. RAD/Hand Min 3 Views IMPRESSION: Osteomyelitis of the third finger and the third metacarpus. Electronically Signed: Irving Kumar DO at 19:20 EDT ,
[2022-12-19] MEDS: 0.9% Normal Saline (1000mL) 1,000 ML 999 ML IV (19:28)
[2022-12-19] MEDS: Ibuprofen 600 MG Tablet PO (20:42)
[2022-12-19] MEDS: Piperacil/Tazobactam 3.375 GM in 0.9% Normal Saline (50mL MB+) 50 ML IV (21:32)
--- NOTE | 2022-12-19 22:13 | ED.RN ---
Called report to TCU nurse
[2022-12-19 23:12] LABS: Bedside Glucose 200 mg/dL (74-106)
== END 2022-12-19 22:44 | disposition home or self-care (01) ==
PROVIDERS: Emergency Provider Emergency Medicine; PCP Family Medicine; Visit Provider Emergency Medicine
DX: M86.9 Osteomyelitis, unspecified (principal); E11.69 Type 2 diabetes mellitus with other specified complication; I48.0 Paroxysmal atrial fibrillation; Z79.4 Long term (current) use of insulin; R50.9 Fever, unspecified; I10 Essential (primary) hypertension; E78.5 Hyperlipidemia, unspecified; Z79.84 Long term (current) use of oral hypoglycemic drugs; Z79.899 Other long term (current) drug therapy; Z79.01 Long term (current) use of anticoagulants; Z86.73 Personal history of transient ischemic attack (TIA), and cerebral infarction without residual deficits; Z87.891 Personal history of nicotine dependence
CPT/HCPCS: 73130; 82962; 96365; 99285; J7030; A4216

== ENCOUNTER → 2022-12-20 | Outpatient (CLI) | payer MEDICARE, OTHER, SELFPAY ==
--- NOTE | 2022-12-20 18:08 | MRI_ITS ---
STUDY: MRI RIGHT HAND, WITHOUT AND WITH IV CONTRAST REASON FOR EXAM: Male, 72 years old. Osteomyelitis right hand, third metacarpal, finger area, history of prior surgery. TECHNIQUE: Standardized fat and water weighted pulse sequences were obtained in all 3 orthogonal planes. Following the intravenous administration of 20 mL Clariscan contrast, additional postcontrast imaging was obtained. COMPARISON: Right hand radiographs dated 12/19/2022. FINDINGS: There are destructive and erosive bony changes adjacent to the third MCP joint with abnormal low T1 and high STIR marrow signal in the distal half of the third metacarpal and proximal half of the third proximal phalanx, compatible with septic arthritis/osteomyelitis. Normal marrow within the remainder of the metacarpals and visualized phalanges. Normal flexor tendons, without tear or tenosynovitis. Normal visualized annular cecilia system. Normal volar plates. Normal extensor tendons, without tendon tear, subluxation or tenosynovitis. Normal sagittal bands and dorsal expansion (carson). Normal first, second, fourth, and fifth MCP joints without degenerative change, synovitis, periarticular inflammation or marginal erosions. Normal interphalangeal joint of the thumb and second through fifth PIP joints without degenerative change, synovitis, periarticular inflammation or marginal erosions. Normal second through fifth DIP joints without degenerative change, synovitis, periarticular inflammation or marginal erosions. Normal muscle groups of the thenar and hypothenar eminences. Normal lumbricalis and interosseous muscles. There are no soft tissue masses or atrophy. There is mild subcutaneous soft tissue edema of the fingers, most pronounced involving the third finger. Following IV contrast administration, there is no abnormal enhancing mass. MRI/Upper Ext No Joint W/WO Cont IMPRESSION: Destructive and erosive bony changes adjacent to the third MCP joint with abnormal low T1 and high STIR marrow signal in the distal half of the third metacarpal and proximal half of the third proximal phalanx, compatible with septic arthritis/osteomyelitis. Mild subcutaneous soft tissue edema of the fingers, most pronounced involving the third finger. Electronically Signed: Babak Neil MD at 10:38 EDT ,
== END | disposition home or self-care (01) ==
LOC: MRI 17:45
PROVIDERS: PCP Family Medicine; Visit Provider Internal Medicine Infectious Disease
DX: M86.9 Osteomyelitis, unspecified (principal)
CPT/HCPCS: 73220; A9575

== ENCOUNTER → 2023-01-10 | Outpatient (CLI) | payer MEDICARE, OTHER, SELFPAY ==
[2023-01-10 17:37] LABS: Absolute Lymphocyte Count 2.38 X10^3/uL (0.83-4.51); Absolute Neutrophil Count 3.2 X10^3/uL (2.0-7.7); Basophil# 0.03 X10^3/uL; Basophil% 0.4 % (0-1); Eosinophil# 0.45 X10^3/uL; Eosinophils% 6.7 % (0-5); Hematocrit 36.4 % (40-54); Hemoglobin 11.8 g/dL (13.0-16.5); Lymphocyte # 2.38 X10^3/ul (0.83-4.51); Lymphocyte % 35.7 % (19-41); Mean Corp Hgb Conc 32.4 g/dL (32-36); Mean Corpuscular Hgb 32.2 pg (27.0-32.0); Mean Corpuscular Volume 99.2 fL (80-94); Mean Platelet Vol. 10.8 fl (6.2-12.0); Monocyte# 0.62 X10^3/uL; Monocyte% 9.3 % (0-10); NRBC Flagged by Analyzer 0 % (0-5); Neutrophil # 3.17 X10^3/uL (2.7-7.7); Neutrophil % 47.6 % (47-70); Platelet Count 228 K/mm3 (150-450); RBC Distribution Width CV 13.9 % (11.6-14.6); RBC Distribution Width SD 50.1 fl (35.1-43.9); Red Blood Count 3.67 M/mm3 (4.6-6.2); White Blood Count 6.7 K/mm3 (4.4-11.0)
[2023-01-10 17:58] LABS: Erythrocyte Sedimentation Rate 40 mm/hr (0-20)
[2023-01-10 18:18] LABS: ALB/GLOB Ratio 0.8 RATIO (0.9-2.4); AST(SGOT) 21 U/L (15-37); Alanine Aminotransfer ALT/SGPT 23 U/L (16-61); Albumin, Serum 3.4 g/dL (3.2-5.0); Alkaline Phosphatase 66 U/L (45-117); Anion Gap 9 (5-15); BUN 19 mg/dL (7-18); BUN/Creat Ratio 21.2 RATIO (10-20); CRP < 2.90 mg/L (0.0-3.0); Calcium,Total 8.9 mg/dL (8.5-10.1); Chloride 108 mmol/L (98-107); EST Glomerular Filtration Rate 88 mL/min (>60); Est Glom Filt Rate - Afr Amer 106 mL/min (>60); Globulin 4.1 g/dL (2.2-4.2); Glucose 150 mg/dL (74-106); Potassium 4.5 mmol/L (3.5-5.1); Protein, Total 7.5 g/dL (6.4-8.2); Rheumatoid Factor < 10.0 IU/mL (<15); Sodium Level 140 mmol/L (136-145); Uric Acid 3.9 mg/dL (3.5-7.2)
[2023-01-10 18:52] LABS: Hepatitis B Surface Antibody Reactive; Hepatitis B Surface Antigen Non-Reactive (Nonreactive); Hepatitis C Antibody Non-Reactive (Nonreactive)
[2023-01-12 12:09] LABS: ANTINUCLEAR ANTIBODIES DIRECT Positive (Negative); CCP IgG Antibodies 6 units (0-19)
== END | disposition home or self-care (01) ==
LOC: MTLAB 14:39
PROVIDERS: PCP Family Medicine; Referring Provider Internal Medicine Rheumatology; Visit Provider Internal Medicine Rheumatology
DX: M06.4 Inflammatory polyarthropathy (principal); I48.0 Paroxysmal atrial fibrillation; M47.897 Other spondylosis, lumbosacral region; I10 Essential (primary) hypertension; Z86.73 Personal history of transient ischemic attack (TIA), and cerebral infarction without residual deficits
CPT/HCPCS: 36415; 80053; 84550; 85025; 85652; 86038; 86140; 86200; 86431; 86706; 86803; 87340

== ENCOUNTER 2023-01-25 13:29 | Outpatient (RCR) | payer MEDICARE, OTHER, SELFPAY ==
[2023-01-25 15:26] LABS: International Normalized Ratio 1.1; Prothrombin Time (Protime)PT. 14.7 SECONDS (11.7-14.9)
[2023-01-25 16:00] LABS: EXAGEN MAILED SPECIMEN
== END 2023-01-25 18:00 | disposition home or self-care (01) ==
LOC: MTLAB 13:29
PROVIDERS: Internal Medicine Rheumatology; PCP Family Medicine; Referring Provider Internal Medicine Cardiovascular Disease; Visit Provider Internal Medicine Cardiovascular Disease
DX: I48.0 Paroxysmal atrial fibrillation (principal); Z79.01 Long term (current) use of anticoagulants; Z86.73 Personal history of transient ischemic attack (TIA), and cerebral infarction without residual deficits
CPT/HCPCS: 36415; 85610

== ENCOUNTER 2023-02-09 08:38 | Outpatient (RCR) | payer MEDICARE, OTHER, SELFPAY ==
[2023-02-02 11:19] LABS: International Normalized Ratio 1.7; Prothrombin Time (Protime)PT. 19.7 SECONDS (11.7-14.9)
[2023-02-09 09:16] LABS: International Normalized Ratio 2.1; Prothrombin Time (Protime)PT. 23.9 SECONDS (11.7-14.9)
== END 2023-02-25 18:00 | disposition home or self-care (01) ==
LOC: LAB 08:38
PROVIDERS: PCP Family Medicine; Referring Provider Internal Medicine Cardiovascular Disease; Visit Provider Internal Medicine Cardiovascular Disease
DX: I48.0 Paroxysmal atrial fibrillation (principal); Z79.01 Long term (current) use of anticoagulants; Z86.73 Personal history of transient ischemic attack (TIA), and cerebral infarction without residual deficits
CPT/HCPCS: 36415; 85610

== ENCOUNTER 2023-02-22 11:30 | Outpatient (RCR) | payer MEDICARE, OTHER, SELFPAY ==
--- NOTE | 2023-01-02 07:15 | HP.OTEVAL_ITS ---
Patient's Visit Information Visit Information Visit Information: REZA PIERRE is a 72 year old M, referred to Occupational Therapy by Dr. Alvarado Madrigal MD, with a diagnosis of right MF osteomyelitis. Date of Evaluation: 01/01/23 Occupational Therapist: ELENITA Bob/Katharina, CHT Subjective Subjective: this 72 year old male was seen for OT eval with dx of right hand Osteomyelitis- pt states he initially started with signs of infection since August 2022. pt states he was on a number of steroids' and antibiotics - Pt states he did have sx on candice( pt can not remember exact date) pt states he was in hospital 11/22 rehab. pt arrives today with limited ability to make a fist- this limits his ind. 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 ADLs Eating: Drink from glass Comments: coffee cup difficulty to hold Grooming: Shave and [place] teeth Comments: difficulty with and having trouble Yard: Mow lawn, [place], Use pruners and Use trowel Comments: pt was IND with all yard work prior to this. Miscellaneous: Use cell phone and Open doors/Including car door Comments: wants to go fishing Pain right hand: Current Pain Intensity: 0 Pain Intensity Range: 4 ROM MP: right MF-35/50 PIP: right MF PIP -25/45 DIP: right MF DIP -10/10 ROM Comments: pt demo with limited ability to from composite fist- pt is 2.5 away from composite fist. 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 pt would benefit from skilled OT services 2-3x week for 6 weeks. Today therapist ed. pt on scar mt. use of elastomer- and AROM and PROM ex. pt demo understanding of ex and agree to POC. Rehabilitation Potential: Good Anticipated Interventions Anticipated Interventions: A/AAROM/PROM, Strengthening, Scar Care, Triggerpoint Release, Sensory Retraining, Orthoses, Joint Protection/Energy Conservation, Education re assistive Equipment, Education re Diagnosis, Caregiver Training and Other Visit Plan Frequency: 2-3x /Week Duration: 6 Weeks TEXT: Thank you for the opportunity to evaluate your patient. For Medicare and Medicare HMO plans, please review the plan of care and approve it. It will need to be FAXED BACK to us at [phone] for Medicare purposes. Please let me know if there are questions or concerns regarding this plan of care. Physician Signature: Date:
--- NOTE | 2023-06-06 14:45 | HP.OT.NRP ---
Patient Information Patient Information: REZA PIERRE was seen in my office for initial evaluation on 01/01/23. The following Plan of Care was established for this patient: POC Established Initial Frequency: 2-3x /Week Initial Duration: 6 Weeks Plan: cont to increase strength but avoid increase arthritis pain Anticipated Interventions Anticipated Interventions: A/AAROM/PROM, Strengthening, Scar Care, Triggerpoint Release, Sensory Retraining, Orthoses, Joint Protection/Energy Conservation, Education re assistive Equipment, Education re Diagnosis, Caregiver Training and Other Last Seen Last Seen: This patient was last seen in our office 02/22/23. Pertinent comments regarding their Occupational therapy will appear below: pt was seen for 19 OT session. Pt cancelled due to health issues and has not scheduled further apts. Due to time lapse in services pt is d/c at this time. At this point I will be discontinuing this patient from occupational therapy. I would be happy to see this patient again in the future if found appropriate by the physician. Thank you! Jazmine Guan, OTR/L, CHT
== END 2023-02-22 19:00 | disposition home or self-care (01) ==
LOC: OT 11:30
PROVIDERS: PCP Family Medicine; Referring Provider Family Medicine Geriatric Medicine; Visit Provider Family Medicine
DX: M19.041 Primary osteoarthritis, right hand (principal)
CPT/HCPCS: 97035; 97110; 97140; 97166; 97530

== ENCOUNTER → 2023-03-19 | Outpatient (CLI) | payer MEDICARE, OTHER, SELFPAY ==
[2023-03-19 15:36] LABS: Color, Urine Yellow (Yellow); Glucose, Dipstick Normal (Normal); Ketone-Dipstick Negative (Negative); Leukocyte Esterase-Dipstick 25 /ul (Negative); Nitrite-Dipstick Negative (Negative); Occult Blood-Urine Negative /ul (Negative); Protein-Dipstick 30 mg/dl (Negative); Urine Bilirubin Dipstick Negative (Negative); Urine Clarity Clear (Clear); Urine Urobilinogen Normal (Normal)
[2023-03-19 16:36] LABS: Protein, Urine (Random) 26.5 mg/dL (<11.9); Protein:Creat Ratio 162 mg/g CRE (0-200)
== END | disposition home or self-care (01) ==
LOC: MTLAB 11:28
PROVIDERS: PCP Family Medicine; Referring Provider Internal Medicine Rheumatology; Visit Provider Internal Medicine Rheumatology
DX: M06.4 Inflammatory polyarthropathy (principal); R76.8 Other specified abnormal immunological findings in serum; Z79.899 Other long term (current) drug therapy
CPT/HCPCS: 81002; 82570; 84156

== ENCOUNTER 2023-03-23 08:55 | Outpatient (RCR) | payer MEDICARE, OTHER, SELFPAY ==
[2023-03-01 09:10] LABS: Prothrombin Time (Protime)PT. 22.5 SECONDS (11.7-14.9)
[2023-03-01 09:12] LABS: Cholesterol 103 mg/dL (200); High Density Lipoprotein 49 mg/dL; Triglycerides 128 mg/dL; Very Low Density Lipoprotein 26 mg/dL (5-40)
[2023-03-01 10:22] LABS: Microalbumin,Random Urine 86.3 mg/L (NO RANGE EST.); Microalbumin:Creatinine Ratio 55.7 mg/g CRE (<30 mg/g CRE)
[2023-03-23 09:31] LABS: International Normalized Ratio 1.8; Prothrombin Time (Protime)PT. 21.3 SECONDS (11.7-14.9)
== END 2023-03-23 18:00 | disposition home or self-care (01) ==
LOC: LAB 08:55
PROVIDERS: Nurse Practitioner Family; PCP Family Medicine; Referring Provider Internal Medicine Cardiovascular Disease; Visit Provider Internal Medicine Cardiovascular Disease
DX: I48.0 Paroxysmal atrial fibrillation (principal); Z79.01 Long term (current) use of anticoagulants; Z86.73 Personal history of transient ischemic attack (TIA), and cerebral infarction without residual deficits
CPT/HCPCS: 36415; 80061; 82043; 82570; 85610

== ENCOUNTER → 2023-04-02 | Outpatient (CLI) | payer MEDICARE, OTHER, SELFPAY | END | disposition home or self-care (01) | PROVIDERS: PCP Family Medicine; Visit Provider Dermatology | DX: L02.811 Cutaneous abscess of head [any part, except face] (principal) | CPT/HCPCS: 87070; 87077; 87186; 87205 ==

== ENCOUNTER 2023-04-06 08:23 | Outpatient (RCR) | payer MEDICARE, OTHER, SELFPAY ==
[2023-04-06 09:16] LABS: International Normalized Ratio 2.1; Prothrombin Time (Protime)PT. 23.7 SECONDS (11.7-14.9)
== END 2023-04-26 18:00 | disposition home or self-care (01) ==
LOC: LAB 08:23
PROVIDERS: PCP Family Medicine; Referring Provider Internal Medicine Cardiovascular Disease; Visit Provider Internal Medicine Cardiovascular Disease
DX: I48.0 Paroxysmal atrial fibrillation (principal); Z79.01 Long term (current) use of anticoagulants; Z86.73 Personal history of transient ischemic attack (TIA), and cerebral infarction without residual deficits
CPT/HCPCS: 36415; 85610

== ENCOUNTER 2023-05-03 09:30 | Outpatient (RCR) | payer MEDICARE, OTHER, SELFPAY ==
--- NOTE | 2023-04-03 11:48 | HP.PTEVAL_ITS ---
Patient's Visit Information Visit Information Visit Information: REZA PIERRE is a 72 year old M referred to Physical Therapy by Dr. Alvarado Madrigal MD with a diagnosis of GREATER TROCHANTERIC BURSITIS OF RIGHT HIP. Date of Evaluation: 04/03/23 Physical Therapist: Fransisco Brian, PT, Cert MDT, OCS Visit Plan Frequency: 2x /Week Duration: 8WEEKS Plan: PT INTERVETIONS FLEXABILITY HIP ,MANUAL THERAPY IT BAND ,STRENGTHENING HIP ( GLUT MEDIUS) , AND MODALTIES FOR PAIN/SORENESS ( GREATER TRONCHTER /IT-BAND) Subjective Subjective: This 72 male presents to physical therapy with right hip pain. Patient has had hip pain lateral hip symptoms ~ 2weeks. Seen DR Ceron and recommended PT. Patient states tender too touch no imaging or medication. A ggravating factors initially sleep on right side and stairs and extended walking. Patient has constant paresthesia in legs. Coughing/sneezing -. Bowel/bladder -. Patient does h/o back pain with s/p lumbar fusion. Patient pain affects sleeping. Patient symptoms affects QOL and function. Patient goals to decrease pain. SOCIAL: VOCATION: retired Pain Right Hip: Pain Intensity (Out of 10): 2 Pain Intensity Range: 10 Comment: lateral hip Objective Objective: POSTURE: mild forward posture PALAPTION: tender greater trochanteric ,I TBAND NEURO: c/o paresthesia/tingling feet GAIT: antalgic gait right side with decrease stance PROM: hip IR 35 degrees ,ER 60 degrees ,hip abduction 40 degrees ,hip flexion 110 degrees MMT: quads/hams 4/5 ,hip flexion 4-/5 , ( PEAK FORCE) hip abduction 22.1 STAIRS: one step at time Special Tests L/S Slump test left side: Negative L/S Slump test right side: Negative L/S Left Straight Leg Raise: Negative L/S Right Straight Leg Raise: Negative R Hip Scour: Negative R Hip Quadrant - Intraarticular Pathology: Negative R Hip Trendelenberg - Glut Medius: Positive R Hip King - IT Band: Negative Balance/Special Test Scores Lower Extremity Functional Score: 39 Goals Goal 1:: I with HEP for hip Goal Time Frame: 4-6 Weeks Goal 2:: Patient to normalize gait pattern. Goal Time Frame: 4-6 Weeks Goal 3:: Patient to improve LFES score by 5 points or> to improve QOL and function. Goal Time Frame: 4-6 Weeks Goal 4:: Patient to improve peak force hip abd by 5-10# to improve gait Goal Time Frame: 4-6 Weeks Goal 5:: Patient to demonstrate 50% improvement with less pain and improved function with gait Goal Time Frame: 4-6 Weeks Rehabilitation Potential Physical Therapy Diagnosis: This patient has bursitis right hip with weakness glut Medius ,tender ,impairs walking standing causes deficits with ADLS and housework tasks thus benefit from skilled PT Rehabilitation Potential: Good Anticipated Interventions Patient/Client Instruction: Educate patient on: Condition and Plan of Care For the Purpose of:: To decrease pain, To decrease swelling/inflammation, To increase oxygenation perfusion, To improve muscle performance and motor function, To increase tolerance to activity/condition/position, To improve ability of physical actions for home/community/work/leisure, To improve gait and locomotor functions, To improve health of tissue, To decrease soft tissue restriction, To increase flexibility/ROM, To reduce risk of recurrence and To improve tolerance to ADL's Therapeutic Exercise to Include: Strength training, Coordination, Flexibilty training and Active ROM Comment: HIP STRENGTHENING For the Purpose of:: To decrease pain, To decrease swelling/inflammation, To improve muscle performance and motor function, To increase tolerance to activity/condition/position, To improve ability of physical actions for home/community/work/leisure, To improve health of tissue, To decrease soft tissue restriction and To increase flexibility/ROM Manual Therapy Techniques to Include: Soft tissue mobilization Comment: STICK/ROLL I T BAND For the Purpose of:: To decrease pain, To increase ROM, To improve muscle performance and motor function, To improve ability to perform ADL's, To increase tolerance to activity/condition/position, To improve ability of physical actions for home/community/work/leisure, To improve health of tissue, To decrease soft tissue restriction and To increase flexibility/ROM TENS: Yes IF ES: Yes Cryotherapy (ice pack, ice massage): Yes Thermo therapy (hot pack): Yes Ultrasound (thermal/non thermal): Yes For the Purpose of:: To decrease pain, To decrease swelling/inflammation, To improve nutrient delivery to tissue, To increase oxygenation perfusion, To improve health of tissue and To decrease soft tissue restriction Text: Thank you for the opportunity to evaluate your patient. For Medicare and Medicare HMO plans, please review the plan of care and approve it. It will need to be FAXED BACK to us at [phone] for Medicare purposes. For Medicare only, by signing this I certify the plan of care. Please let me know if there are questions or concerns regarding this plan of care. Physician Signature: Date:
--- NOTE | 2023-05-03 09:58 | HP.PTDCSUM ---
Discharge Summary D/C summary: It has been my pleasure to treat REZA PIERRE referred by Dr. Alvarado Madrigal MD, with the diagnosis of GREATER TROCHANTERIC BURSITIS OF RIGHT HIP for a total of 10 visit(s). Discharge Date: 05/03/23 Please see the following information for a summary of their discharge status. Subjective Subjective: Patient conts to have back pain when standing 5 mins ex to do dishes 15-20 mins when pain starts Pain Right Hip: Pain Intensity (Out of 10): 6 L LB: Pain Intensity (Out of 10): 6 Overall Improvement % Improvement: 40 Objective Objective/Function: POSTURE: mild forward posture PALAPTION: unremarkable NEURO: c/o paresthesia/tingling feet from neuropathy GAIT: reciprocal pattern PROM: hip IR 35 degrees ,ER 60 degrees ,hip abduction 45 degrees ,hip flexion 110 degrees MMT: quads/hams 4/5 ,hip flexion 4/5 , ( PEAK FORCE) hip abduction 31.1 STAIRS: one step at time Goals Goal 1:: I with HEP for hip Goal Progress: Goal Met Goal 2:: Patient to normalize gait pattern. Goal Progress: Goal Met Goal 3:: Patient to improve LFES score by 5 points or> to improve QOL and function. Goal Progress: Goal Met Goal 4:: Patient to improve peak force hip abd by 5-10# to improve gait Goal Progress: Goal Met Goal 5:: Patient to demonstrate 50% improvement with less pain and improved function with gait Goal Progress: Progressing Plan Plan: D/C TP HEP AND GYM PROGRAM D/C Information Discharge Comments: HEP AND GYM d/c sentence: If there are questions or concerns regarding this patient's physical therapy, please feel free to call me at [phone]. Thank you for the referral of this patient. Sincerely, Fransisco Brian, PT, Cert MDT, OCS Balance/Gait/Functional tests Balance/Special Test Scores Lower Extremity Functional Score: 44 Improvement % Improvement: 40
== END 2023-05-03 12:56 | disposition home or self-care (01) ==
LOC: PT 09:30
PROVIDERS: PCP Family Medicine; Referring Provider Family Medicine; Visit Provider Family Medicine
DX: M70.61 Trochanteric bursitis, right hip (principal)
CPT/HCPCS: 97110; 97162; 97530

== ENCOUNTER 2023-05-03 09:57 | Outpatient (RCR) | payer MEDICARE, OTHER, SELFPAY ==
[2023-05-03 12:18] LABS: International Normalized Ratio 2.4; Prothrombin Time (Protime)PT. 25.8 SECONDS (11.7-14.9)
== END 2023-05-27 02:11 | disposition home or self-care (01) ==
LOC: MTLAB 09:57
PROVIDERS: PCP Family Medicine; Referring Provider Internal Medicine Cardiovascular Disease; Visit Provider Internal Medicine Cardiovascular Disease
DX: I48.0 Paroxysmal atrial fibrillation (principal); Z79.01 Long term (current) use of anticoagulants; Z86.73 Personal history of transient ischemic attack (TIA), and cerebral infarction without residual deficits
CPT/HCPCS: 36415; 85610

== ENCOUNTER → 2023-05-11 | Outpatient (CLI) | payer MEDICARE, OTHER, SELFPAY ==
[2023-05-11 12:51] LABS: Absolute Lymphocyte Count 1.62 X10^3/uL (0.83-4.51); Basophil# 0.02 X10^3/uL; Basophil% 0.5 % (0-1); Eosinophil# 0.11 X10^3/uL; Eosinophils% 2.5 % (0-5); Hematocrit 34.1 % (40-54); Hemoglobin 11.7 g/dL (13.0-16.5); Lymphocyte # 1.62 X10^3/ul (0.83-4.51); Lymphocyte % 37.4 % (19-41); Mean Corp Hgb Conc 34.3 g/dL (32-36); Mean Corpuscular Hgb 35.9 pg (27.0-32.0); Mean Corpuscular Volume 104.6 fL (80-94); Mean Platelet Vol. 10.7 fl (6.2-12.0); Monocyte# 0.55 X10^3/uL; Monocyte% 12.7 % (0-10); NRBC Flagged by Analyzer 0 % (0-5); Neutrophil # 2.01 X10^3/uL (2.7-7.7); Neutrophil % 46.4 % (47-70); Platelet Count 181 K/mm3 (150-450); RBC Distribution Width CV 15.8 % (11.6-14.6); RBC Distribution Width SD 60.9 fl (35.1-43.9); Red Blood Count 3.26 M/mm3 (4.6-6.2); White Blood Count 4.3 K/mm3 (4.4-11.0)
[2023-05-11 12:55] LABS: ALB/GLOB Ratio 0.9 RATIO (0.9-2.4); AST(SGOT) 30 U/L (15-37); Alanine Aminotransfer ALT/SGPT 28 U/L (16-61); Albumin, Serum 3.3 g/dL (3.2-5.0); Alkaline Phosphatase 52 U/L (45-117); Anion Gap 6 (5-15); BUN 15 mg/dL (7-18); BUN/Creat Ratio 16.5 RATIO (10-20); Calcium,Total 8.8 mg/dL (8.5-10.1); Chloride 109 mmol/L (98-107); Creatinine, Serum 0.91 mg/dL (0.70-1.30); EST Glomerular Filtration Rate 87 mL/min (>60); Est Glom Filt Rate - Afr Amer 105 mL/min (>60); Globulin 3.5 g/dL (2.2-4.2); Glucose 158 mg/dL (74-106); Potassium 4.8 mmol/L (3.5-5.1); Protein, Total 6.8 g/dL (6.4-8.2); Sodium Level 138 mmol/L (136-145)
== END | disposition home or self-care (01) ==
LOC: MTLAB 10:12
PROVIDERS: PCP Family Medicine; Referring Provider Internal Medicine Rheumatology; Visit Provider Internal Medicine Rheumatology
DX: M06.4 Inflammatory polyarthropathy (principal); R76.8 Other specified abnormal immunological findings in serum; Z79.899 Other long term (current) drug therapy
CPT/HCPCS: 36415; 80053; 85025

== ENCOUNTER 2023-05-31 08:49 | Outpatient (RCR) | payer MEDICARE, OTHER, SELFPAY ==
[2023-05-31 09:34] LABS: International Normalized Ratio 2.5
== END 2023-06-26 22:28 | disposition home or self-care (01) ==
LOC: MTLAB 08:49
PROVIDERS: PCP Family Medicine; Referring Provider Internal Medicine Cardiovascular Disease; Visit Provider Internal Medicine Cardiovascular Disease
DX: I48.0 Paroxysmal atrial fibrillation (principal); Z79.01 Long term (current) use of anticoagulants; Z86.73 Personal history of transient ischemic attack (TIA), and cerebral infarction without residual deficits
CPT/HCPCS: 36415; 85610

== ENCOUNTER → 2023-06-29 | Outpatient (CLI) | payer MEDICARE, OTHER, SELFPAY ==
[2023-06-29 10:00] LABS: Absolute Lymphocyte Count 1.46 X10^3/uL (0.83-4.51); Absolute Neutrophil Count 2.1 X10^3/uL (2.0-7.7); Basophil# 0.02 X10^3/uL; Basophil% 0.5 % (0-1); Eosinophil# 0.16 X10^3/uL; Eosinophils% 3.7 % (0-5); Hematocrit 35.6 % (40-54); Hemoglobin 11.9 g/dL (13.0-16.5); Lymphocyte # 1.46 X10^3/ul (0.83-4.51); Mean Corp Hgb Conc 33.4 g/dL (32-36); Mean Corpuscular Hgb 35.7 pg (27.0-32.0); Mean Corpuscular Volume 106.9 fL (80-94); Mean Platelet Vol. 10.6 fl (6.2-12.0); Monocyte# 0.51 X10^3/uL; Monocyte% 11.9 % (0-10); NRBC Flagged by Analyzer 0 % (0-5); Neutrophil # 2.12 X10^3/uL (2.7-7.7); Neutrophil % 49.4 % (47-70); Platelet Count 175 K/mm3 (150-450); RBC Distribution Width CV 13.1 % (11.6-14.6); RBC Distribution Width SD 51.1 fl (35.1-43.9); Red Blood Count 3.33 M/mm3 (4.6-6.2); White Blood Count 4.3 K/mm3 (4.4-11.0)
[2023-06-29 10:40] LABS: AST(SGOT) 28 U/L (15-37); Alanine Aminotransfer ALT/SGPT 22 U/L (16-61); Albumin, Serum 3.5 g/dL (3.2-5.0); Alkaline Phosphatase 51 U/L (45-117); Anion Gap 6 (5-15); BUN 17 mg/dL (7-18); BUN/Creat Ratio 19.9 RATIO (10-20); Chloride 106 mmol/L (98-107); Creatinine, Serum 0.86 mg/dL (0.70-1.30); EST Glomerular Filtration Rate 93 mL/min (>60); Est Glom Filt Rate - Afr Amer 112 mL/min (>60); Globulin 3.5 g/dL (2.2-4.2); Glucose 263 mg/dL (74-106); Potassium 4.6 mmol/L (3.5-5.1); Sodium Level 136 mmol/L (136-145)
== END | disposition home or self-care (01) ==
LOC: MTLAB 09:20
PROVIDERS: PCP Family Medicine; Referring Provider Internal Medicine Rheumatology; Visit Provider Internal Medicine Rheumatology
DX: M06.4 Inflammatory polyarthropathy (principal); Z79.899 Other long term (current) drug therapy
CPT/HCPCS: 36415; 80053; 85025

== ENCOUNTER 2023-07-05 09:05 | Outpatient (RCR) | payer MEDICARE, OTHER, SELFPAY ==
[2023-07-05 10:28] LABS: International Normalized Ratio 2.7; Prothrombin Time (Protime)PT. 28.4 SECONDS (11.7-14.9)
== END 2023-07-05 09:06 | disposition home or self-care (01) ==
LOC: LAB 09:05
PROVIDERS: PCP Family Medicine; Referring Provider Internal Medicine Cardiovascular Disease; Visit Provider Internal Medicine Cardiovascular Disease
DX: I48.0 Paroxysmal atrial fibrillation (principal); Z79.01 Long term (current) use of anticoagulants; Z86.73 Personal history of transient ischemic attack (TIA), and cerebral infarction without residual deficits
CPT/HCPCS: 36415; 85610

== ENCOUNTER 2023-08-03 08:21 | Outpatient (RCR) | payer MEDICARE, OTHER, SELFPAY ==
[2023-08-03 09:57] LABS: International Normalized Ratio 2.5; Prothrombin Time (Protime)PT. 26.8 SECONDS (11.7-14.9)
== END 2023-08-03 18:00 | disposition home or self-care (01) ==
LOC: LAB 08:21
PROVIDERS: PCP Family Medicine; Referring Provider Internal Medicine Cardiovascular Disease; Visit Provider Internal Medicine Cardiovascular Disease
DX: I48.0 Paroxysmal atrial fibrillation (principal); Z79.01 Long term (current) use of anticoagulants; Z86.73 Personal history of transient ischemic attack (TIA), and cerebral infarction without residual deficits
CPT/HCPCS: 36415; 85610

== ENCOUNTER → 2023-08-24 | Outpatient (CLI) | payer MEDICARE, OTHER, SELFPAY ==
[2023-08-24 10:25] LABS: Absolute Lymphocyte Count 1.75 X10^3/uL (0.83-4.51); Absolute Neutrophil Count 1.8 X10^3/uL (2.0-7.7); Basophil# 0.02 X10^3/uL; Basophil% 0.5 % (0-1); Eosinophil# 0.17 X10^3/uL; Eosinophils% 3.8 % (0-5); Hemoglobin 12.3 g/dL (13.0-16.5); Lymphocyte # 1.75 X10^3/ul (0.83-4.51); Lymphocyte % 39.4 % (19-41); Mean Corp Hgb Conc 34.2 g/dL (32-36); Mean Corpuscular Volume 105.3 fL (80-94); Mean Platelet Vol. 10.6 fl (6.2-12.0); Monocyte# 0.67 X10^3/uL; Monocyte% 15.1 % (0-10); NRBC Flagged by Analyzer 0 % (0-5); Neutrophil # 1.82 X10^3/uL (2.7-7.7); Platelet Count 155 K/mm3 (150-450); RBC Distribution Width CV 13.3 % (11.6-14.6); RBC Distribution Width SD 51.7 fl (35.1-43.9); Red Blood Count 3.42 M/mm3 (4.6-6.2); White Blood Count 4.4 K/mm3 (4.4-11.0)
[2023-08-24 11:11] LABS: AST(SGOT) 27 U/L (15-37); Alanine Aminotransfer ALT/SGPT 24 U/L (16-61); Albumin, Serum 3.5 g/dL (3.2-5.0); Alkaline Phosphatase 55 U/L (45-117); Anion Gap 7 (5-15); BUN 21 mg/dL (7-18); BUN/Creat Ratio 24.1 RATIO (10-20); Calcium,Total 9.3 mg/dL (8.5-10.1); Chloride 108 mmol/L (98-107); Creatinine, Serum 0.87 mg/dL (0.70-1.30); EST Glomerular Filtration Rate 91 mL/min (>60); Est Glom Filt Rate - Afr Amer 110 mL/min (>60); Globulin 3.6 g/dL (2.2-4.2); Glucose 92 mg/dL (74-106); Potassium 4.4 mmol/L (3.5-5.1); Protein, Total 7.1 g/dL (6.4-8.2); Sodium Level 138 mmol/L (136-145)
== END | disposition home or self-care (01) ==
LOC: MTLAB 08:34
PROVIDERS: PCP Family Medicine; Referring Provider Internal Medicine Rheumatology; Visit Provider Internal Medicine Rheumatology
DX: M06.4 Inflammatory polyarthropathy (principal); Z79.899 Other long term (current) drug therapy
CPT/HCPCS: 36415; 80053; 85025

== ENCOUNTER 2023-08-31 08:46 | Outpatient (RCR) | payer MEDICARE, OTHER, SELFPAY ==
[2023-08-31 09:48] LABS: International Normalized Ratio 2.4; Prothrombin Time (Protime)PT. 25.8 SECONDS (11.7-14.9)
== END 2023-09-26 18:00 | disposition home or self-care (01) ==
LOC: LAB 08:46
PROVIDERS: PCP Family Medicine; Referring Provider Internal Medicine Cardiovascular Disease; Visit Provider Internal Medicine Cardiovascular Disease
DX: I48.0 Paroxysmal atrial fibrillation (principal); Z79.01 Long term (current) use of anticoagulants; Z86.73 Personal history of transient ischemic attack (TIA), and cerebral infarction without residual deficits
CPT/HCPCS: 36415; 85610

== ENCOUNTER 2023-10-15 08:11 | Outpatient (RCR) | payer MEDICARE, OTHER, SELFPAY ==
[2023-10-01 09:28] LABS: International Normalized Ratio 3.3; Prothrombin Time (Protime)PT. 32.9 SECONDS (11.7-14.9)
[2023-10-15 09:44] LABS: International Normalized Ratio 3.2; Prothrombin Time (Protime)PT. 32.3 SECONDS (11.7-14.9)
== END 2023-10-15 18:00 | disposition home or self-care (01) ==
LOC: LAB 08:11
PROVIDERS: PCP Family Medicine; Referring Provider Internal Medicine Cardiovascular Disease; Visit Provider Internal Medicine Cardiovascular Disease
DX: I48.0 Paroxysmal atrial fibrillation (principal); Z79.01 Long term (current) use of anticoagulants
CPT/HCPCS: 36415; 85610

== ENCOUNTER → 2023-10-15 | Outpatient (CLI) | payer MEDICARE, OTHER, SELFPAY ==
[2023-10-15 15:03] LABS: Absolute Lymphocyte Count 2.14 X10^3/uL (0.83-4.51); Absolute Neutrophil Count 2.4 X10^3/uL (2.0-7.7); Basophil# 0.02 X10^3/uL; Basophil% 0.4 % (0-1); Eosinophil# 0.13 X10^3/uL; Eosinophils% 2.5 % (0-5); Hematocrit 34.3 % (40-54); Hemoglobin 11.8 g/dL (13.0-16.5); Lymphocyte # 2.14 X10^3/ul (0.83-4.51); Mean Corp Hgb Conc 34.4 g/dL (32-36); Mean Corpuscular Hgb 36.8 pg (27.0-32.0); Mean Corpuscular Volume 106.9 fL (80-94); Mean Platelet Vol. 11.1 fl (6.2-12.0); Monocyte# 0.52 X10^3/uL; NRBC Flagged by Analyzer 0 % (0-5); Neutrophil # 2.39 X10^3/uL (2.7-7.7); Neutrophil % 45.7 % (47-70); Platelet Count 159 K/mm3 (150-450); RBC Distribution Width CV 14.4 % (11.6-14.6); RBC Distribution Width SD 56.2 fl (35.1-43.9); Red Blood Count 3.21 M/mm3 (4.6-6.2); White Blood Count 5.2 K/mm3 (4.4-11.0)
[2023-10-15 15:18] LABS: AST(SGOT) 32 U/L (15-37); Alanine Aminotransfer ALT/SGPT 32 U/L (16-61); Albumin, Serum 3.5 g/dL (3.2-5.0); Alkaline Phosphatase 58 U/L (45-117); Anion Gap 5 (5-15); BUN 21 mg/dL (7-18); BUN/Creat Ratio 24.3 RATIO (10-20); Calcium,Total 8.8 mg/dL (8.5-10.1); Chloride 109 mmol/L (98-107); Creatinine, Serum 0.86 mg/dL (0.70-1.30); EST Glomerular Filtration Rate 92 mL/min (>60); Est Glom Filt Rate - Afr Amer 111 mL/min (>60); Globulin 3.5 g/dL (2.2-4.2); Glucose 80 mg/dL (74-106); Potassium 4.6 mmol/L (3.5-5.1); Sodium Level 138 mmol/L (136-145)
== END | disposition home or self-care (01) ==
LOC: MTLAB 10:56
PROVIDERS: PCP Family Medicine; Referring Provider Internal Medicine Rheumatology; Visit Provider Internal Medicine Rheumatology
DX: M06.4 Inflammatory polyarthropathy (principal); M32.9 Systemic lupus erythematosus, unspecified; Z79.899 Other long term (current) drug therapy
CPT/HCPCS: 36415; 80053; 85025

== ENCOUNTER 2023-11-11 09:34 | Emergency (ER) | payer MEDICARE, OTHER, SELFPAY ==
[2023-11-11 09:35] VITALS: BP 142/85; PULSE 74; RESP 16; TEMP 36.5; O2SAT 96; BMI 35.1
[2023-11-11 09:38] VITALS: BP 148/70; PULSE 72; RESP 14; TEMP 36.6; O2SAT 98
--- NOTE | 2023-11-11 10:31 | EX.ED.UPPERE ---
HPI History of Present Illness Chief Complaint: Upper Extremity Injury Detail of Chief Complaint: Pain and swelling left middle finger Informant: patient Narrative Narrative: Patient presents with pain and swelling to the left middle finger that started 3 days ago. Patient states that he pulled a hangnail and afterwards noticed increased pain and redness and swelling around the nail. Patient is right-hand dominant. He is a type II diabetic. Denies fevers or chills or sweats. [facility] Medical History Drug-induced thrombocytopenia custodial (current) use of anticoagulants History of CVA (cerebrovascular accident) (03/06/21) History of TIA (transient ischemic attack) Rheumatoid arthritis Benign paroxysmal positional vertigo Paroxysmal atrial fibrillation Arthritis of left knee Gout Lumbar stenosis Hyperlipidemia Diabetes mellitus, type II Essential hypertension Home Medications ?Medication ?Instructions ?Recorded ?Last Taken ?Type lisinopril 10 mg tablet 10 mg PO DAILY bp 06/28/18 03/05/21 10:00 History allopurinol 300 mg tablet 300 mg PO DAILY gout 10/29/20 03/05/21 10:00 History gabapentin 800 mg tablet 800 mg PO TID neuropathy 07/18/22 Unknown History acetaminophen 500 mg tablet 1,000 mg (2 x 500 mg) PO Q6H PRN 12/20/22 Unknown Rx Pain 1-10 Or Fever #0 tabs gysjrifx-[id number] 300 mcg-K 60 1 tab PO DAILY 05/21/23 Unknown History mcg-lycop 600 mcg-lutein 300 mcg tablet (Centrum Silver Men) insulin lispro 100 unit/mL See Rx Instructions subcut TIDCM 07/09/23 Unknown Rx subcutaneous pen (Humalog KwikPen dm #30 mL (U-100) Insulin) Lantus Solostar U-100 Insulin 100 36 unit (0.36 mL) subcut QPM 08/20/23 Unknown Rx unit/mL (3 mL) subcutaneous pen diabetes #45 mL (insulin glargine) metoprolol tartrate 25 mg tablet 25 mg PO BID bp/hr #180 tabs 08/20/23 Unknown Rx atorvastatin 40 mg tablet 40 mg PO 4XW cholesterol 09/24/23 Unknown History erythromycin 5 mg/gram (0.5 %) eye 1 applic ophthalmic (eye) Q3H 09/24/23 Unknown History ointment folic acid 1 mg tablet 1 mg PO DAILY 09/24/23 Unknown History metformin 500 mg tablet 1,000 mg PO BID dm 09/24/23 Unknown History methotrexate sodium 2.5 mg tablet 20 mg PO QWEEK 09/24/23 Unknown History polyethylene glycol 3350 17 4 g PO DAILY 09/24/23 Unknown History gram/dose oral powder (Miralax) tirzepatide 10 mg/0.5 mL 10 mg (0.5 mL) subcut QWEEK #6 mL 09/24/23 Unknown Rx subcutaneous pen injector (Mounjaro) valacyclovir 1 gram tablet 1,000 mg PO QDAY 09/24/23 Unknown History warfarin 2 mg tablet 2 mg PO .SAT-MON 09/24/23 Unknown History tirzepatide 7.5 mg/0.5 mL 7.5 mg (0.5 mL) subcut QWEEK #2 mL 10/22/23 Unknown Rx subcutaneous pen injector (Mounjaro) warfarin 4 mg tablet 4 mg PO .COMPLEX afib #90 tabs 10/30/23 Unknown Rx cephalexin 500 mg capsule 500 mg PO Q6 #28 CAPSULES 11/11/23 Unknown Rx Allergy/AdvReac Type Severity Reaction Status Date / Time apixaban (From Eliquis) AdvReac Severe Severe Verified 09/24/23 09:17 dizziness amoxicillin (Amoxicillin) AdvReac Other Verified 09/24/23 09:17 vancomycin AdvReac Low Verified 09/24/23 09:17 platelets Family History Father Abdominal aortic aneurysm CAD (coronary artery disease) Mother Hypertension Brother Hyperlipidemia Hypertension Surgical History History of loop recorder (05/30/21) Previous back surgery History of colonoscopy (02/2013) History of esophagogastroduodenoscopy (EGD) (02/2013) History of colon resection (02/16/07) H/O carpal tunnel repair History of laparoscopic cholecystectomy (04/03/13) Social History household members: spouse Smoking Status: Former smoker quit date: 05/28/15 how long ago did patient quit smokin years ago alcohol intake: current alcohol intake frequency: holidays/special occasions only substance use type: does not use caffeine: Yes Type: carbonated beverages Number of servings: 1 and coffee Number of servings: 2 ROS ROS ED Review of Systems ROS Unobtainable: other Constitutional Constitutional ED: Reports lethargy; Denies chills, fever(s), sweats or weight loss Eyes Eyes: Denies blurry vision, change in vision or diplopia ENT ENT ED: Denies rhinorrhea or sore throat Cardiovascular Cardiovascular: Denies chest pain, orthopnea or racing heartbeat Respiratory/Chest Respiratory/Chest: Denies cough, dyspnea, dyspnea on exertion, orthopnea or sputum Gastrointestinal Gastrointestinal: Denies abdominal pain, diarrhea, nausea or vomiting Genitourinary Genitourinary ED: Denies dysuria, hematuria or urinary frequency Musculoskeletal Musculoskeletal: Reports other Details: Pain redness and swelling to left middle finger ; Denies arthralgias, back pain, myalgias or neck pain Integumentary Denies abscess, Abrasions or rash Neurologic Neurologic: Denies headache(s) or weakness Psychiatric Psychiatric: Denies anxiety, depression or suicidal thoughts Endocrine Endocrinology: Denies polydipsia, polyphagia or polyuria Hematologic/Lymphatic Hematologic/Lymphatic: Denies easy bleeding, easy bruising or lymphadenopathy Allergic/Immunologic Allergic/Immunologic ED: Denies mouth swelling, tongue swelling or urticaria EXAM Physical Exam Const Vital Signs: 11/11/23 09:35 11/11/23 09:38 Temperature 97.7 F L 97.9 F Temperature Source Oral Oral Pulse Rate 74 72 Respiratory Rate 16 14 Blood Pressure 142/85 H 148/70 H Blood Pressure Mean 104 96 Pulse Ox 96 98 Oxygen Delivery Method Room Air Room Air Positive well nourished and well developed General Appearance ED: well developed and NAD HEENT Reports TM's clear and moist mucous membranes normocephalic and atraumatic; Negative for trauma or tenderness Tympanic Membrane ED: Yes TM's clear Eyes PERRL and EOMs intact bilaterally General Eye ED: Negative for pale conjunctiva or scleral icterus Neck no lymphadenopathy, supple and no JVD General: Negative for tenderness Chest Wall inspection of chest normal and palpation of chest normal Chest: Negative for tenderness Resp normal respiratory effort and clear to auscultation bilaterally Effort and Inspection: Negative for respiratory distress or pain with movement Auscultation: Negative for rhonchi, wheezes or diminished lung sounds Cardio regular rate, regular rhythm, S1 normal heart sound, S2 normal heart sound and no murmurs Peripheral Pulses: pulses 2+ throughout GI normal to inspection, nondistended, normoactive bowel sounds, soft to palpation, non-tender, non-distended and no masses Back/Spine no CVA tenderness and no thoracic nor lumbar tenderness Extremity Extremity Narrative: Left middle finger-patient has have erythema and fluctuance around the proximal portion of the distal phalanx proximal to the nail consistent with a paronychia. No significant cellulitic changes noted. Neurovascularly intact. General Extremety ED: Negative for edema General Extremity: Negative for edema Neuro oriented x3, CN's II-XII intact bilaterally, no sensory deficits noted and gait normal Sensorium / Orientation: awake, alert, oriented to person, oriented to place and oriented to time Motor Exam: strength 5/5 throughout and strength abnormal Psych mental status grossly normal Skin no rashes or lesions noted and no wounds MDM MDM MDM Narrative Medical decision making narrative: Patient presents with a paronychia that started 3 days ago. No significant cellulitic changes. Recommended incision and drainage to which she agreed. I cleansed the skin with alcohol swab and then using a 18-gauge needle bevel made a small 5 mm incision into the fluctuant portion of the suspected abscess/paronychia and large amount of purulent debris was expressed. Patient tolerated procedure well. Clean dressing applied. He was given a dose of Keflex. Will treat with Keflex for 7 days. Advised to follow-up with primary care physician 5 to 7 days for wound check. Return if increasing pain, redness, swelling, or condition should worsen anyway. Discharge Plan Triage Chief Complaint: Upper Extremity Injury ED Provider: Vicky Marsh Dx/Rx/DC Orders Clinical Impression: Paronychia Instructions: ED Paronychia of the Finger or Toe Prescriptions: New cephalexin 500 mg capsule 500 mg PO Q6 Qty: 28 0RF No Action lisinopril 10 mg tablet 10 mg PO DAILY gabapentin 800 mg tablet 800 mg PO TID atorvastatin 40 mg tablet 40 mg PO 4XW folic acid 1 mg tablet 1 mg PO DAILY Centrum Silver Men [phone] mcg tablet 1 tab PO DAILY methotrexate sodium 2.5 mg tablet 20 mg PO QWEEK erythromycin 5 mg/gram (0.5 %) ointment 1 applic ophthalmic (eye) Q3H polyethylene glycol 3350 [Miralax] 17 gram/dose powder 4 g PO DAILY valacyclovir 1 gram tablet 1,000 mg PO QDAY warfarin 2 mg tablet 2 mg PO . Protocol: Dose Management Condition: Sunday Dose/Route: 4 mg Instruction: 1 x 4 mg tablet Condition: Sunday Dose/Route: 2 mg Instruction: 1 x 2 mg tablet Condition: Sunday Dose/Route: 4 mg Instruction: 1 x 4 mg tablet Condition: Sunday Dose/Route: 4 mg Instruction: 1 x 4 mg tablet Condition: Dose/Route: 4 mg Instruction: 1 x 4 mg tablet Condition: Sunday Dose/Route: 4 mg Instruction: 1 x 4 mg tablet Condition: Sunday Dose/Route: 4 mg Instruction: 1 x 4 mg tablet Protocol Text: Adjustment Start Date: Sunday11/05/23 INR Value: 3.6 INR Date: 11/05/23 Recheck Date: 11/12/23 Mounjaro 10 mg/0.5 mL pen injector 10 mg subcut QWEEK Qty: 6 1RF metformin 500 mg tablet 1,000 mg PO BID allopurinol 300 mg tablet 300 mg PO DAILY Rx Instructions: take with food and fluids acetaminophen 500 mg Tablet 1,000 mg PO Q6H PRN (Reason: Pain 1-10 Or Fever) Qty: 0 0RF insulin lispro [Humalog KwikPen Insulin] 100 unit/mL insulin pen See Rx Instructions SUBCUT TIDCM Qty: 30 1RF Rx Instructions: 12-12-13 TID before meals metoprolol tartrate 25 mg tablet 25 mg PO BID Qty: 180 3RF insulin glargine [Lantus Solostar U-100 Insulin] 100 unit/mL (3 mL) insulin pen 36 unit subcut QPM Qty: 45 1RF Mounjaro 7.5 mg/0.5 mL pen injector 7.5 mg subcut QWEEK Qty: 2 3RF Rx Instructions: to be used when 10 mg is unavailable warfarin 4 mg tablet 4 mg PO .COMPLEX Qty: 90 3RF Protocol: Dose Management Condition: Sunday Dose/Route: 4 mg Instruction: 1 x 4 mg tablet Condition: Sunday Dose/Route: 2 mg Instruction: 1 x 2 mg tablet Condition: Sunday Dose/Route: 4 mg Instruction: 1 x 4 mg tablet Condition: Sunday Dose/Route: 4 mg Instruction: 1 x 4 mg tablet Condition: Dose/Route: 4 mg Instruction: 1 x 4 mg tablet Condition: Sunday Dose/Route: 4 mg Instruction: 1 x 4 mg tablet Condition: Sunday Dose/Route: 4 mg Instruction: 1 x 4 mg tablet Protocol Text: Adjustment Start Date: Sunday11/05/23 INR Value: 3.6 INR Date: 11/05/23 Recheck Date: 11/12/23 Rx Instructions: 4 mg orally Daily: take with a 2mg tablet every Sunday to = 6mg; Primary Care Provider: Alvarado Madrigal Referrals: Alvarado Madrigal MD [Primary Care Provider] - 5-7 Days Print Language: Moroccan Disposition Disposition: Home, Self Care
[2023-11-11] MEDS: Cephalexin 250 MG Capsule 500 MG PO (10:45)
== END 2023-11-11 10:57 | disposition home or self-care (01) ==
PROVIDERS: Emergency Provider Emergency Medicine; PCP Family Medicine; Visit Provider Emergency Medicine
DX: L03.012 Cellulitis of left finger (principal); E11.9 Type 2 diabetes mellitus without complications; Z87.891 Personal history of nicotine dependence; Z86.73 Personal history of transient ischemic attack (TIA), and cerebral infarction without residual deficits
CPT/HCPCS: 99282

== ENCOUNTER 2023-11-26 08:44 | Outpatient (RCR) | payer MEDICARE, OTHER, SELFPAY ==
[2023-11-05 08:35] LABS: International Normalized Ratio 3.6; Prothrombin Time (Protime)PT. 35.3 SECONDS (11.7-14.9)
[2023-11-12 10:28] LABS: International Normalized Ratio 2.7; Prothrombin Time (Protime)PT. 28.2 SECONDS (11.7-14.9)
[2023-11-26 09:27] LABS: International Normalized Ratio 2.3; Prothrombin Time (Protime)PT. 25.1 SECONDS (11.7-14.9)
== END 2023-11-26 18:00 | disposition home or self-care (01) ==
LOC: LAB 08:44
PROVIDERS: PCP Family Medicine; Referring Provider Internal Medicine Cardiovascular Disease; Visit Provider Internal Medicine Cardiovascular Disease
DX: Z79.01 Long term (current) use of anticoagulants; I48.19 Other persistent atrial fibrillation
CPT/HCPCS: 36415; 85610

== ENCOUNTER 2023-12-17 08:55 | Outpatient (RCR) | payer MEDICARE, OTHER, SELFPAY ==
[2023-12-17 09:35] LABS: International Normalized Ratio 2.3; Prothrombin Time (Protime)PT. 25.4 SECONDS (11.7-14.9)
== END 2023-12-17 18:00 | disposition home or self-care (01) ==
LOC: LAB 08:55
PROVIDERS: PCP Family Medicine; Referring Provider Internal Medicine Cardiovascular Disease; Visit Provider Internal Medicine Cardiovascular Disease
DX: I48.0 Paroxysmal atrial fibrillation (principal); Z79.01 Long term (current) use of anticoagulants
CPT/HCPCS: 36415; 85610

== ENCOUNTER → 2024-01-07 | Outpatient (CLI) | payer MEDICARE, OTHER, SELFPAY ==
[2024-01-07 12:22] LABS: Absolute Lymphocyte Count 1.68 X10^3/uL (0.83-4.51); Absolute Neutrophil Count 2.1 X10^3/uL (2.0-7.7); Basophil# 0.02 X10^3/uL; Basophil% 0.5 % (0-1); Eosinophil# 0.11 X10^3/uL; Eosinophils% 2.6 % (0-5); Hematocrit 35.5 % (40-54); Hemoglobin 12.1 g/dL (13.0-16.5); Lymphocyte # 1.68 X10^3/ul (0.83-4.51); Lymphocyte % 39.7 % (19-41); Mean Corp Hgb Conc 34.1 g/dL (32-36); Mean Corpuscular Hgb 36.9 pg (27.0-32.0); Mean Corpuscular Volume 108.2 fL (80-94); Monocyte# 0.37 X10^3/uL; Monocyte% 8.7 % (0-10); NRBC Flagged by Analyzer 0 % (0-5); Neutrophil # 2.05 X10^3/uL (2.7-7.7); Neutrophil % 48.5 % (47-70); Platelet Count 164 K/mm3 (150-450); RBC Distribution Width CV 12.8 % (11.6-14.6); RBC Distribution Width SD 51.1 fl (35.1-43.9); Red Blood Count 3.28 M/mm3 (4.6-6.2); White Blood Count 4.2 K/mm3 (4.4-11.0)
[2024-01-07 13:16] LABS: AST(SGOT) 36 U/L (15-37); Alanine Aminotransfer ALT/SGPT 35 U/L (16-61); Albumin, Serum 3.6 g/dL (3.2-5.0); Alkaline Phosphatase 63 U/L (45-117); Anion Gap 8 (5-15); BUN 16 mg/dL (7-18); BUN/Creat Ratio 18.6 RATIO (10-20); Calcium,Total 9.2 mg/dL (8.5-10.1); Chloride 108 mmol/L (98-107); Creatinine, Serum 0.86 mg/dL (0.70-1.30); EST Glomerular Filtration Rate 92 mL/min (>60); Est Glom Filt Rate - Afr Amer 112 mL/min (>60); Globulin 3.5 g/dL (2.2-4.2); Glucose 95 mg/dL (74-106); Potassium 4.3 mmol/L (3.5-5.1); Protein, Total 7.1 g/dL (6.4-8.2); Sodium Level 138 mmol/L (136-145)
== END | disposition home or self-care (01) ==
PROVIDERS: PCP Family Medicine; Referring Provider Internal Medicine Rheumatology; Visit Provider Internal Medicine Rheumatology
DX: M06.4 Inflammatory polyarthropathy (principal); M32.9 Systemic lupus erythematosus, unspecified; Z79.899 Other long term (current) drug therapy
CPT/HCPCS: 36415; 80053; 85025

== ENCOUNTER 2024-01-10 22:02 | Inpatient (IN) | payer MEDICARE, OTHER, SELFPAY ==
[2024-01-10 22:03] VITALS: BP 147/93; PULSE 99; RESP 17; TEMP 39.5; O2SAT 98; BMI 35.1
[2024-01-10 22:07] VITALS: BMI 35.1
--- NOTE | 2024-01-10 22:56 | EKG12_ITS ---
Test Reason : NEURO S/SX Blood Pressure : */* mmHG Vent. Rate : 97 BPM Atrial Rate : 97 BPM P-R Int : 192 ms QRS Dur : 76 ms QT Int : 332 ms P-R-T Axes : * -26 53 degrees QTcB Int : 421 ms Sinus rhythm with Premature supraventricular complexes Otherwise normal ECG Confirmed by ADELINE JUNG, GILDA ([id number]), editor newspaper OCTAVIA COX ([id number]) on 01/15/2024 7:53:19 AM Referred By: QAMAR Confirmed By: GILDA LR MD
--- NOTE | 2024-01-10 22:56 | CT_ITS ---
INDICATION: ataxia (R) EXAMINATION: CT BRAIN WITH CONTRAST TECHNIQUE: Noncontrast axial images were obtained of the brain. Subsequently, routine carotid CT angiogram protocol was performed without and with IV contrast. In addition, images were obtained of the [place]. NASCET criteria using the distal ICAs for comparison were used for evaluation of stenoses. 3D reconstructions were reviewed. A radiation dose optimization technique was used for this scan. IV Contrast dosage and agent: 100 cc [id number] COMPARISON: 03/05/2021 FINDINGS: --CT BRAIN: BRAIN PARENCHYMA: No intra- or extra-axial hemorrhage. No evidence of acute infarct. No intracranial mass or mass effect. There is preservation of the coe/white matter interface. Posterior fossa structures are unremarkable. CSF SPACES: Appropriate for age. No hydrocephalus. Basal cisterns are patent. CALVARIUM, SKULL BASE, PARANASAL SINUSES AND MASTOID AIR CELLS: Scattered mucoperiosteal disease. No discrete lytic or blastic abnormalities. --CTA NECK: AORTIC ARCH AND BRANCHES: Vessel origins patent. RIGHT CCA: No occlusion, significant stenosis or dissection. RIGHT ICA: No occlusion, significant stenosis or dissection. LEFT CCA: No occlusion, significant stenosis or dissection. LEFT ICA: No occlusion, significant stenosis or dissection. RIGHT VERTEBRAL ARTERY: Stable moderate stenosis with plaque in the distal right vertebral artery. LEFT VERTEBRAL ARTERY: Stable extensive plaque with severe stenosis in the distal left vertebral artery, stenosis greater than 70%. NECK SOFT TISSUES: Unremarkable. --CTA HEAD: --Anterior circulation: ICAs: No significant stenosis at the intracranial/visualized segments. ACAs: No significant stenosis at the visualized segments. ACOM: Present. MCAs: No significant stenosis at the visualized segments. --Posterior circulation: PCOMs: Patent bilaterally. flower maker: No significant stenosis at the visualized segments. BASILAR ARTERY: No significant stenosis. VERTEBRAL ARTERIES: No significant stenosis at the intradural/visualized segments. No evidence of intracranial aneurysm or vascular malformation. CT/CTA Head AND Neck W/ Contrast IMPRESSION: No acute intracranial findings. 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 No significant major vessel vaso-occlusive disease in the head. Electronically Signed: Kris Kapoor MD at 0:04 EST ,
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
[2024-01-10 23:03] VITALS: BP 174/116; PULSE 100; O2SAT 98
[2024-01-10 23:05] LABS: Absolute Lymphocyte Count 1.24 X10^3/uL (0.83-4.51); Absolute Neutrophil Count 8.7 X10^3/uL (2.0-7.7); Basophil# 0.02 X10^3/uL; Basophil% 0.2 % (0-1); Eosinophil# 0.02 X10^3/uL; Eosinophils% 0.2 % (0-5); Hemoglobin 12.6 g/dL (13.0-16.5); Lymphocyte # 1.24 X10^3/ul (0.83-4.51); Lymphocyte % 11.1 % (19-41); Mean Corp Hgb Conc 34.1 g/dL (32-36); Mean Corpuscular Hgb 37.5 pg (27.0-32.0); Mean Corpuscular Volume 110.1 fL (80-94); Mean Platelet Vol. 10.4 fl (6.2-12.0); Monocyte# 1.07 X10^3/uL; Monocyte% 9.6 % (0-10); NRBC Flagged by Analyzer 0 % (0-5); Neutrophil # 8.74 X10^3/uL (2.7-7.7); Neutrophil % 78.5 % (47-70); Platelet Count 142 K/mm3 (150-450); RBC Distribution Width CV 13.3 % (11.6-14.6); RBC Distribution Width SD 53.9 fl (35.1-43.9); Red Blood Count 3.36 M/mm3 (4.6-6.2); White Blood Count 11.1 K/mm3 (4.4-11.0)
--- NOTE | 2024-01-10 23:15 | RAD_ITS ---
INDICATION: hypertension EXAMINATION/TECHNIQUE: X-RAY - portable upright AP chest x-ray COMPARISON: 12/19/2022 FINDINGS: LINES/DEVICES: Stable loop recording device. LUNGS: Low lung volumes without consolidation, vascular congestion or pleural effusion. MEDIASTINUM AND CARDIOVASCULAR STRUCTURES: Cardiac silhouette stable within upper normal limits. BONES AND SOFT TISSUES: No acute changes. RAD/Chest 1 View (Portable) IMPRESSION: No radiographic evidence of acute cardiopulmonary disease. Electronically Signed: Kris Kapoor MD at 23:48 EST ,
[2024-01-10 23:24] LABS: Anion Gap 5 (5-15); BUN 20 mg/dL (7-18); BUN/Creat Ratio 19.4 RATIO (10-20); Calcium,Total 9.4 mg/dL (8.5-10.1); Chloride 104 mmol/L (98-107); Creatinine, Serum 1.03 mg/dL (0.70-1.30); EST Glomerular Filtration Rate 75 mL/min (>60); Est Glom Filt Rate - Afr Amer 90 mL/min (>60); Estimated Creatinine Clearance 77.31 ml/min; Glucose 124 mg/dL (74-106); Potassium 4.5 mmol/L (3.5-5.1); Sodium Level 136 mmol/L (136-145)
[2024-01-10 23:43] LABS: International Normalized Ratio 2.2; Prothrombin Time (Protime)PT. 24.5 SECONDS (11.7-14.9)
[2024-01-11] VITALS (14 sets, daily range): BP systolic 100–157; BP diastolic 56–85; PULSE 78–117; RESP 14–18; TEMP 36.9–37.8; O2SAT 96–99; BMI 34.4
[2024-01-11 00:49] LABS: Bacteria 0 SEEN /hpf (None Seen); Color, Urine Yellow (Yellow); Glucose, Dipstick Normal (Normal); Ketone-Dipstick Negative (Negative); Leukocyte Esterase-Dipstick Negative /ul (Negative); Mucous, Urine 0 SEEN /hpf (<or=2+); Nitrite-Dipstick Negative (Negative); Occult Blood-Urine 25 /ul (Negative); Protein-Dipstick 30 mg/dl (Negative); Red Blood Cells-Urine 0 SEEN /hpf (0-5); Specific Gravity, Urine 1.015 (1.002-1.030); Squamous Epithelial Cells - UA 0 SEEN /hpf (0-5); Urine Bilirubin Dipstick Negative (Negative); Urine Clarity Clear (Clear); Urine Urobilinogen Normal (Normal); White Blood Cells 0 SEEN /hpf (0-5)
[2024-01-11] MEDS: Acetaminophen 500 MG Tablet 1000 MG PO (00:52)
--- NOTE | 2024-01-11 02:11 | CT_ITS ---
EXAM: CT Pelvis W/O Contrast Injection HISTORY: perineal abscess BUMP BELOW SCROTUM X 3 DAYS,? ABSCESS TECHNIQUE: Routine protocol CT pelvis. IV Contrast: None.. Oral contrast: None. RADIATION DOSAGE (If Supplied By Facility): CTDIvol = ( 28.21 ) mGy, DLP = ( 1254.28 ) mGycm Individualized dose optimization techniques were used for this CT. COMPARISON: None. LIMITATIONS: Lack of IV contrast. FINDINGS: PERITONEUM: No free air or free fluid. BOWEL: No dilated bowel. APPENDIX: Not identified. VESSELS: Abdominal aorta is normal caliber. REPRODUCTIVE ORGANS: Grossly unremarkable URINARY BLADDER: Distended with contrast presumably from prior study. ABDOMINAL WALL: Relatively localized collection in the perineum at the base of the scrotum, measures approximately 4.3 x 2.2 x 3.1 cm with mild adjacent stranding. Suboptimal without IV contrast. No air in the region or in the soft tissues. BONES: No acute abnormalities. CT/Pelvis without IV Contrast IMPRESSION: Collection in the perineum at the base of the scrotum possible abscess. Electronically Signed: Marah Balderrama MD at 3:40 EST ,
--- NOTE | 2024-01-11 02:19 | HP.PCM.HOS_ITS ---
HPI - General General Date of Admission: 01/11/24 Date of Service: 01/11/24 Chief Complaint: Imbalance, gait disturbance/ataxia HPI Narrative The patient is a 73 y/o M w/ PMHx: Chronic anemia, Hx drug-induced thrombocytopenia, PAF, Hx CVA/TIA with history of carotid disease reporting that he previously had gait imbalance and would lean towards the left as a result, Chronic RLE radiculopathy, HTN, HLD, BPPV, Rheumatoid arthritis, Gout, Diabetes mellitus type II who presents to the [facility] ED on 01/11/24 per EMS secondary to significant fatigue, malaise, unsteady gait especially to the right with NIH stroke scale 0 per squad and also in triage however he does have history of previous stroke. He does report that this has been intermittent starting the evening prior and has sometimes improved. He initially noted he had a scrotal US outpatient on day of presentation and it wasnt until the fever evaluation yielded no cause that he eventually reported having a bump beneath his scrotum which started ~ 3 days prior with then onset of fever over the last 2 days. He believes that his weakness, possibly R leaning was secondary to having the possible infection. Discussed with and she notes the symptoms of ataxia seemed to have been intermittent. Workup in the ED included T103.1, heart 99, BP 147/93, respiratory rate 17, 98% on room air, CBC with WBC 11.1, hemoglobin 12.6, MCV 110.1, platelet 142 with left shift, BMP with BUN/creatinine 20/1.03, GFR 75, glucose 124, INR 2.2, chest x-ray with no acute cardiopulmonary findings, CTA head and neck with no acute intracranial findings with stable severe stenosis of the distal left vertebral artery likely greater than 70% with no significant major vessel vaso-occlusive disease in the head otherwise, prehospital EKG with sinus rhythm with no acute evidence of ischemia, urinalysis unremarkable, blood culture x 2 pending per ED, COVID/flu/RSV PCR negative. In the ED NIH stroke scale 0. NAD patient is for Tylenol [address] x 1. [address] pelvis pending upon evaluation of patient. Evaluated patient and remained for I+D of perineal possible small abscess; however, there was a noted pocket with some induration but no marked intense fluctuance or erythema and when I&D was performed by the ED physician there was not a significant amount of any purulent discharge. Swabs were placed into the area that was undermined in a.m. MRSA wound and a wound culture were sent per ED. In the ED patient administered IV zosyn. 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 History of CVA (cerebrovascular accident) (03/06/21) History of TIA (transient ischemic attack) Rheumatoid arthritis Benign paroxysmal positional vertigo Paroxysmal atrial fibrillation Arthritis of left knee Gout Lumbar stenosis Hyperlipidemia Diabetes mellitus, type II Essential hypertension Home Medications ?Medication ?Instructions ?Recorded ?Last Taken ?Type lisinopril 10 mg tablet 10 mg PO DAILY bp 06/28/18 03/05/21 10:00 History allopurinol 300 mg tablet 300 mg PO DAILY gout 10/29/20 03/05/21 10:00 History gabapentin 800 mg tablet 800 mg PO TID neuropathy 07/18/22 Unknown History ggdnldds-tn-agzqs 300 mcg-K 60 1 tab PO DAILY 05/21/23 Unknown History mcg-lycop 600 mcg-lutein 300 mcg tablet (Centrum Silver Men) metoprolol tartrate 25 mg tablet 25 mg PO BID bp/hr #180 tabs 08/20/23 Unknown Rx atorvastatin 40 mg tablet 40 mg PO 4XW cholesterol 09/24/23 Unknown History erythromycin 5 mg/gram (0.5 %) eye 1 applic ophthalmic (eye) Q3H 09/24/23 Unknown History ointment folic acid 1 mg tablet 1 mg PO DAILY 09/24/23 Unknown History metformin 500 mg tablet 1,000 mg PO BID dm 09/24/23 Unknown History methotrexate sodium 2.5 mg tablet 20 mg PO QWEEK 09/24/23 Unknown History valacyclovir 1 gram tablet 1,000 mg PO QDAY 09/24/23 Unknown History warfarin 2 mg tablet 2 mg PO .SAT-MON 09/24/23 Unknown History tirzepatide 7.5 mg/0.5 mL 7.5 mg (0.5 mL) subcut QWEEK #2 mL 10/22/23 Unknown Rx subcutaneous pen injector (Mounjaro) acetaminophen 500 mg tablet 1,000 mg PO BID PRN Pain 1-10 Or 01/11/24 Unknown History Fever insulin glargine 100 unit/mL (3 30 unit subcut QPM diabetes 01/11/24 Unknown History mL) subcutaneous pen (Lantus Solostar U-100 Insulin) insulin lispro 100 unit/mL See Rx Instructions subcut TIDCM dm 01/11/24 Unknown History subcutaneous pen (Humalog KwikPen (U-100) Insulin) warfarin 4 mg tablet 4 mg PO .COMPLEX afib 01/11/24 Unknown History Allergy/AdvReac Type Severity Reaction Status Date / Time apixaban (From Eliquis) AdvReac Severe Severe Verified 01/10/24 22:06 dizziness vancomycin AdvReac Low Verified 01/10/24 22:06 platelets Family History Father Abdominal aortic aneurysm CAD (coronary artery disease) Mother Hypertension Brother Hyperlipidemia Hypertension Surgical History History of loop recorder (05/30/21) Previous back surgery History of colonoscopy (02/2013) History of esophagogastroduodenoscopy (EGD) (02/2013) History of colon resection (02/16/07) H/O carpal tunnel repair History of laparoscopic cholecystectomy (04/03/13) Social History household members: spouse Smoking Status: Former smoker quit date: 05/28/15 how long ago did patient quit smokin years ago alcohol intake: current alcohol intake frequency: holidays/special occasions only substance use type: does not use caffeine: Yes Type: carbonated beverages Number of servings: 1 and coffee Number of servings: 2 ROS ROS Narrative Admission Review of Systems: CONSTITUTIONAL: No weight loss, + weakness, fatigue, fever, chills. HEENT: Eyes: No visual loss, blurred vision, double vision or yellow sclerae. Ears, Nose, Throat: No hearing loss, sneezing, congestion, runny nose or sore throat. SKIN: No rash or itching, lesions except + reported enlarging bump underneath his scrotum/on the perineum, TTP. CARDIOVASCULAR: No chest pain, chest pressure or chest discomfort, palpitations, edema, orthopnea, syncopal events. RESPIRATORY: No shortness of breath, cough or sputum, wheezing, hemoptysis. GASTROINTESTINAL: No anorexia, nausea, vomiting or diarrhea, abdominal pain, melena, BRBPR. GENITOURINARY: No dysuria, frequency, urgency or retention. + Reported enlarging bump underneath his scrotum/on the perineum, TTP. NEUROLOGICAL: + Gait imbalance/ataxia, falling to the right, disequilibrium. No headache, syncope, paralysis, ataxia, numbness or tingling in the extremities, focal weakness, change in bowel or bladder control, seizure. MUSCULOSKELETAL: + muscle, back pain, joint pain or stiffness. HEMATOLOGIC: + Chronic anemia, easy bleeding/bruising. LYMPHATICS: No enlarged nodes. No history of splenectomy. PSYCHIATRIC: No history of depression or anxiety. ENDOCRINOLOGIC: No reports of sweating, cold or heat intolerance. No polyuria or polydipsia. ALLERGIES: No history of asthma, hives, eczema or rhinitis. Vital Signs Vital Signs Vital Signs: 01/10/24 22:03 01/10/24 23:03 01/11/24 00:00 Temperature 103.1 F H Temperature Source Oral Pulse Rate 99 100 100 Respiratory Rate 17 18 Blood Pressure 147/93 H 174/116 H 157/85 H Blood Pressure Mean 111 135 109 Pulse Ox 98 98 98 Oxygen Delivery Method Room Air Room Air 01/11/24 01:00 01/11/24 02:00 Temperature Temperature Source Pulse Rate 92 92 Respiratory Rate 18 18 Blood Pressure 125/63 H 113/72 Blood Pressure Mean 83 85 Pulse Ox 96 97 Oxygen Delivery Method Room Air Room Air Weight Weight: 244 lb 11.41 oz Body Mass Index (BMI) 35.1 Physical Exam Narrative Physical Examination: General: Awake, alert, oriented x 3 and cooperative, seated upright in the ED bed, notes feeling fatigued, notes some discomfort with palpation of the perineal region. Ambulatory trial in the emergency room with no evidence of any current ataxia. Skin: Normal color, normal turgor, no icterus, no cyanosis except for lower scrotal/midline perineal area of swelling/mild induration but no significant fluctuance, tender to palpation and with I&D ability to certainly open up an area which seem to undermine but no marked purulent discharge from it. HEENT: AT/NC, EOMI, PERRLA, MMM, lacking dentition, no carotid bruits or JVD noted. Lungs: Mildly diminished, greater bases, proper effort, no rales, ronchi or wheezing. Heart: Regular rate and rhythm; no gallop, rub audible. Abdomen: Soft, obese, NTTP, ND, normal BS, no appreciated HSM. Extremities: No cyanosis, clubbing, or edema. Neurological: Patient awake, alert, oriented as noted, cognitive function intact; pupils equally reactive to light and accommodation, cranial nerves gross normal except reported chronic left-sided facial paresthesias following a previous history of shingles, moving all 4 extremities, no focal deficits, strength moderately globally decreased, finger-nose and [id number] appropriate, equivocal Babinski, sensation intact except deficit to the left side of the face following shingles infection previously. Psychiatric: Affect appears fatigued otherwise normal, no acute evidence of depressive or anxiety feelings. Results Lab / Micro Data 01/10/24 21:55 01/10/24 21:55 Labs: Laboratory Results - last 24 hr 01/10/24 21:55: WBC 11.1 H, RBC 3.36 L, Hgb 12.6 L, Hct 37.0 L, MCV 110.1 H, MCH 37.5 H, MCHC 34.1, RDW Std Deviation 53.9 H, RDW Coeff of Angelique 13.3, Plt Count 142 L, MPV 10.4, Immature Gran % (Auto) 0.400, Neut % (Auto) 78.5 H, Lymph % (Auto) 11.1 L, [place] % (Auto) 9.6, Eos % (Auto) 0.2, Baso % (Auto) 0.2, Absolute Neuts (auto) 8.7 H, Absolute Lymphs (auto) 1.24, Nucleated RBC % 0, PT 24.5 H, INR 2.2, Sodium 136, Potassium 4.5, Chloride 104, Carbon Dioxide 27.0, Anion Gap 5, BUN 20 H, Creatinine 1.03, Estim Creat Clear Calc 77.31, Est GFR (MDRD) Af Amer 90, Est GFR (MDRD) Non-Af 75, BUN/Creatinine Ratio 19.4, Glucose 124 H, Calcium 9.4 01/10/24 22:47: Urine Color Yellow, Urine Clarity Clear, Urine pH 6.0, Ur Specific [place] 1.015, Urine Protein 30 H, Urine Glucose (UA) Normal, Urine Ketones Negative, Urine Occult Blood 25 H, Urine Nitrite Negative, Urine Bilirubin Negative, Urine Urobilinogen Normal, Ur Leukocyte Esterase Negative, Urine RBC 0 SEEN, Urine WBC 0 SEEN, Ur Squamous Epith Cells 0 SEEN, Urine Bacteria 0 SEEN, Urine Mucus 0 SEEN Micro: Microbiology 01/11/24 00:50 Mucosa - Nose SARS-CoV-2, Influenza & RSV (PCR) - Final Imaging Radiology Impression Head/Neck CTA 01/10/24 22:56 IMPRESSION: No acute intracranial findings. 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 No significant major vessel vaso-occlusive disease in the head. Electronically Signed: Kris Kapoor MD at 0:04 EST , Chest X-Ray 01/10/24 23:15 IMPRESSION: No radiographic evidence of acute cardiopulmonary disease. Electronically Signed: Kris Kapoor MD at 23:48 EST , Assessment & Plan Assessment/Plan (1) Ataxia: (2) Perineal abscess: PLAN: Plan The patient is a 73 y/o M w/ PMHx: Chronic anemia, Hx drug-induced thrombocytopenia, PAF, Hx CVA/TIA with history of carotid disease reporting that he previously had gait imbalance and would lean towards the left as a result, Chronic RLE radiculopathy, HTN, HLD, BPPV, Rheumatoid arthritis, Gout, Diabetes mellitus type II who presents to the [facility] ED on 01/11/24 per EMS secondary to significant fatigue, malaise, unsteady gait especially to the right with NIH stroke scale 0 per squad and also in triage however he does have history of previous stroke eventually while in the ED reporting having a bump beneath his scrotum which started ~ 3 days prior with then onset of fever over the last 2 days. #1. 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 Noted 03/05/2021 echocardiogram for stroke workup at that time with LV systolic function normal, EF 65%, mildly enlarged LA, trivial MVI, trivial TVI, trivial TYRESE, diastolic function indeterminate, bubble contrast study negative for [id number] interatrial shunt thus will defer repeat. Will allow permissive HTN with as needed agents per stroke protocol, maintain on Coumadin with INR trending, await neurology input for any additional antiplatelet therapy recommendations, continue home statin w/ AM FLP, fall precautions. Mag, TSH, FLP, HgbA1c requested. Maintain on fall and aspiration precautions. Given #2, will hold on immediate neurology consultation per discussion with patient as he feels #2 is primarily recently responsible for his debility and weakness, but he is willing to have MRI. #2. Lower scrotal/midline perineal small appearing abscess, not severe appearing: Evaluated patient and remained for I+D of perineal possible small abscess; however, there was a noted pocket with some induration but no marked intense fluctuance or erythema and when I&D was performed by the ED physician there was not a significant amount of any purulent discharge. Swabs were placed into the area that was undermined in a.m. MRSA wound and a wound culture were sent per ED. CBC with no marked WBC elevation only noted 11.1 with a left shift however febrile upon ED arrival. CT pelvis is pending at this time but preliminary read does not look severe but will await final to assure patient does not necessitate transfer to tertiary facility especially given he is diabetic. At this point given his vancomycin reaction with low platelets will maintain on IV Zosyn while cultures/MRSA screen is pending. Will continue consultation with wound RN and will continue packing with iodoform to this region. If any concerns arise although at this time does not look severe could certainly consider involvement of urology. #3. Thrombocytopenia, potentially reactive given presentation with #2 with previous history of drug-induced thrombocytopenia: Admission platelets 142, previous baseline since 11/2022 have now been more normal range but prior to this had drug-induced thrombocytopenia with platelets noted to be down to 21, more recent baseline has been 150-220, most recently prior to this 01/07/2024 platelets 164, continue to trend CBC. #4. Previous CVA with CT at that time 02/2021 demonstrating high-grade stenosis of the distal left vertebral artery, MRI of the brain with a small brainstem infarct on the left, echocardiogram with no shunt noted with referral to neurosurgery secondary to the vertebral artery stenosis eventually discharged home on antiplatelet and statin therapy with eventual implanted loop recorder placed with noted episodes of occasional atrial tachyarrhythmia eventually placed on chronic anticoagulant therapy. Continue evaluation treatment as noted above. #5. PAF: We will continue patient on Coumadin regimen with INR trending, temporally holding hypertensive regimen including metoprolol for permissive hypertension however necessary may add this regimen back for rate control. #6. Chronic macrocytic anemia: Admission hemoglobin 12.6, MCV 110.1, hemoglobin baseline 11-12, stable, will continue to trend CBC. #7. Diabetes mellitus type I with chronic neuropathy I: Hold oral home regimen, nutrition consulted per stroke protocol, hemoglobin A1c requested, ADA diet, accu checks w/ ISS, continue gabapentin regimen hold for sedation. #8. Rheumatoid arthritis: Will hold patient home methotrexate regimen, continue folic acid supplementation, encourage continued outpatient follow-up with rheumatology as previously arranged. #9. Hypertension: Will temporarily maintain permissive hypertension with as needed agents per stroke protocol, add back once appropriate #10. Hyperlipidemia: Continue home statin regimen. AM FLP. #11. Gout: We will continue patient home allopurinol regimen. #12. Former tobacco use: Encourage continued tobacco cessation. #13. DVT prophylaxis: We will continue patient home Coumadin regimen with INR trending. #14. CODE status: Patient LASHAWN is his and living will is currently in place. Discussed CODE status at length including difference between FULL code, DNR-CCA and DNR-CC status. Following discussions about the differences in these status, requested Full Code status. Advanced Care Planning Face to Face Time: 16 minutes. Charges/Coding Visit Charges Inpatient E&M: 10454 Init Hosp L3 Procedures Hospitalists Procedures: 82103 Advncd Care Plan 30 Min
[2024-01-11] MEDS: Lidocaine 1% (20 ml mdv) 20 ML Vial INFILT (02:45)
[2024-01-11] MEDS: Piperacil/Tazobactam 4.5 GM in 0.9% Normal Saline (100mL MB+) 100 ML IV (03:18)
[2024-01-11 03:30] LABS: AST(SGOT) 21 U/L (15-37); Alanine Aminotransfer ALT/SGPT 25 U/L (16-61); Albumin, Serum 3.1 g/dL (3.2-5.0); Alkaline Phosphatase 56 U/L (45-117); Bilirubin, Direct 0.27 mg/dL (0.00-0.30); Globulin 3.7 g/dL (2.2-4.2); Protein, Total 6.8 g/dL (6.4-8.2)
[2024-01-11 03:33] LABS: Lactic Acid 1.1 mmol/L (0.4-1.9)
--- NOTE | 2024-01-11 03:53 | MRI_ITS ---
STUDY: MRI BRAIN WITHOUT CONTRAST REASON FOR EXAM: Male, 73 years old. Ataxia, impaired balance, prior TIA TECHNIQUE: Standardized multiplanar fat and water weighted pulse sequences were obtained. COMPARISON: March 06, 2021 FINDINGS: Normal size of the ventricles and extra-axial spaces for the patient''s age. There are a limited number of small white matter hyperintensities, distributed throughout the deep white matter tracts of the cerebral hemispheres, consistent with mild chronic white matter ischemic changes. There is no evidence for recent intracranial ischemia or other cause of cytotoxic edema on diffusion weighted imaging (DWI). Normal T2* images of the brain without demonstrated susceptibility artifact. There is no demonstrated hemosiderin stain. Normal bilateral basal ganglia. Normal thalami. There is no extra-axial fluid accumulation. Normal flow voids within the major intracranial circulation suggesting patency by spin echo criteria. Normal sella turcica, pituitary gland, infundibular stalk, optic chiasm and hypothalamus. Normal tectal plate and pineal gland. Normal midbrain, van and medulla. Normal cerebellum. Normal basal cisterns. Normal bilateral temporal bones. Normal bilateral internal auditory canals. No demonstrated orbital abnormality, within the constraints of a routine brain study. Normal visualized paranasal sinuses. Normal calvarium and skull base. Normal visualized soft tissue structures. Normal visualized upper cervical spine. MRI/Brain without Contrast IMPRESSION: Involutional changes of the brain, as described above. No acute infarct seen. Electronically Signed: Noé Anton MD at 10:56 EST ,
[2024-01-11 04:06] LABS: Magnesium 1.3 mg/dL (1.6-2.6)
[2024-01-11] MEDS: 0.9% Normal Saline (1000mL) 1,000 ML 100 ML IV (04:53)
[2024-01-11 05:50] LABS: Probe Check PASS; Staph aureus DNA By PCR POSITIVE (Negative)
[2024-01-11 05:51] LABS: M R Staph aureus DNA By PCR POSITIVE (Negative)
[2024-01-11 06:15] LABS: Absolute Lymphocyte Count 1.27 X10^3/uL (0.83-4.51); Absolute Neutrophil Count 10.2 X10^3/uL (2.0-7.7); Basophil# 0.03 X10^3/uL; Basophil% 0.2 % (0-1); Eosinophil# 0.02 X10^3/uL; Eosinophils% 0.2 % (0-5); Hematocrit 31.9 % (40-54); Hemoglobin 11.3 g/dL (13.0-16.5); Lymphocyte # 1.27 X10^3/ul (0.83-4.51); Lymphocyte % 9.9 % (19-41); Mean Corp Hgb Conc 35.4 g/dL (32-36); Mean Corpuscular Hgb 38.7 pg (27.0-32.0); Mean Corpuscular Volume 109.2 fL (80-94); Monocyte% 9.4 % (0-10); NRBC Flagged by Analyzer 0.2 % (0-5); Neutrophil # 10.17 X10^3/uL (2.7-7.7); Neutrophil % 79.4 % (47-70); Platelet Count 131 K/mm3 (150-450); RBC Distribution Width CV 13.2 % (11.6-14.6); RBC Distribution Width SD 52.7 fl (35.1-43.9); Red Blood Count 2.92 M/mm3 (4.6-6.2); White Blood Count 12.8 K/mm3 (4.4-11.0)
[2024-01-11 06:26] LABS: International Normalized Ratio 2.3; Prothrombin Time (Protime)PT. 25.2 SECONDS (11.7-14.9)
[2024-01-11] MEDS: Gabapentin 800 MG Tablet PO ×3 (06:38→20:57)
[2024-01-11 06:47] LABS: ALB/GLOB Ratio 0.8 RATIO (0.9-2.4); AST(SGOT) 18 U/L (15-37); Alanine Aminotransfer ALT/SGPT 19 U/L (16-61); Albumin, Serum 2.9 g/dL (3.2-5.0); Alkaline Phosphatase 52 U/L (45-117); Anion Gap 7 (5-15); BUN 22 mg/dL (7-18); Calcium,Total 8.4 mg/dL (8.5-10.1); Chloride 105 mmol/L (98-107); Cholesterol 77 mg/dL (200); Creatinine, Serum 0.92 mg/dL (0.70-1.30); EST Glomerular Filtration Rate 86 mL/min (>60); Est Glom Filt Rate - Afr Amer 104 mL/min (>60); Estimated Creatinine Clearance 85.65 ml/min; Globulin 3.5 g/dL (2.2-4.2); Glucose 152 mg/dL (74-106); High Density Lipoprotein 52 mg/dL; Protein, Total 6.4 g/dL (6.4-8.2); Sodium Level 134 mmol/L (136-145); Triglycerides 56 mg/dL; Very Low Density Lipoprotein 11 mg/dL (5-40)
[2024-01-11 07:45] LABS: Hemoglobin A1c 6.3 % (3.8-5.6)
[2024-01-11] MEDS: Magnesium Sulfate 4gm/100mL 4 GM/100 ML IV.SOLN. IV (07:50)
[2024-01-11] MEDS: Insulin Lispro 100 UNIT/ML INSULN.PEN 13 UNIT SC ×2 (07:52→16:52)
[2024-01-11] MEDS: Insulin Lispro 100 UNIT/ML INSULN.PEN SC ×2 (07:53→10:45)
[2024-01-11] MEDS: Allopurinol 300 MG Tablet PO (07:54)
[2024-01-11] MEDS: Acyclovir 200 MG Capsule 400 MG PO ×2 (07:54→20:56)
[2024-01-11] MEDS: Folic Acid 1 MG Tablet PO (07:54)
[2024-01-11 10:22] LABS: Bedside Glucose 153 mg/dL (74-106)
--- NOTE | 2024-01-11 10:27 | WOUNDNOTE ---
Pt currently off unit.
[2024-01-11] MEDS: Doxycycline 100 MG in Dextrose 5%-Water (250mL Bag) 250 ML 250 MG IV ×2 (10:48→21:00)
[2024-01-11 11:09] LABS: Bedside Glucose 199 mg/dL (74-106)
--- NOTE | 2024-01-11 11:39 | WOUNDNOTE ---
wound photo: perineum
--- NOTE | 2024-01-11 13:00 | CASEMGMT ---
Addendum entered by Alivia Dacosta 01/11/24 13:56: Pt has small wound to perineal area, which has been packed by Carrie, wound nurse, today. Per Carrie, she states the area is very small and is healing well and does not anticipate pt will need to have any wound care/dsg changes to this area @ discharge. Original Note: RN CM assessment: RN CM to room to meet with pt for initial transition planning/care coordination assessment. RN CM introduced self and role at [facility], pt voices understanding and consents to assessment. Pt is sitting up in chair in no distress on room air. Pt is alert and oriented and answers questions appropriately. Care providers, pharmacy, and demographics verified. Strata: 2 PCP: Kaitlin Specialists: JOSE ANTONIO/cardiology, Dr Trejo-rheumatology, Dr Ronnell Mckeon-dermatology, Dr Mckeon-ophthalmology Preferred Pharmacy: [facility] Insurance: [facility] A/B, [employer] Prescription Benefit: Yes LNOK: Cynthia Earl, Living Arrangements: Pt states lives with in a bi-level home w/2 steps to enter, which pt states he does okay with. Could do FFSU, if needed. Pt is independent with ADL's and manages his own medications. does most of the home mgnt tasks. Transportation: Pt states drives self and states no transportation concerns. also drives. DME: Pt states has the following DME: walker, grab bars, tub bench, quad cane, walker, rollator. Pt has a CGM and glucometer and states has all needles and supplies for them. He also has all needed insulin and medications @ home. HHC/SNF: Pt states no hx of HHC. He has been to [facility] in the past. Pt initially stated would like HHC for SN. Discussed [facility]'s requirements of being homebound. Pt states he was not homebound prior to coming to the hospital and he states will not be homebound at discharge, and states does not want HHC then. He is interested in OP therapy and would like a script @ discharge. Pt wishes to discharge home, declines wanting/needing SNF. He states no concerns with going home at time of discharge. Pt states no further concerns/needs. CM to follow for any further discharge planning/needs. Advised pt to ask for CM if any further questions/concerns/needs arise, voices understanding. Plan: Home [facility] CLEANINGN RN CM
--- NOTE | 2024-01-11 13:03 | PCM.PN.HOSP ---
Reason for Visit Reason for Visit: Diagnoses Cutaneous abscess of perineum (01/11/24) Ataxia, unspecified (01/11/24) Subjective Subjective Patient was seen and examined today, his MRI was negative for stroke, I elected to cancel the neuroconsultation. Patient is currently on doxycycline and Zosyn for an abscessed area in the perineum/ILAN scrotal area. Patient does not complain of any ataxia today and has been up walking. Objective Data Objective Data Vital Signs: Vital Signs Temp Pulse Resp BP Pulse Ox O2 Del Method 98.7 F 101 H 18 141/78 H 96 Room Air 01/11/24 10:43 01/11/24 10:43 01/11/24 10:43 01/11/24 10:43 01/11/24 10:43 01/11/24 10:43 Oxygen Delivery Method Room Air Weight: 108.7 kg Body Mass Index (BMI) 34.4 Intake & Output: Intake and Output for Last 24 Hours 01/09/24 01/10/24 01/11/24 23:59 23:59 23:59 Intake Total 0 / 0 610 / 610 Output Total 200 / 200 Balance 0 / 0 410 / 410 Lab / Micro Data 01/11/24 05:41 01/11/24 05:41 Labs: Laboratory Results - last 24 hr 01/10/24 21:55: WBC 11.1 H, RBC 3.36 L, Hgb 12.6 L, Hct 37.0 L, MCV 110.1 H, MCH 37.5 H, MCHC 34.1, RDW Std Deviation 53.9 H, RDW Coeff of Angelique 13.3, Plt Count 142 L, MPV 10.4, Immature Gran % (Auto) 0.400, Neut % (Auto) 78.5 H, Lymph % (Auto) 11.1 L, [place] % (Auto) 9.6, Eos % (Auto) 0.2, Baso % (Auto) 0.2, Absolute Neuts (auto) 8.7 H, Absolute Lymphs (auto) 1.24, Nucleated RBC % 0, PT 24.5 H, INR 2.2, Sodium 136, Potassium 4.5, Chloride 104, Carbon Dioxide 27.0, Anion Gap 5, BUN 20 H, Creatinine 1.03, Estim Creat Clear Calc 77.31, Est GFR (MDRD) Af Amer 90, Est GFR (MDRD) Non-Af 75, BUN/Creatinine Ratio 19.4, Glucose 124 H, Calcium 9.4 01/10/24 22:47: Urine Color Yellow, Urine Clarity Clear, Urine pH 6.0, Ur Specific [place] 1.015, Urine Protein 30 H, Urine Glucose (UA) Normal, Urine Ketones Negative, Urine Occult Blood 25 H, Urine Nitrite Negative, Urine Bilirubin Negative, Urine Urobilinogen Normal, Ur Leukocyte Esterase Negative, Urine RBC 0 SEEN, Urine WBC 0 SEEN, Ur Squamous Epith Cells 0 SEEN, Urine Bacteria 0 SEEN, Urine Mucus 0 SEEN 01/11/24 02:58: S.aureus Protein A PCR POSITIVE H, MRSA (PCR) POSITIVE H 01/11/24 03:06: Lactic Acid 1.1, Magnesium 1.3 L, Total Bilirubin 0.70, Direct Bilirubin 0.27, AST 21, ALT 25, Alkaline Phosphatase 56, Total Protein 6.8, Albumin 3.1 L, Globulin 3.7 01/11/24 05:41: WBC 12.8 H, RBC 2.92 L, Hgb 11.3 L, Hct 31.9 L, MCV 109.2 H, MCH 38.7 H, MCHC 35.4, RDW Std Deviation 52.7 H, RDW Coeff of Angelique 13.2, Plt Count 131 L, MPV 11.0, Immature Gran % (Auto) 0.900, Neut % (Auto) 79.4 H, Lymph % (Auto) 9.9 L, [place] % (Auto) 9.4, Eos % (Auto) 0.2, Baso % (Auto) 0.2, Absolute Neuts (auto) 10.2 H, Absolute Lymphs (auto) 1.27, Nucleated RBC % 0.2, PT 25.2 H, INR 2.3, Sodium 134 L, Potassium 4.0, Chloride 105, Carbon Dioxide 22.0, Anion Gap 7, BUN 22 H, Creatinine 0.92, Estim Creat Clear Calc 85.65, Est GFR (MDRD) Af Amer 104, Est GFR (MDRD) Non-Af 86, BUN/Creatinine Ratio 24.0 H, Glucose 152 H, Hemoglobin A1c 6.3 H, Calcium 8.4 L, Total Bilirubin 0.90, AST 18, ALT 19, Alkaline Phosphatase 52, Total Protein 6.4, Albumin 2.9 L, Globulin 3.5, Albumin/Globulin Ratio 0.8 L, Triglycerides 56, Cholesterol 77, LDL Cholesterol 14, VLDL Cholesterol 11, HDL Cholesterol 52, TSH 0.970 01/11/24 07:44: POC Glucose 153 H 01/11/24 10:41: POC Glucose 199 H Micro: Microbiology 01/11/24 00:50 Mucosa - Nose SARS-CoV-2, Influenza & RSV (PCR) - Final Radiography Diagnostic Testing: Radiology Impression Head/Neck CTA 01/10/24 22:56 IMPRESSION: No acute intracranial findings. 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 No significant major vessel vaso-occlusive disease in the head. Electronically Signed: Kris Kapoor MD at 0:04 EST , Chest X-Ray 01/10/24 23:15 IMPRESSION: No radiographic evidence of acute cardiopulmonary disease. Electronically Signed: Kris Kapoor MD at 23:48 EST , Pelvis CT 01/11/24 02:11 IMPRESSION: Collection in the perineum at the base of the scrotum possible abscess. Electronically Signed: Marah Balderrama MD at 3:40 EST , Brain MRI 01/11/24 03:53 IMPRESSION: Involutional changes of the brain, as described above. No acute infarct seen. Electronically Signed: Noé Anton MD at 10:56 EST , Physical Exam Const alert, oriented x3, no apparent distress and healthy appearing General Appearance: cooperative, well kempt and well developed Orientation / Consciousness: awake, oriented to person, oriented to place and oriented to time HEENT normocephalic, head/scalp atraumatic and moist oral mucous membranes Eyes PERRL, EOMs intact bilaterally and conjunctivae normal Neck supple, no JVD, thyroid normal and no carotid bruits General: trachea midline Resp normal respiratory effort, no retractions, no use of accessory muscles and clear to auscultation bilaterally Auscultation: Negative for rales, rhonchi or wheezes Cardio regular rate, regular rhythm, S1 normal heart sound, S2 normal heart sound, no murmurs, no rub and no gallops GI normal to inspection, nondistended, normoactive bowel sounds, soft to palpation, non-tender and non-distended Extremity no clubbing, cyanosis or edema Skin Skin Narrative: Patient's perineal/scrotal area was not examined today Neuro oriented x3, CN's II-XII intact bilaterally, moves all extremities, no focal motor deficits and no sensory deficits noted Sensorium / Orientation: awake and alert Speech: speech normal Psych affect normal Assessment & Plan Assessment/Plan (1) Ataxia: PLAN: Plan 1. Ataxia-resolved at this time, etiology unclear, continue to monitor patient #2 perineal/scrotal abscess area-patient will remain on doxycycline and Zosyn at this time #3 essential hypertension-patient will remain on his current medications they will be adjusted as needed #4 type 2 diabetes-continue to monitor blood sugars, sliding scale insulin will be given as needed #5 paroxysmal atrial fibrillation-patient is currently on anticoagulation and rate limiting medication Total clinical time spent by myself addressing the patient's medical issues, reviewing all of his data, and collaborating with patient's care team: 35 minutes Charges/Coding Visit Charges Inpatient E&M: 65257 Subs Hosp L2
[2024-01-11] MEDS: Metoprolol Tartrate 25 MG Tablet PO ×2 (13:19→20:56)
[2024-01-11] MEDS: Piperacil/Tazobactam 3.375 GM in 0.9% Normal Saline (50mL MB+) 50 ML IV ×2 (13:20→22:23)
[2024-01-11] MEDS: Insulin Lispro 100 UNIT/ML INSULN.PEN 10 UNIT SC (13:20)
--- NOTE | 2024-01-11 14:14 | CASEMGMT ---
SW did not complete a PHQ9 for patient as per physician patient did not have a Stroke or TIA. Gabriela MEDRNAO
[2024-01-11 17:22] LABS: Bedside Glucose 147 mg/dL (74-106)
[2024-01-11] MEDS: Acetaminophen 325 MG Tablet 650 MG PO (18:09)
[2024-01-11] MEDS: Atorvastatin Calcium 40 MG Tablet PO (20:57)
[2024-01-11] MEDS: Erythromycin Base 1 OPTH.TUBE 1 APPLIC OPHTHALMIC (20:57)
[2024-01-11] MEDS: Insulin Glargine-YFGN 100 UNIT/ML Pen 30 UNIT SC (21:10)
[2024-01-11 23:33] LABS: Bedside Glucose 140 mg/dL (74-106)
[2024-01-12] VITALS (8 sets, daily range): BP systolic 115–147; BP diastolic 65–90; PULSE 86–109; RESP 16–18; TEMP 36.8–37.7; O2SAT 95–99; BMI 34.4
[2024-01-12] MEDS: Piperacil/Tazobactam 3.375 GM in 0.9% Normal Saline (50mL MB+) 50 ML IV ×3 (05:09→22:37)
[2024-01-12] MEDS: Gabapentin 800 MG Tablet PO ×3 (05:13→21:28)
[2024-01-12] MEDS: Acyclovir 200 MG Capsule 400 MG PO ×2 (08:29→21:28)
[2024-01-12] MEDS: Metoprolol Tartrate 25 MG Tablet PO ×2 (08:29→21:28)
[2024-01-12] MEDS: Folic Acid 1 MG Tablet PO (08:29)
[2024-01-12] MEDS: Lisinopril 10 MG Tablet PO (08:29)
[2024-01-12] MEDS: Allopurinol 300 MG Tablet PO (08:29)
[2024-01-12] MEDS: Insulin Lispro 100 UNIT/ML INSULN.PEN 13 UNIT SC (08:30)
[2024-01-12 08:54] LABS: Bedside Glucose 147 mg/dL (74-106)
[2024-01-12] MEDS: Doxycycline 100 MG in Dextrose 5%-Water (250mL Bag) 250 ML 250 MG IV ×2 (10:15→21:24)
[2024-01-12] MEDS: Insulin Lispro 100 UNIT/ML INSULN.PEN 10 UNIT SC (11:36)
[2024-01-12] MEDS: Insulin Lispro 100 UNIT/ML INSULN.PEN SC ×2 (11:37→21:35)
[2024-01-12 12:01] LABS: Bedside Glucose 187 mg/dL (74-106)
--- NOTE | 2024-01-12 16:59 | PCM.PN.HOSP ---
Reason for Visit Reason for Visit: Diagnoses Cutaneous abscess of perineum (01/11/24) Ataxia, unspecified (01/11/24) Subjective Subjective Patient was seen and examined today, he has no specific complaints for this examiner. Patient has remained afebrile. I had a discussion with patient and his who was here at the time of my examination. Patient's had a history of C. difficile before in the past, I told him that I would send him home on oral vancomycin as well as Zyvox for treatment of his abscessed area. Wound culture grew out rare Staph aureus, patient's PCR was MRSA positive. Objective Data Objective Data Vital Signs: Vital Signs Temp Pulse Resp BP Pulse Ox O2 Del Method 98.8 F 86 16 115/86 H 98 Room Air 01/12/24 13:30 01/12/24 13:30 01/12/24 13:30 01/12/24 13:30 01/12/24 13:30 01/12/24 13:30 Oxygen Delivery Method Room Air Weight: 108.7 kg Body Mass Index (BMI) 34.4 Intake & Output: Intake and Output for Last 24 Hours 01/10/24 01/11/24 01/12/24 23:59 23:59 23:59 Intake Total 0 / 0 2400 / 2520 480 / 480 Output Total 1100 / 1350 250 / 250 Balance 0 / 0 1300 / 1170 230 / 230 Lab / Micro Data 01/11/24 05:41 01/11/24 05:41 Labs: Laboratory Results - last 24 hr 01/11/24 02:58: S.aureus Protein A PCR POSITIVE H, MRSA (PCR) POSITIVE H 01/11/24 16:50: POC Glucose 147 H 01/11/24 21:09: POC Glucose 140 H 01/12/24 08:24: POC Glucose 147 H 01/12/24 11:35: POC Glucose 187 H Micro: Microbiology 01/11/24 02:58 Scrotal Abcess Gram Stain - Final 01/11/24 02:58 Scrotal Abcess Wound Culture - Preliminary Staphylococcus aureus 01/11/24 00:50 Mucosa - Nose SARS-CoV-2, Influenza & RSV (PCR) - Final Physical Exam Narrative alert, oriented x3, no apparent distress and healthy appearing General Appearance: cooperative, well kempt and well developed Orientation / Consciousness: awake, oriented to person, oriented to place and oriented to time HEENT normocephalic, head/scalp atraumatic and moist oral mucous membranes Eyes PERRL, EOMs intact bilaterally and conjunctivae normal Neck supple, no JVD, thyroid normal and no carotid bruits General: trachea midline Resp normal respiratory effort, no retractions, no use of accessory muscles and clear to auscultation bilaterally Auscultation: Negative for rales, rhonchi or wheezes Cardio regular rate, regular rhythm, S1 normal heart sound, S2 normal heart sound, no murmurs, no rub and no gallops GI normal to inspection, nondistended, normoactive bowel sounds, soft to palpation, non-tender and non-distended Extremity no clubbing, cyanosis or edema Skin Skin Narrative: Patient's perineal/scrotal area was not examined today Neuro oriented x3, CN's II-XII intact bilaterally, moves all extremities, no focal motor deficits and no sensory deficits noted Sensorium / Orientation: awake and alert Speech: speech normal Psych affect normal Assessment & Plan Assessment/Plan (1) Perineal abscess: (2) Ataxia: PLAN: Plan 1. Ataxia-resolved at this time, etiology unclear, continue to monitor patient #2 perineal/scrotal abscess area-patient will remain on doxycycline and Zosyn at this time, I will place the patient on oral vancomycin for prevention of C. difficile, labs will be repeated tomorrow #3 essential hypertension-patient will remain on his current medications they will be adjusted as needed #4 type 2 diabetes-continue to monitor blood sugars, sliding scale insulin will be given as needed #5 paroxysmal atrial fibrillation-patient is currently on anticoagulation and rate limiting medication Total clinical time spent by myself addressing the patient's medical issues, reviewing all of his data, and collaborating with patient's care team: 35 minutes Charges/Coding Visit Charges Inpatient E&M: 23411 Subs Hosp L2
[2024-01-12 17:07] LABS: Bedside Glucose 89 mg/dL (74-106)
[2024-01-12] MEDS: Vancomycin 125 MG/5 ML Susp PO.SYRINGE PO ×2 (18:16→23:01)
[2024-01-12 18:30] LABS: Bedside Glucose 133 mg/dL (74-106)
[2024-01-12] MEDS: Insulin Glargine-YFGN 100 UNIT/ML Pen 30 UNIT SC (21:28)
[2024-01-12] MEDS: Erythromycin Base 1 OPTH.TUBE 1 APPLIC OPHTHALMIC (21:29)
[2024-01-12 22:59] LABS: Bedside Glucose 157 mg/dL (74-106)
[2024-01-13 03:15] VITALS: BP 112/77; PULSE 88; RESP 18; TEMP 37; O2SAT 98
[2024-01-13 03:29] VITALS: BMI 34.4
[2024-01-13] MEDS: Gabapentin 800 MG Tablet PO ×2 (05:26→14:47)
[2024-01-13] MEDS: Piperacil/Tazobactam 3.375 GM in 0.9% Normal Saline (50mL MB+) 50 ML IV (05:27)
[2024-01-13] MEDS: Vancomycin 125 MG/5 ML Susp PO.SYRINGE PO ×2 (05:30→13:24)
[2024-01-13 05:33] VITALS: BMI 34.3
[2024-01-13 05:47] LABS: Absolute Lymphocyte Count 1.65 X10^3/uL (0.83-4.51); Absolute Neutrophil Count 6.2 X10^3/uL (2.0-7.7); Basophil# 0.03 X10^3/uL; Basophil% 0.3 % (0-1); Eosinophils% 1.1 % (0-5); Hematocrit 31.5 % (40-54); Hemoglobin 10.9 g/dL (13.0-16.5); Lymphocyte # 1.65 X10^3/ul (0.83-4.51); Mean Corp Hgb Conc 34.6 g/dL (32-36); Mean Corpuscular Hgb 37.7 pg (27.0-32.0); Mean Platelet Vol. 11.3 fl (6.2-12.0); Monocyte# 1.18 X10^3/uL; Monocyte% 12.9 % (0-10); NRBC Flagged by Analyzer 0 % (0-5); Neutrophil # 6.16 X10^3/uL (2.7-7.7); Neutrophil % 67.3 % (47-70); Platelet Count 173 K/mm3 (150-450); RBC Distribution Width CV 12.9 % (11.6-14.6); RBC Distribution Width SD 51.2 fl (35.1-43.9); Red Blood Count 2.89 M/mm3 (4.6-6.2); White Blood Count 9.2 K/mm3 (4.4-11.0)
[2024-01-13 08:25] VITALS: BP 126/81; PULSE 90; RESP 18; TEMP 37; O2SAT 96
[2024-01-13] MEDS: Allopurinol 300 MG Tablet PO (08:30)
[2024-01-13] MEDS: Lisinopril 10 MG Tablet PO (08:30)
[2024-01-13 08:31] VITALS: BP 126/81; PULSE 90
[2024-01-13] MEDS: Metoprolol Tartrate 25 MG Tablet PO (08:31)
[2024-01-13] MEDS: Acyclovir 200 MG Capsule 400 MG PO (08:31)
[2024-01-13] MEDS: Folic Acid 1 MG Tablet PO (08:31)
[2024-01-13] MEDS: Insulin Lispro 100 UNIT/ML INSULN.PEN 13 UNIT SC (09:12)
[2024-01-13 09:47] LABS: Bedside Glucose 133 mg/dL (74-106)
[2024-01-13] MEDS: Doxycycline 100 MG in Dextrose 5%-Water (250mL Bag) 250 ML 250 MG IV (09:55)
[2024-01-13 12:20] LABS: Bedside Glucose 162 mg/dL (74-106)
[2024-01-13] MEDS: Insulin Lispro 100 UNIT/ML INSULN.PEN SC (13:20)
[2024-01-13] MEDS: Insulin Lispro 100 UNIT/ML INSULN.PEN 10 UNIT SC (13:21)
--- NOTE | 2024-01-13 14:39 | DCINST_ITS ---
Discharge Instructions Diet Discharge Diet: No restrictions Activity Discharge Activity: Return to Normal Activity Weight Bearing Status: Full weight bearing Follow Up Care Test Results: Test results from this visit will be discussed in further detail at your follow- up appointment, if applicable. Discharge Plan Admission Admit Date/Time: 01/11/24 03:21 Primary Reason for Your Visit: Perineal abscess Attending Provider: Mauri Proctor Primary Care Provider: Alvarado Madrigal Consulting Providers: Silvia Rosuseau Discharge Orders/Prescriptions Prescriptions: New linezolid [Zyvox] 600 mg tablet 600 mg PO BID Qty: 16 0RF vancomycin 125 mg capsule 125 mg PO BID Qty: 20 0RF Continued lisinopril 10 mg tablet 10 mg PO DAILY gabapentin 800 mg tablet 800 mg PO TID atorvastatin 40 mg tablet 40 mg PO .3xw folic acid 1 mg tablet 1 mg PO DAILY Centrum Silver Men [id number] mcg tablet 1 tab PO DAILY methotrexate sodium 2.5 mg tablet 20 mg PO QWEEK Patient Comments: takes on Saturdays erythromycin 5 mg/gram (0.5 %) ointment 1 applic ophthalmic (eye) Q3H valacyclovir 1 gram tablet 1,000 mg PO QDAY warfarin 2 mg tablet 2 mg PO QWEEK Protocol: Dose Management Condition: Sunday Dose/Route: 4 mg Instruction: 1 x 4 mg tablet Condition: Sunday Dose/Route: 2 mg Instruction: 1 x 2 mg tablet Condition: Sunday Dose/Route: 4 mg Instruction: 1 x 4 mg tablet Condition: Sunday Dose/Route: 4 mg Instruction: 1 x 4 mg tablet Condition: Dose/Route: 4 mg Instruction: 1 x 4 mg tablet Condition: Sunday Dose/Route: 4 mg Instruction: 1 x 4 mg tablet Condition: Sunday Dose/Route: 4 mg Instruction: 1 x 4 mg tablet Protocol Text: Adjustment Start Date: Sunday12/17/23 INR Value: 2.3 INR Date: 12/17/23 Recheck Date: 01/16/24 Patient Comments: takes on Mondays metformin 500 mg tablet 500 mg PO BID allopurinol 300 mg tablet 300 mg PO DAILY Rx Instructions: take with food and fluids acetaminophen 500 mg Tablet 1,000 mg PO BID PRN (Reason: Pain 1-10 Or Fever) warfarin 4 mg tablet 4 mg PO .COMPLEX Protocol: Dose Management Condition: Sunday Dose/Route: 4 mg Instruction: 1 x 4 mg tablet Condition: Sunday Dose/Route: 2 mg Instruction: 1 x 2 mg tablet Condition: Sunday Dose/Route: 4 mg Instruction: 1 x 4 mg tablet Condition: Sunday Dose/Route: 4 mg Instruction: 1 x 4 mg tablet Condition: Dose/Route: 4 mg Instruction: 1 x 4 mg tablet Condition: Sunday Dose/Route: 4 mg Instruction: 1 x 4 mg tablet Condition: Sunday Dose/Route: 4 mg Instruction: 1 x 4 mg tablet Protocol Text: Adjustment Start Date: Sunday12/17/23 INR Value: 2.3 INR Date: 12/17/23 Recheck Date: 01/16/24 Rx Instructions: 4 mg orally every day except Sunday insulin lispro [Humalog KwikPen Insulin] 100 unit/mL insulin pen See Rx Instructions SUBCUT TIDCM Rx Instructions: 13-10-13 TID before meals insulin glargine [Lantus Solostar U-100 Insulin] 100 unit/mL (3 mL) insulin pen 30 unit subcut QPM metoprolol tartrate 25 mg tablet 25 mg PO BID Qty: 180 3RF Mounjaro 7.5 mg/0.5 mL pen injector 7.5 mg subcut QWEEK Qty: 2 3RF Rx Instructions: to be used when 10 mg is unavailable Referrals / Follow Up: Alvarado Madrigal MD [Primary Care Provider] - In 1 Week Disposition Disposition (needs filled in before D/C Order can be placed): Home, Self Care
--- NOTE | 2024-01-13 14:48 | PCM.DC.SUM ---
Providers Date of Admission: 01/11/24 Date of Discharge: 01/13/24 Primary Care Physician: Dr. 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 TIA/CVA, PERINEAL ABSCESS (SMALL) Diagnosis Discharge Diagnosis (1) Perineal abscess: Status: Acute Code(s): L02.215 - Cutaneous abscess of perineum (2) Ataxia: Status: Acute Code(s): R27.0 - Ataxia, unspecified Plan 1. Ataxia-resolved at this time, etiology unclear, continue to monitor patient #2 perineal/scrotal abscess area-patient will remain on doxycycline and Zosyn at this time, I will place the patient on oral vancomycin for prevention of C. difficile, labs will be repeated tomorrow #3 essential hypertension-patient will remain on his current medications they will be adjusted as needed #4 type 2 diabetes-continue to monitor blood sugars, sliding scale insulin will be given as needed #5 paroxysmal atrial fibrillation-patient is currently on anticoagulation and rate limiting medication Total clinical time spent by myself addressing the patient's medical issues, reviewing all of his data, and collaborating with patient's care team: 35 minutes Medications at Discharge Home Medications lisinopril 10 mg tablet 10 mg PO DAILY bp 06/28/18 allopurinol 300 mg tablet 300 mg PO DAILY gout 10/29/20 gabapentin 800 mg tablet 800 mg PO TID neuropathy 07/18/22 [id number] 300 mcg-K 60 mcg-lycop 600 mcg-lutein 300 mcg tablet (Centrum Silver Men) 1 tab PO DAILY 05/21/23 metoprolol tartrate 25 mg tablet 25 mg PO BID bp/hr #180 tabs 08/20/23 atorvastatin 40 mg tablet 40 mg PO .3xw cholesterol 09/24/23 erythromycin 5 mg/gram (0.5 %) eye ointment 1 applic ophthalmic (eye) Q3H 09/24/23 folic acid 1 mg tablet 1 mg PO DAILY 09/24/23 metformin 500 mg tablet 500 mg PO BID dm 09/24/23 methotrexate sodium 2.5 mg tablet 20 mg PO QWEEK 09/24/23 valacyclovir 1 gram tablet 1,000 mg PO QDAY 09/24/23 warfarin 2 mg tablet 2 mg PO QWEEK 09/24/23 tirzepatide 7.5 mg/0.5 mL subcutaneous pen injector (Mounjaro) 7.5 mg (0.5 mL) subcut QWEEK #2 mL 10/22/23 acetaminophen 500 mg tablet 1,000 mg PO BID PRN Pain 1-10 Or Fever 01/11/24 insulin glargine 100 unit/mL (3 mL) subcutaneous pen (Lantus Solostar U-100 Insulin) 30 unit subcut QPM diabetes 01/11/24 insulin lispro 100 unit/mL subcutaneous pen (Humalog KwikPen (U-100) Insulin) See Rx Instructions subcut TIDCM dm 01/11/24 warfarin 4 mg tablet 4 mg PO .COMPLEX afib 01/11/24 linezolid 600 mg tablet (Zyvox) 600 mg PO BID #16 tabs 01/13/24 vancomycin 125 mg capsule 125 mg PO BID #20 caps 01/13/24 Hospital Course Operations None Procedures None Summary of Care Provided Minutes Spent on Discharge: 31 Hospital Course: This 73-year-old white male was seen in the emergency room at [facility] with complaints of difficulty walking. Patient states that he was leaning toward the right as he walked and he had difficulty getting out of his chair and was leaning towards the right when he tried. 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 Patient is chronically on warfarin for paroxysmal A-fib. On evaluation in the ER, patient was noted to be febrile with a temp of 100.3, CTA of the head and neck showed nothing acute, white count was 11.1 and chest x-ray showed no acute process. Urinalysis was negative and COVID and influenza swabs were negative. Patient had been scheduled for a testicular ultrasound and complained of a raised area in his perineum area below his scrotum. On physical exam, there appeared to be an abscess on the left side near the base of the scrotum and the peritoneum. There was some mild erythema noted in the area. This area was tender to palpation. CT of the pelvis without IV contrast was obtained, there was a localized collection in the peritoneum at the base of the scrotum was measured approximately 4.3 cm x 2 cm x 3 cm and was read out as a possible abscess. Informed consent was obtained for incision and drainage in the emergency room, a cruciate incision was made and the wound was probed for loculations, a small amount of purulence was obtained but this was not large. Bleeding was minimal, the area was packed with iodoform gauze, culture was obtained from the wound and there was a PCR sent for staph which was positive and positive for MRSA. Patient was admitted to PCU, he related an allergy to IV vancomycin which caused thrombocytopenia in the past, he was placed on IV doxazosin and Zosyn. I had a discussion by phone with urology (Dr. Jones) and he stated he was leaving town on vacation the following day and after discussing the case with him, he felt that it was prudent to keep the patient on IV antibiotics and that antibiotic treatment would be sufficient. Patient improved during his hospitalization, packing was changed daily, patient underwent an MRI of the brain to rule out acute stroke and there was no sign of an acute stroke. Patient's ataxia resolved. On 01/13/2024, patient was seen and examined: On examination he appeared in good health and spirits. Vital signs as documented. Skin warm and dry and without overt rashes. Neck without JVD, neck was supple, trachea midline, thyroid was normal. Lungs clear bilaterally, normal air movement was noted. Heart exam notable for regular rhythm, normal sounds and absence of murmurs, rubs or gallops. Abdomen unremarkable and without evidence of organomegaly, masses, or abdominal aortic enlargement. Bowel sounds are present, abdomen is not distended. Extremities nonedematous, no cyanosis was noted, no clubbing was noted. Neuro: Cranial nerves II through XII are grossly intact, no focal motor deficits were noted, sensation to light touch and pinprick intact, motor exam 5/5 throughout. Psych: Patient is alert and oriented x3, he does not appear anxious or depressed, he does not appear agitated. Patient was felt to be stable for discharge home, I had talked briefly with infectious diseases on 01/11/2024, they recommended discharging the patient home on Zyvox for treatment of the MRSA. Patient was discharged home in stable condition on 01/13/2024, he was discharged home on vancomycin 125 mg orally twice a day because he had a past history of C. difficile infection. Weight / BMI Weight Weight: 108.5 kg Body Mass Index (BMI) 34.3 ABG / Lab / Microbiology Data 01/13/24 04:10 01/11/24 05:41 Laboratory: Laboratory Results - last 24 hr 01/12/24 16:39: POC Glucose 89 01/12/24 18:11: POC Glucose 133 H 01/12/24 21:17: POC Glucose 157 H 01/13/24 04:10: WBC 9.2, RBC 2.89 L, Hgb 10.9 L, Hct 31.5 L, MCV 109.0 H, MCH 37.7 H, MCHC 34.6, RDW Std Deviation 51.2 H, RDW Coeff of Angelique 12.9, Plt Count 173, MPV 11.3, Immature Gran % (Auto) 0.400, Neut % (Auto) 67.3, Lymph % (Auto) 18.0 L, Brooke % (Auto) 12.9 H, Eos % (Auto) 1.1, Baso % (Auto) 0.3, Absolute Neuts (auto) 6.2, Absolute Lymphs (auto) 1.65, Nucleated RBC % 0 01/13/24 08:22: POC Glucose 133 H 01/13/24 11:55: POC Glucose 162 H Microbiology: Microbiology 01/11/24 00:54 Blood Culture (Wb) - Anticubital Left Blood Culture - Preliminary No growth in 48 hours. 01/11/24 02:58 Scrotal Abcess Gram Stain - Final 01/11/24 02:58 Scrotal Abcess Wound Culture - Final Meth. resistant Staph. aureus 01/11/24 00:50 Mucosa - Nose SARS-CoV-2, Influenza & RSV (PCR) - Final D/C Instructions Discharge Diet: No restrictions Weight Bearing Status: Full weight bearing Meaningful Use Info Meaningful Use Meaningful Use Diagnoses (Choose all that apply): None applicable Ischemic Stroke Statin Dosing Therapy Reference: STATIN DOSE THERAPY REFERENCE: * Patients > 75 years receive moderate or high dose statin therapy. * Patients 75 years or YOUNGER should receive HIGH intensity statin dose unless contraindicated. You will be required to document reason for non-treatment if statin daily dose does not meet guidelines. HIGH DOSE STATIN THERAPY DAILY Atorvastatin > than or = to 40 mg Rosuvastatin > than or = to 20 mg Amlodipine + Atorvastatin > than or = to 2.5/40 mg Ezetimibe + Simvastatin 10/80 mg Simvastatin 80mg Discharge Plan Admission Admit Date/Time: 01/11/24 03:21 Primary Reason for Your Visit: Perineal abscess Attending Provider: Mauri Proctor Primary Care Provider: Alvarado Madrigal Consulting Providers: Silvia Rousseau Discharge Orders/Prescriptions Prescriptions: New linezolid [Zyvox] 600 mg tablet 600 mg PO BID Qty: 16 0RF vancomycin 125 mg capsule 125 mg PO BID Qty: 20 0RF Continued lisinopril 10 mg tablet 10 mg PO DAILY gabapentin 800 mg tablet 800 mg PO TID atorvastatin 40 mg tablet 40 mg PO .3xw folic acid 1 mg tablet 1 mg PO DAILY Centrum Silver Men [phone] mcg tablet 1 tab PO DAILY methotrexate sodium 2.5 mg tablet 20 mg PO QWEEK Patient Comments: takes on Saturdays erythromycin 5 mg/gram (0.5 %) ointment 1 applic ophthalmic (eye) Q3H valacyclovir 1 gram tablet 1,000 mg PO QDAY warfarin 2 mg tablet 2 mg PO QWEEK Protocol: Dose Management Condition: Sunday Dose/Route: 4 mg Instruction: 1 x 4 mg tablet Condition: Sunday Dose/Route: 2 mg Instruction: 1 x 2 mg tablet Condition: Sunday Dose/Route: 4 mg Instruction: 1 x 4 mg tablet Condition: Sunday Dose/Route: 4 mg Instruction: 1 x 4 mg tablet Condition: Dose/Route: 4 mg Instruction: 1 x 4 mg tablet Condition: Sunday Dose/Route: 4 mg Instruction: 1 x 4 mg tablet Condition: Sunday Dose/Route: 4 mg Instruction: 1 x 4 mg tablet Protocol Text: Adjustment Start Date: Sunday12/17/23 INR Value: 2.3 INR Date: 12/17/23 Recheck Date: 01/16/24 Patient Comments: takes on Mondays metformin 500 mg tablet 500 mg PO BID allopurinol 300 mg tablet 300 mg PO DAILY Rx Instructions: take with food and fluids acetaminophen 500 mg Tablet 1,000 mg PO BID PRN (Reason: Pain 1-10 Or Fever) warfarin 4 mg tablet 4 mg PO .COMPLEX Protocol: Dose Management Condition: Sunday Dose/Route: 4 mg Instruction: 1 x 4 mg tablet Condition: Sunday Dose/Route: 2 mg Instruction: 1 x 2 mg tablet Condition: Sunday Dose/Route: 4 mg Instruction: 1 x 4 mg tablet Condition: Sunday Dose/Route: 4 mg Instruction: 1 x 4 mg tablet Condition: Dose/Route: 4 mg Instruction: 1 x 4 mg tablet Condition: Sunday Dose/Route: 4 mg Instruction: 1 x 4 mg tablet Condition: Sunday Dose/Route: 4 mg Instruction: 1 x 4 mg tablet Protocol Text: Adjustment Start Date: Sunday12/17/23 INR Value: 2.3 INR Date: 12/17/23 Recheck Date: 01/16/24 Rx Instructions: 4 mg orally every day except Sunday insulin lispro [Humalog KwikPen Insulin] 100 unit/mL insulin pen See Rx Instructions SUBCUT TIDCM Rx Instructions: 13-10-13 TID before meals insulin glargine [Lantus Solostar U-100 Insulin] 100 unit/mL (3 mL) insulin pen 30 unit subcut QPM metoprolol tartrate 25 mg tablet 25 mg PO BID Qty: 180 3RF Mounjaro 7.5 mg/0.5 mL pen injector 7.5 mg subcut QWEEK Qty: 2 3RF Rx Instructions: to be used when 10 mg is unavailable Referrals / Follow Up: Alvarado Madrigal MD [Primary Care Provider] - In 1 Week Disposition Disposition (needs filled in before D/C Order can be placed): Home, Self Care Charges/Coding Visit Charges Inpatient E&M: 09067 Disch Hosp >30min
--- NOTE | 2024-01-13 15:00 | NURSING ---
Patient declines PT/OT therapy for outpatient treatment. States I do not think it is necessary, if I feel I need it I will talk to my .
[2024-01-13 15:17] VITALS: BP 133/78; PULSE 88; RESP 18; TEMP 36.4; O2SAT 96
[2024-01-13 15:46] VITALS: BMI 34.3
== END 2024-01-13 17:00 | disposition home or self-care (01) | DRG 638 ==
LOC: ED 01-11 03:10 → PCU 01-11 03:52
PROVIDERS: Admitting Provider Family Medicine; Emergency Provider Emergency Medicine; PCP Family Medicine; Visit Provider Internal Medicine
DX: E11.628 Type 2 diabetes mellitus with other skin complications (principal); L02.215 Cutaneous abscess of perineum; D75.829 Heparin-induced thrombocytopenia, unspecified; D53.9 Nutritional anemia, unspecified; E10.65 Type 1 diabetes mellitus with hyperglycemia; B02.9 Zoster without complications; M06.9 Rheumatoid arthritis, unspecified; I10 Essential (primary) hypertension; I48.0 Paroxysmal atrial fibrillation; E10.40 Type 1 diabetes mellitus with diabetic neuropathy, unspecified; E78.5 Hyperlipidemia, unspecified; M10.9 Gout, unspecified; Z79.4 Long term (current) use of insulin; T23.022A Burn of unspecified degree of single left finger (nail) except thumb, initial encounter; R54 Age-related physical debility; T30.0 Burn of unspecified body region, unspecified degree; R53.81 Other malaise; Z79.84 Long term (current) use of oral hypoglycemic drugs; Z87.891 Personal history of nicotine dependence; Z79.01 Long term (current) use of anticoagulants; Z79.85 Long-term (current) use of injectable non-insulin antidiabetic drugs; Z86.73 Personal history of transient ischemic attack (TIA), and cerebral infarction without residual deficits; Z79.631 Long term (current) use of antimetabolite agent; Z79.02 Long term (current) use of antithrombotics/antiplatelets; Z79.899 Other long term (current) drug therapy; N49.2 Inflammatory disorders of scrotum; X58.XXXA Exposure to other specified factors, initial encounter; Z86.19 Personal history of other infectious and parasitic diseases
CPT/HCPCS: 36415; 55100; 70496; 70498; 70551; 71045; 72192; 80048; 80053; 80061; 80076; 81001; 82962; 83036; 83605; 83735; 84443; 85025; 85610; 87040; 87070; 87077; 87186; 87205; 87631; 87640; 93005; 97110; 97162; 97166; 97530; 97535; 97802; 99285; Q9967; A4216

== ENCOUNTER 2024-01-14 10:41 | Outpatient (RCR) | payer MEDICARE, OTHER, SELFPAY ==
[2024-01-14 12:25] LABS: International Normalized Ratio 2.8; Prothrombin Time (Protime)PT. 29.7 SECONDS (11.7-14.9)
== END 2024-01-26 18:00 | disposition home or self-care (01) ==
LOC: MTLAB 10:41
PROVIDERS: PCP Family Medicine; Referring Provider Internal Medicine Cardiovascular Disease; Visit Provider Internal Medicine Cardiovascular Disease
DX: I48.0 Paroxysmal atrial fibrillation (principal); Z79.01 Long term (current) use of anticoagulants; Z86.73 Personal history of transient ischemic attack (TIA), and cerebral infarction without residual deficits
CPT/HCPCS: 36415; 85610

== ENCOUNTER 2024-02-25 08:47 | Outpatient (RCR) | payer MEDICARE, OTHER, SELFPAY ==
[2024-02-11 10:12] LABS: International Normalized Ratio 1.7; Prothrombin Time (Protime)PT. 19.9 SECONDS (11.7-14.9)
[2024-02-18 12:18] LABS: International Normalized Ratio 2.1; Prothrombin Time (Protime)PT. 23.4 SECONDS (11.7-14.9)
[2024-02-25 10:24] LABS: International Normalized Ratio 2.3
== END 2024-02-25 18:00 | disposition home or self-care (01) ==
LOC: MTLAB 08:47
PROVIDERS: PCP Family Medicine; Referring Provider Internal Medicine Cardiovascular Disease; Visit Provider Internal Medicine Cardiovascular Disease
DX: I48.0 Paroxysmal atrial fibrillation (principal); Z79.01 Long term (current) use of anticoagulants; Z86.73 Personal history of transient ischemic attack (TIA), and cerebral infarction without residual deficits
CPT/HCPCS: 36415; 85610

== ENCOUNTER 2024-03-11 09:36 | Outpatient (RCR) | payer MEDICARE, OTHER, SELFPAY ==
[2024-03-11 12:18] LABS: International Normalized Ratio 2.5; Prothrombin Time (Protime)PT. 27.4 SECONDS (11.7-14.9)
== END 2024-03-11 18:00 | disposition home or self-care (01) ==
LOC: MTLAB 09:36
PROVIDERS: PCP Family Medicine; Referring Provider Internal Medicine Cardiovascular Disease; Visit Provider Internal Medicine Cardiovascular Disease
DX: I48.0 Paroxysmal atrial fibrillation (principal); Z79.01 Long term (current) use of anticoagulants; Z86.73 Personal history of transient ischemic attack (TIA), and cerebral infarction without residual deficits

== ENCOUNTER → 2024-03-31 | Outpatient (CLI) | payer MEDICARE, OTHER, SELFPAY ==
[2024-03-31 10:18] LABS: Absolute Lymphocyte Count 1.61 X10^3/uL (0.83-4.51); Absolute Neutrophil Count 1.6 X10^3/uL (2.0-7.7); Basophil# 0.01 X10^3/uL; Basophil% 0.3 % (0-1); Eosinophil# 0.08 X10^3/uL; Eosinophils% 2.2 % (0-5); Hematocrit 35.6 % (40-54); Hemoglobin 12.1 g/dL (13.0-16.5); Lymphocyte # 1.61 X10^3/ul (0.83-4.51); Lymphocyte % 43.9 % (19-41); Mean Corpuscular Hgb 36.2 pg (27.0-32.0); Mean Corpuscular Volume 106.6 fL (80-94); Mean Platelet Vol. 10.7 fl (6.2-12.0); Monocyte# 0.36 X10^3/uL; Monocyte% 9.8 % (0-10); NRBC Flagged by Analyzer 0 % (0-5); Neutrophil # 1.61 X10^3/uL (2.7-7.7); Neutrophil % 43.8 % (47-70); Platelet Count 149 K/mm3 (150-450); RBC Distribution Width CV 13.4 % (11.6-14.6); Red Blood Count 3.34 M/mm3 (4.6-6.2); White Blood Count 3.7 K/mm3 (4.4-11.0)
[2024-03-31 10:57] LABS: Vitamin B12 632 pg/mL (211-911)
[2024-03-31 11:07] LABS: ALB/GLOB Ratio 0.9 RATIO (0.9-2.4); AST(SGOT) 36 U/L (15-37); Alanine Aminotransfer ALT/SGPT 39 U/L (16-61); Albumin, Serum 3.4 g/dL (3.2-5.0); Alkaline Phosphatase 60 U/L (45-117); Anion Gap 8 (5-15); BUN 21 mg/dL (7-18); BUN/Creat Ratio 23.4 RATIO (10-20); Calcium,Total 8.9 mg/dL (8.5-10.1); Chloride 109 mmol/L (98-107); Cholesterol 97 mg/dL (200); EST Glomerular Filtration Rate 88 mL/min (>60); Est Glom Filt Rate - Afr Amer 106 mL/min (>60); Globulin 3.9 g/dL (2.2-4.2); Glucose 92 mg/dL (74-106); High Density Lipoprotein 43 mg/dL; Potassium 4.2 mmol/L (3.5-5.1); Protein, Total 7.3 g/dL (6.4-8.2); Sodium Level 140 mmol/L (136-145); Triglycerides 103 mg/dL; Very Low Density Lipoprotein 21 mg/dL (5-40)
== END | disposition home or self-care (01) ==
LOC: MTLAB 09:09
PROVIDERS: PCP Family Medicine; Referring Provider Physician Assistant; Visit Provider Physician Assistant
DX: M06.4 Inflammatory polyarthropathy (principal); I48.0 Paroxysmal atrial fibrillation; M32.9 Systemic lupus erythematosus, unspecified; E11.65 Type 2 diabetes mellitus with hyperglycemia; E78.2 Mixed hyperlipidemia; I10 Essential (primary) hypertension; E53.8 Deficiency of other specified B group vitamins; Z79.899 Other long term (current) drug therapy
CPT/HCPCS: 36415; 80053; 80061; 82607; 85025

== ENCOUNTER 2024-04-07 08:52 | Outpatient (RCR) | payer MEDICARE, OTHER, SELFPAY ==
[2024-04-07 10:49] LABS: International Normalized Ratio 2.4; Prothrombin Time (Protime)PT. 26.2 SECONDS (11.7-14.9)
== END 2024-04-25 18:00 | disposition home or self-care (01) ==
LOC: MTLAB 08:52
PROVIDERS: PCP Family Medicine; Referring Provider Internal Medicine Cardiovascular Disease; Visit Provider Internal Medicine Cardiovascular Disease
DX: I48.0 Paroxysmal atrial fibrillation (principal); Z79.01 Long term (current) use of anticoagulants; Z86.73 Personal history of transient ischemic attack (TIA), and cerebral infarction without residual deficits
CPT/HCPCS: 36415; 85610

== ENCOUNTER 2024-05-05 09:09 | Outpatient (RCR) | payer MEDICARE, OTHER, SELFPAY ==
[2024-05-05 13:01] LABS: International Normalized Ratio 2.4; Prothrombin Time (Protime)PT. 26.9 SECONDS (11.7-14.9)
== END 2024-05-05 18:00 | disposition home or self-care (01) ==
LOC: MTLAB 09:09
PROVIDERS: PCP Family Medicine; Referring Provider Internal Medicine Cardiovascular Disease; Visit Provider Internal Medicine Cardiovascular Disease
DX: I48.0 Paroxysmal atrial fibrillation (principal); Z79.01 Long term (current) use of anticoagulants
CPT/HCPCS: 36415; 85610

== ENCOUNTER → 2024-05-26 | Outpatient (CLI) | payer MEDICARE, OTHER, SELFPAY ==
[2024-05-26 12:18] LABS: Absolute Lymphocyte Count 1.62 X10^3/uL (0.83-4.51); Absolute Neutrophil Count 2.1 X10^3/uL (2.0-7.7); Basophil# 0.02 X10^3/uL; Basophil% 0.5 % (0-1); Eosinophil# 0.12 X10^3/uL; Eosinophils% 2.8 % (0-5); Hematocrit 33.5 % (40-54); Lymphocyte # 1.62 X10^3/ul (0.83-4.51); Lymphocyte % 37.7 % (19-41); Mean Corp Hgb Conc 35.8 g/dL (32-36); Mean Corpuscular Hgb 37.6 pg (27.0-32.0); Mean Platelet Vol. 11.1 fl (6.2-12.0); Monocyte# 0.39 X10^3/uL; Monocyte% 9.1 % (0-10); NRBC Flagged by Analyzer 0 % (0-5); Neutrophil # 2.14 X10^3/uL (2.7-7.7); Neutrophil % 49.7 % (47-70); Platelet Count 170 K/mm3 (150-450); RBC Distribution Width CV 13.3 % (11.6-14.6); RBC Distribution Width SD 51.5 fl (35.1-43.9); Red Blood Count 3.19 M/mm3 (4.6-6.2); White Blood Count 4.3 K/mm3 (4.4-11.0)
[2024-05-26 12:37] LABS: ALB/GLOB Ratio 1.3 RATIO (0.9-2.4); AST(SGOT) 43 U/L (<=37); Alanine Aminotransfer ALT/SGPT 34 U/L (<=46); Albumin, Serum 3.8 g/dL (3.4-4.8); Alkaline Phosphatase 57 U/L (40-129); Anion Gap 11 (5-15); BUN 20 mg/dL (4-19); BUN/Creat Ratio 23.9 RATIO (10-20); Calcium,Total 9.1 mg/dL (7.6-11.0); Carbon Dioxide 21.5 mmol/L (21.0-32.0); Chloride 107 mmol/L (98-108); Creatinine, Serum 0.83 mg/dL (0.70-1.20); EST Glomerular Filtration Rate 91 (>60); Glucose 103 mg/dL (70-99); Potassium 4.4 mmol/L (3.3-5.1); Protein, Total 6.8 g/dL (5.9-8.4); Sodium Level 140 mmol/L (133-145); Total Bilirubin 0.51 mg/dL (0.00-1.30)
== END | disposition home or self-care (01) ==
LOC: MTLAB 09:52
PROVIDERS: PCP Family Medicine; Referring Provider Internal Medicine Rheumatology; Visit Provider Internal Medicine Rheumatology
DX: M06.4 Inflammatory polyarthropathy (principal); Z79.899 Other long term (current) drug therapy
CPT/HCPCS: 36415; 80053; 85025

== ENCOUNTER 2024-06-02 10:20 | Outpatient (RCR) | payer MEDICARE, OTHER, SELFPAY ==
[2024-06-02 13:52] LABS: Prothrombin Time (Protime)PT. 22.6 SECONDS (11.7-14.9)
== END 2024-06-25 18:00 | disposition home or self-care (01) ==
LOC: MTLAB 10:20
PROVIDERS: PCP Family Medicine; Referring Provider Internal Medicine Cardiovascular Disease; Visit Provider Internal Medicine Cardiovascular Disease
DX: I48.19 Other persistent atrial fibrillation (principal); Z79.01 Long term (current) use of anticoagulants
CPT/HCPCS: 36415; 85610

== ENCOUNTER → 2024-06-04 | Outpatient (CLI) | payer MEDICARE, OTHER, SELFPAY ==
--- NOTE | 2024-06-04 07:22 | US_ITS ---
PROCEDURE: LIVER ([facility]), 06/04/2024 REASON FOR EXAM: ELEVATED LIVER ENZYMES COMPARISON: None FINDINGS: Exam limited by soft tissue attenuation and shadowing bowel gas. Liver: Echogenic. 17.8 cm in length. Gallbladder: Surgically absent. Biliary tree: Unremarkable. CBD measures 3 mm. Pancreas: Largely obscured by shadowing bowel gas, grossly unremarkable as partially imaged. Right kidney: Unremarkable. 10.7 cm in length. Other: No visualized free fluid. US/Liver IMPRESSION: 1. Echogenic appearance of the hepatic parenchyma, typically associated with he patic steatosis. Fibrosis/early cirrhosis may also have this appearance. No overt serosal nodularity to suggest this. 2. Additional description as above. Reading Location: [id number]
== END | disposition home or self-care (01) ==
LOC: US 07:19
PROVIDERS: PCP Family Medicine; Referring Provider Internal Medicine Rheumatology; Visit Provider Internal Medicine Rheumatology
DX: M06.4 Inflammatory polyarthropathy (principal); Z79.899 Other long term (current) drug therapy
CPT/HCPCS: 76705

== ENCOUNTER → 2024-06-27 | Outpatient (CLI) | payer MEDICARE, OTHER, SELFPAY ==
[2024-06-27 11:02] LABS: ALB/GLOB Ratio 1.3 RATIO (0.9-2.4); AST(SGOT) 38 U/L (<=37); Alanine Aminotransfer ALT/SGPT 27 U/L (<=46); Alkaline Phosphatase 61 U/L (40-129); Anion Gap 10 (5-15); BUN 23 mg/dL (4-19); BUN/Creat Ratio 25.7 RATIO (10-20); Calcium,Total 9.1 mg/dL (7.6-11.0); Carbon Dioxide 23.8 mmol/L (21.0-32.0); Chloride 104 mmol/L (98-108); EST Glomerular Filtration Rate 89 (>60); Globulin 3.2 g/dL (2.2-4.2); Glucose 146 mg/dL (70-99); Potassium 5.2 mmol/L (3.3-5.1); Protein, Total 7.2 g/dL (5.9-8.4); Sodium Level 138 mmol/L (133-145); Total Bilirubin 0.63 mg/dL (0.00-1.30)
== END | disposition home or self-care (01) ==
LOC: MTLAB 08:43
PROVIDERS: PCP Family Medicine; Referring Provider Internal Medicine Rheumatology; Visit Provider Internal Medicine Rheumatology
DX: M06.4 Inflammatory polyarthropathy (principal); Z79.899 Other long term (current) drug therapy
CPT/HCPCS: 36415; 80053

== ENCOUNTER 2024-07-02 10:24 | Outpatient (RCR) | payer MEDICARE, OTHER, SELFPAY ==
[2024-07-02 12:47] LABS: International Normalized Ratio 1.9; Prothrombin Time (Protime)PT. 21.7 SECONDS (11.7-14.9)
== END 2024-07-02 18:00 | disposition home or self-care (01) ==
LOC: MTLAB 10:24
PROVIDERS: PCP Family Medicine; Referring Provider Internal Medicine Cardiovascular Disease; Visit Provider Internal Medicine Cardiovascular Disease
DX: I48.0 Paroxysmal atrial fibrillation (principal); Z79.01 Long term (current) use of anticoagulants
CPT/HCPCS: 36415; 85610

== ENCOUNTER 2024-08-04 08:45 | Outpatient (RCR) | payer MEDICARE, OTHER, SELFPAY ==
[2024-08-04 09:21] LABS: International Normalized Ratio 2.1; Prothrombin Time (Protime)PT. 24.2 SECONDS (11.7-14.9)
== END 2024-08-04 18:00 | disposition home or self-care (01) ==
LOC: LAB 08:45
PROVIDERS: PCP Family Medicine; Referring Provider Internal Medicine Cardiovascular Disease; Visit Provider Internal Medicine Cardiovascular Disease
DX: I48.0 Paroxysmal atrial fibrillation (principal); Z79.01 Long term (current) use of anticoagulants
CPT/HCPCS: 36415; 85610

== ENCOUNTER → 2024-08-25 | Outpatient (CLI) | payer MEDICARE, OTHER, SELFPAY ==
[2024-08-25 09:51] LABS: Absolute Lymphocyte Count 1.86 X10^3/uL (0.83-4.51); Basophil# 0.03 X10^3/uL; Basophil% 0.7 % (0-1); Eosinophil# 0.15 X10^3/uL; Eosinophils% 3.4 % (0-5); Hematocrit 34.8 % (40-54); Lymphocyte # 1.86 X10^3/ul (0.83-4.51); Lymphocyte % 42.2 % (19-41); Mean Corp Hgb Conc 34.5 g/dL (32-36); Mean Corpuscular Hgb 37.6 pg (27.0-32.0); Mean Corpuscular Volume 109.1 fL (80-94); Mean Platelet Vol. 10.4 fl (6.2-12.0); Monocyte# 0.37 X10^3/uL; Monocyte% 8.4 % (0-10); NRBC Flagged by Analyzer 0 % (0-5); Neutrophil # 1.98 X10^3/uL (2.7-7.7); Neutrophil % 44.8 % (47-70); Platelet Count 145 K/mm3 (150-450); RBC Distribution Width CV 12.9 % (11.6-14.6); RBC Distribution Width SD 52.1 fl (35.1-43.9); Red Blood Count 3.19 M/mm3 (4.6-6.2); White Blood Count 4.4 K/mm3 (4.4-11.0)
[2024-08-25 10:20] LABS: ALB/GLOB Ratio 1.2 RATIO (0.9-2.4); AST(SGOT) 40 U/L (<=37); Alanine Aminotransfer ALT/SGPT 24 U/L (<=46); Albumin, Serum 3.7 g/dL (3.4-4.8); Alkaline Phosphatase 62 U/L (40-129); Anion Gap 10 (5-15); BUN 18 mg/dL (4-19); BUN/Creat Ratio 20.5 RATIO (10-20); Calcium,Total 9.2 mg/dL (7.6-11.0); Carbon Dioxide 24.2 mmol/L (21.0-32.0); Chloride 104 mmol/L (98-108); Creatinine, Serum 0.86 mg/dL (0.70-1.20); EST Glomerular Filtration Rate 90 (>60); Glucose 163 mg/dL (70-99); Potassium 4.6 mmol/L (3.3-5.1); Protein, Total 6.7 g/dL (5.9-8.4); Sodium Level 138 mmol/L (133-145); Total Bilirubin 0.58 mg/dL (0.00-1.30)
== END | disposition home or self-care (01) ==
LOC: MTLAB 08:31
PROVIDERS: PCP Family Medicine; Referring Provider Internal Medicine Rheumatology; Visit Provider Internal Medicine Rheumatology
DX: M06.4 Inflammatory polyarthropathy (principal); M32.9 Systemic lupus erythematosus, unspecified; K76.0 Fatty (change of) liver, not elsewhere classified; Z79.899 Other long term (current) drug therapy
CPT/HCPCS: 36415; 80053; 85025

== ENCOUNTER 2024-09-03 09:00 | Outpatient (RCR) | payer MEDICARE, OTHER, SELFPAY ==
[2024-09-03 11:21] LABS: Prothrombin Time (Protime)PT. 25.7 SECONDS (11.7-14.9)
== END 2024-09-25 18:00 | disposition home or self-care (01) ==
LOC: MTLAB 09:00
PROVIDERS: PCP Family Medicine; Referring Provider Internal Medicine Cardiovascular Disease; Visit Provider Internal Medicine Cardiovascular Disease
DX: I48.0 Paroxysmal atrial fibrillation (principal); Z79.01 Long term (current) use of anticoagulants
CPT/HCPCS: 36415; 85610

== ENCOUNTER 2024-10-03 08:46 | Outpatient (RCR) | payer MEDICARE, OTHER, SELFPAY ==
[2024-10-03 10:43] LABS: Prothrombin Time (Protime)PT. 25.3 SECONDS (11.7-14.9)
== END 2024-10-03 18:00 | disposition home or self-care (01) ==
LOC: MTLAB 08:46
PROVIDERS: PCP Family Medicine; Referring Provider Internal Medicine Cardiovascular Disease; Visit Provider Internal Medicine Cardiovascular Disease
DX: I48.0 Paroxysmal atrial fibrillation (principal); Z79.01 Long term (current) use of anticoagulants; Z86.73 Personal history of transient ischemic attack (TIA), and cerebral infarction without residual deficits
CPT/HCPCS: 36415; 85610

== ENCOUNTER 2024-10-28 09:35 | Outpatient (RCR) | payer MEDICARE, OTHER, SELFPAY ==
[2024-10-28 12:38] LABS: Hematocrit 34.9 % (40-54); Hemoglobin 12.5 g/dL (13.0-16.5); Immature Granulocytes Count 0.020 X10^3/uL (0.0-0.0); Mean Corp Hgb Conc 35.8 g/dL (32-36); Mean Corpuscular Volume 108.0 fL (80-94); Mean Platelet Vol. 10.9 fl (6.2-12.0); NRBC Flagged by Analyzer 0 % (0-5); Platelet Count 172 K/mm3 (150-450); RBC Distribution Width CV 13.5 % (11.6-14.6); RBC Distribution Width SD 53.6 fl (35.1-43.9); Red Blood Count 3.23 M/mm3 (4.6-6.2); White Blood Count 5.9 K/mm3 (4.4-11.0)
[2024-10-28 12:45] LABS: Prothrombin Time (Protime)PT. 26.7 SECONDS (11.7-14.9)
[2024-10-28 13:13] LABS: AST(SGOT) 35 U/L (<=37); Alanine Aminotransfer ALT/SGPT 28 U/L (<=46); Albumin, Serum 3.8 g/dL (3.4-4.8); Alkaline Phosphatase 63 U/L (40-129); Anion Gap 10 (5-15); BUN 23 mg/dL (4-19); BUN/Creat Ratio 26.8 RATIO (10-20); Calcium,Total 9.2 mg/dL (7.6-11.0); Carbon Dioxide 21.0 mmol/L (21.0-32.0); Chloride 104 mmol/L (98-108); Globulin 3.1 g/dL (2.2-4.2); Glucose 217 mg/dL (70-99); Potassium 4.6 mmol/L (3.3-5.1)
== END 2024-11-25 18:00 | disposition home or self-care (01) ==
LOC: MTLAB 09:35
PROVIDERS: PCP Family Medicine; Referring Provider Internal Medicine Cardiovascular Disease; Visit Provider Internal Medicine Cardiovascular Disease
DX: I48.0 Paroxysmal atrial fibrillation (principal); Z79.01 Long term (current) use of anticoagulants; Z86.73 Personal history of transient ischemic attack (TIA), and cerebral infarction without residual deficits
CPT/HCPCS: 36415; 80053; 85025; 85610

== ENCOUNTER 2024-11-26 09:56 | Outpatient (RCR) | payer MEDICARE, OTHER, SELFPAY ==
[2024-11-26 10:41] LABS: Prothrombin Time (Protime)PT. 31.5 SECONDS (11.7-14.9)
== END 2024-11-26 18:00 | disposition home or self-care (01) ==
LOC: MTLAB 09:56
PROVIDERS: PCP Family Medicine; Referring Provider Internal Medicine Cardiovascular Disease; Visit Provider Internal Medicine Cardiovascular Disease
DX: I48.0 Paroxysmal atrial fibrillation (principal); Z79.01 Long term (current) use of anticoagulants; Z86.73 Personal history of transient ischemic attack (TIA), and cerebral infarction without residual deficits
CPT/HCPCS: 36415; 85610

== ENCOUNTER 2025-01-16 09:39 | Outpatient (RCR) | payer MEDICARE, OTHER, SELFPAY ==
[2025-01-01 10:26] LABS: Prothrombin Time (Protime)PT. 32.4 SECONDS (11.7-14.9)
[2025-01-16 10:26] LABS: Hematocrit 37.5 % (40-54); Hemoglobin 12.9 g/dL (13.0-16.5); Immature Granulocytes Count 0.020 X10^3/uL (0.0-0.0); Mean Corp Hgb Conc 34.4 g/dL (32-36); Mean Corpuscular Volume 110.0 fL (80-94); Mean Platelet Vol. 10.4 fl (6.2-12.0); NRBC Flagged by Analyzer 0 % (0-5); Platelet Count 162 K/mm3 (150-450); RBC Distribution Width CV 12.7 % (11.6-14.6); RBC Distribution Width SD 51.7 fl (35.1-43.9); Red Blood Count 3.41 M/mm3 (4.6-6.2); White Blood Count 4.2 K/mm3 (4.4-11.0)
[2025-01-16 10:49] LABS: Prothrombin Time (Protime)PT. 26.1 SECONDS (11.7-14.9)
[2025-01-16 11:07] LABS: AST(SGOT) 33 U/L (<=37); Alanine Aminotransfer ALT/SGPT 19 U/L (<=46); Albumin, Serum 3.8 g/dL (3.4-4.8); Alkaline Phosphatase 61 U/L (40-129); Anion Gap 10 (5-15); BUN 17 mg/dL (4-19); BUN/Creat Ratio 19.6 RATIO (10-20); Calcium,Total 9.3 mg/dL (7.6-11.0); Carbon Dioxide 23.0 mmol/L (21.0-32.0); Chloride 104 mmol/L (98-108); Globulin 3.1 g/dL (2.2-4.2); Glucose 171 mg/dL (70-99); Potassium 4.3 mmol/L (3.3-5.1)
== END 2025-01-25 18:00 | disposition home or self-care (01) ==
LOC: MTLAB 09:39
PROVIDERS: PCP Family Medicine; Referring Provider Internal Medicine Cardiovascular Disease; Visit Provider Internal Medicine Cardiovascular Disease
DX: I48.0 Paroxysmal atrial fibrillation (principal); M06.4 Inflammatory polyarthropathy; Z79.01 Long term (current) use of anticoagulants; Z79.899 Other long term (current) drug therapy; Z86.73 Personal history of transient ischemic attack (TIA), and cerebral infarction without residual deficits
CPT/HCPCS: 36415; 80053; 85025; 85610

== ENCOUNTER 2025-02-16 08:49 | Outpatient (RCR) | payer MEDICARE, OTHER, SELFPAY ==
[2025-02-16 10:43] LABS: Prothrombin Time (Protime)PT. 26.2 SECONDS (11.7-14.9)
== END 2025-02-16 18:00 | disposition home or self-care (01) ==
LOC: MTLAB 08:49
PROVIDERS: PCP Family Medicine; Referring Provider Internal Medicine Cardiovascular Disease; Visit Provider Internal Medicine Cardiovascular Disease
DX: I48.0 Paroxysmal atrial fibrillation (principal); Z79.01 Long term (current) use of anticoagulants; Z86.73 Personal history of transient ischemic attack (TIA), and cerebral infarction without residual deficits
CPT/HCPCS: 36415; 85610